=== PATIENT | male | born 1965 | race Caucasian/White ===

== ENCOUNTER → 2016-08-06 | Outpatient (CLI) | payer BC ==
[~2016-08-06] MED LIST: LANS15CA15 PO; RIVA1TAB4 PO; ULT50X PO; XRL15 PO
[2016-08-06 13:44] LABS: ESTIMATED AVERAGE GLUCOSE 128 mg/dl; HA1C FLAG Normal (Normal)
[2016-08-06 13:51] LABS: CHOLESTEROL/HDL RATIO 3.7; PROSTATE SPECIFIC ANTIGEN 3.55 ng/ml (0.000-4.000); THYROID STIMULATING HORMONE 5.96 uIu/ml (0.300-4.500)
--- NOTE | 2016-09-24 13:43 | CODING QUERY MEDICAL NECESSITY ---
CQSUPPORTING DIAGNOSIS NEEDED A supporting diagnosis is required for the test/procedure performed on this patient in order for us to be reimbursed by the patient's insurance. Please provide a supporting diagnosis for the following test/procedure listed below next to the test name along with your signature. *If there is no additional diagnosis for this patient that would support the following test/procedure please document that below next to the test/procedure. Test(s)/Procedure(s) that require a supporting diagnosis: DOS 09/20/16 GLYCATED HEMOGLOBIN TEST PROSTTE SPECIFIC TEST Provider Signature: Date: Thank you Gina Solomon [facility] Information Management Once completed, please kindly fax back to [phone] For questions please call [phone]
== END | disposition home or self-care (01) ==
LOC: C.LAB 12:48
PROVIDERS: ATTEND Internal Medicine Pulmonary Disease
DX: Z00.00 Encounter for general adult medical examination without abnormal findings (principal); D75.1 Secondary polycythemia; I26.99 Other pulmonary embolism without acute cor pulmonale

== ENCOUNTER 2021-03-16 10:11 | Inpatient (IN) ==
[2021-03-16 11:22] LABS: Basophils # (auto) 0.11 K/uL (0-0.2); Basophils % (auto) 0.9 %; Eosinophils # (auto) 0.12 K/uL (0-0.5); Hematocrit (blood only) 36.3 % (42-52); Hemoglobin 12.3 g/dL (14.0-18.0); Howell-Jolly Bodies 1+; Immature Granulocytes # (auto) 0.04 K/uL (0.00-0.02); Immature Granulocytes % (auto) 0.3 %; Lymphocytes # (auto) 2.24 K/uL (1.2-3.4); Lymphocytes % (auto) 18.5 %; Macrocytosis Present; Mean Corpuscular Hemoglobin 36.2 pg (25-34); Mean Corpuscular Hgb Conc 33.9 g/dL (32-36); Mean Corpuscular Volume 106.8 fL (80-100); Mean Platelet Volume 13.6 fL (7.4-10.4); Monocytes # (auto) 1.04 K/uL (0.11-0.59); Monocytes % (auto) 8.6 %; Neutrophils # (auto) 8.57 K/uL (1.4-6.5); Neutrophils % (auto) 70.7 %; Platelet Count 83 K/uL (130-400); Platelet Estimate Decreased (Normal); RDW Coefficient of Variation 13.5 % (11.5-14.5); RDW Standard Deviation 52.7 fL (36.4-46.3); Target Cells 1+; White Blood Count 12.12 K/uL (4.8-10.8)
[2021-03-16 11:25] LABS: Albumin Globulin Ratio 0.5 (0.9-2); Albumin Level 2.2 gm/dl (3.4-5.0); Bilirubin,Total 7.2 mg/dl (0.2-1); Calcium 8.7 mg/dl (8.5-10.1); Creatinine Clr Calc Pharmacy 124.4 ml/min; Est GFR (African American) 124.2 ml/min; Est GFR (Non-African American) 107.1 ml/min; Globulin 4.2 gm/dl (2.5-4.0); Potassium 3.7 mmol/L (3.5-5.1); Total Protein 6.4 gm/dl (6.4-8.2)
[2021-03-16] MEDS ORDERED: SODIUM CHLORIDE 0.9% 1000ML 1,000 ML IV SCH ×2 (11:30→12:30)
--- NOTE | 2021-03-16 11:33 | Emergency Department Note ---
History of Present Illness General Chief complaint: Abdominal Pain Stated complaint: PAIN RT ABD,DIARRHEA,VOMITING Time Seen by Provider: 03/16/21 10:57 History of Present Illness Maximum Pain Intensity: 6 55-year-old male, history of creatinine mass, status post partial pancreatectomy and splenectomy, who presents to the emergency department with complaint of abdominal pain, diarrhea, nausea and vomiting for the past 2 weeks. The patient reports that the pain in the abdomen has become more widespread. He denies any pain radiating into the back. He also denies any urinary symptoms. The patient has not noticed any blood in his vomitus. He had some black stools a few days ago, but it is more brown in color. The patient has had a prior history of colonoscopy by Dr. Cedillo ([facility]), showing several colonic polyps. The patient also takes Prevacid for GERD. The patient has an appointment with Dr. Cedillo on 03/31/2021. The patient has felt chilled, but has not checked his temperature. He rates his overall discomfort a 6 out of 10. Home Medications Medication Instructions Recorded Confirmed Type lansoprazole 30 mg capsule,delayed 30 mg PO QAM 10/28/18 03/16/21 History release (Prevacid) venlafaxine 37.5 mg tablet 37.5 mg PO BID 10/28/18 03/16/21 History cholecalciferol (vitamin D3) 25 25 mcg PO DAILY 03/16/21 03/16/21 History mcg (1,000 unit) tablet (Vitamin D3) folic acid 400 mcg tablet 0.4 mg PO DAILY 03/16/21 03/16/21 History Allergies Allergy/AdvReac Type Severity Reaction Status Date / Time bee venom protein (honey bee) Allergy Severe Hives / Verified 10/28/18 10:30 Anaphylaxis adhesive Allergy Mild Verified 10/28/18 10:30 Past Med/Surg History Medical History GERD (gastroesophageal reflux disease) Pancreatic mass Polycythemia PTSD (post-traumatic stress disorder) Surgical History (Updated 03/16/21 @ 19:40 by Richard Barrera) History of bilateral inguinal herniorrhaphies History of partial pancreatectomy History of splenectomy Family History Mother Dementia Father Diabetes Heart disease Prostate cancer Sister Neurofibromatosis Social History (Updated 03/16/21 @ 19:51 by Sanjeev Corona DO) Smoking Status: Current every day smoker packs per day: 0.5; Years Smoked: 20; Hx Alcohol Use: Yes (4 drinks/day, daily) Hx Substance Use: No marital status: Current Living Situation: Spouse current occupational status: retired Feels Safe at Home: Yes Diet Comment: "not a very healthy diet" Review of Systems 10 system review was performed and was negative except for pertinent positives and negatives as indicated in history of present illness Physical Exam Vital Signs Vital Signs - 24 hr 03/16/21 10:20 03/16/21 11:15 03/16/21 11:22 Temperature 36.4 C L Temperature Source Temporal Artery Scan Pulse Rate 117 H Pulse Rate [Finger] Pulse Rate from SpO2 Sensor Respiratory Rate 16 Blood Pressure 120/63 Blood Pressure [Left Arm] Blood Pressure Mean 82 Blood Pressure Mean [Left Arm] Pulse Oximetry 95 99 97 Oxygen Delivery Method Room Air Room Air Sepsis Recent Fever Within 48 Hours No Sepsis New/Unexplained Change in Mental Status No Sepsis Action Taken by Nursing No Action Required 03/16/21 11:52 03/16/21 12:00 03/16/21 12:30 Temperature Temperature Source Pulse Rate 104 H 99 H 96 H Pulse Rate [Finger] Pulse Rate from SpO2 Sensor Respiratory Rate 16 16 20 Blood Pressure 120/62 128/64 Blood Pressure [Left Arm] Blood Pressure Mean 81 85 Blood Pressure Mean [Left Arm] Pulse Oximetry 99 97 Oxygen Delivery Method Sepsis Recent Fever Within 48 Hours Sepsis New/Unexplained Change in Mental Status Sepsis Action Taken by Nursing 03/16/21 13:00 03/16/21 13:30 03/16/21 14:00 Temperature Temperature Source Pulse Rate 98 H 97 H 95 H Pulse Rate [Finger] Pulse Rate from SpO2 Sensor Respiratory Rate 18 16 20 Blood Pressure 106/75 132/67 123/64 Blood Pressure [Left Arm] Blood Pressure Mean 85 88 83 Blood Pressure Mean [Left Arm] Pulse Oximetry 99 98 97 Oxygen Delivery Method Sepsis Recent Fever Within 48 Hours Sepsis New/Unexplained Change in Mental Status Sepsis Action Taken by Nursing 03/16/21 14:30 03/16/21 15:00 03/16/21 15:30 Temperature Temperature Source Pulse Rate 93 H 93 H 99 H Pulse Rate [Finger] Pulse Rate from SpO2 Sensor 95 H 93 H 100 H Respiratory Rate 21 17 Blood Pressure 122/70 117/62 111/70 Blood Pressure [Left Arm] Blood Pressure Mean 87 80 83 Blood Pressure Mean [Left Arm] Pulse Oximetry 98 97 96 Oxygen Delivery Method Sepsis Recent Fever Within 48 Hours Sepsis New/Unexplained Change in Mental Status Sepsis Action Taken by Nursing 03/16/21 16:00 03/16/21 16:30 03/16/21 17:00 Temperature Temperature Source Pulse Rate 94 H 93 H 90 Pulse Rate [Finger] 90 Pulse Rate from SpO2 Sensor 95 H 93 H 93 H Respiratory Rate 23 21 20 Blood Pressure 125/63 116/62 123/68 Blood Pressure [Left Arm] 125/63 Blood Pressure Mean 83 80 86 Blood Pressure Mean [Left Arm] 83 Pulse Oximetry 95 92 94 Oxygen Delivery Method Room Air Sepsis Recent Fever Within 48 Hours Sepsis New/Unexplained Change in Mental Status Sepsis Action Taken by Nursing CONSTITUTIONAL: Healthy and well nourished. Alert and oriented X 3. GCS 15. Patient appears pale. HEENT: Normocephalic, atraumatic. Pupils equal, round and reactive. No scleral icterus. There is mild conjunctival pallor. NECK: Full active range of motion without discomfort. No JVD or carotid bruits. LYMPHATICS: No cervical chain adenopathy. RESPIRATORY: Clear to auscultation bilaterally with no wheezing, crackles, rhonchi or stridor. CARDIOVASCULAR: Regular rate and rhythm with no murmurs, rubs or gallops. GASTROINTESTINAL: Bowel sounds present in all quadrants. Patient has generalized abdominal tenderness to palpation. Negative McBurney's and Rovsing sign. Negative CVA tenderness. No abdominal rigidity, guarding or rebound. MUSCULOSKELETAL: Full range of motion of all joints without discomfort. INTEGUMENTARY: No rash or other significant dermatologic conditions noted. HEMATOLOGIC: No ecchymosis or petechiae. PSYCHIATRIC: Positive affect. NEUROLOGIC: No focal neurologic deficits noted. Course Course Patient history and physical exam were performed. Nurses notes were reviewed. Vital signs were reviewed, showing a tachycardia of 117 bpm. The patient is otherwise afebrile and normotensive without hypoxia. Given the patient's current course of illness, and prior history of splenectomy, I did recommend a more aggressive work-up. IV access was established, and labs were drawn, including blood cultures x2 and lactate level. The patient was hydrated with 2 L of normal saline. An ECG was performed, showing a sinus tachycardia without any conduction abnormalities or ST elevation/ischemic changes. The patient was placed on lab technician while in the emergency department. A portable chest x-ray was performed and was normal. Review of labs showed a mild leukocytosis with left shift and bandemia with a thrombocytopenia with platelet count of 83,000. Coagulation studies also shows an elevated PT and INR. CMP shows a mild hyponatremia with elevated total bilirubin of 7.2, direct bilirubin 5.3, AST of 183 and alkaline phosphatase of 498. Urinalysis shows 1+ bilirubin and urobilinogen. No hematuria or signs of infection. Lactate level was normal. COVID-19 PCR testing was negative. Given the patient's elevated LFTs, bilirubin and alkaline phosphatase, an ultrasound was ordered and performed, showing a thickened gallbladder wall and gallbladder sludge without obvious pericholecystic fluid or common bile duct dilatation. Further CT with IV contrast of the abdomen and pelvis again demonstrates gallbladder sludge without obvious pericholecystic fluid, however a mild to moderate ascites is also noted. CT does not show evidence for d iverticulitis, appendicitis, bowel obstruction or abdominal free air. The patient was administered Zosyn 4.5 g IV infusion. Findings were discussed with the patient. The patient continued to refuse any analgesics or antiemetics. The case was then discussed with Tae Negron PA-C with Dr. Nair, general surgeon. At this point, they have recommended admission with GI consultation. [facility] who came to the emergency department for further reevaluation and management. Please see their dictation and GI service dictations for further treatment and final disposition. Administered Medications Discontinued Medications Sodium Chloride (Nss 1000ml) 1,000 mls @ 999 mls/hr IV .Q1H1M LUKASZ Stop: 03/16/21 12:23 Last Infusion: 03/16/21 13:31 Dose: 0 mls/hr Documented by: [id number] Admin: 03/16/21 12:29 Dose: 999 mls/hr Documented by: [id number] Sodium Chloride (Nss 1000ml) 1,000 mls @ 999 mls/hr IV .Q1H1M LUKASZ Stop: 03/16/21 13:30 Last Infusion: 03/16/21 13:32 Dose: 0 mls/hr Documented by: [id number] Admin: 03/16/21 12:30 Dose: 999 mls/hr Documented by: [id number] Piperacillin Sod/Tazobactam Sod (Zosyn) 4.5 gm in 120 mls @ 240 mls/hr IV NOW ONE Stop: 03/16/21 16:05 Last Infusion: 03/16/21 16:29 Dose: 0 mls/hr Documented by: [id number] Admin: 03/16/21 15:54 Dose: 240 mls/hr Documented by: [id number] Ioversol (Optiray 320 100ml) 95 ml IV ONCE ONE Stop: 03/16/21 13:41 Last Admin: 03/16/21 13:42 Dose: 95 ml Documented by: [id number] Medical Decision Making Medical Records Attestation: I reviewed the patient's medical records. Home Medications Current Medication List: was personally reviewed by me Laboratory Data Attestation: I reviewed the patient's lab results. Result diagrams: 03/16/21 10:43 03/16/21 10:43 Lab Results 03/16/21 03/16/21 03/16/21 Range/Units 10:43 10:43 10:43 WBC 12.12 H (4.8-10.8) K/uL RBC 3.40 L (4.7-6.1) M/uL Hgb 12.3 L (14.0-18.0) g/dL Hct 36.3 L (42-52) % MCV 106.8 H (80-100) fL MCH 36.2 H (25-34) pg MCHC 33.9 (32-36) g/dL RDW Std Deviation 52.7 H (36.4-46.3) fL RDW Coeff of Ramone 13.5 (11.5-14.5) % Plt Count 83 L (130-400) K/uL MPV 13.6 H (7.4-10.4) fL Immature Gran % (Auto) 0.3 % Neut % (Auto) 70.7 % Lymph % (Auto) 18.5 % Armstrong % (Auto) 8.6 % Eos % (Auto) 1.0 % Baso % (Auto) 0.9 % Neut # (Auto) 8.57 H (1.4-6.5) K/uL Lymph # (Auto) 2.24 (1.2-3.4) K/uL Armstrong # (Auto) 1.04 H (0.11-0.59) K/uL Eos # (Auto) 0.12 (0-0.5) K/uL Baso # (Auto) 0.11 (0-0.2) K/uL Immature Gran # (Auto) 0.04 H (0.00-0.02) K/uL Platelet Estimate Decreased L (Normal) Macrocytosis Present Target Cells 1+ Baker-Lyle Bodies 1+ PT 12.5 H (9.0-12.0) Seconds INR 1.3 H (0.9-1.1) APTT 27.9 (21.0-31.0) Seconds PTT Ratio 1.1 Sodium 135 L (136-145) mmol/L Potassium 3.7 (3.5-5.1) mmol/L Chloride 105 (98-107) mmol/L Carbon Dioxide 31 (21-32) mmol/L Anion Gap -1.0 L (3-11) BUN 4 L (7-18) mg/dl Creatinine 0.71 (0.6-1.4) mg/dl Est Cr Clr Drug Dosing 124.4 ml/min Est GFR ( Amer) 124.2 ml/min Est GFR (Non-Af Amer) 107.1 ml/min BUN/Creatinine Ratio 5.0 L (10-20) Glucose 123 H (70-99) mg/dl Lactate (0.4-2.0) mmol/L Calcium 8.7 (8.5-10.1) mg/dl Magnesium (1.8-2.4) mg/dl Total Bilirubin 7.2 H (0.2-1) mg/dl Direct Bilirubin (0-0.2) mg/dl AST 183 H (15-37) U/L ALT 62 (12-78) U/L Alkaline Phosphatase 498 H (45-117) U/L Total Protein 6.4 (6.4-8.2) gm/dl Albumin 2.2 L (3.4-5.0) gm/dl Globulin 4.2 H (2.5-4.0) gm/dl Albumin/Globulin Ratio 0.5 L (0.9-2) Lipase 175 (73-393) U/L Urine Color Urine Appearance (Clear) Urine pH (4.5-7.5) Ur Specific [place] (1.000-1.030) Urine Protein (Negative) Urine Glucose (UA) (Negative) Urine Ketones (Negative) Urine Blood (Negative) Urine Nitrite (Negative) Urine Bilirubin (Negative) Urine Urobilinogen (Negative) Ur Leukocyte Esterase (Negative) COVID-19 Eval Order SARS-CoV-2 (PCR) (Negative) 03/16/21 03/16/21 03/16/21 Range/Units 10:43 10:43 11:58 WBC (4.8-10.8) K/uL RBC (4.7-6.1) M/uL Hgb (14.0-18.0) g/dL Hct (42-52) % MCV (80-100) fL MCH (25-34) pg MCHC (32-36) g/dL RDW Std Deviation (36.4-46.3) fL RDW Coeff of Ramone (11.5-14.5) % Plt Count (130-400) K/uL MPV (7.4-10.4) fL Immature Gran % (Auto) % Neut % (Auto) % Lymph % (Auto) % Armstrong % (Auto) % Eos % (Auto) % Baso % (Auto) % Neut # (Auto) (1.4-6.5) K/uL Lymph # (Auto) (1.2-3.4) K/uL Armstrong # (Auto) (0.11-0.59) K/uL Eos # (Auto) (0-0.5) K/uL Baso # (Auto) (0-0.2) K/uL Immature Gran # (Auto) (0.00-0.02) K/uL Platelet Estimate (Normal) Macrocytosis Target Cells Baker-Lyle Bodies PT (9.0-12.0) Seconds INR (0.9-1.1) APTT (21.0-31.0) Seconds PTT Ratio Sodium (136-145) mmol/L Potassium (3.5-5.1) mmol/L Chloride (98-107) mmol/L Carbon Dioxide (21-32) mmol/L Anion Gap (3-11) BUN (7-18) mg/dl Creatinine (0.6-1.4) mg/dl Est Cr Clr Drug Dosing ml/min Est GFR ( Amer) ml/min Est GFR (Non-Af Amer) ml/min BUN/Creatinine Ratio (10-20) Glucose (70-99) mg/dl Lactate 1.2 (0.4-2.0) mmol/L Calcium (8.5-10.1) mg/dl Magnesium 1.9 (1.8-2.4) mg/dl Total Bilirubin (0.2-1) mg/dl Direct Bilirubin 5.3 H (0-0.2) mg/dl AST (15-37) U/L ALT (12-78) U/L Alkaline Phosphatase (45-117) U/L Total Protein (6.4-8.2) gm/dl Albumin (3.4-5.0) gm/dl Globulin (2.5-4.0) gm/dl Albumin/Globulin Ratio (0.9-2) Lipase (73-393) U/L Urine Color Urine Appearance (Clear) Urine pH (4.5-7.5) Ur Specific [place] (1.000-1.030) Urine Protein (Negative) Urine Glucose (UA) (Negative) Urine Ketones (Negative) Urine Blood (Negative) Urine Nitrite (Negative) Urine Bilirubin (Negative) Urine Urobilinogen (Negative) Ur Leukocyte Esterase (Negative) COVID-19 Eval Order SARS-CoV-2 (PCR) (Negative) 03/16/21 03/16/21 03/16/21 Range/Units 12:58 12:58 14:15 WBC (4.8-10.8) K/uL RBC (4.7-6.1) M/uL Hgb (14.0-18.0) g/dL Hct (42-52) % MCV (80-100) fL MCH (25-34) pg MCHC (32-36) g/dL RDW Std Deviation (36.4-46.3) fL RDW Coeff of Ramone (11.5-14.5) % Plt Count (130-400) K/uL MPV (7.4-10.4) fL Immature Gran % (Auto) % Neut % (Auto) % Lymph % (Auto) % Armstrong % (Auto) % Eos % (Auto) % Baso % (Auto) % Neut # (Auto) (1.4-6.5) K/uL Lymph # (Auto) (1.2-3.4) K/uL Armstrong # (Auto) (0.11-0.59) K/uL Eos # (Auto) (0-0.5) K/uL Baso # (Auto) (0-0.2) K/uL Immature Gran # (Auto) (0.00-0.02) K/uL Platelet Estimate (Normal) Macrocytosis Target Cells Baker-Lyle Bodies PT (9.0-12.0) Seconds INR (0.9-1.1) APTT (21.0-31.0) Seconds PTT Ratio Sodium (136-145) mmol/L Potassium (3.5-5.1) mmol/L Chloride (98-107) mmol/L Carbon Dioxide (21-32) mmol/L Anion Gap (3-11) BUN (7-18) mg/dl Creatinine (0.6-1.4) mg/dl Est Cr Clr Drug Dosing ml/min Est GFR ( Amer) ml/min Est GFR (Non-Af Amer) ml/min BUN/Creatinine Ratio (10-20) Glucose (70-99) mg/dl Lactate (0.4-2.0) mmol/L Calcium (8.5-10.1) mg/dl Magnesium (1.8-2.4) mg/dl Total Bilirubin (0.2-1) mg/dl Direct Bilirubin (0-0.2) mg/dl AST (15-37) U/L ALT (12-78) U/L Alkaline Phosphatase (45-117) U/L Total Protein (6.4-8.2) gm/dl Albumin (3.4-5.0) gm/dl Globulin (2.5-4.0) gm/dl Albumin/Globulin Ratio (0.9-2) Lipase (73-393) U/L Urine Color Dark Yellow Urine Appearance Clear (Clear) Urine pH 7.5 (4.5-7.5) Ur Specific [place] 1.031 H (1.000-1.030) Urine Protein Negative (Negative) Urine Glucose (UA) Negative (Negative) Urine Ketones Negative (Negative) Urine Blood Negative (Negative) Urine Nitrite Negative (Negative) Urine Bilirubin 1+ H (Negative) Urine Urobilinogen Positive H (Negative) Ur Leukocyte Esterase Negative (Negative) COVID-19 Eval Order Covid19 at [facility] SARS-CoV-2 (PCR) NEGATIVE (Negative) Imaging Data Attestation: I personally reviewed and interpreted this imaging study as follows: My Impression: My interpretation of a portable chest x-ray does not show any consolidations, pneumothorax or cardiac prominence. CT with IV contrast of the abdomen and pelvis shows gallbladder wall thickening and gallbladder sludge without pericholecystic fluid, bowel obstruction, diverticulitis, appendicitis or abdominal free air. Mild to moderate ascites is also noted. Right upper quadrant ultrasound shows a thickened gallbladder wall with gallbladder sludge, and no obvious pericholecystic fluid or common bile duct dilatation. Radiologist reports were also reviewed. Radiologist's Impression: Abdomen Ultrasound 03/16/21 11:50 ABDOMINAL ULTRASOUND, RIGHT UPPER QUADRANT HISTORY: Generalized abdominal pain, elevated bili/LFTs - possible cholecystitis.. COMPARISON: Abdomen and pelvis CT 10/28/2018. Abdominal ultrasound 09/04/2014. FINDINGS: Pancreas: The pancreatic head and tail are obscured by overlying bowel gas. The remaining portions of the pancreas are within normal limits. Liver: Slightly heterogeneous. No hepatic masses identified. Trace perihepatic ascites. Gallbladder: Diffusely thickened gallbladder containing sludge. The gallbladder wall measures between 3 and 4 mm. No pericholecystic fluid. CBD: 4 mm. Right kidney: No hydronephrosis. IMPRESSION: 1. Diffusely thickened gallbladder wall with associated gallbladder sludge. Findings are nonspecific but likely represents the patient's diffuse edematous state. An acute cholecystitis is considered less likely but not entirely excluded. Clinical correlation recommended. 2. Heterogeneous liver. No hepatic masses. 3. Trace perihepatic ascites. 4. Normal caliber common bile duct. ACT 112: Negative or not required by law. Electronically signed by: Cristhian Dubose M.D. 03/16/2021 1:21 PM Chest X-Ray 03/16/21 11:52 XR chest 1V portable HISTORY: 55 years-old Male Abd pain, N/V acute chest and abdominal pain with nausea and vomiting COMPARISON: Chest and rib radiographs 10/29/2020 TECHNIQUE: AP view of the chest FINDINGS: Cardiomediastinal and hilar silhouettes are within normal limits. No pneumothorax, pleural effusion, airspace consolidation or overt pulmonary. No acute fracture. IMPRESSION: No acute process. ACT 112: Negative or not required by law. The above report was generated using voice recognition software. It may contain grammatical, syntax or spelling errors. Electronically signed by: Duane Rahman M.D. 03/16/2021 12:23 PM Abdomen/Pelvis CT 03/16/21 12:34 CT abd pelvis IV con only CLINICAL INDICATION: MN ^CTR RM C6 ^Abd pain, h/o pacreatic mass/splenectomy. TECHNIQUE: Helical axial images of the abdomen and pelvis were obtained and displayed. Automated dose lowering techniques and/or adjustment according to patient size were utilized for this exam. This exam was performed with intravenous contrast. COMPARISON: Comparison is made to CT abdomen and pelvis 10/18/2018 FINDINGS: Lower chest: Bibasilar atelectasis is seen. Liver: Unremarkable. No focal lesions are seen. Gallbladder and biliary tree: The gallbladder wall is mildly thickened to approximately 3 mm, and a small amount of pericholecystic fluid is seen. There is partially visualized hyperdense layering material which may represent gallbladder sludge. No radiodense gallstones are seen. No intra- or extrahepatic biliary ductal dilation. Pancreas: Patient is status post distal pancreatectomy. Spleen: Spleen is diminutive in size. Adrenals: Unremarkable. Kidneys and ureters: Unremarkable. Bladder: Unremarkable. Reproductive organs: Unremarkable. Bowel: Diverticulosis is seen without evidence of diverticulitis. The appendix is gas-filled and nondistended. Lymph nodes Retroperitoneal: Unremarkable. Mesenteric: Unremarkable. Pelvic: Unremarkable. Peritoneum: Small to moderate ascites is seen, new from prior exam. Vessels: Atherosclerotic calcifications are seen. Abdominal wall: Unremarkable. Bones: Degenerative changes in the visualized spine. IMPRESSION: 1. Minimal prominence of the gallbladder wall and pericholecystic edema with layering sludge within the gallbladder. If there is clinical concern for acute cholecystitis, right upper quadrant ultrasound can be performed. 2. Small to moderate ascites. 3. Diverticulosis without evidence of diverticulitis. 4. Additional findings as above. ACT 112: Negative or not required by law. Electronically signed by: William Kapoor M.D. 03/16/2021 2:01 PM ECG Data Attestation: I personally reviewed and interpreted this ECG as follows: Indication: + abdominal pain, + nausea, + vomiting and + weakness Rate (beats per minute): 102 Rhythm: + sinus tachycardia ECG Intervals/blocks: + Normal QRS, + Normal QT and + Normal IN ECG [place]: + Normal ECG ST segments: + Normal ST segments Comparison ECG Date: from (07/18/2015) Change: no significant change Blood Pressure Blood Pressure Findings: Normal blood pressure MDM Narrative Cardiac monitoring: An order was placed for continuous cardiac monitoring. The monitor shows a rate of 102 bpm with a sinus tachycardic rhythm. 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 Patient presents to the emergency department with primary complaint of generalized abdominal pain, worsening in the right upper quadrant. He has also had nausea, vomiting and diarrhea for the past few weeks. Work-up today is suggestive of gallbladder sludge and probable biliary etiology. He has a significantly elevated bilirubin, which could indicate the possibility of an obstructed, bile duct. CT and ultrasound of the abdomen and pelvis did not show any other concerning findings such as pancreatitis, diverticulitis, appendicitis, bowel obstruction or abdominal free air. The patient is afebrile, but does have an elevated white count. Urinalysis is not suggestive of infection. Impression & Plan Sludge in gallbladder, Thrombocytopenia, Diarrhea, Generalized abdominal pain Discharge Plan Visit Data Chief Complaint: Abdominal Pain Stated Complaint: PAIN RT ABD,DIARRHEA,VOMITING ED Provider: Peewee Quijano ED Midlevel Provider: Richard Barrera Discharge Problem: Sludge in gallbladder, Thrombocytopenia, Diarrhea, Generalized abdominal pain Patient Disposition: Admitted As Inpatient Discharge Instructions Interventions: ED Discharge Assessment Last Done: 03/16/21 19:14
[2021-03-16 11:51] LABS: INR 1.3 (0.9-1.1); Partial Thromboplastin Ratio 1.1; Partial Thromboplastin Time 27.9 Seconds (21.0-31.0); Prothrombin Time 12.5 Seconds (9.0-12.0)
--- NOTE | 2021-03-16 12:24 | XRay Report ---
XR chest 1V portable HISTORY: 55 years-old Male Abd pain, N/V acute chest and abdominal pain with nausea and vomiting COMPARISON: Chest and rib radiographs 10/29/2020 TECHNIQUE: AP view of the chest FINDINGS: Cardiomediastinal and hilar silhouettes are within normal limits. No pneumothorax, pleural effusion, airspace consolidation or overt pulmonary. No acute fracture. IMPRESSION: No acute process. ACT 112: Negative or not required by law. The above report was generated using voice recognition software. It may contain grammatical, syntax o r spelling errors. Electronically signed by: Duane Rahman M.D. 03/16/2021 12:23 PM
--- NOTE | 2021-03-16 13:22 | Ultrasound Report ---
ABDOMINAL ULTRASOUND, RIGHT UPPER QUADRANT HISTORY: Generalized abdominal pain, elevated bili/LFTs - possible cholecystitis.. COMPARISON: Abdomen and pelvis CT 10/28/2018. Abdominal ultrasound 09/04/2014. FINDINGS: Pancreas: The pancreatic head and tail are obscured by overlying bowel gas. The remaining portions of the pancreas are within normal limits. Liver: Slightly heterogeneous. No hepatic masses identified. Trace perihepatic ascites. Gallbladder: Diffusely thickened gallbladder containing sludge. The gallbladder wall measures between 3 and 4 mm. No pericholecystic fluid. CBD: 4 mm. Right kidney: No hydronephrosis. IMPRESSION: 1. Diffusely thickened gallbladder wall with associated gallbladder sludge. Findings are nonspecific but likely represents the patient's diffuse edematous state. An acute cholecystitis is considered les s likely but not entirely excluded. Clinical correlation recommended. 2. Heterogeneous liver. No hepatic masses. 3. Trace perihepatic ascites. 4. Normal caliber common bile duct. ACT 112: Negative or not required by law. Electronically signed by: Cristhian Dubose M.D. 03/16/2021 1:21 PM
[2021-03-16] MEDS ORDERED: OPTIRAY 320 100ml IV ONE (13:40)
--- NOTE | 2021-03-16 14:02 | CT Scan Report ---
CT abd pelvis IV con only CLINICAL INDICATION: MN ^CTR RM C6 ^Abd pain, h/o pacreatic mass/splenectomy. TECHNIQUE: Helical axial images of the abdomen and pelvis were obtained and displayed. Automated dose lowering techniques and/or adjustment according to patient size were utilized for this exam. This e xam was performed with intravenous contrast. COMPARISON: Comparison is made to CT abdomen and pelvis 10/18/2018 FINDINGS: Lower chest: Bibasilar atelectasis is seen. Liver: Unremarkable. No focal lesions are seen. Gallbladder and biliary tree: The gallbladder wall is mildly thickened to approximately 3 mm, and a s mall amount of pericholecystic fluid is seen. There is partially visualized hyperdense layering mater ial which may represent gallbladder sludge. No radiodense gallstones are seen. No intra- or extrahepa tic biliary ductal dilation. Pancreas: Patient is status post distal pancreatectomy. Spleen: Spleen is diminutive in size. Adrenals: Unremarkable. Kidneys and ureters: Unremarkable. Bladder: Unremarkable. Reproductive organs: Unremarkable. Bowel: Diverticulosis is seen without evidence of diverticulitis. The appendix is gas-filled and nond istended. Lymph nodes Retroperitoneal: Unremarkable. Mesenteric: Unremarkable. Pelvic: Unremarkable. Peritoneum: Small to moderate ascites is seen, new from prior exam. Vessels: Atherosclerotic calcifications are seen. Abdominal wall: Unremarkable. Bones: Degenerative changes in the visualized spine. IMPRESSION: 1. Minimal prominence of the gallbladder wall and pericholecystic edema with layering sludge within the gallbladder. If there is clinical concern for acute cholecystitis, right upper quadrant ultrasoun d can be performed. 2. Small to moderate ascites. 3. Diverticulosis without evidence of diverticulitis. 4. Additional findings as above. ACT 112: Negative or not required by law. Electronically signed by: William Kapoor M.D. 03/16/2021 2:01 PM
--- NOTE | 2021-03-16 14:36 | Electrocardiogram Report ---
Test Reason : Blood Pressure : / mmHG Vent. Rate : 102 BPM Atrial Rate : 102 BPM P-R Int : 138 ms QRS Dur : 072 ms QT Int : 354 ms P-R-T Axes : 060 024 048 degrees QTc Int : 461 ms Sinus tachycardia Otherwise normal ECG When compared with ECG of 16-SEP-2015 06:35, No significant change was found Confirmed by Ramon Alonso ([id number]) on 03/16/2021 2:36:00 PM Referred By: REFERRED SELF Confirmed By:Elpidio Alonso
[2021-03-16 14:41] LABS: Appearance Urine Clear (Clear); Blood Urine Negative (Negative); Color Urine Dark Yellow; Glucose Urine UA Negative (Negative); Ketones Urine Negative (Negative); Leukocyte Esterase Urine Negative (Negative); Nitrite Urine Negative (Negative); Protein Urine Negative (Negative); Specific Gravity Urine 1.031 (1.000-1.030); Urobilinogen Urine Positive (Negative); pH Urine 7.5 (4.5-7.5)
[2021-03-16 14:51] LABS: Bilirubin Urine 1+ (Negative)
--- NOTE | 2021-03-16 15:05 | Surgery Consultation ---
Date of Consultation March 16, 2021 Assessment & Plan (1) Elevated LFTs: Has sludge and some pericholecystic fluid with WBC 12, however bili is 7 and INR 1.3. Recommend eval by GI for rather significant liver function abnormalities before considering cholecystectomy. Dr. Nair-patient with what appears to be some generalized mid abdominal pain, his abdomen is soft He does have evidence of sludge in his gallbladder with some mild thickening and some ascites His bilirubin is 7, platelet count is 83. He has had a distal pancreatectomy splenectomy in 2004 via a midline incision Plan at some point would be laparoscopic cholecystectomy, it may not be straightforward with his previous abdominal surgery History of Present Illness History of Present Illness 55 y/o male with 2 weeks of increasing abdominal distention, pain, N/V and diarrhea. Has not eaten much in the past few days and has been having increasing difficulty keeping down liquids. Had distal pancreatectomy and splenectomy in 2004 at [facility] [place] for benign mass. Urine has been dark, hasn't noticed any jaundice. Allergies Allergy/AdvReac Type Severity Reaction Status Date / Time bee venom protein (honey bee) Allergy Severe Hives / Verified 10/28/18 10:30 Anaphylaxis adhesive Allergy Mild Verified 10/28/18 10:30 Home Medications Medication Instructions Recorded Confirmed Type lansoprazole 30 mg capsule,delayed 30 mg PO QAM 10/28/18 03/16/21 History release (Prevacid) venlafaxine 37.5 mg tablet 37.5 mg PO BID 10/28/18 03/16/21 History cholecalciferol (vitamin D3) 25 25 mcg PO DAILY 03/16/21 03/16/21 History mcg (1,000 unit) tablet (Vitamin D3) folic acid 400 mcg tablet 0.4 mg PO DAILY 03/16/21 03/16/21 History Patient History Medical History GERD (gastroesophageal reflux disease) Pancreatic mass Polycythemia Surgical History History of bilateral inguinal herniorrhaphies History of splenectomy Family History Other No significant family history Social History Smoking Status: Current every day smoker marital status: Current Living Situation: Spouse current occupational status: retired Feels Safe at Home: Yes Review of Systems Constitutional: + chills and + anorexia; no fever Gastrointestinal: + abdominal pain, + nausea, + vomiting, + diarrhea/loose stools and + problem reported (dark stool); no blood in stools and no melena Physical Exam Constitutional: WD/WN, vitals as above Respiratory: normal respiratory effort, lungs clear to auscultation Cardiovascular: RRR, no murmur, no edema Gastrointestinal (Abdomen): Inspection/Auscultation: + abdomen distended (mild) and + abdominal surgical incision (midline) Percussion/Palpation: + abdomen tender (mild generalized, not localized to RUQ) and abdomen soft; no guarding Results & Data ([facility]) Vital Signs (Past 12 Hours) Vital Signs Temp Pulse Resp BP Pulse Ox 03/16/21 14:00 95 H 20 123/64 97 03/16/21 13:30 97 H 16 132/67 98 03/16/21 13:00 98 H 18 106/75 99 03/16/21 12:30 96 H 20 128/64 97 03/16/21 12:00 99 H 16 120/62 99 03/16/21 11:52 104 H 16 03/16/21 11:22 97 03/16/21 11:15 99 03/16/21 10:20 36.4 C L 117 H 16 120/63 95 PG Care Time/CCT Total # of Minutes Spent Total Time Spent with Patient: Total time spent is greater than 50% in coordination of care (as documented) at patient's floor/unit and/or counseling patient: Coding Level of Care Code 52039 Inpt Consult Level 3 Diagnoses Elevated LFTs R79.89
[2021-03-16] MEDS ORDERED: PIPERACILL/TAZOBAC CONSULT ACTIVE PRN ×2 (15:36→19:34)
[2021-03-16] MEDS ORDERED: PIPERACILLIN/TAZOBACTAM 4.5 GM/120 ML BAG IV ONE (15:36)
--- NOTE | 2021-03-16 18:46 | History & Physical Bridge Note ---
Date of Service March 16, 2021 History & Physical Bridge Note For full attending attestation, see H&P documentation. Pt seen with Dr. Corona and Brenda. Ongoing diffuse abdominal pain which is similar to the last 2 weeks, worse in the b/l LQ right now but previously RUQ focused. Improved nausea. Ongoing diarrh ea with minimal change on pain. Deferring opioid pain medication at this time "i'm not a narcotics rose, but use it if we have to". Reinforces that he drinks a handle (39 shots) in 10 days, has quit for as long as 10 months and has tapered himself over the last 2 weeks with this illness. On examination, S1/S2 nl RRR no MCG. CTAB. Abd nondistended, diffusely TTP even lightly, BS +ve RUQ abdominal pain concerning for cholecystitis - GI and gen surg consult - trend CMP, CBC. f/u BCx. Continue Zosyn. NPO with IVF for now, to advance per GI/surg recommendations. Stool studies and hepatitis testing. Guiac Macrocytic anemia in the setting of etOH use disorder - previously diagnosed with [facility]. Check B12, folate. Supplement. AWSS protocol. Counseled on chronic and acute pathology, encourage cessation throughout admission. GERD - change PPI to IV PTSD - continue venlafaxine at current dose
[2021-03-16] MEDS ORDERED: LORazepam 1 MG/2 ML VIAL IV PRN (19:34)
[2021-03-16] MEDS ORDERED: MULTI-VITAMIN INFUSION 10 ML, THIAMINE HCL 100 MG, FOLIC ACID 1 MG in SODIUM CHLORIDE 0... IV ONE (19:34)
[2021-03-16] MEDS ORDERED: ONDANSETRON INJ 2 MG/ML 2 ML VIAL IV PRN (19:34)
--- NOTE | 2021-03-16 19:42 | History & Physical Report ---
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 (1) Abdominal pain with transaminitis and hyperbilirubinemia -elevated AST, ALP, WBC; normal ALT -RUQ US showed thickened gallbladder wall w/ sludge, suspected cholecystitis -Chest XR normal -Abdominal CT showed small/moderate ascites, pericholecystic edema, diverticulitis -Surgery consulted, NPO in case of surgery, NSS 1000mL @ 125mL/hr -hepatitis panel ordered -stool culture pending -CMP pending (2) Macrocytic anemia -Hbg low, elevated MCV -folate, B12, CBC pending -banana bag given (3) Alcoholism -JESUS protocol (4) Thrombocytopenia -likely due to current illness, cont. to monitor (5) GERD -hold lansoprazole -start IV pantoprazole (6) PTSD -cont. venlafaxine DVT ppx: SCDs, possible cholecystectomy Dispo: med/surg Admission and Anticipated Discharge Date Admission Date: March 16, 2021 History of Present Illness Chief Complaint: Abdominal Pain Primary Care Provider: Masood Colbert Patricio Munoz is a 55 yo male with a PMHx of benign pancreatic mass w/ partial pa ncreatectomy + splenectomy, GERD, colonic polyps + resection, polycythemia (resolved), and PTSD presents with abdominal pain for the past 2 weeks. Diffuse abdominal pain. Constant achy pain that has progressively been getting worse. Associated nausea, vomiting, and rigidity. He also complains of diarrhea ~15x/day. Brown and sometimes black stools. No bright red blood seen in stool or vomit. Symptoms are worse after meals, cannot pinpoint to a certain type of food. Has tried peptol bismol for pain relief which did not help. Unsure whether black stools were after using peptol bismol. Denies other supplement usage. Allergies Allergy/AdvReac Type Severity Reaction Status Date / Time bee venom protein (honey bee) Allergy Severe Hives / Verified 10/28/18 10:30 Anaphylaxis adhesive Allergy Mild Verified 10/28/18 10:30 Home Medications Medication Instructions Recorded Confirmed Type lansoprazole 30 mg capsule,delayed 30 mg PO QAM 10/28/18 03/16/21 History release (Prevacid) venlafaxine 37.5 mg tablet 37.5 mg PO BID 10/28/18 03/16/21 History cholecalciferol (vitamin D3) 25 25 mcg PO DAILY 03/16/21 03/16/21 History mcg (1,000 unit) tablet (Vitamin D3) folic acid 400 mcg tablet 0.4 mg PO DAILY 03/16/21 03/16/21 History Past Med/Surg History Medical History GERD (gastroesophageal reflux disease) Pancreatic mass Polycythemia PTSD (post-traumatic stress disorder) Surgical History (Updated 03/16/21 @ 19:40 by Richard Barrera) History of bilateral inguinal herniorrhaphies History of partial pancreatectomy History of splenectomy Family History Mother Dementia Father Diabetes Heart disease Prostate cancer Sister Neurofibromatosis Social History (Updated 03/16/21 @ 19:51 by Sanjeev Corona DO) Smoking Status: Current every day smoker packs per day: 0.5; Years Smoked: 20; Hx Alcohol Use: Yes (4 drinks/day, daily) Hx Substance Use: No marital status: Current Living Situation: Spouse current occupational status: retired Feels Safe at Home: Yes Diet Comment: "not a very healthy diet" Immunizations: UTD except this season's flu shot Review of Systems Review of Systems: All systems reviewed & are unremarkable except as noted in HPI & below Constitutional: + fatigue; no fever and no chills Eyes: no blind spots and no eye pain Ear, Nose, Mouth, Throat: no ear pain, no tinnitus, no hearing loss and no dizziness Respiratory: no cough, no dyspnea and no hemoptysis Cardiovascular: no chest pain and no palpitations Gastrointestinal: + abdominal pain, + heartburn, + nausea and + vomiting; no blood in stools Musculoskeletal: + back pain (mild, thoracic region bilaterally) Integumentary: no rash Neurologic: no gait abnormality, no unsteadiness and no numbness Psychiatric: no depression and no anxiety Physical Exam Constitutional: WD/WN, vitals as above + acute distress and cooperative Eyes: PERRL and EOM intact bilaterally +scleral icterus ENMT: external ear and nose normal, oropharynx normal Neck: trachea midline, no thyromegaly Respiratory: normal respiratory effort, lungs clear to auscultation Cardiovascular: RRR, no murmur, no edema Gastrointestinal (Abdomen): Inspection/Auscultation: abdomen normal to inspection; abdomen not distended Percussion/Palpation: + abdomen tender and abdomen soft; no guarding and abdomen not rigid negative apple's sign, rebound tenderness in LLQ and RLQ Musculoskeletal: no cyanosis or clubbing, extremities motor strength 5/5 Skin: no rashes, warm and dry Neurologic: patellar DTR's 2+ bilat, sensation intact Psychiatric: A+Ox3, euthymic affect Lymphatic: no cervical or axillary lymphadenopathy Results & Data Results & Data ([facility]) Vital Signs (Past 12 Hours) Vital Signs Temp Pulse Pulse Resp BP BP Pulse Ox 03/16/21 19:14 92 H 16 113/59 L 96 03/16/21 17:30 96 H 16 121/60 96 03/16/21 17:00 90 20 123/68 94 03/16/21 16:30 93 H 90 21 116/62 125/63 92 03/16/21 16:00 94 H 23 125/63 95 03/16/21 15:30 99 H 111/70 96 03/16/21 15:00 93 H 17 117/62 97 03/16/21 14:30 93 H 21 122/70 98 03/16/21 14:00 95 H 20 123/64 97 03/16/21 13:30 97 H 16 132/67 98 03/16/21 13:00 98 H 18 106/75 99 03/16/21 12:30 96 H 20 128/64 97 03/16/21 12:00 99 H 16 120/62 99 03/16/21 11:52 104 H 16 03/16/21 11:22 97 03/16/21 11:15 99 03/16/21 10:20 36.4 C L 117 H 16 120/63 95 Supervising Physician Co-Signing Physician Notes Attending attestation Pt seen and examined in concert with Dr. Corona. In agreement with the documented findings as noted in the resident documentation with any exceptions or additions as noted here. Ongoing diffuse abdominal pain which is similar to the last 2 weeks, worse in the b/l LQ right now but previously RUQ focused. Improved nausea. Ongoing d iarrhea with minimal change on pain. Deferring opioid pain medication at this time "i'm not a narcotics rose, but use it if we have to". Reinforces that he drinks a handle (39 shots) in 10 days, has quit for as long as 10 months and has tapered himself over the last 2 weeks with this illness. On examination, S1/S2 nl RRR no MCG. CTAB. Abd nondistended, diffusely TTP even lightly, BS +ve RUQ abdominal pain concerning for cholecystitis - GI and gen surg consult - trend CMP, CBC. f/u BCx. Continue Zosyn. NPO with IVF for now, to advance per GI/surg recommendations. Stool studies and hepatitis testing. Guiac Macrocytic anemia in the setting of etOH use disorder - previously diagnosed with low folate [facility]. Check B12, folate. Supplement. AWSS protocol. Counseled on chronic and acute pathology, encourage cessation throughout admission. GERD - change PPI to IV PTSD - continue venlafaxine at current dose Else see resident documentation as noted. Resident Activity Tracking Resident Involvement: Resident Care Provided Care Provided: Adult Hospital Medicine
[2021-03-16 20:35] LABS: INR 1.3 (0.9-1.1)
[2021-03-16] MEDS: FOLIC ACID 1 MG in SYRINGE 9.8 ML IV SCH (20:57)
[2021-03-16] MEDS: THIAMINE HCL 100 MG in SYRINGE 9 ML IV SCH (20:57)
[2021-03-16] MEDS: VENLAFAXINE HCL 37.5 MG TAB PO SCH (23:16)
[2021-03-16] MEDS: SODIUM CHLORIDE 0.9% 1000ML 1,000 ML IV SCH (23:17)
[2021-03-16] MEDS: PIPERACILLIN/TAZOBACTAM 3.375 GM in DEXTROSE 5% 100 ML IV SCH (23:36)
[2021-03-17] MEDS: PIPERACILLIN/TAZOBACTAM 3.375 GM in DEXTROSE 5% 100 ML IV SCH ×2 (05:56→13:24)
[2021-03-17] MEDS: SODIUM CHLORIDE 0.9% 1000ML 1,000 ML IV SCH (05:56)
[2021-03-17 06:57] LABS: Hematocrit (blood only) 34.4 % (42-52); Hemoglobin 11.3 g/dL (14.0-18.0); Mean Corpuscular Hemoglobin 35.6 pg (25-34); Mean Corpuscular Hgb Conc 32.8 g/dL (32-36); Mean Corpuscular Volume 108.5 fL (80-100); Mean Platelet Volume 13.7 fL (7.4-10.4); Platelet Count 85 K/uL (130-400); RDW Coefficient of Variation 13.6 % (11.5-14.5); RDW Standard Deviation 53.6 fL (36.4-46.3); Red Blood Count 3.17 M/uL (4.7-6.1); White Blood Count 10.34 K/uL (4.8-10.8)
[2021-03-17 06:59] LABS: Basophils # (auto) 0.06 K/uL (0-0.2); Basophils % (auto) 0.6 %; Eosinophils # (auto) 0.28 K/uL (0-0.5); Eosinophils % (auto) 2.7 %; Giant Platelets 1+; Immature Granulocytes # (auto) 0.04 K/uL (0.00-0.02); Immature Granulocytes % (auto) 0.4 %; Lymphocytes # (auto) 2.38 K/uL (1.2-3.4); Monocytes # (auto) 0.94 K/uL (0.11-0.59); Monocytes % (auto) 9.1 %; Neutrophils # (auto) 6.64 K/uL (1.4-6.5); Neutrophils % (auto) 64.2 %; Pappenheimer Bodies 2+; Platelet Estimate Decreased (Normal); Target Cells 1+
--- NOTE | 2021-03-17 07:11 | Surgery Progress Note ---
Date of Service March 17, 2021 Assessment & Plan (1) Sludge in gallbladder: Plan: Patient appears to be stable Have ordered an MRCP Asked GI to evaluate the patient Plan would be laparoscopic cholecystectomy in the next 24 to 48 hours Depending on progress and findings Admission and Anticipated Discharge Date Admission Date: March 16, 2021 Subjective Patient is awake and alert his vital signs are stable He appears to feel better He is going for an MRI shortly-MRCP Review of Systems Review of Systems: All systems reviewed & are unremarkable except as noted in HPI & below Physical Exam Constitutional: Awake and alert no distress Eyes: Relatively anicteric Respiratory: No respiratory distress Cardiovascular: Regular rhythm Gastrointestinal (Abdomen): Soft Musculoskeletal: Atraumatic Skin: Warm and dry Neurologic: Awake Psychiatric: Alert Results & Data ([facility]) Vital Signs (Past 12 Hours) Vital Signs Temp Pulse Pulse Resp BP BP Pulse Ox 03/17/21 02:46 36.6 C 79 16 117/63 96 03/16/21 22:25 36.7 C 85 16 119/67 97 03/16/21 19:30 36.8 C 79 16 121/68 96 03/16/21 19:14 92 H 16 113/59 L 96 PG Care Time/CCT Total # of Minutes Spent Total Time Spent with Patient: Total time spent is greater than 50% in coordination of care (as documented) at patient's floor/unit and/or counseling patient: Coding Level of Care Code 57781 Inpt Consult Level 3 Diagnoses Sludge in gallbladder K82.8
[2021-03-17 07:26] LABS: Albumin Globulin Ratio 0.5 (0.9-2); Albumin Level 1.7 gm/dl (3.4-5.0); BUN Creatinine Ratio 5.1 (10-20); Bilirubin,Total 7.7 mg/dl (0.2-1); Calcium 8.4 mg/dl (8.5-10.1); Creatinine Clr Calc Pharmacy 144.8 ml/min; Est GFR (African American) 132.1 ml/min; Globulin 3.7 gm/dl (2.5-4.0); Potassium 4.1 mmol/L (3.5-5.1); Total Protein 5.4 gm/dl (6.4-8.2)
[2021-03-17 07:30] LABS: Folate (Folic Acid) > 20.00 ng/ml (>5.38); Vitamin B12 741 pg/ml (193-986)
[2021-03-17] MEDS ORDERED: FLUARIX QUADRIVALENT 0.5 ML SYR IM ONE (08:00)
[2021-03-17] MEDS: FOLIC ACID 1 MG in SYRINGE 9.8 ML IV SCH (09:04)
[2021-03-17] MEDS: THIAMINE HCL 100 MG in SYRINGE 9 ML IV SCH (09:04)
[2021-03-17 09:38] LABS: Hepatitis B Surf Ag Rflx Conf Neg (Neg)
[2021-03-17 09:58] LABS: Hepatitis C IgG 13Yrs+Old_Rflx Neg (Neg)
--- NOTE | 2021-03-17 10:47 | Magnetic Resonance Report ---
MR MRCP HISTORY: 55 years-old Male Elevated bilirubin, liver disease chronic liver disease with elevated allison irubin. Prior distal pancreatectomy and splenectomy. COMPARISON: CT abdomen and pelvis 03/16/2021 and 10/28/2018 TECHNIQUE: MRCP without the use of IV contrast was obtained according to institutional protocol FINDINGS: Small left and trace right pleural effusions with bibasilar atelectasis. Small volume of abdominal pe lvic ascites. Prior resection of the distal pancreas with splenectomy. Splenic tissue is present with in the abdominal left upper quadrant measuring up to 4.9 cm. There is residual pancreas is unremarkab le. No pancreatic ductal dilation or pancreatic divisum identified. Study is motion degraded. The gal lbladder is distended measuring up to approximately 8.5 cm in length and demonstrates layering sludge . Mild gallbladder wall thickening. No intrahepatic or extrahepatic biliary ductal dilation. No bilia ry stricture or filling defects identified to suggest choledocholithiasis. IMPRESSION: 1. Motion degraded exam. 2. Layering gallbladder sludge with gallbladder distention and mild wall thickening redemonstrated. T hese findings should be correlated with the patient's clinical status to exclude acute cholecystitis. 3. No biliary ductal dilation or choledocholithiasis. 4. Fluid overload with small left and trace right pleural effusions with small volume of abdominal pe lvic ascites. 5. Prior distal pancreatectomy with splenectomy. ACT 112: Negative or not required by law. The above report was generated using voice recognition software. It may contain grammatical, syntax o r spelling errors. Electronically signed by: Duane Rahman M.D. 03/17/2021 10:46 AM
[2021-03-17] MEDS: VENLAFAXINE HCL 37.5 MG TAB PO SCH ×2 (11:05→20:09)
--- NOTE | 2021-03-17 11:28 | Hospitalist Progress Note ---
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 (1) Abdominal pain with transaminitis and hyperbilirubinemia -elevated AST, ALP, WBC --> downtrending -RUQ US showed thickened gallbladder wall w/ sludge -Chest XR normal -Abdominal CT showed small/moderate ascites, pericholecystic edema, diverticulitis -Surgery consulted --> wanted to get an MRCP and consider possible cholecystectomy for suspected cholecystics depending on results; also consulted GI --> MRCP showed no biliary duct dilation or choledocholithiasis, GI advised against cholecystectomy saying it would not help patient, rather thinks there is more evidence of cirrhosis with portal hypertension, alcoholic hepatitis, fatty infiltration related to alcohol, and gallbladder wall edema secondary to hypoalbuminemia --> will hold off on cholecystectomy at this time. -Hepatitis panel pending -Stool and blood culture pending -Will order AFP and diagnostic paracentesis. -low discriminant function score, no steroids at this time (2) Macrocytic anemia -Hbg low, elevated MCV -Folate and B12 levels normal -cont. to monitor (3) Alcoholism -JESUS protocol (4) Thrombocytopenia -likely due to current illness, cont. to monitor (5) GERD -hold lansoprazole -cont. IV pantoprazole (6) PTSD -cont. venlafaxine DVT ppx: SCDs Dispo: med/surg Admission and Anticipated Discharge Date Admission Date: March 16, 2021 Supervising Physician Co-Signing Physician Notes Attending attestation Pt seen and examined in concert with Dr. Corona. In agreement with the documented findings as noted in the resident documentation with any exceptions or additions as noted here. Improved diffuse abdominal pain with persistence of appetite, passing flatus and without significant n/v or change in skin. On examination, S1/S2 nl RRR no MCG. CTAB. Abd minimally distended, diffusely TTP, BS +ve RUQ abdominal pain w/ hyperbilirubinemia, transaminitis - GI and surgical consult - per GI, likely more etOH with discriminate score not warranting steroid therapy. Will d/w surgery re: OR recs for AM. Continue hydration, symptomatic support and trend CMP Alcohol use disorder - counseled patient re: impact of this on his overall condition and will revisit more for disease specific in AM. Strongly encourage cessation. Else see resident documentation as noted. Subjective Awake and pleasant. No new acute complaints today. Wants to know when he can eat. Review of Systems Constitutional: + fatigue; no fever and no chills Eyes: no blind spots and no eye pain Ear, Nose, Mouth, Throat: no ear pain, no tinnitus, no hearing loss and no dizziness Respiratory: no cough, no dyspnea and no hemoptysis Cardiovascular: no chest pain and no palpitations Gastrointestinal: + abdominal pain; no heartburn, no nausea, no vomiting and no blood in stools Musculoskeletal: no back pain (mild, thoracic region bilaterally) Integumentary: no rash Neurologic: no gait abnormality, no unsteadiness and no numbness Psychiatric: no depression and no anxiety Physical Exam Constitutional: WD/WN, vitals as above + acute distress and cooperative Eyes: PERRL and EOM intact bilaterally ENMT: external ear and nose normal, oropharynx normal Neck: trachea midline, no thyromegaly Respiratory: normal respiratory effort, lungs clear to auscultation Cardiovascular: RRR, no murmur, no edema Gastrointestinal (Abdomen): Inspection/Auscultation: abdomen normal to inspection and + abdomen distended (mild) Percussion/Palpation: + abdomen tender and abdomen soft; no guarding and abdomen not rigid Musculoskeletal: no cyanosis or clubbing, extremities motor strength 5/5 Skin: no rashes, warm and dry Neurologic: patellar DTR's 2+ bilat, sensation intact Psychiatric: A+Ox3, euthymic affect Lymphatic: no cervical or axillary lymphadenopathy Results & Data Results & Data ([facility]) Vital Signs (Past 12 Hours) Vital Signs Temp Pulse Resp BP Pulse Ox 03/17/21 07:18 36.7 C 86 18 111/62 96 03/17/21 02:46 36.6 C 79 16 117/63 96 Resident Activity Tracking Resident Involvement: Resident Care Provided Care Provided: Adult [facility] Medicine
--- NOTE | 2021-03-17 12:20 | Anesthesiology Consultation ---
Date of Service March 17, 2021 Assessment & Plan (1) Encounter for pre-operative examination: Chart Review Chart Review: Acceptable Risk for Surgery and Patient NOT seen in Pre Admission Testing Covid neg 03/16/21 Consults Requested none History Surgery Operation Date: 03/18/21 10:40 Proposed Procedures p Laparoscopic Cholecystectomy - Brandyn Nair MD, FACS Height/Weight Height: 6 ft 2 in Weight: 73.1 kg Allergies Allergy/AdvReac Type Severity Reaction Status Date / Time bee venom protein (honey bee) Allergy Severe Hives / Verified 10/28/18 10:30 Anaphylaxis adhesive Allergy Mild Verified 10/28/18 10:30 Medications Home Medications Medication Instructions Recorded Confirmed Last Taken lansoprazole 30 mg capsule,delayed 30 mg PO QAM 10/28/18 03/16/21 03/15/21 release (Prevacid) venlafaxine 37.5 mg tablet 37.5 mg PO BID 10/28/18 03/16/21 03/15/21 cholecalciferol (vitamin D3) 25 25 mcg PO DAILY 03/16/21 03/16/21 03/15/21 mcg (1,000 unit) tablet (Vitamin D3) folic acid 400 mcg tablet 0.4 mg PO DAILY 03/16/21 03/16/21 03/16/21 Active Medications Generic Name Dose Route Start Last Admin Trade Name [place]q PRN Reason Stop Dose Admin Piperacillin Sod/Tazobactam 115 mls @ 28.75 mls/hr 03/16/21 22:00 03/17/21 11:06 Sod 3.375 gm/ Dextrose IV 03/26/21 21:59 Infused Q8H LUKASZ Infusion Protocol Thiamine HCl 100 mg/ Syringe 10 mls @ 2 mls/min 03/16/21 19:34 03/17/21 09:04 IV 04/15/21 19:33 2 mls/min QAM LUKASZ Administration Folic Acid 1 mg/ Syringe 10 mls @ 5 mls/min 03/16/21 19:34 03/17/21 09:04 IV 04/15/21 19:33 5 mls/min QAM LUKASZ Administration Venlafaxine HCl 37.5 mg 03/16/21 21:00 03/17/21 11:05 Venlafaxine Hcl 37.5 Mg Tab PO 04/15/21 20:59 37.5 mg BID LUKASZ Administration Past Medical History Medical History (Updated 03/17/21 @ 12:22 by Tej Gomez MD) Alcoholism On JESUS protocol this admission. Banana bag given. Encounter for pre-operative examination GERD (gastroesophageal reflux disease) Macrocytic anemia Pancreatic mass Polycythemia PTSD (post-traumatic stress disorder) 1) Abdominal pain with transaminitis and hyperbilirubinemia -elevated AST, ALP, WBC; normal ALT -RUQ US showed thickened gallbladder wall w/ sludge, suspected cholecystitis Past Family History Family History Mother Dementia Father Diabetes Heart disease Prostate cancer Sister Neurofibromatosis Past Surgical History Surgical History History of bilateral inguinal herniorrhaphies History of partial pancreatectomy History of splenectomy Social History Smoking Status: Current every day smoker tobacco type: cigarettes Smoking cigarettes per day: 1/2 pack a day or less Do You Dip or Chew Tobacco: No Hx Alcohol Use: Yes (4 drinks/day, daily) Alcohol type: hard liquor alcohol intake frequency: 3 or more drinks per day Hx Substance Use: No Physical Exam Vital Signs Last Vital Signs Temp 36.7 C 03/17/21 11:58 Pulse 72 03/17/21 11:58 Resp 16 03/17/21 11:58 BP 115/61 03/17/21 11:58 Pulse Ox 96 03/17/21 11:58 Testing Laboratory Results 03/17/21 05:51 03/17/21 05:51 PT 13.0 Seconds (9.0-12.0) H 03/16/21 19:49 INR 1.3 (0.9-1.1) H 03/16/21 19:49 APTT 27.9 Seconds (21.0-31.0) 03/16/21 10:43 Urine Color Dark Yellow 03/16/21 14:15 Urine Appearance Clear (Clear) 03/16/21 14:15 Urine pH 7.5 (4.5-7.5) 03/16/21 14:15 Ur Specific [place] 1.031 (1.000-1.030) H 03/16/21 14:15 Urine Protein Negative (Negative) 03/16/21 14:15 Urine Glucose (UA) Negative (Negative) 03/16/21 14:15 Urine Ketones Negative (Negative) 03/16/21 14:15 Urine Nitrite Negative (Negative) 03/16/21 14:15 Ur Leukocyte Esterase Negative (Negative) 03/16/21 14:15 03/16/21 11:40 Aerobic Blood Culture - Preliminary Blood No growth in Aerobic bottle after 24 hours. Anaerobic Blood Culture - Preliminary No growth in Anaerobic bottle after 24 hours. Calcium 8.4, Mag 1.9, Total bilirubin 7.7, AST 137, ALT 48, Alkaline phosphatase 409, Total protein 5.4, Albumin 1.7, Electrocardiogram Date: 03/16/21 DICTATED BY: Ramon Alonso MD Test Reason : Blood Pressure : / mmHG Vent. Rate : 102 BPM Atrial Rate : 102 BPM P-R Int : 138 ms QRS Dur : 072 ms QT Int : 354 ms P-R-T Axes : 060 024 048 degrees QTc Int : 461 ms Sinus tachycardia Otherwise normal ECG When compared with ECG of 16-SEP-2015 06:35, No significant change was found Confirmed by Ramon Alonso ([id number]) on 03/16/2021 2:36:00 PM
[2021-03-17] MEDS: PANTOprazole 40 MG in SYRINGE 0 ML IV SCH (13:24)
--- NOTE | 2021-03-17 16:24 | Gastrointestinal Consultation ---
Date of Consultation March 17, 2021 Assessment & Plan (1) Alcohol use disorder: (2) Cirrhosis of liver with ascites: (3) Portal hypertension: (4) Fatty infiltration of liver: (5) Alcoholic hepatitis with ascites: (6) Sludge in gallbladder: (7) Thrombocytopenia: (8) Diarrhea: (9) Generalized abdominal pain: (10) History of splenectomy: (11) History of partial pancreatectomy: (12) History of splenectomy: Impression is that Mr. Caal has chronic alcohol related liver disease wit h physical and diagnostic evidence of cirrhosis with portal hypertension, alcoholic hepatitis, fatty infiltration related to alcohol, macrocytic anemia, coagulopathy, and gallbladder wall edema secondary to hypoalbuminemia. He has new onset of diarrhea of uncertain etiology. This can be evaluated with stool exam for pathogens I do not think he has acute cholecystitis and I do not recommend cholecystectomy at this time. Recommend general support and treament with thiamine, folic acid, multivitamins, and recommend diagnostic paracentesis and check AFP. His discriminant function is just below critical level, and I do not recommend treatment with prednisone at this time. He probably does not need coverage with antibiotics. We will follow and assist in his care as needed History of Present Illness Reason for Consultation: Physical and diagnostic sign of chronic liver disease Attending Physician: Rafy Silver MD History of Present Illness 55 yo man admitted yesterday with several week history of progressive abdominal fullness and distension, generalized cramping abdominal pain, and change in bowel habit with frequent episodes of watery diarrhea. He did not note fever or chills, or localized epigastric or RUQ abdominal pain. On 03/16 he had an episode of nausea and vomiting and sought medical attention. There is past history of a pancreatic tail mass and thrombocytopenia, he was evaluated at around 2014 and was told that his spleen was"eating up" his platelets and that the pancreatic mass could be malignant. He had a resection of the distal pancreas and splenectomy at that time, the mass was benign He has a history of regular alcohol use with several years of daily drinking of 3-5 rum and cokes, and drinking several days per week recently. Allergies Allergy/AdvReac Type Severity Reaction Status Date / Time bee venom protein (honey bee) Allergy Severe Hives / Verified 10/28/18 10:30 Anaphylaxis adhesive Allergy Mild Verified 10/28/18 10:30 Home Medications Medication Instructions Recorded Confirmed Type lansoprazole 30 mg capsule,delayed 30 mg PO QAM 10/28/18 03/16/21 History release (Prevacid) venlafaxine 37.5 mg tablet 37.5 mg PO BID 10/28/18 03/16/21 History cholecalciferol (vitamin D3) 25 25 mcg PO DAILY 03/16/21 03/16/21 History mcg (1,000 unit) tablet (Vitamin D3) folic acid 400 mcg tablet 0.4 mg PO DAILY 03/16/21 03/16/21 History Patient History Medical History (Updated 03/17/21 @ 16:40 by Mark No MD) Alcoholism On JESUS protocol this admission. Banana bag given. Encounter for pre-operative examination GERD (gastroesophageal reflux disease) Macrocytic anemia Pancreatic mass Polycythemia PTSD (post-traumatic stress disorder) Surgical History History of bilateral inguinal herniorrhaphies History of partial pancreatectomy History of splenectomy Family History Mother Dementia Father Diabetes Heart disease Prostate cancer Sister Neurofibromatosis Social History (Updated 03/16/21 @ 19:51 by Sanjeev Corona DO) Smoking Status: Current every day smoker packs per day: 0.5; Years Smoked: 20; Cigarettes Per Day: 1/2 pack a day or less; Second Hand Exposure: No; Do You Dip or Chew Tobacco: No; Tobacco Cessation Education Requested by Patient: No Hx Alcohol Use: Yes (4 drinks/day, daily) Alcohol type: hard liquor Hx Substance Use: No Preferred Language: Serbian Beliefs That Will Affect Care: None marital status: Current Living Situation: Spouse current occupational status: retired Other Information That Helps Us Care for You: No Feels Safe at Home: Yes Safety Concerns: Feels Safe At This Time Diet Comment: "not a very healthy diet" Assistive Devices: None Review of Systems Review of Systems: All systems reviewed & are unremarkable except as noted in HPI & below Physical Exam Respiratory: normal respiratory effort, lungs clear to auscultation Cardiovascular: RRR, no murmur, no edema Gastrointestinal (Abdomen): There is obvious abdominal distension which is firm to palpation with diffuse mild tenderness, no guarding, no rebound, no obvious fluid wave, I do feel as thought there is hepatomegaly Skin: Jaundice Neurologic: Alert, oriented without focal neurologic signs Results & Data ([facility]) Vital Signs (Past 12 Hours) Vital Signs Temp Pulse Resp BP Pulse Ox 03/17/21 15:58 36.6 C 84 24 112/68 97 03/17/21 11:58 36.7 C 72 16 115/61 96 03/17/21 07:18 36.7 C 86 18 111/62 96 Diagnostic Findings Laboratory Results WBC 10.34 K/uL (4.8-10.8) 03/17/21 05:51 RBC 3.17 M/uL (4.7-6.1) L 03/17/21 05:51 Hgb 11.3 g/dL (14.0-18.0) L 03/17/21 05:51 Hct 34.4 % (42-52) L 03/17/21 05:51 MCV 108.5 fL (80-100) H 03/17/21 05:51 MCH 35.6 pg (25-34) H 03/17/21 05:51 MCHC 32.8 g/dL (32-36) 03/17/21 05:51 RDW Std Deviation 53.6 fL (36.4-46.3) H 03/17/21 05:51 RDW Coeff of Ramone 13.6 % (11.5-14.5) 03/17/21 05:51 Plt Count 85 K/uL (130-400) L 03/17/21 05:51 MPV 13.7 fL (7.4-10.4) H 03/17/21 05:51 Immature Gran % (Auto) 0.4 % 03/17/21 05:51 Neut % (Auto) 64.2 % 03/17/21 05:51 Lymph % (Auto) 23.0 % 03/17/21 05:51 [place] % (Auto) 9.1 % 03/17/21 05:51 Eos % (Auto) 2.7 % 03/17/21 05:51 Baso % (Auto) 0.6 % 03/17/21 05:51 Neut # (Auto) 6.64 K/uL (1.4-6.5) H 03/17/21 05:51 Lymph # (Auto) 2.38 K/uL (1.2-3.4) 03/17/21 05:51 [place] # (Auto) 0.94 K/uL (0.11-0.59) H 03/17/21 05:51 Eos # (Auto) 0.28 K/uL (0-0.5) 03/17/21 05:51 Baso # (Auto) 0.06 K/uL (0-0.2) 03/17/21 05:51 Immature Gran # (Auto) 0.04 K/uL (0.00-0.02) H 03/17/21 05:51 Platelet Estimate Decreased (Normal) L 03/17/21 05:51 Giant Platelets 1+ 03/17/21 05:51 Macrocytosis Present 03/16/21 10:43 Pappenheimer Bodies 2+ 03/17/21 05:51 Target Cells 1+ 03/17/21 05:51 [place] Bodies 1+ 03/16/21 10:43 PT 13.0 Seconds (9.0-12.0) H 03/16/21 19:49 INR 1.3 (0.9-1.1) H 03/16/21 19:49 APTT 27.9 Seconds (21.0-31.0) 03/16/21 10:43 PTT Ratio 1.1 03/16/21 10:43 Sodium 139 mmol/L (136-145) 03/17/21 05:51 Potassium 4.1 mmol/L (3.5-5.1) 03/17/21 05:51 Chloride 106 mmol/L (98-107) 03/17/21 05:51 Carbon Dioxide 26 mmol/L (21-32) 03/17/21 05:51 Anion Gap 7.0 (3-11) 03/17/21 05:51 BUN 3 mg/dl (7-18) L 03/17/21 05:51 Creatinine 0.61 mg/dl (0.6-1.4) 03/17/21 05:51 Est Cr Clr Drug Dosing 144.8 ml/min 03/17/21 05:51 Est GFR ( Amer) 132.1 ml/min 03/17/21 05:51 Est GFR (Non-Af Amer) 114.0 ml/min 03/17/21 05:51 BUN/Creatinine Ratio 5.1 (10-20) L 03/17/21 05:51 Glucose 96 mg/dl (70-99) 03/17/21 05:51 Lactate 1.2 mmol/L (0.4-2.0) 03/16/21 11:58 Calcium 8.4 mg/dl (8.5-10.1) L 03/17/21 05:51 Magnesium 1.9 mg/dl (1.8-2.4) 03/16/21 10:43 Total Bilirubin 7.7 mg/dl (0.2-1) H 03/17/21 05:51 Direct Bilirubin 5.3 mg/dl (0-0.2) H 03/16/21 10:43 AST 127 U/L (15-37) H 03/17/21 05:51 ALT 48 U/L (12-78) 03/17/21 05:51 Alkaline Phosphatase 409 U/L (45-117) H 03/17/21 05:51 Total Protein 5.4 gm/dl (6.4-8.2) L 03/17/21 05:51 Albumin 1.7 gm/dl (3.4-5.0) L 03/17/21 05:51 Globulin 3.7 gm/dl (2.5-4.0) 03/17/21 05:51 Albumin/Globulin Ratio 0.5 (0.9-2) L 03/17/21 05:51 Lipase 175 U/L (73-393) 03/16/21 10:43 Vitamin B12 741 pg/ml (193-986) 03/17/21 05:51 Folate > 20.00 ng/ml (>5.38) 03/17/21 05:51 Urine Color Dark Yellow 03/16/21 14:15 Urine Appearance Clear (Clear) 03/16/21 14:15 Urine pH 7.5 (4.5-7.5) 03/16/21 14:15 Ur Specific [place] 1.031 (1.000-1.030) H 03/16/21 14:15 Urine Protein Negative (Negative) 03/16/21 14:15 Urine Glucose (UA) Negative (Negative) 03/16/21 14:15 Urine Ketones Negative (Negative) 03/16/21 14:15 Urine Blood Negative (Negative) 03/16/21 14:15 Urine Nitrite Negative (Negative) 03/16/21 14:15 Urine Bilirubin 1+ (Negative) H 03/16/21 14:15 Urine Urobilinogen Positive (Negative) H 03/16/21 14:15 Ur Leukocyte Esterase Negative (Negative) 03/16/21 14:15 COVID-19 Eval Order Covid19 at [facility] 03/16/21 12:58 SARS-CoV-2 (PCR) NEGATIVE (Negative) 03/16/21 12:58 Hep Bs Antigen Neg (Neg) 03/17/21 05:51 Hepatitis C Antibody Neg (Neg) 03/17/21 05:51 Impressions Abdomen Ultrasound 03/16/21 11:50 ABDOMINAL ULTRASOUND, RIGHT UPPER QUADRANT HISTORY: Generalized abdominal pain, elevated bili/LFTs - possible cholecystitis.. COMPARISON: Abdomen and pelvis CT 10/28/2018. Abdominal ultrasound 09/04/2014. FINDINGS: Pancreas: The pancreatic head and tail are obscured by overlying bowel gas. The remaining portions of the pancreas are within normal limits. Liver: Slightly heterogeneous. No hepatic masses identified. Trace perihepatic ascites. Gallbladder: Diffusely thickened gallbladder containing sludge. The gallbladder wall measures between 3 and 4 mm. No pericholecystic fluid. CBD: 4 mm. Right kidney: No hydronephrosis. IMPRESSION: 1. Diffusely thickened gallbladder wall with associated gallbladder sludge. Findings are nonspecific but likely represents the patient's diffuse edematous state. An acute cholecystitis is considered less likely but not entirely excluded. Clinical correlation recommended. 2. Heterogeneous liver. No hepatic masses. 3. Trace perihepatic ascites. 4. Normal caliber common bile duct. ACT 112: Negative or not required by law. Electronically signed by: Cristhian Dubose M.D. 03/16/2021 1:21 PM Chest X-Ray 03/16/21 11:52 XR chest 1V portable HISTORY: 55 years-old Male Abd pain, N/V acute chest and abdominal pain with nausea and vomiting COMPARISON: Chest and rib radiographs 10/29/2020 TECHNIQUE: AP view of the chest FINDINGS: Cardiomediastinal and hilar silhouettes are within normal limits. No pneumothorax, pleural effusion, airspace consolidation or overt pulmonary. No acute fracture. IMPRESSION: No acute process. ACT 112: Negative or not required by law. The above report was generated using voice recognition software. It may contain grammatical, syntax or spelling errors. Electronically signed by: Duane Rahman M.D. 03/16/2021 12:23 PM Abdomen/Pelvis CT 03/16/21 12:34 CT abd pelvis IV con only CLINICAL INDICATION: MN ^CTR RM C6 ^Abd pain, h/o pacreatic mass/splenectomy. TECHNIQUE: Helical axial images of the abdomen and pelvis were obtained and displayed. Automated dose lowering techniques and/or adjustment according to patient size were utilized for this exam. This exam was performed with intravenous contrast. COMPARISON: Comparison is made to CT abdomen and pelvis 10/18/2018 FINDINGS: Lower chest: Bibasilar atelectasis is seen. Liver: Unremarkable. No focal lesions are seen. Gallbladder and biliary tree: The gallbladder wall is mildly thickened to approximately 3 mm, and a small amount of pericholecystic fluid is seen. There is partially visualized hyperdense layering material which may represent gallbladder sludge. No radiodense gallstones are seen. No intra- or extrahepatic biliary ductal dilation. Pancreas: Patient is status post distal pancreatectomy. Spleen: Spleen is diminutive in size. Adrenals: Unremarkable. Kidneys and ureters: Unremarkable. Bladder: Unremarkable. Reproductive organs: Unremarkable. Bowel: Diverticulosis is seen without evidence of diverticulitis. The appendix is gas-filled and nondistended. Lymph nodes Retroperitoneal: Unremarkable. Mesenteric: Unremarkable. Pelvic: Unremarkable. Peritoneum: Small to moderate ascites is seen, new from prior exam. Vessels: Atherosclerotic calcifications are seen. Abdominal wall: Unremarkable. Bones: Degenerative changes in the visualized spine. IMPRESSION: 1. Minimal prominence of the gallbladder wall and pericholecystic edema with layering sludge within the gallbladder. If there is clinical concern for acute cholecystitis, right upper quadrant ultrasound can be performed. 2. Small to moderate ascites. 3. Diverticulosis without evidence of diverticulitis. 4. Additional findings as above. ACT 112: Negative or not required by law. Electronically signed by: William Kapoor M.D. 03/16/2021 2:01 PM Cholangiopancreatography MRI 03/17/21 06:35 MR MRCP HISTORY: 55 years-old Male Elevated bilirubin, liver disease chronic liver disease with elevated bilirubin. Prior distal pancreatectomy and splenectomy. COMPARISON: CT abdomen and pelvis 03/16/2021 and 10/28/2018 TECHNIQUE: MRCP without the use of IV contrast was obtained according to institutional protocol FINDINGS: Small left and trace right pleural effusions with bibasilar atelectasis. Small volume of abdominal pelvic ascites. Prior resection of the distal pancreas with splenectomy. Splenic tissue is present within the abdominal left upper quadrant measuring up to 4.9 cm. There is residual pancreas is unremarkable. No pancreatic ductal dilation or pancreatic divisum identified. Study is motion degraded. The gallbladder is distended measuring up to approximately 8.5 cm in length and demonstrates layering sludge. Mild gallbladder wall thickening. No intrahepatic or extrahepatic biliary ductal dilation. No biliary stricture or filling defects identified to suggest choledocholithiasis. IMPRESSION: 1. Motion degraded exam. 2. Layering gallbladder sludge with gallbladder distention and mild wall thickening redemonstrated. These findings should be correlated with the patient's clinical status to exclude acute cholecystitis. 3. No biliary ductal dilation or choledocholithiasis. 4. Fluid overload with small left and trace right pleural effusions with small volume of abdominal pelvic ascites. 5. Prior distal pancreatectomy with splenectomy. ACT 112: Negative or not required by law. The above report was generated using voice recognition software. It may contain grammatical, syntax or spelling errors. Electronically signed by: Duane Rahman M.D. 03/17/2021 10:46 AM (1) Diarrhea Diarrhea type: unspecified type Qualified Code(s): R19.7 - Diarrhea, unspecified
[2021-03-18 06:32] LABS: Hepatitis A Antibody IgM NON-REACTIVE (NON-REACTIVE); Hepatitis B Core Antibody IgM NON-REACTIVE (NON-REACTIVE)
--- NOTE | 2021-03-18 06:45 | Surgery Progress Note ---
Date of Service March 18, 2021 Assessment & Plan (1) Cirrhosis of liver with ascites: Plan: Surgery was canceled-patient has extreme risk for abdominal surgical intervention Secondary to findings of cirrhosis, thrombocytopenia, hypoalbuminemia, ascites, abnormal liver function studies GI evaluation noted If patient did develop severe acute cholecystitis, may consider cholecystostomy tube but this would likely require Tertiary care center Continue to follow for now Admission and Anticipated Discharge Date Admission Date: March 16, 2021 Subjective Please see assessment and plan Results & Data ([facility]) Vital Signs (Past 12 Hours) Vital Signs Temp Pulse Resp BP Pulse Ox 03/17/21 23:27 36.7 C 84 16 111/67 95 PG Care Time/CCT Total # of Minutes Spent Total Time Spent with Patient: Total time spent is greater than 50% in coordination of care (as documented) at patient's floor/unit and/or counseling patient: Coding Level of Care Code None Diagnoses Cirrhosis of liver with ascites K74.60; R18.8
[2021-03-18 06:59] LABS: Hematocrit (blood only) 34.4 % (42-52); Hemoglobin 11.6 g/dL (14.0-18.0); Mean Corpuscular Hemoglobin 36.3 pg (25-34); Mean Corpuscular Hgb Conc 33.7 g/dL (32-36); Mean Corpuscular Volume 107.5 fL (80-100); Mean Platelet Volume 13.4 fL (7.4-10.4); Platelet Count 86 K/uL (130-400); RDW Coefficient of Variation 13.4 % (11.5-14.5); RDW Standard Deviation 53.1 fL (36.4-46.3)
[2021-03-18 07:01] LABS: Basophils # (auto) 0.04 K/uL (0-0.2); Basophils % (auto) 0.4 %; Eosinophils # (auto) 0.29 K/uL (0-0.5); Eosinophils % (auto) 2.7 %; Giant Platelets 2+; Howell-Jolly Bodies 1+; Immature Granulocytes # (auto) 0.02 K/uL (0.00-0.02); Immature Granulocytes % (auto) 0.2 %; Lymphocytes # (auto) 1.72 K/uL (1.2-3.4); Lymphocytes % (auto) 16.1 %; Monocytes # (auto) 1.21 K/uL (0.11-0.59); Monocytes % (auto) 11.3 %; Neutrophils # (auto) 7.42 K/uL (1.4-6.5); Neutrophils % (auto) 69.3 %; Pappenheimer Bodies 2+; Platelet Estimate Decreased (Normal); Polychromasia 1+; Target Cells 1+
[2021-03-18 07:05] LABS: Albumin Level 1.8 gm/dl (3.4-5.0); BUN Creatinine Ratio 7.9 (10-20); Calcium 8.6 mg/dl (8.5-10.1); Creatinine Clr Calc Pharmacy 117.8 ml/min; Est GFR (African American) 121.4 ml/min; Est GFR (Non-African American) 104.7 ml/min; Potassium 3.9 mmol/L (3.5-5.1)
[2021-03-18 07:20] LABS: Albumin Globulin Ratio 0.5 (0.9-2); Bilirubin,Total 4.7 mg/dl (0.2-1); Globulin 3.8 gm/dl (2.5-4.0); Total Protein 5.6 gm/dl (6.4-8.2)
[2021-03-18] MEDS: VENLAFAXINE HCL 37.5 MG TAB PO SCH ×2 (08:50→20:18)
--- NOTE | 2021-03-18 09:37 | Ultrasound Report ---
ULTRASOUND GUIDED DIAGNOSTIC PARACENTESIS CLINICAL HISTORY: diagnostic paracentesis, cirrhosis COMPARISON STUDY: CT of the abdomen and pelvis March 16, 2021. MRCP March 17, 2021. PROCEDURE: The risks, benefits, and alternatives to the procedure were discussed with the patient inc luding the risk of bleeding, infection and injury to adjacent structures. The patient agreed to the procedure and informed written consent was obtained. Following real-time ultrasound localization, the skin of the right lower quadrant was prepped and draped. A small amount of ascites was noted. Follow ing local anesthesia with Xylocaine, the sheath paracentesis needle was inserted and 45 cc straw-colo red fluid was removed by vacuum suction. The patient tolerated the procedure well and no immediate complications were evident. IMPRESSION: Ultrasound-guided diagnostic paracentesis with removal of 45 cc of ascites which was sen t to the laboratory for analysis as ordered. ACT 112: Negative or not required by law. Electronically signed by: Lalo Muro M.D. 03/18/2021 9:36 AM
--- NOTE | 2021-03-18 09:39 | Gastroenterology Progress Note ---
Date of Service March 18, 2021 Assessment & Plan (1) Cirrhosis of liver with ascites: Plan: The patient is a pleasant 55-year-old male who presents with chronic alcohol related liver disease cirrhosis with portal hypertension, alcoholic hepatitis, fatty infiltration related to alcohol, macrocytic anemia, coagulopathy, and gallbladder wall edema secondary to hypoalbuminemia. Overall he is doing well this morning. Diagnostic paracentesis has been completed with fluid analysis pending. Recommend continuing supportive care. General surgery has been consulted, appreciate input - no cholecystectomy at this time. Please refer to supervising physician addendum for further recommendations. Admission and Anticipated Discharge Date Admission Date: March 16, 2021 Supervising Physician Co-Signing Physician Notes Record reviewed, the patient was interviewed and examined, case and plan of care discussed with Lorenza Hernandez CRNA. I discussed my impressions and recommendations with the patient this afternoon He continues to have mild tenderness to palpation in the RUQ and right mid abdomen, I do not feel the liver edge in these areas, the abdomen is soft without guarding or rebound tenderness. He is afebrile without nausea, vomiting. I have emphasized with Mr. Caal that the foundation of treatment of his chronic liver disease is total abstinence from alcohol, and observation over the next 4- 6 months for improvement in complications of cirrhosis with portal hypertension. As noted by Dr. Nair, if cholecystitis is a problem, it could be managed with cholecystostomy. I recommended a very low sodium diet for control of ascites, and if this is not effective and fluid continues to accumulate, we can add d iuretics as needed. The diet should emphasize fresh vegetables and fruit and lean protein, avoidance of highly processed foods, avoidance of salt, sugar, fatty and processed meats. If he does not improve over time with alcohol abstinence, liver transplant could be considered. We will follow his progress as an outpatient, first follow up appointment is March 31. Subjective Patient awake alert and oriented this morning. Reports lower abdominal pain is improving. Continues to experience right upper quadrant and some left lower quadrant discomfort. Rates pain at a 1 out of 10 when just sitting. If area is palpated pain will increase to a 7 or 8 out of 10. Denies any nausea or vomiting. Last bowel movement was yesterday and was diarrhea. Denies any melena or hematochezia. Denies fever or chills. He did feel little cold last night he is n.p.o. this morning due to plan for diagnostic paracentesis. He is a current smoker. He smokes approximately 1/2 pack of cigarettes on some days of the week. Consumes 3-4 rum and Cokes nightly. Denies any use of recreational drugs including marijuana. He is retired from the [employer]. 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 He is currently [place] [employer] He is with a 9-year-old son. Review of Systems Review of Systems: All systems reviewed & are unremarkable except as noted in Subjective Physical Exam Respiratory: normal respiratory effort, lungs clear to auscultation Cardiovascular: RRR, no murmur, no edema Gastrointestinal (Abdomen): There is obvious abdominal distension which is firm to palpation with diffuse mild tenderness, no guarding, no rebound, no obvious fluid wave, difficult to palpate but probable hepatomegaly Skin: Jaundice Neurologic: Alert, oriented without focal neurologic signs Results & Data ([facility]) Vital Signs (Past 12 Hours) Vital Signs Temp Pulse Resp BP Pulse Ox 03/18/21 07:23 36.7 C 73 16 109/58 L 96 03/17/21 23:27 36.7 C 84 16 111/67 95 Laboratory Results Laboratory Results - last 24 hr 03/17/21 03/17/21 03/17/21 05:51 05:51 Unknown WBC RBC Hgb Hct MCV MCH MCHC RDW Std Deviation RDW Coeff of Ramone Plt Count MPV Immature Gran % (Auto) Neut % (Auto) Lymph % (Auto) [place] % (Auto) Eos % (Auto) Baso % (Auto) Neut # (Auto) Lymph # (Auto) [place] # (Auto) Eos # (Auto) Baso # (Auto) Immature Gran # (Auto) Platelet Estimate Giant Platelets Polychromasia Pappenheimer Bodies Target Cells Baker-Goehner Bodies Sodium Potassium Chloride Carbon Dioxide Anion Gap BUN Creatinine Est Cr Clr Drug Dosing Est GFR ( Amer) Est GFR (Non-Af Amer) BUN/Creatinine Ratio Glucose Calcium Total Bilirubin AST ALT Alkaline Phosphatase Total Protein Albumin Globulin Albumin/Globulin Ratio Tumor Marker AFP Fluid Neutrophils % Fluid Lymphocytes % Fluid Eosinophils % Fluid Meso/Macro/Parmer % Fluid Comment Peritoneal Color Peritoneal Appearance Peritoneal WBC Peritoneal RBC Peritoneal Tot Protein Peritoneal Albumin Peritoneal LDH Peritoneal Glucose Peritoneal Amylase Peritoneal Lipase Peritoneal Triglycerid Stool Occult Bld Scrn Negative Hepatitis A IgM Ab NON-REACTIVE Hep Bs Antigen Neg Hep B Core IgM Ab NON-REACTIVE Hepatitis C Antibody Neg 03/18/21 03/18/21 03/18/21 05:52 05:52 05:52 WBC 10.70 RBC 3.20 L Hgb 11.6 L Hct 34.4 L MCV 107.5 H MCH 36.3 H MCHC 33.7 RDW Std Deviation 53.1 H RDW Coeff of Ramone 13.4 Plt Count 86 L MPV 13.4 H Immature Gran % (Auto) 0.2 Neut % (Auto) 69.3 Lymph % (Auto) 16.1 [place] % (Auto) 11.3 Eos % (Auto) 2.7 Baso % (Auto) 0.4 Neut # (Auto) 7.42 H Lymph # (Auto) 1.72 [place] # (Auto) 1.21 H Eos # (Auto) 0.29 Baso # (Auto) 0.04 Immature Gran # (Auto) 0.02 Platelet Estimate Decreased L Giant Platelets 2+ Polychromasia 1+ Pappenheimer Bodies 2+ Target Cells 1+ Baker-Goehner Bodies 1+ Sodium 138 Potassium 3.9 Chloride 105 Carbon Dioxide 29 Anion Gap 4.0 BUN 6 L Creatinine 0.75 Est Cr Clr Drug Dosing 117.8 Est GFR ( Amer) 121.4 Est GFR (Non-Af Amer) 104.7 BUN/Creatinine Ratio 7.9 L Glucose 125 H Calcium 8.6 Total Bilirubin 4.7 H AST 115 H ALT 49 Alkaline Phosphatase 402 H Total Protein 5.6 L Albumin 1.8 L Globulin 3.8 Albumin/Globulin Ratio 0.5 L Tumor Marker AFP Pending Fluid Neutrophils % Fluid Lymphocytes % Fluid Eosinophils % Fluid Meso/Macro/Parmer % Fluid Comment Peritoneal Color Peritoneal Appearance Peritoneal WBC Peritoneal RBC Peritoneal Tot Protein Peritoneal Albumin Peritoneal LDH Peritoneal Glucose Peritoneal Amylase Peritoneal Lipase Peritoneal Triglycerid Stool Occult Bld Scrn Hepatitis A IgM Ab Hep Bs Antigen Hep B Core IgM Ab Hepatitis C Antibody 03/18/21 03/18/21 Unknown Unknown WBC RBC Hgb Hct MCV MCH MCHC RDW Std Deviation RDW Coeff of Ramone Plt Count MPV Immature Gran % (Auto) Neut % (Auto) Lymph % (Auto) [place] % (Auto) Eos % (Auto) Baso % (Auto) Neut # (Auto) Lymph # (Auto) [place] # (Auto) Eos # (Auto) Baso # (Auto) Immature Gran # (Auto) Platelet Estimate Giant Platelets Polychromasia Pappenheimer Bodies Target Cells Baker-Goehner Bodies Sodium Potassium Chloride Carbon Dioxide Anion Gap BUN Creatinine Est Cr Clr Drug Dosing Est GFR ( Amer) Est GFR (Non-Af Amer) BUN/Creatinine Ratio Glucose Calcium Total Bilirubin AST ALT Alkaline Phosphatase Total Protein Albumin Globulin Albumin/Globulin Ratio Tumor Marker AFP Fluid Neutrophils % Pending Fluid Lymphocytes % Pending Fluid Eosinophils % Pending Fluid Meso/Macro/Parmer % Pending Fluid Comment Peritoneal Color Pending Peritoneal Appearance Pending Peritoneal WBC Pending Peritoneal RBC Pending Peritoneal Tot Protein Pending Peritoneal Albumin Pending Peritoneal LDH Pending Peritoneal Glucose Pending Peritoneal Amylase Pending Peritoneal Lipase Pending Peritoneal Triglycerid Pending Stool Occult Bld Scrn Hepatitis A IgM Ab Hep Bs Antigen Hep B Core IgM Ab Hepatitis C Antibody Diagnostic Findings 03/18/2021 ULTRASOUND GUIDED DIAGNOSTIC PARACENTESIS IMPRESSION: Ultrasound-guided diagnostic paracentesis with removal of 45 cc of ascites which was sent to the laboratory for analysis as ordered.
[2021-03-18] MEDS: THIAMINE HCL 100 MG in SYRINGE 9 ML IV SCH (09:49)
[2021-03-18] MEDS: FOLIC ACID 1 MG in SYRINGE 9.8 ML IV SCH (09:49)
[2021-03-18 10:09] LABS: Albumin Peritoneal Fluid < 0.6 g/dl; Amylase Peritoneal Fluid 11 U/L; Glucose Peritoneal Fluid 120 mg/dl
[2021-03-18 10:20] LABS: LDH Peritoneal Fluid 73 U/L; Lipase Peritoneal Fluid 104 U/L; Total Protein Peritoneal Fluid 0.8 g/dl; Triglyceride Peritoneal Fluid 20 mg/dl
[2021-03-18 10:45] LABS: Appearance Peritoneal Fluid CLEAR; Basophils, Fluid 0 %; Color Peritoneal Fluid YELLOW; Eosinophils, Fluid 0 %; Lymphocytes, Fluid 8 %; Mono,Macrophage,Mesothelial 65 %; Neutrophils, Fluid 27 %; RBC Peritoneal Fluid (A) < 3000 /uL; WBC Peritoneal Fluid (A) 266 /ul (0-300)
[2021-03-18] MEDS: PANTOprazole 40 MG in SYRINGE 0 ML IV SCH (11:21)
[2021-03-18 16:32] LABS: INR 1.3 (0.9-1.1)
--- NOTE | 2021-03-18 17:58 | Hospitalist Progress Note ---
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 (1) Abdominal pain with transaminitis and hyperbilirubinemia -elevated AST, ALP, WBC --> continue to downtrend; bili down from 7s --> 4s -RUQ US showed thickened gallbladder wall w/ sludge -Chest XR normal -Abdominal CT showed small/moderate ascites, pericholecystic edema, diverticulitis -Surgery consulted --> wanted to get an MRCP and consider possible cholecystectomy for suspected cholecystics depending on results; also consulted GI --> MRCP showed no biliary duct dilation or choledocholithiasis, GI advised against cholecystectomy saying it would not help patient, rather thinks there is more evidence of cirrhosis with portal hypertension, alcoholic hepatitis, fatty infiltration related to alcohol, and gallbladder wall edema secondary to hypoalbuminemia --> will hold off on cholecystectomy at this time. -Hepatitis panel negative -Stool and blood culture pending -Tumor marker AFP pending -diagnostic paracentesis completed today, thus far unremarkable, analysis pending. (2) Macrocytic anemia -Hbg low, elevated MCV -Folate and B12 levels normal -cont. to monitor (3) Alcoholism -JESUS protocol -Educated him on stopping consumption of alcohol to prevent further liver damage (4) Thrombocytopenia -likely due to current illness, cont. to monitor (5) GERD -hold lansoprazole -cont. IV pantoprazole (6) PTSD -cont. venlafaxine DVT ppx: SCDs Dispo: med/surg Admission and Anticipated Discharge Date Admission Date: March 16, 2021 Supervising Physician Co-Signing Physician Notes Attending attestation Pt seen and examined in concert with Dr. Corona. In agreement with the documented findings as noted in the resident documentation with any exceptions or additions as noted here. Continued improvement of abdominal pain, now essentially resolved. No change in skin. Bowel movements at baseline. On examination, S1/S2 nl RRR no MCG. CTAB. Abd minimally distended, diffusely TTP, BS +ve Alcoholic hepatitis w/ hyperbilirubinemia, transaminitis - GI and surgical consult - discriminate score not warranting steroid therapy. Continue hydration, symptomatic support and trend CMP Alcohol use disorder - patient reiterates will continue abstinence. Strongly encourage cessation. Else see resident documentation as noted. Subjective No acute complaints overnight. He has been eating without complaints. Paracentesis went well, felt some relief with fluid removal. Review of Systems Constitutional: no fever, no chills and no fatigue Eyes: no blind spots and no eye pain Ear, Nose, Mouth, Throat: no ear pain, no tinnitus, no hearing loss and no dizziness Respiratory: no cough, no dyspnea and no hemoptysis Cardiovascular: no chest pain and no palpitations Gastrointestinal: + abdominal pain; no heartburn, no nausea, no vomiting and no blood in stools Musculoskeletal: no back pain (mild, thoracic region bilaterally) Integumentary: no rash Neurologic: no gait abnormality, no unsteadiness and no numbness Psychiatric: no depression and no anxiety Physical Exam Constitutional: WD/WN, vitals as above + acute distress and cooperative Eyes: PERRL and EOM intact bilaterally ENMT: external ear and nose normal, oropharynx normal Neck: trachea midline, no thyromegaly Respiratory: normal respiratory effort, lungs clear to auscultation Cardiovascular: RRR, no murmur, no edema Gastrointestinal (Abdomen): Inspection/Auscultation: abdomen normal to i nspection and + abdomen distended (mild) Percussion/Palpation: + abdomen tender and abdomen soft; no guarding and abdomen not rigid Musculoskeletal: no cyanosis or clubbing, extremities motor strength 5/5 Skin: no rashes, warm and dry Neurologic: patellar DTR's 2+ bilat, sensation intact Psychiatric: A+Ox3, euthymic affect Lymphatic: no cervical or axillary lymphadenopathy Results & Data Results & Data ([facility]) Vital Signs (Past 12 Hours) Vital Signs Temp Pulse Resp BP Pulse Ox 03/18/21 14:47 36.7 C 87 16 111/64 97 03/18/21 10:54 36.6 C 82 16 114/64 96 03/18/21 09:56 36.7 C 76 16 116/65 99 03/18/21 07:23 36.7 C 73 16 109/58 L 96 Resident Activity Tracking Resident Involvement: Resident Care Provided Care Provided: Adult [facility]
[2021-03-19 06:20] LABS: INR 1.3 (0.9-1.1); Prothrombin Time 12.5 Seconds (9.0-12.0)
[2021-03-19 06:39] LABS: Hematocrit (blood only) 33.1 % (42-52); Hemoglobin 11.4 g/dL (14.0-18.0); Mean Corpuscular Hemoglobin 36.4 pg (25-34); Mean Corpuscular Hgb Conc 34.4 g/dL (32-36); Mean Corpuscular Volume 105.8 fL (80-100); Platelet Count 87 K/uL (130-400); RDW Coefficient of Variation 13.5 % (11.5-14.5); RDW Standard Deviation 51.9 fL (36.4-46.3); Red Blood Count 3.13 M/uL (4.7-6.1); White Blood Count 10.15 K/uL (4.8-10.8)
[2021-03-19 06:41] LABS: Basophils # (auto) 0.05 K/uL (0-0.2); Basophils % (auto) 0.5 %; Eosinophils # (auto) 0.34 K/uL (0-0.5); Eosinophils % (auto) 3.3 %; Giant Platelets 1+; Howell-Jolly Bodies 1+; Immature Granulocytes # (auto) 0.05 K/uL (0.00-0.02); Immature Granulocytes % (auto) 0.5 %; Lymphocytes # (auto) 2.36 K/uL (1.2-3.4); Lymphocytes % (auto) 23.3 %; Monocytes # (auto) 0.99 K/uL (0.11-0.59); Monocytes % (auto) 9.8 %; Neutrophils # (auto) 6.36 K/uL (1.4-6.5); Neutrophils % (auto) 62.6 %; Pappenheimer Bodies 1+; Platelet Estimate Decreased (Normal); Target Cells 1+
[2021-03-19 06:42] LABS: Albumin Level 1.7 gm/dl (3.4-5.0); Calcium 8.6 mg/dl (8.5-10.1); Creatinine Clr Calc Pharmacy 166.7 ml/min; Est GFR (Non-African American) 120.8 ml/min; Potassium 3.7 mmol/L (3.5-5.1)
[2021-03-19 06:46] LABS: Albumin Globulin Ratio 0.5 (0.9-2); Bilirubin,Total 3.6 mg/dl (0.2-1); Globulin 3.7 gm/dl (2.5-4.0); Total Protein 5.4 gm/dl (6.4-8.2)
[2021-03-19] MEDS: VENLAFAXINE HCL 37.5 MG TAB PO SCH (07:51)
[2021-03-19] MEDS: FOLIC ACID 1 MG in SYRINGE 9.8 ML IV SCH (07:52)
[2021-03-19] MEDS: THIAMINE HCL 100 MG in SYRINGE 9 ML IV SCH (07:52)
--- NOTE | 2021-03-19 08:53 | Gastroenterology Progress Note ---
Date of Service March 19, 2021 Assessment & Plan (1) Alcoholic hepatitis with ascites: Plan: The patient is a pleasant 55-year-old male who presents with chronic alcohol related liver disease cirrhosis with portal hypertension, alcoholic hepatitis, fatty infiltration related to alcohol, macrocytic anemia, coagulopathy, and gallbladder wall edema secondary to hypoalbuminemia. Overall he is doing well this morning. Recommend continuing supportive care. Emphasized that the patient needs total abstinence from alcohol. Low-sodium diet for control of ascites. He has follow-up scheduled in the office post discharge. General surgery has been consulted, appreciate input - no cholecystectomy at this time. Please refer to supervising physician addendum for further recommendations. Admission and Anticipated Discharge Date Admission Date: March 16, 2021 Supervising Physician Co-Signing Physician Notes Pt was DCed prior to me rounding today. Subjective The patient is awake alert and oriented this morning. He is sitting upright in bed. He states he feels pretty good. No abdominal pain at rest. Abdominal pain right upper quadrant is a 1 out of 10 when palpating. Denies nausea or vomiting. Denies any fever or chills. He did have a bowel movement yesterday. Denies melena or hematochezia. He is passing flatus. Review of Systems Review of Systems: All systems reviewed & are unremarkable except as noted in Subjective Physical Exam Gastrointestinal (Abdomen): Inspection/Auscultation: abdomen normal to inspection and normal bowel sounds; abdomen not distended Percussion/Palpation: + abdomen tender (Right upper quadrant) and abdomen soft; no guarding and abdomen not rigid Results & Data ([facility]) Vital Signs (Past 12 Hours) Vital Signs Temp Pulse Pulse Resp BP Pulse Ox 03/19/21 07:46 36.6 C 76 16 107/64 96 03/18/21 22:33 36.7 C 87 16 118/66 95 Laboratory Results Laboratory Results - last 24 hr 03/18/21 03/18/21 03/18/21 15:48 Unknown Unknown WBC RBC Hgb Hct MCV MCH MCHC RDW Std Deviation RDW Coeff of Ramone Plt Count MPV Immature Gran % (Auto) Neut % (Auto) Lymph % (Auto) [place] % (Auto) Eos % (Auto) Baso % (Auto) Neut # (Auto) Lymph # (Auto) [place] # (Auto) Eos # (Auto) Baso # (Auto) Immature Gran # (Auto) Platelet Estimate Giant Platelets Pappenheimer Bodies Target Cells Baker-[place] Bodies PT 13.0 H INR 1.3 H Sodium Potassium Chloride Carbon Dioxide Anion Gap BUN Creatinine Est Cr Clr Drug Dosing Est GFR ( Amer) Est GFR (Non-Af Amer) BUN/Creatinine Ratio Glucose Calcium Total Bilirubin AST ALT Alkaline Phosphatase Total Protein Albumin Globulin Albumin/Globulin Ratio Fluid Neutrophils % 27 Fluid Lymphocytes % 8 Fluid Eosinophils % 0 Fluid Basophils % 0 Fluid Meso/Macro/[place] % 65 Fluid Slide Review Fluid Comment Peritoneal Color YELLOW Peritoneal Appearance CLEAR Peritoneal WBC 266 Peritoneal RBC < 3000 Peritoneal Tot Protein 0.8 Peritoneal Albumin < 0.6 Peritoneal LDH 73 Peritoneal Glucose 120 Peritoneal Amylase 11 Peritoneal Lipase 104 Peritoneal Triglycerid 20 03/19/21 03/19/21 03/19/21 05:47 05:47 05:47 WBC 10.15 RBC 3.13 L Hgb 11.4 L Hct 33.1 L MCV 105.8 H MCH 36.4 H MCHC 34.4 RDW Std Deviation 51.9 H RDW Coeff of Ramone 13.5 Plt Count 87 L MPV 14.0 H Immature Gran % (Auto) 0.5 Neut % (Auto) 62.6 Lymph % (Auto) 23.3 [place] % (Auto) 9.8 Eos % (Auto) 3.3 Baso % (Auto) 0.5 Neut # (Auto) 6.36 Lymph # (Auto) 2.36 [place] # (Auto) 0.99 H Eos # (Auto) 0.34 Baso # (Auto) 0.05 Immature Gran # (Auto) 0.05 H Platelet Estimate Decreased L Giant Platelets 1+ Pappenheimer Bodies 1+ Target Cells 1+ Baker-[place] Bodies 1+ PT 12.5 H INR 1.3 H Sodium 139 Potassium 3.7 Chloride 106 Carbon Dioxide 30 Anion Gap 3.0 BUN 6 L Creatinine 0.53 L Est Cr Clr Drug Dosing 166.7 Est GFR ( Amer) 140.0 Est GFR (Non-Af Amer) 120.8 BUN/Creatinine Ratio 12.0 Glucose 102 H Calcium 8.6 Total Bilirubin 3.6 H AST 102 H ALT 43 Alkaline Phosphatase 368 H Total Protein 5.4 L Albumin 1.7 L Globulin 3.7 Albumin/Globulin Ratio 0.5 L Fluid Neutrophils % Fluid Lymphocytes % Fluid Eosinophils % Fluid Basophils % Fluid Meso/Macro/[place] % Fluid Slide Review Fluid Comment Peritoneal Color Peritoneal Appearance Peritoneal WBC Peritoneal RBC Peritoneal Tot Protein Peritoneal Albumin Peritoneal LDH Peritoneal Glucose Peritoneal Amylase Peritoneal Lipase Peritoneal Triglycerid Diagnostic Findings 03/18/2021: Diagnostic ultrasound was performed for paracentesis with history of cirrhosis with removal of 45 cc of ascites sent to the lab for analysis. Cultures, and cytology are negative at the present time.
[2021-03-19] MEDS: PANTOprazole 40 MG in SYRINGE 0 ML IV SCH (12:46)
--- NOTE | 2021-03-19 15:10 | Discharge Summary ---
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 Diffuse abdominal pain. Constant achy pain that has progressively been getting worse. Associated nausea, vomiting, and rigidity. He also complains of diarrhea ~15x/day. Brown and sometimes black stools. No bright red blood seen in stool or vomit. Symptoms are worse after meals, cannot pinpoint to a certain type of food. Has tried peptol bismol for pain relief which did not help. Unsure whether black stools were after using peptol bismol. Denies other supplement usage. Admission Exam Per Admitting Provider Constitutional: WD/WN, vitals as above + acute distress and cooperative Eyes: PERRL and EOM intact bilaterally +scleral icterus ENMT: external ear and nose normal, oropharynx normal Neck: trachea midline, no thyromegaly Respiratory: normal respiratory effort, lungs clear to auscultation Cardiovascular: RRR, no murmur, no edema Gastrointestinal (Abdomen): Inspection/Auscultation: abdomen normal to inspection; abdomen not distended Percussion/Palpation: + abdomen tender and abdomen soft; no guarding and abdomen not rigid negative apple's sign, rebound tenderness in LLQ and RLQ Musculoskeletal: no cyanosis or clubbing, extremities motor strength 5/5 Skin: no rashes, warm and dry Neurologic: patellar DTR's 2+ bilat, sensation intact Psychiatric: A+Ox3, euthymic affect Lymphatic: no cervical or axillary lymphadenopathy Principal Diagnosis 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 Discharge Exam Constitutional WD/WN, vitals as above + acute distress and cooperative Eyes PERRL and EOM intact bilaterally ENMT external ear and nose normal, oropharynx normal Neck trachea midline, no thyromegaly Respiratory normal respiratory effort, lungs clear to auscultation Cardiovascular RRR, no murmur, no edema Gastrointestinal (Abdomen) Inspection/Auscultation: abdomen normal to inspection and + abdomen distended (mild) Percussion/Palpation: + abdomen tender (very mild) and abdomen soft; no guarding and abdomen not rigid Musculoskeletal no cyanosis or clubbing, extremities motor strength 5/5 Skin no rashes, warm and dry Neurologic patellar DTR's 2+ bilat, sensation intact Psychiatric A+Ox3, euthymic affect Lymphatic no cervical or axillary lymphadenopathy Discharge Data Allergies Allergy/AdvReac Type Severity Reaction Status Date / Time bee venom protein (honey bee) Allergy Severe Hives / Verified 10/28/18 10:30 Anaphylaxis adhesive Allergy Mild Verified 10/28/18 10:30 Consultations 03/16/21 15:36 ED Decision to Admit Stat 03/17/21 06:21 Consult Gastroenterology Routine 03/17/21 12:17 Consult Gastroenterology Routine 03/17/21 16:44 Consult Radiology Routine Procedures Performed Operation Date: 03/18/21 10:40 <No data on this case meets the specified criteria> Ordered Studies 03/16/21 11:50 US abdomen limited Stat 03/16/21 12:34 CT abd pelvis IV con only Stat 03/17/21 06:35 MR MRCP Urgent 03/18/21 09:00 US paracentesis abd w/image Routine Hospital Course (1) Generalized abdominal pain: (2) Macrocytic anemia: (3) Alcoholism: (4) Thrombocytopenia: (5) GERD (gastroesophageal reflux disease): (6) PTSD (post-traumatic stress disorder): Alexander is a 55 yo male with a PMHx of 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 (1) Abdominal pain with transaminitis and hyperbilirubinemia -elevated AST, ALP, WBC --> continue to downtrend; bili down from 7s --> 4s -->3s -RUQ US showed thickened gallbladder wall w/ sludge -Chest XR normal -Abdominal CT showed small/moderate ascites, pericholecystic edema, diverticulitis -Surgery consulted --> wanted to get an MRCP and consider possible cholecystectomy for suspected cholecystics depending on results; also consulted GI --> MRCP showed no biliary duct dilation or choledocholithiasis, GI advised against cholecystectomy saying it would not help patient, rather thinks there is more evidence of cirrhosis with portal hypertension, alcoholic hepatitis, fatty infiltration related to alcohol, and gallbladder wall edema secondary to hypoalbuminemia --> will hold off on cholecystectomy at this time. -Hepatitis panel negative -Stool and blood culture negative -Tumor marker AFP pending -diagnostic paracentesis completed, unremarkable, fluid culture pending. -Patient is clinically stable and has been improving since his admission. Going forward, he needs to stop drinking alcohol and make lifestyle changes to prevent further liver damage. Will contact patient if any pertinent findings with AFP or peritoneal fluid cultures. (2) Macrocytic anemia -Hbg low but stable, elevated MCV -stool guaiac negative -Folate and B12 levels normal -cont. to monitor, cont folic acid supplementation (3) Alcoholism -JESUS protocol -Educated him on stopping consumption of alcohol to prevent further liver damage (4) Thrombocytopenia -asplenic -likely due to current illness, cont. to monitor (5) GERD -cont. prevacid PO (6) PTSD -cont. venlafaxine Total Time Total Time Spent Total Time Spent (In Minutes): 40 Discharge Plan Discharge Items Patient Disposition: Home - Self-Care Reason For Visit: RUQ PAIN Discharge Diagnosis: Alcohol related liver disease Activity: Per Instructions section Non-emergency contact: Primary Care Provider Call non-emergency contact if: you have any medication questions, your symptoms worsen and you have a fever Follow-up/Referrals: Masood Curry [Primary Care Provider] - (Patient did not wish to wait for an appt to be made.) Diet: Low Fat Addtl Attending Provider Instructions: You were admitted to the hospital with abdominal pain, nausea, vomiting, and diarrhea. Elevated liver enzymes along with imaging prompted more tests and consults. GI advised cholecystectomy was not the best option at this time. Rather, this seems more of an alcohol related liver failure cirrhosis with portal hypertension. Going forward, you need to cut out alcohol from your life to avoid further liver damage. Hopefully, with better lifestyle habits combat some of the damage done to your liver and avoid future hospitalizations. Please follow up closely with your primary care provider as they can guide you further for success. Pending Studies at Discharge: Yes (Tumor Marker AFP, peritoneal fluid culture) Stand-Alone Forms: [employer], Work/School Release, Smoking Cessation Medications and DC Order Prescriptions: Continued venlafaxine 37.5 mg tablet 37.5 mg PO BID RF: 0 lansoprazole [Prevacid] 30 mg capsule,delayed release(DR/EC) 30 mg PO QAM RF: 0 folic acid 400 mcg Tablet 0.4 mg PO DAILY RF: 0 cholecalciferol (vitamin D3) [Vitamin D3] 25 mcg (1,000 unit) Tablet 25 mcg PO DAILY RF: 0 Discharge Orders: Discharge Order (Routine); Ordered 03/19/21 Ordered By: Sanjeev Corona Admission Data Admit Date/Time: 03/16/21 17:15 Attending Provider: Rafy Silver Admit Provider: Sanjeev Corona Primary Care Provider: Masood Curry Other Providers: Rafy Silver ; Meri Madera ; Marly Jauregui ; Sydney Wong ; Lynnette Guillen ; Brian Church ; Britney Barboza ; Surya Sky ; Garrett Puente ; Arabella Carlos ; Melody Sanchez ; Sahara Green ; Yamel Slater ; Shayne Schreiber ; Mark No ; Chyna Prince ; Swapna Calvo ; Lalo Muro ; Duane Rahman ; Cristhian Dubose ; Lawson Bustamante ; Danish Guerra ; Alex Albrecht ; Jim Eugene ; Rob Maldonado ; Tamara Hernandez V. ; William Kapoor. Other Interventions: Discharge Summary Assessment (RN) Last Done: 03/19/21 14:53 Supervising Physician Co-Signing Physician Notes Attending attestation Pt seen and examined in concert with Dr. Corona. In agreement with the documented findings as noted in the resident documentation with any exceptions or additions as noted here. Resolved abdominal pain with good bowel movements. On examination, S1/S2 nl RRR no MCG. CTAB. Abd minimally distended, diffusely TTP, BS +ve Chronic alcohol related liver disease cirrhosis with portal HTN with acute alcoholic hepatitis - GI and surgical consult - discriminate score not warranting steroid therapy while admitted. Continue hydration, symptomatic support and trend CMP. Macrocytic anemia - stable at time of discharge @ 11.4 hgb Alcohol use disorder - patient reiterates will continue abstinence. Strongly encourage cessation. Else see resident documentation as noted. Total attending time spent on this case on the day of discharge: 40 minutes. Resident Activity Tracking Resident Involvement: Resident Care Provided Care Provided: Adult Hospital Medicine
== END 2021-03-19 15:43 | disposition home or self-care (01) | DRG 433 ==
LOC: ED 10:11 → 3E 17:15

== ENCOUNTER 2022-11-10 15:20 | Inpatient (IN) ==
--- NOTE | 2022-11-10 15:32 | ED Triage Note ---
Date of Service November 10, 2022 History of Present Illness This patient was briefly evaluated while in triage. An abbreviated physical exam was performed. This patient is a 57-year-old Male who presents to the ED for evaluation Hx ongoing ETOH abuse, alcoholic cirrhosis, recent diagnosis of suspected colon cancer, hx of splenectomy, C/o abdominal pain, n/v no diarrhea, facial swelling/pain. Started this morning. Leg swelling, possible fevers No treatment for suspected cancer yet-colonoscopy pending Physical Exam GENERAL: ill appearing FACE: mild erythema and swelling of the lips/cheeks, no rashes THROAT: airway patent CARDIOVASCULAR: RRR RESPIRATORY: CTA ABDOMEN: BS x 4. Diffuse TTP Initial orders for labs and / or imaging were placed and patient was placed in the waiting area until a bed is available. Please see further documentation for the full ED course.
[2022-11-10 16:12] LABS: Basophils # (auto) 0.15 K/uL (0-0.2); Eosinophils # (auto) 0.08 K/uL (0-0.50); Eosinophils % (auto) 0.5 %; Hematocrit (blood only) 33.1 % (42.0-52.0); Hemoglobin 12.3 g/dl (14.0-18.0); Immature Granulocytes # (auto) 0.07 K/uL (0.01-0.20); Immature Granulocytes % (auto) 0.4 %; Lymphocytes # (auto) 1.93 K/uL (1.2-3.4); Lymphocytes % (auto) 12.3 %; Mean Corpuscular Hemoglobin 35.3 pg (25.0-34.0); Mean Corpuscular Hgb Conc 37.2 g/dL (32.0-36.0); Mean Corpuscular Volume 95.1 fL (80.0-100.0); Mean Platelet Volume 12.9 fL (9.4-12.4); Monocytes # (auto) 1.25 K/uL (0.11-0.59); Monocytes % (auto) 7.9 %; Neutrophils # (auto) 12.25 K/uL (1.40-6.50); Neutrophils % (auto) 77.9 %; Platelet Count 76 K/uL (130-400); RDW Coefficient of Variation 15.6 % (11.5-14.5); Red Blood Count 3.48 M/uL (4.70-6.10); White Blood Count 15.73 K/ul (4.8-10.8)
[2022-11-10 16:27] LABS: INR 1.7 (0.9-1.1); Partial Thromboplastin Ratio 1.2; Partial Thromboplastin Time 33.2 Seconds (21.0-31.0); Prothrombin Time 17.7 Seconds (9.0-12.0)
[2022-11-10 16:37] LABS: Alanine Aminotransferase 25 U/L (7-52); Albumin Level 2.3 gm/dl (3.4-5.0); Alkaline Phosphatase 262 U/L (34-104); Anion Gap 5 (3-11); Aspartate Aminotransferase 80 U/L (13-39); BUN Creatinine Ratio 5.1 (10-20); Bilirubin,Total 6.8 mg/dl (0.2-1.0); Blood Urea Nitrogen 4 mg/dl (6-23); Calcium 8.4 mg/dl (8.6-10.3); Carbon Dioxide 28 mmol/L (21-32); Chloride 98 mmol/L (98-107); Creatinine Clr Calc Pharmacy 113.5 ml/min; Est GFR (African American) 117.8 ml/min; Est GFR (Non-African American) 101.6 ml/min; Glucose 141 mg/dl (70-99(Fasting)); Magnesium 1.5 mg/dl (1.7-2.4); Potassium 3.8 mmol/L (3.5-5.1); Sodium 131 mmol/L (136-145); Total Protein 7.5 gm/dl (6.0-8.3)
[2022-11-10 17:05] LABS: Lipase 29 U/L (11-82)
--- NOTE | 2022-11-10 17:24 | Emergency Department Note ---
History of Present Illness General Chief complaint: Dehydration Stated complaint: SINUS INFECTION, DEHYDRATED, NO APPETITE, HIGH FEV Time Seen by Provider: 11/10/22 16:53 History of Present Illness Provider complaint: Facial pain fever Onset (ago): day(s) 1 Location: face Maximum Pain Intensity: 8 57-year-old male presents emergency department with facial pain and fever. Patient reports his symptoms began 1 day ago. He reports a Tmax of 104. 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 The patient reports that he has a history of colon cancer and follows up with LUMA Hernandez. Patient does report he actively drinks alcohol but has not had a drink since yesterday when his symptoms began. Home Medications Medication Instructions Recorded Confirmed Type lansoprazole 30 mg capsule,delayed 30 mg PO QAM 10/28/18 11/10/22 History release (Prevacid) venlafaxine 37.5 mg tablet 37.5 mg PO BID 10/28/18 11/10/22 History folic acid 400 mcg tablet 0.4 mg PO QAM 03/16/21 11/10/22 History propranolol 20 mg tablet 20 mg PO QAM 03/23/22 11/10/22 History cholecalciferol (vitamin D3) 50 50 mcg PO DAILY 11/10/22 11/10/22 History mcg (2,000 unit) capsule (Vitamin D3) cyanocobalamin (vitamin B-12) 2,000 mcg PO DAILY 11/10/22 11/10/22 History 2,000 mcg tablet,extended release (Vitamin B-12 ER) Allergies Allergy/AdvReac Type Severity Reaction Status Date / Time bee venom protein (honey bee) Allergy Severe Hives / Verified 11/10/22 17:56 Anaphylaxis adhesive Allergy Mild Rash-PAPER Verified 11/10/22 17:56 TAPE OK Past Med/Surg History Medical History Alcoholic cirrhosis Alcoholism Per nursing assessment - patient denies current alcohol use but alcohol level was 264.8 on 07/29/21 when patient was in ER for ankle fracture Borderline high cholesterol Cirrhosis of liver Degenerative disc disease Esophageal varices Grade I per 04/22/21 EGD Fatty infiltration of liver GERD (gastroesophageal reflux disease) Hypotension per pt Pancreatic mass benign--pt states 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 PTSD (post-traumatic stress disorder) Pulmonary embolism Approx 2 yrs ago > [facility] > thinner now MN'ed -NO ISSUES SINCE > unknown etiology Sludge in gallbladder Surgical History History of adenoidectomy History of bilateral inguinal herniorrhaphies History of colonoscopy History of esophagogastroduodenoscopy (EGD) recent 04/22/21 @ [facility]--Grade 1 varices found History of open reduction and internal fixation (ORIF) procedure RIGHT ANKLE 07/2021 History of open reduction and internal fixation (ORIF) procedure Right Fifth Metatarsal Open Reduction Internal Fixation, Bone Marrow Aspirate Concentrate Injection into Fracture Site(Right) - Shahzad Blount MD 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 History of surgery on wrist bilat cysts removed History of tonsillectomy History of tooth extraction Family History Mother Dementia Father Prostate cancer Diabetes Heart disease Sister Neurofibromatosis Other No family history of adverse response to anesthesia Social History Smoking Status: Current every day smoker Tobacco Type: Cigarettes packs per day: 0.5; Cigarettes Per Day: 6 cigs per day; Second Hand Exposure: No; Do You Dip or Chew Tobacco: No; Hx Alcohol Use: No Hx Substance Use: No Preferred Language: Italian Communication Ability: Effective Green Hide Inspector Required: No Beliefs That Will Affect Care: None marital status: Current Living Situation: Spouse and Family current occupational status: retired Feels Safe at Home: Yes Diet: regular Diet Comment: "not a very healthy diet" Assistive Devices: Glasses Physical Exam Vital Signs Vital Signs - 24 hr 11/10/22 15:28 11/10/22 17:29 11/10/22 17:30 Temperature 37.2 C Temperature Source Temporal Artery Scan Pulse Rate 95 H Pulse Rate [Apical] 85 Pulse Rhythm [Apical] Regular Respiratory Rate 22 16 Respiratory Depth Normal Blood Pressure 126/74 Blood Pressure [Left Arm] 125/59 L Blood Pressure Mean 91 Blood Pressure Mean [Left Arm] 81 Pulse Oximetry 94 94 94 Oxygen Delivery Method Room Air Room Air Room Air Sepsis Recent Fever Within 48 Hours No Sepsis New/Unexplained Change in Mental Status N/A Sepsis Action Taken by Nursing No Action Required 11/10/22 17:01 11/10/22 19:15 Temperature Temperature Source Pulse Rate 83 88 Pulse Rate [Apical] Pulse Rhythm [Apical] Respiratory Rate 24 Respiratory Depth Blood Pressure 116/66 Blood Pressure [Left Arm] Blood Pressure Mean 82 Blood Pressure Mean [Left Arm] Pulse Oximetry 94 Oxygen Delivery Method Sepsis Recent Fever Within 48 Hours Sepsis New/Unexplained Change in Mental Status Sepsis Action Taken by Nursing Physical Exam GENERAL: He is oriented to person, place, and time. He appears well-developed and well-nourished. He does not appear distressed. HENT: Exam performed. - Head: Normocephalic and atraumatic. - Right Ear: External ear normal. No mastoid erythema - Left Ear: External ear normal. No mastoid erythema - Mouth/Throat: The oropharynx is clear and moist. No trismus in the jaw. No dental abscesses or uvula swelling. No oropharyngeal exudate or tonsillar abscesses. EYES: Conjunctivae and EOM are normal. Pupils are equal, round, and reactive to light. Right eye exhibits no discharge. Left eye exhibits no discharge. No scleral icterus. NECK: Normal range of motion. Neck supple. No JVD present. No spinous process tenderness present. No carotid bruit present. No rigidity. No tracheal deviation and normal range of motion present. No Brudzinski's sign and no Kernig's sign noted. CV: Normal rate, regular rhythm, normal heart sounds and intact distal pulses. There is no peripheral edema. Palpable radial pulses bue. PULM/CHEST: Effort normal and breath sounds normal. No respiratory distress. No stridor. He has no wheezes. He has no rales. - Chest Wall: He exhibits no tenderness. ABD: The abdomen is soft. Bowel sounds are normal. He has no distension. No mass is present. There is no tenderness. There is no rebound, no guarding, no Lund's sign and no tenderness at McBurney's point. Rovsig negative. No fluid wave. MUSC/SKEL: Normal range of motion. There is no peripheral edema, tenderness or deformity. LYMPH: No cervical adenopathy. NEURO: He is alert and oriented to person, place, and time. He has normal strength. No cranial nerve deficit or sensory deficit. Coordination and gait normal. GCS eye subscore is 4. GCS verbal subscore is 5. GCS motor subscore is 6. Cerebellar tests wnl. SKIN: Skin is warm and dry. He is not diaphoretic. PSYCH: He has a normal mood and affect. Behavior is normal. Judgment and thought content normal. Course Course 1652: The patient was evaluated in room C7. A complete history and physical exam was performed Cardiac monitoring: An order was placed for continuous cardiac monitoring. The monitor shows a rate of 90 with sinus rhythm interpreted by me 1915: Vital signs stable. Labs show leukocytosis of 15.7. Hemoglobin 12.3. INR 1.7. Patient is not on Coumadin. Initial lactic acid was two-point 3 repeat lactic acid 2.6. Magnesium 1.5. Patient be treated with 30 cc/kg normal saline bolus as well as Rocephin given his asplenia. Bedside ultrasound was performed which shows very scant amount of ascites no drainable fluid collection. AST 80 total bilirubin 6.8 alkaline phosphatase 262. Pro-Storm negative. Chest x-ray conducted which does show a left sided infiltrate. Patient given dose of azithromycin also. CT of the head within normal limits. CT of the facial bones shows sinusitis. CT of the abdomen pelvis shows patchy linear densities in the left lower lobe. Cirrhotic liver with small to moderate amount of ascites which is unchanged. 4 mm nonobstructing left ureter stone. Discussed case with Dr. Soto who will admit the patient. Administered Medications Discontinued Medications Ampicillin Sodium/Sulbactam Sodium 3,000 mg/ Sodium Chloride 108 mls @ 200 mls/hr IV NOW STA; Protocol Stop: 11/10/22 19:34 Last Infusion: 11/10/22 21:19 Dose: 0 mls/hr Documented By: Admin: 11/10/22 20:09 Dose: 200 mls/hr Documented By: SIMONA Sodium Chloride (Nss 1000ml) 2,000 mls @ 999 mls/hr IV .Q2H1M ONE Stop: 11/10/22 21:03 Last Admin: 11/10/22 20:36 Dose: Not Given Documented By: SIMONA Ceftriaxone Sodium 1,000 mg/ (Dextrose) 50 mls @ 100 mls/hr IV NOW STA Stop: 11/10/22 19:32 Last Admin: 11/10/22 20:35 Dose: Not Given Documented By: SIMONA Magnesium Sulfate/Dextrose (Magnesium Sulfate / D5w) 1 gm in 100 mls @ 100 mls/hr IV NOW STA Stop: 11/10/22 20:02 Last Infusion: 11/10/22 21:21 Dose: 0 mls/hr Documented By: Admin: 11/10/22 19:20 Dose: 100 mls/hr Documented By: JANE Azithromycin 500 mg/ Dextrose 255 mls @ 127.5 mls/hr IV NOW STA Stop: 11/10/22 21:12 Last Admin: 11/10/22 20:37 Dose: 127.5 mls/hr Documented By: SIMONA Sodium Chloride (Nss 1000ml) 1,000 mls @ 999 mls/hr IV .Q1H1M ONE Stop: 11/10/22 20:03 Last Infusion: 11/10/22 21:22 Dose: 0 mls/hr Documented By: Admin: 11/10/22 20:10 Dose: 999 mls/hr Documented By: SIMONA Ioversol (Optiray 320 100ml) 89 ml IV ONCE ONE Stop: 11/10/22 17:51 Last Admin: 11/10/22 17:51 Dose: 89 ml Documented By: MIKAYLA Medical Decision Making Laboratory Data Attestation: I reviewed the patient's lab results. 11/10/22 15:53 11/10/22 15:53 Lab Results 11/10/22 11/10/22 11/10/22 Range/Units 15:53 15:53 15:53 WBC 15.73 H (4.8-10.8) K/ul RBC 3.48 L (4.70-6.10) M/uL Hgb 12.3 L (14.0-18.0) g/dl Hct 33.1 L (42.0-52.0) % MCV 95.1 (80.0-100.0) fL MCH 35.3 H (25.0-34.0) pg MCHC 37.2 H (32.0-36.0) g/dL RDW Std Deviation 54.0 H (36.4-46.3) fL RDW Coeff of Ramone 15.6 H (11.5-14.5) % Plt Count 76 L (130-400) K/uL MPV 12.9 H (9.4-12.4) fL Immature Gran % (Auto) 0.4 % Neut % (Auto) 77.9 % Lymph % (Auto) 12.3 % [place] % (Auto) 7.9 % Eos % (Auto) 0.5 % Baso % (Auto) 1.0 % Neut # (Auto) 12.25 H (1.40-6.50) K/uL Lymph # (Auto) 1.93 (1.2-3.4) K/uL [place] # (Auto) 1.25 H (0.11-0.59) K/uL Eos # (Auto) 0.08 (0-0.50) K/uL Baso # (Auto) 0.15 (0-0.2) K/uL Immature Gran # (Auto) 0.07 (0.01-0.20) K/uL PT (9.0-12.0) Seconds INR (0.9-1.1) APTT (21.0-31.0) Seconds PTT Ratio Sodium 131 L (136-145) mmol/L Potassium 3.8 (3.5-5.1) mmol/L Chloride 98 (98-107) mmol/L Carbon Dioxide 28 (21-32) mmol/L Anion Gap 5 (3-11) BUN 4 L (6-23) mg/dl Creatinine 0.78 (0.6-1.4) mg/dl Est Cr Clr Drug Dosing 113.5 ml/min Est GFR ( Amer) 117.8 ml/min Est GFR (Non-Af Amer) 101.6 ml/min BUN/Creatinine Ratio 5.1 L (10-20) Glucose 141 H (70-99(Fasting)) mg/dl Lactate 2.3 H* (0.4-2.0) mmol/L Calcium 8.4 L (8.6-10.3) mg/dl Magnesium 1.5 L (1.7-2.4) mg/dl Total Bilirubin 6.8 H (0.2-1.0) mg/dl Direct Bilirubin TNP AST 80 H (13-39) U/L ALT 25 (7-52) U/L Alkaline Phosphatase 262 H (34-104) U/L Ammonia (18-72) umol/L C-Reactive Protein (0-0.5) mg/dl Total Protein 7.5 (6.0-8.3) gm/dl Albumin 2.3 L (3.4-5.0) gm/dl Lipase 29 (11-82) U/L Procalcitonin (0-0.5) ng/ml Ethyl Alcohol mg/dL (<10.0) mg/dl SARS-CoV-2 (PCR) (Negative) Influenza Type A (PCR) (Neg) Influenza Type B (PCR) (Neg) RSV (RT-PCR) (Neg) 11/10/22 11/10/22 11/10/22 Range/Units 15:53 15:53 15:53 WBC (4.8-10.8) K/ul RBC (4.70-6.10) M/uL Hgb (14.0-18.0) g/dl Hct (42.0-52.0) % MCV (80.0-100.0) fL MCH (25.0-34.0) pg MCHC (32.0-36.0) g/dL RDW Std Deviation (36.4-46.3) fL RDW Coeff of Ramone (11.5-14.5) % Plt Count (130-400) K/uL MPV (9.4-12.4) fL Immature Gran % (Auto) % Neut % (Auto) % Lymph % (Auto) % [place] % (Auto) % Eos % (Auto) % Baso % (Auto) % Neut # (Auto) (1.40-6.50) K/uL Lymph # (Auto) (1.2-3.4) K/uL [place] # (Auto) (0.11-0.59) K/uL Eos # (Auto) (0-0.50) K/uL Baso # (Auto) (0-0.2) K/uL Immature Gran # (Auto) (0.01-0.20) K/uL PT 17.7 H (9.0-12.0) Seconds INR 1.7 H (0.9-1.1) APTT 33.2 H (21.0-31.0) Seconds PTT Ratio 1.2 Sodium (136-145) mmol/L Potassium (3.5-5.1) mmol/L Chloride (98-107) mmol/L Carbon Dioxide (21-32) mmol/L Anion Gap (3-11) BUN (6-23) mg/dl Creatinine (0.6-1.4) mg/dl Est Cr Clr Drug Dosing ml/min Est GFR ( Amer) ml/min Est GFR (Non-Af Amer) ml/min BUN/Creatinine Ratio (10-20) Glucose (70-99(Fasting)) mg/dl Lactate (0.4-2.0) mmol/L Calcium (8.6-10.3) mg/dl Magnesium (1.7-2.4) mg/dl Total Bilirubin (0.2-1.0) mg/dl Direct Bilirubin AST (13-39) U/L ALT (7-52) U/L Alkaline Phosphatase (34-104) U/L Ammonia 45.0 (18-72) umol/L C-Reactive Protein (0-0.5) mg/dl Total Protein (6.0-8.3) gm/dl Albumin (3.4-5.0) gm/dl Lipase (11-82) U/L Procalcitonin 0.05 (0-0.5) ng/ml Ethyl Alcohol mg/dL (<10.0) mg/dl SARS-CoV-2 (PCR) (Negative) Influenza Type A (PCR) (Neg) Influenza Type B (PCR) (Neg) RSV (RT-PCR) (Neg) 11/10/22 11/10/22 11/10/22 Range/Units 18:55 18:55 18:56 WBC (4.8-10.8) K/ul RBC (4.70-6.10) M/uL Hgb (14.0-18.0) g/dl Hct (42.0-52.0) % MCV (80.0-100.0) fL MCH (25.0-34.0) pg MCHC (32.0-36.0) g/dL RDW Std Deviation (36.4-46.3) fL RDW Coeff of Ramone (11.5-14.5) % Plt Count (130-400) K/uL MPV (9.4-12.4) fL Immature Gran % (Auto) % Neut % (Auto) % Lymph % (Auto) % [place] % (Auto) % Eos % (Auto) % Baso % (Auto) % Neut # (Auto) (1.40-6.50) K/uL Lymph # (Auto) (1.2-3.4) K/uL [place] # (Auto) (0.11-0.59) K/uL Eos # (Auto) (0-0.50) K/uL Baso # (Auto) (0-0.2) K/uL Immature Gran # (Auto) (0.01-0.20) K/uL PT (9.0-12.0) Seconds INR (0.9-1.1) APTT (21.0-31.0) Seconds PTT Ratio Sodium (136-145) mmol/L Potassium (3.5-5.1) mmol/L Chloride (98-107) mmol/L Carbon Dioxide (21-32) mmol/L Anion Gap (3-11) BUN (6-23) mg/dl Creatinine (0.6-1.4) mg/dl Est Cr Clr Drug Dosing ml/min Est GFR ( Amer) ml/min Est GFR (Non-Af Amer) ml/min BUN/Creatinine Ratio (10-20) Glucose (70-99(Fasting)) mg/dl Lactate 2.6 H* (0.4-2.0) mmol/L Calcium (8.6-10.3) mg/dl Magnesium (1.7-2.4) mg/dl Total Bilirubin (0.2-1.0) mg/dl Direct Bilirubin AST (13-39) U/L ALT (7-52) U/L Alkaline Phosphatase (34-104) U/L Ammonia (18-72) umol/L C-Reactive Protein 1.94 H (0-0.5) mg/dl Total Protein (6.0-8.3) gm/dl Albumin (3.4-5.0) gm/dl Lipase (11-82) U/L Procalcitonin (0-0.5) ng/ml Ethyl Alcohol mg/dL < 10.0 (<10.0) mg/dl SARS-CoV-2 (PCR) (Negative) Influenza Type A (PCR) (Neg) Influenza Type B (PCR) (Neg) RSV (RT-PCR) (Neg) 11/10/22 Range/Units Unknown WBC (4.8-10.8) K/ul RBC (4.70-6.10) M/uL Hgb (14.0-18.0) g/dl Hct (42.0-52.0) % MCV (80.0-100.0) fL MCH (25.0-34.0) pg MCHC (32.0-36.0) g/dL RDW Std Deviation (36.4-46.3) fL RDW Coeff of Ramone (11.5-14.5) % Plt Count (130-400) K/uL MPV (9.4-12.4) fL Immature Gran % (Auto) % Neut % (Auto) % Lymph % (Auto) % [place] % (Auto) % Eos % (Auto) % Baso % (Auto) % Neut # (Auto) (1.40-6.50) K/uL Lymph # (Auto) (1.2-3.4) K/uL [place] # (Auto) (0.11-0.59) K/uL Eos # (Auto) (0-0.50) K/uL Baso # (Auto) (0-0.2) K/uL Immature Gran # (Auto) (0.01-0.20) K/uL PT (9.0-12.0) Seconds INR (0.9-1.1) APTT (21.0-31.0) Seconds PTT Ratio Sodium (136-145) mmol/L Potassium (3.5-5.1) mmol/L Chloride (98-107) mmol/L Carbon Dioxide (21-32) mmol/L Anion Gap (3-11) BUN (6-23) mg/dl Creatinine (0.6-1.4) mg/dl Est Cr Clr Drug Dosing ml/min Est GFR ( Amer) ml/min Est GFR (Non-Af Amer) ml/min BUN/Creatinine Ratio (10-20) Glucose (70-99(Fasting)) mg/dl Lactate (0.4-2.0) mmol/L Calcium (8.6-10.3) mg/dl Magnesium (1.7-2.4) mg/dl Total Bilirubin (0.2-1.0) mg/dl Direct Bilirubin AST (13-39) U/L ALT (7-52) U/L Alkaline Phosphatase (34-104) U/L Ammonia (18-72) umol/L C-Reactive Protein (0-0.5) mg/dl Total Protein (6.0-8.3) gm/dl Albumin (3.4-5.0) gm/dl Lipase (11-82) U/L Procalcitonin (0-0.5) ng/ml Ethyl Alcohol mg/dL (<10.0) mg/dl SARS-CoV-2 (PCR) NEGATIVE (Negative) Influenza Type A (PCR) Negative (Neg) Influenza Type B (PCR) Negative (Neg) RSV (RT-PCR) Negative (Neg) Imaging Data Attestation: I personally reviewed and interpreted this imaging study as follows: My Impression: Chest x-ray: Left lower lobe infiltrate. Radiologist's Impression: Abdomen/Pelvis CT 11/10/22 17:[address] WITH IV CONTRAST CT DOSE: HISTORY: Generalized abdominal pain. Fever. TECHNIQUE: Multiaxial CT images of the abdomen and pelvis were performed following the use of intravenous contrast. A dose lowering technique was utilized adhering to the principles of ALARA. COMPARISON STUDY: Abdomen and pelvis CT 10/06/2022. FINDINGS: Patchy and linear bibasilar densities are noted. These are nonspecific but favor atelectasis. A left lower lobe densities could also represent a pneumonia. There are trace bilateral pleural effusions. No pneumoperitoneum. No pneumatosis. There are old, healed right posterior rib fractures. Mild body wall edema. Heterogeneous enhancement of the cirrhotic liver. No hepatic masses identified. The main portal vein is patent. The gallbladder, adrenal glands, and right kidney are unremarkable. There is a 4 mm nonobstructing stone within the proximal left ureter on image 185. No significant left-sided hydronephrosis. No additional renal calculi identified. Prior distal pancreatectomy and spl enectomy. A few splenic nodules within the left upper quadrant consistent with splenosis. A small to moderate amount of ascites is again noted. Mild bladder wall thickening, unchanged. This is likely due to chronic obstruction from the mildly enlarged prostate gland. No retroperitoneal lymphadenopathy. Mild calcified plaque within the normal caliber abdominal aorta. Colonic diverticulosis. No evidence for acute diverticulitis. No dilated loops of bowel to suggest an obstruction. The appendix is completely filled with gas. Therefore, no evidence for an acute appendicitis. Mild thickening within the proximal colon remains unchanged and favors a portal colopathy. Questionable sigmoid colon thickening is likely due to underdistention and muscular hypertrophy from the diverticulosis. Thickening of the stomach is also likely due to underdistention. IMPRESSION: 1. Patchy and linear bibasilar densities most pronounced within the left lower l obe. This favors atelectasis. A left lower lobe pneumonia could also have a similar appearance. 2. Trace bilateral pleural effusions. 3. Cirrhotic liver with a small to moderate amount of ascites, unchanged. 4. There is a 4 mm nonobstructing stone within the proximal left ureter. No left-sided hydronephrosis. 5. Thickening of the proximal colon favors a portal colopathy. This is similar to the prior study. 6. Gastric wall thickening is likely due to underdistention. 7. Colonic diverticulosis. No evidence for acute diverticulitis. 8. Additional findings as described above. ACT 112: Negative or not required by law. Electronically signed by: Cristhian Dubose M.D. 11/10/2022 6:[address] 11/10/22 17:[address] DOSE: 2158.89 mGy.cm HISTORY: Headache. Facial pain. TECHNIQUE: Multiaxial CT images of the maxillofacial region were performed and reformatted in the coronal plane without the use of contrast. A dose lowering technique was utilized adhering to the principles of ALARA. COMPARISON: None. FINDINGS: The visualized cervical spine, skull base, pterygoid plates, nasal bones, lamina papyracea, orbital floors, mandible, and zygomatic arches are intact. No fractures. The orbits are unremarkable. Partial opacification of the anterior ethmoid air cells and frontoethmoidal recesses. Mild mucosal thickening seen throughout the remaining paranasal sinuses. No fluid levels identified. The vascular cells are clear. The pterygopalatine fossa are maintained. IMPRESSION: No fractures within the maxillofacial region. Sinus disease as described above. ACT 112: Negative or not required by law. Electronically signed by: Cristhian Dubose M.D. 11/10/2022 6:[address] 11/10/22 17:[address] DOSE: HISTORY: Headache. Facial pain. TECHNIQUE: Multiaxial CT images of the head were performed without the use of intravenous contrast. Automated exposure control was utilized for this study. A dose lowering technique was utilized adhering to the principles of ALARA. Comparison: Head CT 06/13/2009. Findings: Partial opacification of the anterior ethmoid air cells. The mastoid air cells are clear. 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 The calvarium and skull base are intact. The ventricles and sulci are within normal limits. There is no mass, hematoma, midline shift, or acute infarct. Impression: No acute intracranial abnormality. Sinus disease as described above. ACT 112: Negative or not required by law. Electronically signed by: Cristhian Dubose M.D. 11/10/2022 6:04 PM ECG Data Attestation: I personally reviewed and interpreted this ECG as follows: Rate (beats per minute): 89 Rhythm: + normal sinus ECG Intervals/blocks: + Normal QRS, + Normal OR and + Normal QT-c ECG ST segments: + Normal ST segments [facility] Narrative 1653: The patient was evaluated in room C7. A complete history and physical exam was performed Cardiac monitoring: An order was placed for continuous cardiac monitoring. The monitor shows a rate of 90 with sinus rhythm interpreted by oh 1915: Vital signs stable. Labs show leukocytosis of 15.7. Hemoglobin 12.3. INR 1.7. Patient is not on Coumadin. Initial lactic acid was two-point 3 repeat lactic acid 2.6. Magnesium 1.5. Patient be treated with 30 cc/kg normal saline bolus as well as Rocephin given his asplenia. Bedside ultrasound was performed which shows very scant amount of ascites no drainable fluid colle ction. AST 80 total bilirubin 6.8 alkaline phosphatase 262. Pro-Storm negative. Chest x-ray conducted which does show a left sided infiltrate. Patient given dose of azithromycin also. CT of the head within normal limits. CT of the facial bones shows sinusitis. CT of the abdomen pelvis shows patchy linear densities in the left lower lobe. Cirrhotic liver with small to moderate amount of ascites which is unchanged. 4 mm nonobstructing left ureter stone. Discussed case with Dr. Soto who will admit the patient. Impression & Plan Pneumonia, Hypomagnesemia, Sinusitis Discharge Plan Visit Data Chief Complaint: Dehydration Stated Complaint: SINUS INFECTION, DEHYDRATED, NO APPETITE, HIGH FEV ED Provider: Lex,Mario Discharge Problem: Pneumonia, Hypomagnesemia, Sinusitis Patient Disposition: Admitted As Inpatient Prescriptions Prescriptions: No Action venlafaxine 37.5 mg tablet 37.5 mg PO BID lansoprazole [Prevacid] 30 mg capsule,delayed release(DR/EC) 30 mg PO QAM folic acid 400 mcg Tablet 0.4 mg PO QAM propranolol 20 mg Tablet 20 mg PO QAM cyanocobalamin (vitamin B-12) [Vitamin B-12] 2,000 mcg Tablet Extended Release 2,000 mcg PO DAILY cholecalciferol (vitamin D3) [Vitamin D3] 50 mcg (2,000 unit) Capsule 50 mcg PO DAILY
[2022-11-10] MEDS ORDERED: OPTIRAY 320 100ml IV ONE (17:50)
--- NOTE | 2022-11-10 18:05 | CT Scan Report ---
HEAD CT NONCONTRAST CT DOSE: HISTORY: Headache. Facial pain. TECHNIQUE: Multiaxial CT images of the head were performed without the use of intravenous contrast. A utomated exposure control was utilized for this study. A dose lowering technique was utilized adheri ng to the principles of ALARA. Comparison: Head CT 06/13/2009. Findings: Partial opacification of the anterior ethmoid air cells. The mastoid air cells are clear. T here is an old lacunar infarct within the right cerebellar hemisphere. The calvarium and skull base a re intact. The ventricles and sulci are within normal limits. There is no mass, hematoma, midline cooper ft, or acute infarct. Impression: No acute intracranial abnormality. Sinus disease as described above. ACT 112: Negative or not required by law. Electronically signed by: Cristhian Dubose M.D. 11/10/2022 6:04 PM
--- NOTE | 2022-11-10 18:09 | CT Scan Report ---
MAXILLOFACIAL CT CT DOSE: 2158.89 mGy.cm HISTORY: Headache. Facial pain. TECHNIQUE: Multiaxial CT images of the maxillofacial region were performed and reformatted in the cor onal plane without the use of contrast. A dose lowering technique was utilized adhering to the princ iplhermelinda of ANJEL. COMPARISON: None. FINDINGS: The visualized cervical spine, skull base, pterygoid plates, nasal bones, lamina papyracea, orbital floors, mandible, and zygomatic arches are intact. No fractures. The orbits are unremarkable . Partial opacification of the anterior ethmoid air cells and frontoethmoidal recesses. Mild mucosal thickening seen throughout the remaining paranasal sinuses. No fluid levels identified. The vascular cells are clear. The pterygopalatine fossa are maintained. IMPRESSION: No fractures within the maxillofacial region. Sinus disease as described above. ACT 112: Negative or not required by law. Electronically signed by: Cristhian Dubose M.D. 11/10/2022 6:07 PM
--- NOTE | 2022-11-10 18:53 | CT Scan Report ---
ABDOMEN AND PELVIS CT WITH IV CONTRAST CT DOSE: HISTORY: Generalized abdominal pain. Fever. TECHNIQUE: Multiaxial CT images of the abdomen and pelvis were performed following the use of intrave nous contrast. A dose lowering technique was utilized adhering to the principles of ALARA. COMPARISON STUDY: Abdomen and pelvis CT 10/06/2022. FINDINGS: Patchy and linear bibasilar densities are noted. These are nonspecific but favor atelectasi s. A left lower lobe densities could also represent a pneumonia. There are trace bilateral pleural ef fusions. No pneumoperitoneum. No pneumatosis. There are old, healed right posterior rib fractures. Mi ld body wall edema. Heterogeneous enhancement of the cirrhotic liver. No hepatic masses identified. T he main portal vein is patent. The gallbladder, adrenal glands, and right kidney are unremarkable. Th ere is a 4 mm nonobstructing stone within the proximal left ureter on image 185. No significant left- sided hydronephrosis. No additional renal calculi identified. Prior distal pancreatectomy and splenec zenaida. A few splenic nodules within the left upper quadrant consistent with splenosis. A small to mode rate amount of ascites is again noted. Mild bladder wall thickening, unchanged. This is likely due to chronic obstruction from the mildly enlarged prostate gland. No retroperitoneal lymphadenopathy. Mil d calcified plaque within the normal caliber abdominal aorta. Colonic diverticulosis. No evidence for acute diverticulitis. No dilated loops of bowel to suggest an obstruction. The appendix is completel y filled with gas. Therefore, no evidence for an acute appendicitis. Mild thickening within the proxi mal colon remains unchanged and favors a portal colopathy. Questionable sigmoid colon thickening is l ikely due to underdistention and muscular hypertrophy from the diverticulosis. Thickening of the stom ach is also likely due to underdistention. IMPRESSION: 1. Patchy and linear bibasilar densities most pronounced within the left lower lobe. This favors atel ectasis. A left lower lobe pneumonia could also have a similar appearance. 2. Trace bilateral pleural effusions. 3. Cirrhotic liver with a small to moderate amount of ascites, unchanged. 4. There is a 4 mm nonobstructing stone within the proximal left ureter. No left-sided hydronephrosis . 5. Thickening of the proximal colon favors a portal colopathy. This is similar to the prior study. 6. Gastric wall thickening is likely due to underdistention. 7. Colonic diverticulosis. No evidence for acute diverticulitis. 8. Additional findings as described above. ACT 112: Negative or not required by law. Electronically signed by: Cristhian Dubose M.D. 11/10/2022 6:52 PM
[2022-11-10] MEDS ORDERED: AMPICILLIN/SULBACTAM SOD 3,000 MG in 0.9 % SODIUM CHLORIDE 100 ML IV STA (19:02)
[2022-11-10] MEDS ORDERED: MAGNESIUM SULFATE / D5W 1 GM/100 ML BAG IV STA (19:03)
[2022-11-10] MEDS ORDERED: SODIUM CHLORIDE 0.9% 1000ML 500 ML IV ONE (19:03)
[2022-11-10] MEDS ORDERED: cefTRIAXone SODIUM 1,000 MG in DEXTROSE 5% AD-VAN 50 ML IV STA (19:03)
[2022-11-10 19:13] LABS: Influenza A virus by PCR Negative (Neg); Influenza B virus by PCR Negative (Neg); RSV by PCR Negative (Neg); SARS CoV2 RNA(COVID-19) Ceph NEGATIVE (Negative)
[2022-11-10] MEDS ORDERED: AZITHROMYCIN 500 MG in DEXTROSE 5% 250 ML IV STA (19:13)
[2022-11-10] MEDS: SODIUM CHLORIDE 0.9% 1000ML 2,000 ML IV ONE ×2 (19:16→20:36)
--- NOTE | 2022-11-10 19:17 | History & Physical Report ---
Date of Service November 10, 2022 Assessment & Plan (1) Acute bacterial sinusitis: Plan: -Admit to med/tele -Currently stable -Patient found to have sinusitis on CT of the head and face today -Symptoms have been progressing since last week -Will start him on Unasyn with his ENT infection and asplenic status -Blood cultures obtained in the ED -He appears dehydrated, will give 1L NSS bolus , followed by 1L LR bolus, then will continue with maintenance LR overnight -Questionable left lower lobe infiltrate on CT of the abd/pelvis, CXR and procal in process, will give a dose of azithromycin tonight to cover atypicals with his asplenic status, if CXR and procal are negative can DC and continue with unasyn monotherapy >Incentive spirometry -BL SCD's for DVT PPX for now -AM CBC, CMP, Mag, PT/INR (2) Cirrhosis of liver with ascites: Plan: -Patient appears to have decompensated cirrhosis with possible acute alcoholic hepatitis as well -Ammonia WNL, he is alet and oriented -Does not appear to be significantly 3rd spacing at this time, likely due to dehydration -No currently on spironolactone, lasix, rifaxamin, or lactulose -Will consult [facility] to follow while admitted (3) Lactate blood increase: Plan: -2.3 on arrival --> 2.6 on 2 hour repeat -Likely a combination of acute infection, dehydration, and poor clearance due to cirrhosis -Continue IV fluids and will continue to monitor q2h until his lactate is WNL (4) Alcoholic hepatitis with ascites: Plan: -Gibran's Discriminant Function Score of 32 today = poor prognosis -Will hold glucocorticoids at this time with his acute bacterial infection and immunocompromised state (5) Alcohol abuse: Plan: -Still drinking daily, last drink was last night -No signs of withdrawal yet -Will start him on AWSS at risk protocol for now as he wishes to quit -Will give 500 mg IV thiamine now, then continue with 300 mg IV daily for another 1-2 days, can eventually transition to PO -Continue home B12 and folic acid (6) Hypomagnesemia: Plan: -Noted to be 1.5 today -Likely due to alcohol abuse and poor oral intake -Given 1gm IV mag sulfate in the ED -Monitor am mag and replete as needed (7) Thrombocytopenia: Plan: -Noted to be 76 today, no signs of acute bleeding or bruising -Continue to monitor daily (8) Hyponatremia: Plan: -Noted to be 131 today, asymptomatic -Likely multifactorial including cirrhosis and poor oral intake -Will give IV fluids as described above, monitor am sodium level (9) GERD (gastroesophageal reflux disease): Plan: -Will have him on IV Protonix daily during admission (10) PTSD (post-traumatic stress disorder): Plan: -Continue Venlafaxine Plan The patient was discussed with Dr. 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 ED on 11/10/22 with a chief complaint of facial swelling with yellow mucus production. In the ED the patient's vitals stable. Labs were significant for a leukocytosis of 15 with left shift of 12, platelets of 76 (down from 92 as of 10/11), INR of 1.7, sodium of 131, lactate of 2.6, mag of 1.5, total bili of 6.8 (up from 5.3 as of 10/11), AST of 80 (up from 42 as of 10/11), alk phos of 262 (up from 254), CRP of 1.94, alcohol level < 10, and covid 19/Influenza/RSV negative. CT of the head was read as negative for acute findings. CT of the face shows acute sinusitis. CT of the abd/pelvis w/IV con was read as "1. Patchy and linear bibasilar densities most pronounced within the left lower lobe. This favors atelectasis. A left lower lobe pneumonia could also have a similar appearance. 2. Trace bilateral pleural effusions. 3. Cirrhotic liver with a small to moderate amount of ascites, unchanged. 4. There is a 4 mm nonobstructing stone within the proximal left ureter. No left-sided hydronephrosis. 5. Thickening of the proximal colon favors a portal colopathy. This is similar to the prior study . 6. Gastric wall thickening is likely due to underdistention. 7. Colonic diverticulosis. No evidence for acute diverticulitis.". Prior to admission the patient was given 1mg IV mag sulfate, 500 mL NSS, and ordered a dose of Ceftriaxone and azithromycin. At the time of the exam the patient was lying in bed in no acute distress with is sitting bedside, history was obtained from both. He states that he started to develop sinus congestion and pressure approximately a week ago. This has progressed to the point of significant facial swelling, pain, and yellow mucus drainage. He states that he was having fevers as high as 104 at home over the past 48 hours. He had multiple episodes on non-blood emesis, he denies hematemesis as well. He denies chocking/aspirating on any vomit. Has has had poor oral intake since the development of cirrhosis per his . He denies recent chest pain, SOB, cough, abd pain, dysuria, hematuria, melena, and recent trauma. He feels as though he has increased swelling in his LE's but not his abdomen. He follows with Dr. Mcgarry of [facility] GI[facility]Hepatology. He is still drinking daily, rum is his drink of choice. He states that he will go through a fifth in a week but his states it is more like every 2 days. When asked, he states that he wants to stop drinking due to all his health problems and due to the toll it's putting on his and son. He denies a previous hx of serious alcohol withdrawal, his last drink was last night. He had a colonoscopy on August 11 and had a poly removed. He and his report that there is concern it is precancerous, he is scheduled to have another procedure and possible surgery at [facility] in November. Please refer to Dr. Soto's attestation for any changes to the treatment plan Allergies Allergy/AdvReac Type Severity Reaction Status Date / Time bee venom protein (honey bee) Allergy Severe Hives / Verified 11/10/22 17:56 Anaphylaxis adhesive Allergy Mild Rash-PAPER Verified 11/10/22 17:56 TAPE OK Home Medications Medication Instructions Recorded Confirmed Type lansoprazole 30 mg capsule,delayed 30 mg PO QAM 10/28/18 11/10/22 History release (Prevacid) venlafaxine 37.5 mg tablet 37.5 mg PO BID 10/28/18 11/10/22 History folic acid 400 mcg tablet 0.4 mg PO QAM 03/16/21 11/10/22 History propranolol 20 mg tablet 20 mg PO QAM 03/23/22 11/10/22 History cholecalciferol (vitamin D3) 50 50 mcg PO DAILY 11/10/22 11/10/22 History mcg (2,000 unit) capsule (Vitamin D3) cyanocobalamin (vitamin B-12) 2,000 mcg PO DAILY 11/10/22 11/10/22 History 2,000 mcg tablet,extended release (Vitamin B-12 ER) Past Med/Surg History Medical History Alcoholic cirrhosis Alcoholism Per nursing assessment - patient denies current alcohol use but alcohol level was 264.8 on 07/29/21 when patient was in ER for ankle fracture Borderline high cholesterol Cirrhosis of liver Degenerative disc disease Esophageal varices Grade I per 04/22/21 EGD Fatty infiltration of liver GERD (gastroesophageal reflux disease) Hypotension per pt Pancreatic mass benign--pt states 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 PTSD (post-traumatic stress disorder) Pulmonary embolism Approx 2 yrs ago > [facility] > thinner now UT'ed -NO ISSUES SINCE > unknown etiology Sludge in gallbladder Surgical History History of adenoidectomy History of bilateral inguinal herniorrhaphies History of colonoscopy History of esophagogastroduodenoscopy (EGD) recent 04/22/[address] [facility]--Grade 1 varices found History of open reduction and internal fixation (ORIF) procedure RIGHT ANKLE 07/2021 History of open reduction and internal fixation (ORIF) procedure Right Fifth Metatarsal Open Reduction Internal Fixation, Bone Marrow Aspirate Concentrate Injection into Fracture Site(Right) - Shahzad Blount MD 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 History of surgery on wrist bilat cysts removed History of tonsillectomy History of tooth extraction Family History Mother Dementia Father Prostate cancer Diabetes Heart disease Sister Neurofibromatosis Other No family history of adverse response to anesthesia Social History Smoking Status: Current every day smoker Tobacco Type: Cigarettes packs per day: 0.5; Cigarettes Per Day: 6 cigs per day; Second Hand Exposure: No; Do You Dip or Chew Tobacco: No; Hx Alcohol Use: Yes Alcohol type: hard liquor Hx Substance Use: No Preferred Language: Belizean Communication Ability: Effective Radiology Rn Required: No Beliefs That Will Affect Care: None marital status: Current Living Situation: Family Current Living Situation Comment: home w family current occupational status: retired Other Information That Helps Us Care for You: No Feels Safe at Home: Yes Safety Concerns: Feels Safe At This Time Diet: regular Diet Comment: "not a very healthy diet" Assistive Devices: Glasses Physical Exam Physical Exam: Physical Exam: General: In no acute distress, older than stated age, malnourished, chronically ill-appearing HEENT: Normocephalic, atraumatic, tender to palpation of the frontal and maxillary sinuses, positive scleral icterus, pupils around round, symmetrical, and reactive to light, dry mucus membranes, trachea midline, no thyromegaly Chest/Pulm: No respiratory distress, symmetrical chest expansion, clear breath sounds throughout Cardiac: RRR, no murmurs noted Abdomen: Negative for significant ascites and negative for bruising, normoactive bowel sounds, soft, non-tender to palpation throughout Musculoskeletal: Symmetrical and without signs of acute trauma, upper and lower extremities with full ROM, no atrophy, spasticity, or flaccidity Extremities: Radial, dorsalis pedis, and posterior tibial pulses are intact and symmetrical, +1 edema noted in the BL LE's Skin: jaundiced skin noted throughout Neuro: Alert and oriented to person, place, month, year, and president, no focal defects, CN II-XII tested and intact, no tremors noted Psych: No acute distress, calm and cooperative during the exam Results & Data Results & Data Vital Signs (Past 12 Hours) Vital Signs Temp Pulse Pulse Resp BP BP Pulse Ox 11/10/22 17:01 83 11/10/22 17:30 94 11/10/22 17:29 85 16 125/59 L 94 11/10/22 15:28 37.2 C 95 H 22 126/74 94 O2 Del Method 11/10/22 17:01 11/10/22 17:30 Room Air 11/10/22 17:29 Room Air 11/10/22 15:28 Room Air Laboratory Results Abnormal lab results 11/10/22 11/10/22 11/10/22 Range/Units 15:53 15:53 15:53 WBC 15.73 H (4.8-10.8) K/ul RBC 3.48 L (4.70-6.10) M/uL Hgb 12.3 L (14.0-18.0) g/dl Hct 33.1 L (42.0-52.0) % MCH 35.3 H (25.0-34.0) pg MCHC 37.2 H (32.0-36.0) g/dL RDW Std Deviation 54.0 H (36.4-46.3) fL RDW Coeff of Ramone 15.6 H (11.5-14.5) % Plt Count 76 L (130-400) K/uL MPV 12.9 H (9.4-12.4) fL Neut # (Auto) 12.25 H (1.40-6.50) K/uL Crowley # (Auto) 1.25 H (0.11-0.59) K/uL PT (9.0-12.0) Seconds INR (0.9-1.1) APTT (21.0-31.0) Seconds Sodium 131 L (136-145) mmol/L BUN 4 L (6-23) mg/dl BUN/Creatinine Ratio 5.1 L (10-20) Glucose 141 H (70-99(Fasting)) mg/dl Lactate 2.3 H* (0.4-2.0) mmol/L Calcium 8.4 L (8.6-10.3) mg/dl Magnesium 1.5 L (1.7-2.4) mg/dl Total Bilirubin 6.8 H (0.2-1.0) mg/dl AST 80 H (13-39) U/L Alkaline Phosphatase 262 H (34-104) U/L C-Reactive Protein (0-0.5) mg/dl Albumin 2.3 L (3.4-5.0) gm/dl 11/10/22 11/10/22 11/10/22 Range/Units 15:53 18:55 18:56 WBC (4.8-10.8) K/ul RBC (4.70-6.10) M/uL Hgb (14.0-18.0) g/dl Hct (42.0-52.0) % MCH (25.0-34.0) pg MCHC (32.0-36.0) g/dL RDW Std Deviation (36.4-46.3) fL RDW Coeff of Ramone (11.5-14.5) % Plt Count (130-400) K/uL MPV (9.4-12.4) fL Neut # (Auto) (1.40-6.50) K/uL Crowley # (Auto) (0.11-0.59) K/uL PT 17.7 H (9.0-12.0) Seconds INR 1.7 H (0.9-1.1) APTT 33.2 H (21.0-31.0) Seconds Sodium (136-145) mmol/L BUN (6-23) mg/dl BUN/Creatinine Ratio (10-20) Glucose (70-99(Fasting)) mg/dl Lactate 2.6 H* (0.4-2.0) mmol/L Calcium (8.6-10.3) mg/dl Magnesium (1.7-2.4) mg/dl Total Bilirubin (0.2-1.0) mg/dl AST (13-39) U/L Alkaline Phosphatase (34-104) U/L C-Reactive Protein 1.94 H (0-0.5) mg/dl Albumin (3.4-5.0) gm/dl Diagnostic Findings Abdomen/Pelvis CT 11/10/22 17:[address] WITH IV CONTRAST CT DOSE: HISTORY: Generalized abdominal pain. Fever. TECHNIQUE: Multiaxial CT images of the abdomen and pelvis were performed following the use of intravenous contrast. A dose lowering technique was utilized adhering to the principles of ALARA. COMPARISON STUDY: Abdomen and pelvis CT 10/06/2022. FINDINGS: Patchy and linear bibasilar densities are noted. These are nonspecific but favor atelectasis. A left lower lobe densities could also represent a pneumonia. There are trace bilateral pleural effusions. No pneumoperitoneum. No pneumatosis. There are old, healed right posterior rib fractures. Mild body wall edema. Heterogeneous enhancement of the cirrhotic liver. No hepatic masses identified. The main portal vein is patent. The gallbladder, adrenal glands, and right kidney are unremarkable. There is a 4 mm nonobstructing stone within the proximal left ureter on image 185. No significant left-sided hydronephrosis. No additional renal calculi identified. Prior distal pancreatectomy and splenectomy. A few splenic nodules within the left upper quadrant consistent with splenosis. A small to moderate amount of ascites is again noted. Mild bladder wall thickening, unchanged. This is likely due to chronic obstruction from the mildly enlarged prostate gland. No retroperitoneal lymphadenopathy. Mild calcified plaque within the normal caliber abdominal aorta. Colonic diverticulosis. No evidence for acute diverticulitis. No dilated loops of bowel to suggest an obstruction. The appendix is completely filled with gas. Therefore, no evidence for an acute appendicitis. Mild thickening within the proximal colon remains unchanged and favors a portal colopathy. Questionable sigmoid colon thickening is likely due to underdistention and muscular hypertrophy from the diverticulosis. Thickening of the stomach is also likely due to underdistention. IMPRESSION: 1. Patchy and linear bibasilar densities most pronounced within the left lower lobe. This favors atelectasis. A left lower lobe pneumonia could also have a similar appearance. 2. Trace bilateral pleural effusions. 3. Cirrhotic liver with a small to moderate amount of ascites, unchanged. 4. There is a 4 mm nonobstructing stone within the proximal left ureter. No left-sided hydronephrosis. 5. Thickening of the proximal colon favors a portal colopathy. This is similar to the prior study. 6. Gastric wall thickening is likely due to underdistention. 7. Colonic diverticulosis. No evidence for acute diverticulitis. 8. Additional findings as described above. ACT 112: Negative or not required by law. Electronically signed by: Cristhian Dubose M.D. 11/10/2022 6:[address] 11/10/22 17:[address] DOSE: 2158.89 mGy.cm HISTORY: Headache. Facial pain. TECHNIQUE: Multiaxial CT images of the maxillofacial region were performed and reformatted in the coronal plane without the use of contrast. A dose lowering technique was utilized adhering to the principles of ALARA. COMPARISON: None. FINDINGS: The visualized cervical spine, skull base, pterygoid plates, nasal bones, lamina papyracea, orbital floors, mandible, and zygomatic arches are intact. No fractures. The orbits are unremarkable. Partial opacification of the anterior ethmoid air cells and frontoethmoidal recesses. Mild mucosal thickening seen throughout the remaining paranasal sinuses. No fluid levels identified. The vascular cells are clear. The pterygopalatine fossa are maintained. IMPRESSION: No fractures within the maxillofacial region. Sinus disease as described above. ACT 112: Negative or not required by law. Electronically signed by: Cristhian Dubose M.D. 11/10/2022 6:[address] 11/10/22 17:[address] DOSE: HISTORY: Headache. Facial pain. TECHNIQUE: Multiaxial CT images of the head were performed without the use of intravenous contrast. Automated exposure control was utilized for this study. A dose lowering technique was utilized adhering to the principles of ALARA. Comparison: Head CT 06/13/2009. Findings: Partial opacification of the anterior ethmoid air cells. The mastoid air cells are clear. 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 The calvarium and skull base are intact. The ventricles and sulci are within normal limits. There is no mass, hematoma, midline shift, or acute infarct. Impression: No acute intracranial abnormality. Sinus disease as described above. ACT 112: Negative or not required by law. Electronically signed by: Cristhian Dubose M.D. 11/10/2022 6:04 PM ECG Additional Comments: Normal sinus rhythm Normal ECG When compared with ECG of 16-MAR-2021 11:30, No significant change was found Code Status & VTE Plan Code Status FUll code VTE Prophylaxis Plan VTE Prophylaxis will be ordered: Yes Supervising Physician Co-Signing Physician Notes I personally saw and examined the patient. I verified all garcia points and agree with David Canchola PA-C with the following exceptions and/or additions: 57 year old male with liver cirrhosis, splenectomy and fever with sinus pain. LE edema worse than usual. Continues to drink alcohol despite alcohol liver cirrhosis O/E Jaundiced appearing, malnourished, Dry mucus membranes, pain over b/l frontal and maxillary sinuses, HS RRR, no murmurs, Chest CTAB, Abdo distended but soft, non tender, LE edema pitting at ankles 1+ b/l equal A/P Acute bacterial sinusitis - high risk due to splenectomy, Unasyn, follow up blood cultures Pneumonia - high risk due to splenectomy, Unasyn + azithromycin, MRSA nasal swab to assess need for coverage Elevated lactate - Likely to get worse on LR but not reflective of acidosis or tissue perfusion (rather reduced liver function), will switch fluids to Normosol Alcoholic hepatitis - consult gastroenterology, monitor billirubin, Plts and INR, no steroids recommended due to questionable efficacy anyway and current infection Alcohol use disorder - no current signs/symptoms of withdrawal, At risk AWSS and lorazepam ordered, continue to monitor PG Care Time/CCT Total # of Minutes Spent Total Time Spent with Patient: Total time spent is greater than 50% in coordination of care (as documented) at patient's floor/unit and/or counseling patient: Coding [place] [address] INT INP/OBS CARE 3/75MIN Patient Type Established Medical Decision Making High Complexity Diagnoses Acute bacterial sinusitis J01.90; B96.89 Cirrhosis of liver with ascites K74.60; R18.8 Lactate blood increase R79.89 Alcoholic hepatitis with ascites K70.11 Alcohol abuse F10.10 Hypomagnesemia E83.42 Thrombocytopenia D69.6 Hyponatremia E87.1 GERD (gastroesophageal reflux disease) K21.9 PTSD (post-traumatic stress disorder) F43.10
[2022-11-10] MEDS ORDERED: SODIUM CHLORIDE 0.9% 1000ML 1,000 ML IV ONE (19:46)
[2022-11-10] MEDS ORDERED: LORazepam 2 MG/1 ML VIAL IV PRN (19:50)
[2022-11-10] MEDS ORDERED: LACTATED RINGER'S 1,000 ML IV ONE (19:57)
[2022-11-10] MEDS ORDERED: THIAMINE HCL 500 MG in SODIUM CHLORIDE 0.9% 50 ML IV STA (20:05)
[2022-11-10] MEDS ORDERED: ONDANSETRON INJ 2 MG/ML 2 ML VIAL IV STA (21:27)
[2022-11-10] MEDS ORDERED: LACTATED RINGER'S 1,000 ML IV SCH (22:42)
[2022-11-11] MEDS: VENLAFAXINE HCL 37.5 MG TAB PO SCH ×3 (00:39→21:09)
[2022-11-11] MEDS: PLASMA-LYTE A 1,000 ML IV SCH ×3 (01:53→21:19)
[2022-11-11] MEDS: AMPICILLIN/SULBACTAM SOD 3,000 MG in 0.9 % SODIUM CHLORIDE 100 ML IV SCH ×4 (01:54→21:13)
--- NOTE | 2022-11-11 07:20 | XRay Report ---
SINGLE VIEW CHEST CLINICAL HISTORY: Pneumonia. FINDINGS: An AP, portable, upright chest radiograph is compared to study dated 07/29/2021 and correlat ed with chest CT dated 10/06/2022. The examination is degraded by portable technique and apical lordot ic positioning. The cardiomediastinal silhouette is unremarkable. Chronic interstitial thickening is similar to previous. Left basilar opacity likely represents scarring/atelectasis. No airspace consoli dation or large pleural effusion is identified. No pneumothorax is seen. The bony thorax is grossly i ntact. IMPRESSION: Left basilar opacities likely represent scarring/atelectasis. Correlate clinically for ev idence of a superimposed pneumonitis. ACT 112: Negative or not required by law. Electronically signed by: Lawson Bustamante M.D. 11/11/2022 7:19 AM
[2022-11-11 07:46] LABS: INR 1.9 (0.9-1.1); Prothrombin Time 19.6 Seconds (9.0-12.0)
[2022-11-11 07:49] LABS: Albumin Globulin Ratio 0.5 (0.9-2); Albumin Level 1.8 gm/dl (3.4-5.0); BUN Creatinine Ratio 6.5 (10-20); Bilirubin,Total 5.9 mg/dl (0.2-1.0); Calcium 7.8 mg/dl (8.6-10.3); Creatinine Clr Calc Pharmacy 146.4 ml/min; Est GFR (African American) 129.4 ml/min; Est GFR (Non-African American) 111.7 ml/min; Globulin 3.9 gm/dl (2.5-4.0); Magnesium 1.8 mg/dl (1.7-2.4); Potassium 3.8 mmol/L (3.5-5.1); Total Protein 5.7 gm/dl (6.0-8.3)
[2022-11-11 08:15] LABS: Basophils % (auto) 0.6 %; Eosinophils # (auto) 0.23 K/uL (0-0.50); Eosinophils % (auto) 1.3 %; Hematocrit (blood only) 28.1 % (42.0-52.0); Hemoglobin 10.4 g/dl (14.0-18.0); Immature Granulocytes # (auto) 0.13 K/uL (0.01-0.20); Immature Granulocytes % (auto) 0.7 %; Lymphocytes # (auto) 2.27 K/uL (1.2-3.4); Lymphocytes % (auto) 12.9 %; Mean Corpuscular Hemoglobin 36.1 pg (25.0-34.0); Mean Corpuscular Volume 97.6 fL (80.0-100.0); Mean Platelet Volume 12.2 fL (9.4-12.4); Monocytes # (auto) 1.83 K/uL (0.11-0.59); Monocytes % (auto) 10.4 %; Neutrophils # (auto) 13.01 K/uL (1.40-6.50); Neutrophils % (auto) 74.1 %; Platelet Count 60 K/uL (130-400); RDW Coefficient of Variation 16.2 % (11.5-14.5); RDW Standard Deviation 57.5 fL (36.4-46.3); Red Blood Count 2.88 M/uL (4.70-6.10); White Blood Count 17.57 K/ul (4.8-10.8)
--- NOTE | 2022-11-11 08:41 | Gastrointestinal Consultation ---
Supervising physician's statement I have discussed the case with Lorenza Hernandez NP, reviewed his records and have seen the patient. Refer to her records for full details. 57 year old man who has alcoholic liver disease and was admitted with severe sinus infection "and pneumonia". He admits to drinking again over the past month or so. "realizes he needs to quit" He does have evidence of alcoholic hepatitis with an elevated discrimant function. Use of steroids in alcoholic hepatitis has been controversial the entire length of my career (37 years) and has never truly been shown to be of definite benefit. In the case of someone who is continuing drinking I think it villalba not to start them. Will follow. Watch for signs of withdrawal. I have spent 25 minutes on the patient including discussion with Lorenza Hernandez, review of records, seeing patient and entering note into EMR Date of Consultation November 11, 2022 Assessment & Plan (1) Alcohol use disorder: Alcoholic cirrhosis: Patient is well-known to me from the outpatient clinic. Admits to increased alcohol intake over the last month or more. On admission, elevation in LFTs include total bilirubin 6.8, AST 80, alk phos 262. This morning total bilirubin 5.9, AST 49, alk phos 202. CT abdomen and pelvis demonstrated a small to moderate abdominal ascites. Obtain right upper quadrant ultrasound to rule out stones or sludge. Patient had some duplex of the portal and hepatic veins most recently 09/02/2022 as an outpatient with no thrombus identified in the hepatic, portal veins, IVC, splenic vein. Anemia: History of anemia. Referred to hematology last office visit. History of splenectomy and partial pancreatectomy. Hemoglobin 12.3, hematocrit 33.1 on admission. With fluids this morning 10.4, 28.1. Continue to monitor. Alcohol abuse: History of alcohol abuse. Unfortunately has began drinking alcohol again over the last month or more. Maddrey's discriminant function score this morning 40.9 indicating poor prognosis. Steroids deferred by medicine on admission. Case reviewed with Dr. Ty. Please refer to supervising physician addendum for further recommendations. I have spent 45 minutes of discrete time performing the activities of this visit which include but are not limited to review of the medical record, obtaining a history, physical exam, and entering information in the electronic record. 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 He was subsequently admitted with acute sinusitis, probable pneumonia, elevated liver function testing. The GI service was consulted due to his known history of alcoholic cirrhosis. The patient is well-known to me from the outpatient clinic. When last evaluated 08/2022 in the clinic, he denied any alcohol intake. He does admit to daily alcohol use over the last month. He reports that he has been drinking at least 1 large glass of rum and coke daily. Alcohol intake includes 1/5 of rum in 2 to 5 days. He reports fever at home of 100 to 104 F. Denies unintentional weight loss but reports very poor appetite. Denies dysphagia. Denies heartburn or indigestion. He is on no anticoagulation including aspirin. Denies routine use of NSAIDs. Denies abdominal pain but does note tightness and distention. Bowel movement loose 3 times daily typically after eating. Denies melena, hematochezia, hematemesis. Allergies Allergy/AdvReac Type Severity Reaction Status Date / Time bee venom protein (honey bee) Allergy Severe Hives / Verified 11/10/22 17:56 Anaphylaxis adhesive Allergy Mild Rash-PAPER Verified 11/10/22 17:56 TAPE OK Home Medications Medication Instructions Recorded Confirmed Type lansoprazole 30 mg capsule,delayed 30 mg PO QAM 10/28/18 11/10/22 History release (Prevacid) venlafaxine 37.5 mg tablet 37.5 mg PO BID 10/28/18 11/10/22 History folic acid 400 mcg tablet 0.4 mg PO QAM 03/16/21 11/10/22 History propranolol 20 mg tablet 20 mg PO QAM 03/23/22 11/10/22 History cholecalciferol (vitamin D3) 50 50 mcg PO DAILY 11/10/22 11/10/22 History mcg (2,000 unit) capsule (Vitamin D3) cyanocobalamin (vitamin B-12) 2,000 mcg PO DAILY 11/10/22 11/10/22 History 2,000 mcg tablet,extended release (Vitamin B-12 ER) Patient History Medical History Alcoholic cirrhosis Alcoholism Per nursing assessment - patient denies current alcohol use but alcohol level was 264.8 on 07/29/21 when patient was in ER for ankle fracture Borderline high cholesterol Cirrhosis of liver Degenerative disc disease Esophageal varices Grade I per 04/22/21 EGD Fatty infiltration of liver GERD (gastroesophageal reflux disease) Hypotension per pt Pancreatic mass benign--pt states 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 PTSD (post-traumatic stress disorder) Pulmonary embolism Approx 2 yrs ago > [facility] > thinner now VA'ed -NO ISSUES SINCE > unknown etiology Sludge in gallbladder Surgical History History of adenoidectomy History of bilateral inguinal herniorrhaphies History of colonoscopy History of esophagogastroduodenoscopy (EGD) recent 04/22/21 @ [facility]--Grade 1 varices found History of open reduction and internal fixation (ORIF) procedure RIGHT ANKLE 07/2021 History of open reduction and internal fixation (ORIF) procedure Right Fifth Metatarsal Open Reduction Internal Fixation, Bone Marrow Aspirate Concentrate Injection into Fracture Site(Right) - Shahzad Blount MD 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 History of surgery on wrist bilat cysts removed History of tonsillectomy History of tooth extraction Family History Mother Dementia Father Prostate cancer Diabetes Heart disease Sister Neurofibromatosis Other No family history of adverse response to anesthesia Social History Smoking Status: Current every day smoker Tobacco Type: Cigarettes packs per day: 0.5; Cigarettes Per Day: 6 cigs per day; Second Hand Exposure: No; Do You Dip or Chew Tobacco: No; Hx Alcohol Use: Yes Alcohol type: hard liquor Hx Substance Use: No Preferred Language: Dominican Communication Ability: Effective 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 Beliefs That Will Affect Care: None marital status: Current Living Situation: Family Current Living Situation Comment: home w family current occupational status: retired Other Information That Helps Us Care for You: No Feels Safe at Home: Yes Safety Concerns: Feels Safe At This Time Diet: regular Diet Comment: "not a very healthy diet" Assistive Devices: Glasses Review of Systems Review of Systems: All systems reviewed & are unremarkable except as noted in Subjective Physical Exam ENMT: facial swelling Respiratory: normal respiratory effort; no respiratory distress and no labored breathing Gastrointestinal (Abdomen): Inspection/Auscultation: abdomen normal to inspection, + abdomen distended and normal bowel sounds Percussion/Palpation: abdomen soft and + dullness to percussion; abdomen nontender, no guarding and abdomen not rigid Results & Data Vital Signs (Past 12 Hours) Vital Signs Temp Pulse Pulse Pulse Resp BP BP 11/11/22 08:10 36.8 C 87 18 11/11/22 05:21 16 11/11/22 03:58 16 11/11/22 03:09 37.0 C 88 18 11/10/22 23:56 86 11/10/22 23:11 37.5 C 94 H 16 107/62 11/10/22 21:45 14 96/67 L 11/10/22 21:29 16 99/66 L BP Pulse Ox O2 Del Method O2 Flow Rate 11/11/22 08:10 103/63 92 Room Air 11/11/22 05:21 95 Nasal Cannula 2 11/11/22 03:58 98/69 L 93 Nasal Cannula 2 11/11/22 03:09 89/53 L 90 Room Air 11/10/22 23:56 11/10/22 23:11 94 Room Air 11/10/22 21:45 92 11/10/22 21:29 94 Laboratory Results Laboratory Results - last 24 hr 11/10/22 11/10/22 11/10/22 15:53 15:53 15:53 WBC 15.73 H RBC 3.48 L Hgb 12.3 L Hct 33.1 L MCV 95.1 MCH 35.3 H MCHC 37.2 H RDW Std Deviation 54.0 H RDW Coeff of Ramone 15.6 H Plt Count 76 L MPV 12.9 H Immature Gran % (Auto) 0.4 Neut % (Auto) 77.9 Lymph % (Auto) 12.3 [place] % (Auto) 7.9 Eos % (Auto) 0.5 Baso % (Auto) 1.0 Neut # (Auto) 12.25 H Lymph # (Auto) 1.93 [place] # (Auto) 1.25 H Eos # (Auto) 0.08 Baso # (Auto) 0.15 Immature Gran # (Auto) 0.07 PT INR APTT PTT Ratio Sodium 131 L Potassium 3.8 Chloride 98 Carbon Dioxide 28 Anion Gap 5 BUN 4 L Creatinine 0.78 Est Cr Clr Drug Dosing 113.5 Est GFR ( Amer) 117.8 Est GFR (Non-Af Amer) 101.6 BUN/Creatinine Ratio 5.1 L Glucose 141 H Lactate 2.3 H* Calcium 8.4 L Magnesium 1.5 L Total Bilirubin 6.8 H Direct Bilirubin TNP AST 80 H ALT 25 Alkaline Phosphatase 262 H Ammonia C-Reactive Protein Total Protein 7.5 Albumin 2.3 L Globulin Albumin/Globulin Ratio Lipase 29 Procalcitonin Nasal Screen MRSA (PCR) Ethyl Alcohol mg/dL SARS-CoV-2 (PCR) Influenza Type A (PCR) Influenza Type B (PCR) RSV (RT-PCR) 11/10/22 11/10/22 11/10/22 15:53 15:53 15:53 WBC RBC Hgb Hct MCV MCH MCHC RDW Std Deviation RDW Coeff of Ramone Plt Count MPV Immature Gran % (Auto) Neut % (Auto) Lymph % (Auto) [place] % (Auto) Eos % (Auto) Baso % (Auto) Neut # (Auto) Lymph # (Auto) [place] # (Auto) Eos # (Auto) Baso # (Auto) Immature Gran # (Auto) PT 17.7 H INR 1.7 H APTT 33.2 H PTT Ratio 1.2 Sodium Potassium Chloride Carbon Dioxide Anion Gap BUN Creatinine Est Cr Clr Drug Dosing Est GFR ( Amer) Est GFR (Non-Af Amer) BUN/Creatinine Ratio Glucose Lactate Calcium Magnesium Total Bilirubin Direct Bilirubin AST ALT Alkaline Phosphatase Ammonia 45.0 C-Reactive Protein Total Protein Albumin Globulin Albumin/Globulin Ratio Lipase Procalcitonin 0.05 Nasal Screen MRSA (PCR) Ethyl Alcohol mg/dL SARS-CoV-2 (PCR) Influenza Type A (PCR) Influenza Type B (PCR) RSV (RT-PCR) 11/10/22 11/10/22 11/10/22 18:55 18:55 18:56 WBC RBC Hgb Hct MCV MCH MCHC RDW Std Deviation RDW Coeff of Ramone Plt Count MPV Immature Gran % (Auto) Neut % (Auto) Lymph % (Auto) [place] % (Auto) Eos % (Auto) Baso % (Auto) Neut # (Auto) Lymph # (Auto) [place] # (Auto) Eos # (Auto) Baso # (Auto) Immature Gran # (Auto) PT INR APTT PTT Ratio Sodium Potassium Chloride Carbon Dioxide Anion Gap BUN Creatinine Est Cr Clr Drug Dosing Est GFR ( Amer) Est GFR (Non-Af Amer) BUN/Creatinine Ratio Glucose Lactate 2.6 H* Calcium Magnesium Total Bilirubin Direct Bilirubin AST ALT Alkaline Phosphatase Ammonia C-Reactive Protein 1.94 H Total Protein Albumin Globulin Albumin/Globulin Ratio Lipase Procalcitonin Nasal Screen MRSA (PCR) Ethyl Alcohol mg/dL < 10.0 SARS-CoV-2 (PCR) Influenza Type A (PCR) Influenza Type B (PCR) RSV (RT-PCR) 11/10/22 11/10/22 11/10/22 20:40 23:16 Unknown WBC RBC Hgb Hct MCV MCH MCHC RDW Std Deviation RDW Coeff of Ramone Plt Count MPV Immature Gran % (Auto) Neut % (Auto) Lymph % (Auto) [place] % (Auto) Eos % (Auto) Baso % (Auto) Neut # (Auto) Lymph # (Auto) [place] # (Auto) Eos # (Auto) Baso # (Auto) Immature Gran # (Auto) PT INR APTT PTT Ratio Sodium Potassium Chloride Carbon Dioxide Anion Gap BUN Creatinine Est Cr Clr Drug Dosing Est GFR ( Amer) Est GFR (Non-Af Amer) BUN/Creatinine Ratio Glucose Lactate 2.9 H* Calcium Magnesium Total Bilirubin Direct Bilirubin AST ALT Alkaline Phosphatase Ammonia C-Reactive Protein Total Protein Albumin Globulin Albumin/Globulin Ratio Lipase Procalcitonin Nasal Screen MRSA (PCR) Negative Ethyl Alcohol mg/dL SARS-CoV-2 (PCR) NEGATIVE Influenza Type A (PCR) Negative Influenza Type B (PCR) Negative RSV (RT-PCR) Negative 11/11/22 11/11/22 11/11/22 01:25 06:46 06:46 WBC 17.57 H RBC 2.88 L Hgb 10.4 L Hct 28.1 L MCV 97.6 MCH 36.1 H MCHC 37.0 H RDW Std Deviation 57.5 H RDW Coeff of Ramone 16.2 H Plt Count 60 L MPV 12.2 Immature Gran % (Auto) 0.7 Neut % (Auto) 74.1 Lymph % (Auto) 12.9 [place] % (Auto) 10.4 Eos % (Auto) 1.3 Baso % (Auto) 0.6 Neut # (Auto) 13.01 H Lymph # (Auto) 2.27 [place] # (Auto) 1.83 H Eos # (Auto) 0.23 Baso # (Auto) 0.10 Immature Gran # (Auto) 0.13 PT 19.6 H INR 1.9 H APTT PTT Ratio Sodium Potassium Chloride Carbon Dioxide Anion Gap BUN Creatinine Est Cr Clr Drug Dosing Est GFR ( Amer) Est GFR (Non-Af Amer) BUN/Creatinine Ratio Glucose Lactate 2.4 H* Calcium Magnesium Total Bilirubin Direct Bilirubin AST ALT Alkaline Phosphatase Ammonia C-Reactive Protein Total Protein Albumin Globulin Albumin/Globulin Ratio Lipase Procalcitonin Nasal Screen MRSA (PCR) Ethyl Alcohol mg/dL SARS-CoV-2 (PCR) Influenza Type A (PCR) Influenza Type B (PCR) RSV (RT-PCR) 11/11/22 06:46 WBC RBC Hgb Hct MCV MCH MCHC RDW Std Deviation RDW Coeff of Ramone Plt Count MPV Immature Gran % (Auto) Neut % (Auto) Lymph % (Auto) [place] % (Auto) Eos % (Auto) Baso % (Auto) Neut # (Auto) Lymph # (Auto) [place] # (Auto) Eos # (Auto) Baso # (Auto) Immature Gran # (Auto) PT INR APTT PTT Ratio Sodium 136 Potassium 3.8 Chloride 102 Carbon Dioxide 31 Anion Gap 3 BUN 4 L Creatinine 0.62 Est Cr Clr Drug Dosing 146.4 Est GFR ( Amer) 129.4 Est GFR (Non-Af Amer) 111.7 BUN/Creatinine Ratio 6.5 L Glucose 123 H Lactate Calcium 7.8 L Magnesium 1.8 Total Bilirubin 5.9 H Direct Bilirubin AST 49 H ALT 18 Alkaline Phosphatase 202 H Ammonia C-Reactive Protein Total Protein 5.7 L D Albumin 1.8 L Globulin 3.9 Albumin/Globulin Ratio 0.5 L Lipase Procalcitonin Nasal Screen MRSA (PCR) Ethyl Alcohol mg/dL SARS-CoV-2 (PCR) Influenza Type A (PCR) Influenza Type B (PCR) RSV (RT-PCR) Diagnostic Findings Abdomen/Pelvis CT 11/10/22 17:[address] WITH IV CONTRAST CT DOSE: HISTORY: Generalized abdominal pain. Fever. TECHNIQUE: Multiaxial CT images of the abdomen and pelvis were performed following the use of intravenous contrast. A dose lowering technique was utilized adhering to the principles of ALARA. COMPARISON STUDY: Abdomen and pelvis CT 10/06/2022. FINDINGS: Patchy and linear bibasilar densities are noted. These are nonspecific but favor atelectasis. A left lower lobe densities could also represent a pneumonia. There are trace bilateral pleural effusions. No pneumoperitoneum. No pneumatosis. There are old, healed right posterior rib fractures. Mild body wall edema. Heterogeneous enhancement of the cirrhotic liver. No hepatic masses identified. The main portal vein is patent. The gallbladder, adrenal glands, and right kidney are unremarkable. There is a 4 mm nonobstructing stone within the proximal left ureter on image 185. No significant left-sided hydronephrosis. No additional renal calculi identified. Prior distal pancreatectomy and splenectomy. A few splenic nodules within the left upper quadrant consistent with splenosis. A small to moderate amount of ascites is again noted. Mild bladder wall thickening, unchanged. This is likely due to chronic obstruction from the mildly enlarged prostate gland. No retroperitoneal lymphadenopathy. Mild calcified plaque within the normal caliber abdominal aorta. Colonic diverticulosis. No evidence for acute diverticulitis. No dilated loops of bowel to suggest an obstruction. The appendix is completely filled with gas. Therefore, no evidence for an acute appendicitis. Mild thickening within the proximal colon remains unchanged and favors a portal colopathy. Questionable sigmoid colon thickening is likely due to underdistention and muscular hypertrophy from the diverticulosis. Thickening of the stomach is also likely due to underdistention. IMPRESSION: 1. Patchy and linear bibasilar densities most pronounced within the left lower lobe. This favors atelectasis. A left lower lobe pneumonia could also have a similar appearance. 2. Trace bilateral pleural effusions. 3. Cirrhotic liver with a small to moderate amount of ascites, unchanged. 4. There is a 4 mm nonobstructing stone within the proximal left ureter. No left-sided hydronephrosis. 5. Thickening of the proximal colon favors a portal colopathy. This is similar to the prior study. 6. Gastric wall thickening is likely due to underdistention. 7. Colonic diverticulosis. No evidence for acute diverticulitis. 8. Additional findings as described above. ACT 112: Negative or not required by law. Electronically signed by: Cristhian Dubose M.D. 11/10/2022 6:[address] 11/10/22 17:[address] DOSE: 2158.89 mGy.cm HISTORY: Headache. Facial pain. TECHNIQUE: Multiaxial CT images of the maxillofacial region were performed and reformatted in the coronal plane without the use of contrast. A dose lowering technique was utilized adhering to the principles of ALARA. COMPARISON: None. FINDINGS: The visualized cervical spine, skull base, pterygoid plates, nasal bones, lamina papyracea, orbital floors, mandible, and zygomatic arches are intact. No fractures. The orbits are unremarkable. Partial opacification of the anterior ethmoid air cells and frontoethmoidal recesses. Mild mucosal thickening seen throughout the remaining paranasal sinuses. No fluid levels identified. The vascular cells are clear. The pterygopalatine fossa are maintained. IMPRESSION: No fractures within the maxillofacial region. Sinus disease as described above. ACT 112: Negative or not required by law. Electronically signed by: Cristhian Dubose M.D. 11/10/2022 6:[address] 11/10/22 17:[address] DOSE: HISTORY: Headache. Facial pain. TECHNIQUE: Multiaxial CT images of the head were performed without the use of intravenous contrast. Automated exposure control was utilized for this study. A dose lowering technique was utilized adhering to the principles of ALARA. Comparison: Head CT 06/13/2009. Findings: Partial opacification of the anterior ethmoid air cells. The mastoid air cells are clear. 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 The calvarium and skull base are intact. The ventricles and sulci are within normal limits. There is no mass, hematoma, midline shift, or acute infarct. Impression: No acute intracranial abnormality. Sinus disease as described above. ACT 112: Negative or not required by law. Electronically signed by: Cristhian Dubose M.D. 11/10/2022 6:04 PM Chest X-Ray 11/10/22 18:58 SINGLE VIEW CHEST CLINICAL HISTORY: Pneumonia. FINDINGS: An AP, portable, upright chest radiograph is compared to study dated 07/29/2021 and correlated with chest CT dated 10/06/2022. The examination is degraded by portable technique and apical lordotic positioning. The cardiomediastinal silhouette is unremarkable. Chronic interstitial thickening is similar to previous. Left basilar opacity likely represents scarring/atelectasis. No airspace consolidation or large pleural effusion is identified. No pneumothorax is seen. The bony thorax is grossly intact. IMPRESSION: Left basilar opacities likely represent scarring/atelectasis. Correlate clinically for evidence of a superimposed pneumonitis. ACT 112: Negative or not required by law. Electronically signed by: Lawson Bustamante M.D. 11/11/2022 7:19 AM
--- NOTE | 2022-11-11 08:50 | Electrocardiogram Report ---
Test Reason : Blood Pressure : / mmHG Vent. Rate : 089 BPM Atrial Rate : 089 BPM P-R Int : 140 ms QRS Dur : 074 ms QT Int : 386 ms P-R-T Axes : 044 012 027 degrees QTc Int : 469 ms Normal sinus rhythm Normal ECG When compared with ECG of 16-MAR-2021 11:30, No significant change was found Confirmed by Ramsey Miguel ([id number]) on 11/11/2022 8:49:58 AM Referred By: REFERRED SELF Confirmed By:Ramsey Miguel
--- NOTE | 2022-11-11 08:54 | Hospitalist Progress Note ---
Date of Service November 11, 2022 Assessment & Plan (1) Acute bacterial sinusitis: Plan: sinusitis on CT of the head and face, Unasyn with his ENT infection and asplenic status -Blood cultures pending -Questionable left lower lobe infiltrate on CT of the abd/pelvis, cxr suggests scarring and atelectasis -BL SCD's for DVT PPX for now -AM CBC, CMP, Mag, PT/INR (2) Cirrhosis of liver with ascites: Plan: -Patient appears to have decompensated cirrhosis with possible acute alcoholic hepatitis -Maddrey's Discriminant Function Score of 32 on admission, risen to 40.9 Starting equivalent of prednisolone with methylprednisolone at 32 mg a day for alcoholic hepatitis, will follow Alissa score -Ammonia WNL, he is alet and oriented -Does not appear to be significantly 3rd spacing at this time, likely due to dehydration -No currently on spironolactone, lasix, rifaxamin, or lactulose thrombocytopenia from alcohol use (3) Lactate blood increase: Plan: -2.3 on arrival --> 2.6 on 2 hour repeat -Likely a combination of acute infection, dehydration, and poor clearance due to cirrhosis -Continue IV fluids and will continue to monitor q2h until his lactate is WNL (4) Alcohol abuse: Plan: -Still drinking daily, last drink was last night -Will start him on AWSS at risk protocol for now as he wishes to quit -Will give 500 mg IV thiamine now, then continue with 300 mg IV daily for another 1-2 days, can eventually transition to PO -Continue home B12 and folic acid Hypomagnesemia replete hyponatremia from alcohol abuse (5) GERD (gastroesophageal reflux disease): Plan: -Will have him on IV Protonix daily during admission (6) PTSD (post-traumatic stress disorder): Plan: -Continue Venlafaxine Admission and Anticipated Discharge Date Admission Date: November 10, 2022 Subjective Patient is exhibiting signs of withdrawal sinus pressure is improving no significant abdominal discomfort Physical Exam Physical Exam: It is of dark pigmentation appearing to have chronic disease he has no asterixis or spider angiomas Card exam is regular lungs are clear Abdomen is with slight abdominal distention and perhaps ascites cannot appreciate organomegaly Neurologically as mentioned no tremulousness or asterixis present Results & Data Results & Data Vital Signs (Past 12 Hours) Vital Signs Temp Pulse Pulse Pulse Resp BP BP 11/11/22 08:10 98.2 F 87 18 11/11/22 05:21 16 11/11/22 03:58 16 11/11/22 03:09 98.6 F 88 18 11/10/22 23:56 86 11/10/22 23:11 99.5 F 94 H 16 107/62 11/10/22 21:45 14 96/67 L 11/10/22 21:29 16 99/66 L BP Pulse Ox O2 Del Method O2 Flow Rate 11/11/22 08:10 103/63 92 Room Air 11/11/22 05:21 95 Nasal Cannula 2 11/11/22 03:58 98/69 L 93 Nasal Cannula 2 11/11/22 03:09 89/53 L 90 Room Air 11/10/22 23:56 11/10/22 23:11 94 Room Air 11/10/22 21:45 92 11/10/22 21:29 94 Laboratory Results Reviewed CBC chemistry coagulation studies calculated Gibran's discriminant function PG Care Time/CCT Total # of Minutes Spent Total Time Spent with Patient: Total time spent is greater than 50% in coordination of care (as documented) at patient's floor/unit and/or counseling patient: Coding Level of Care Code 50256 SUB INP/OBS CARE 3/50MIN Diagnoses Acute bacterial sinusitis J01.90; B96.89 Cirrhosis of liver with ascites K74.60; R18.8 Lactate blood increase R79.89 Alcohol abuse F10.10 GERD (gastroesophageal reflux disease) K21.9 PTSD (post-traumatic stress disorder) F43.10
[2022-11-11] MEDS ORDERED: PANTOprazole 40 MG TAB PO SCH (09:00)
[2022-11-11] MEDS: CYANOCOBALAMIN (B-12) 500 MCG TABLET PO SCH (09:30)
[2022-11-11] MEDS: PROPRANOLOL HCL 20 MG TAB PO SCH (09:31)
[2022-11-11] MEDS: FOLIC ACID 400 MCG TAB PO SCH (09:31)
[2022-11-11] MEDS: methylPREDNISolone 32 MG in SYRINGE 0 ML IV SCH (10:30)
[2022-11-11] MEDS: ONDANSETRON INJ 2 MG/ML 2 ML VIAL IV PRN (10:52)
[2022-11-11] MEDS ORDERED: PANTOprazole 40 MG in SYRINGE 0 ML IV SCH (11:00)
[2022-11-11] MEDS: THIAMINE HCL 300 MG in SODIUM CHLORIDE 0.9% 50 ML IV SCH (11:53)
--- NOTE | 2022-11-11 15:12 | Ultrasound Report ---
ULTRASOUND RIGHT UPPER QUADRANT ABDOMEN CLINICAL HISTORY: Elevated hepatic transaminases. COMPARISON STUDY: Abdominal CT dated 11/10/2022. TECHNIQUE: Real-time, grayscale, and color flow sonography of the right upper quadrant of the abdomen was performed. Images are reviewed in the transverse and longitudinal planes. FINDINGS: Liver: The liver is top normal in size and cirrhotic in morphology. There is nodularity of the hepati c surface contour. Attenuation is heterogeneously increased indicating steatosis. There is no intrahe patic biliary ductal dilatation. The main portal vein is patent. Gallbladder: There is nonspecific gallbladder wall thickening, which measures up to 3 mm. No shadowin g gallstones are identified. A sonographic Lund's sign is reportedly absent. The common bile duct m easures up to 0.6 cm in diameter. Pancreas: Visualized portions of the pancreatic head are normal in appearance. The majority of the pa ncreas was not visualized due to overlying bowel gas. Right kidney: Survey images of the right kidney demonstrate normal size and echotexture. There is no hydronephrosis. Ascites: There is a small volume of upper abdominal ascites. IMPRESSION: 1. The liver is cirrhotic in morphology with evidence of steatosis. 2. Upper abdominal ascites. 3. There is nonspecific gallbladder wall thickening, likely related to cirrhosis and ascites. No shad owing gallstones are seen. ACT 112: Negative or not required by law. Electronically signed by: Lawson Bustamante M.D. 11/11/2022 3:11 PM
[2022-11-11 18:30] LABS: Appearance Urine Clear (Clear); Bacteria Urine Automated Negative (Negative); Blood Urine Negative (Negative); Color Urine Dark Yellow; Epithelial Cell Urine Auto 0-5 /lpf (0-5); Glucose Urine UA Negative (Negative); Ketones Urine Trace (Negative); Leukocyte Esterase Urine Trace (Negative); Nitrite Urine Positive (Negative); Protein Urine Trace (Negative); RBC Urine Automated 0-4 /hpf (0-4); Specific Gravity Urine 1.043 (1.000-1.030); Urobilinogen Urine Positive (Negative)
[2022-11-11 18:34] LABS: Bilirubin Urine 2+ (Negative)
[2022-11-11 19:19] LABS: A calco-baum cmplx NotReported Not Detected (NotDetected); Bact fragilis Not Reported Not Detected (NotDetected); C auris Not Reported Not Detected (NotDetected); Calbicans Not Reported Not Detected (NotDetected); Candida glabrata Not Reported Not Detected (NotDetected); Candida krusei Not Reported Not Detected (NotDetected); Cneoformans/gatti Not Reported Not Detected (NotDetected); Cparapsilosis Not Reported Not Detected (NotDetected); Ctropicalis Not Reported Not Detected (NotDetected); E cloacae compx Not Reported Not Detected (NotDetected); Efaecalis Not Reported Not Detected (NotDetected); Efaecium Not Reported Not Detected (NotDetected); Enterobacterales Not Reported Not Detected (NotDetected); Escherichia coli Not Reported Not Detected (NotDetected); H influenzae Not Reported Not Detected (NotDetected); K aerogenes Not Reported Not Detected (NotDetected); Koxytoca Not Reported Not Detected (NotDetected); Kpneumoniae grp Not Reported Not Detected (NotDetected); Lmonocyt Not Reported Not Detected (NotDetected); N meningitidis Not Reported Not Detected (NotDetected); P aeruginosa Not Reported Not Detected (NotDetected); Proteus spp Not Reported Not Detected (NotDetected); Salmonella spp Not Reported Not Detected (NotDetected); Smarcescens Not Reported Not Detected (NotDetected); Staph lugdunensis Not Reported Not Detected (NotDetected); Staph spp. Not Reported Not Detected (NotDetected); Staphaureus Not Reported Not Detected (NotDetected); Staphepi Not Reported Not Detected (NotDetected); Stenmaltophilia Not Reported Not Detected (NotDetected); Strep agal(GrpB) Not Reported Not Detected (NotDetected); Strep pneum Not Reported Not Detected (NotDetected); Strep pyog (GrpA) Not Reported Not Detected (NotDetected); Strep spp Not Reported Not Detected (NotDetected)
[2022-11-11] MEDS: PANTOprazole 40 MG in SYRINGE 0 ML IV SCH (21:09)
[2022-11-12] MEDS: AMPICILLIN/SULBACTAM SOD 3,000 MG in 0.9 % SODIUM CHLORIDE 100 ML IV SCH ×4 (01:53→20:07)
[2022-11-12] MEDS: CYANOCOBALAMIN (B-12) 500 MCG TABLET PO SCH (07:59)
[2022-11-12] MEDS: FOLIC ACID 400 MCG TAB PO SCH (07:59)
[2022-11-12] MEDS: methylPREDNISolone 32 MG in SYRINGE 0 ML IV SCH (07:59)
[2022-11-12] MEDS: PROPRANOLOL HCL 20 MG TAB PO SCH (08:00)
[2022-11-12] MEDS: PANTOprazole 40 MG in SYRINGE 0 ML IV SCH ×2 (08:00→20:08)
[2022-11-12] MEDS: VENLAFAXINE HCL 37.5 MG TAB PO SCH ×2 (08:01→20:08)
[2022-11-12 08:11] LABS: Albumin Globulin Ratio 0.4 (0.9-2); Albumin Level 1.7 gm/dl (3.4-5.0); BUN Creatinine Ratio 12.5 (10-20); Calcium 8.1 mg/dl (8.6-10.3); Creatinine Clr Calc Pharmacy 191.6 ml/min; Est GFR (African American) 143.8 ml/min; Est GFR (Non-African American) 124.1 ml/min; Globulin 4.3 gm/dl (2.5-4.0); Potassium 3.6 mmol/L (3.5-5.1)
[2022-11-12 08:13] LABS: Hematocrit (blood only) 29.8 % (42.0-52.0); Mean Corpuscular Hemoglobin 35.7 pg (25.0-34.0); Mean Corpuscular Hgb Conc 36.9 g/dL (32.0-36.0); Mean Corpuscular Volume 96.8 fL (80.0-100.0); Mean Platelet Volume 13.3 fL (9.4-12.4); Platelet Count 69 K/uL (130-400); RDW Coefficient of Variation 16.2 % (11.5-14.5); RDW Standard Deviation 56.6 fL (36.4-46.3); Red Blood Count 3.08 M/uL (4.70-6.10); White Blood Count 20.42 K/ul (4.8-10.8)
[2022-11-12 08:30] LABS: INR 1.9 (0.9-1.1); Prothrombin Time 20.3 Seconds (9.0-12.0)
[2022-11-12 08:40] LABS: Basophils # (auto) 0.04 K/uL (0-0.2); Basophils % (auto) 0.2 %; Eosinophils # (auto) 0.01 K/uL (0-0.50); Immature Granulocytes # (auto) 0.17 K/uL (0.01-0.20); Immature Granulocytes % (auto) 0.8 %; Lymphocytes # (auto) 1.89 K/uL (1.2-3.4); Lymphocytes % (auto) 9.3 %; Monocytes # (auto) 1.44 K/uL (0.11-0.59); Monocytes % (auto) 7.1 %; Neutrophils # (auto) 16.87 K/uL (1.40-6.50); Neutrophils % (auto) 82.6 %
[2022-11-12] MEDS: PLASMA-LYTE A 1,000 ML IV SCH (08:46)
--- NOTE | 2022-11-12 09:16 | Gastroenterology Progress Note ---
Supervising physicians note Case discussed with Lorenza Hernandez COMMUNITY DEVELOPMENT AIDE and reviewed records and met with patient. See note from Lorenza Hernandez for full details. He is feeling well today. Had a little anxiety/withdrawal last night managed with ativan. Eating a sandwich now. He tells me he is having a paracentesis later to hopefully help with breathing. Discussed importance of alcohol cessation with him again. He understands. Not much else to add Kayla Ty Jr, MD, [facility] [place] Date of Service November 12, 2022 Assessment & Plan (1) Alcohol use disorder: Plan: Alcoholic cirrhosis: Admits to increased alcohol intake over the last month or more. Total bilirubin 4.0, AST 40, alk phos 189. Right upper quadrant ultrasound demonstrated cirrhosis, steatosis of the liver, upper abdominal ascites, no gallstones and nonspecific gallbladder wall thickening. Grade 1 esophageal varices: Discussed changing medication to nadolol in place of propranolol. Will address as outpatient. Anemia: History of anemia. Referred to hematology last office visit. History o f splenectomy and partial pancreatectomy. Hemoglobin 11.0, hematocrit 29.8. Alcohol abuse: History of alcohol abuse. Unfortunately has began drinking alcohol again over the last month or more. Methylprednisone initiated by medicine. Case reviewed with Dr. Ty. Please refer to supervising physician addendum for further recommendations. I have spent 25 minutes of discrete time performing the activities of this visit which include but are not limited to review of the medical record, obtaining a history, physical exam, and entering information in the electronic record. (2) Cirrhosis of liver with ascites: Admission and Anticipated Discharge Date Admission Date: November 10, 2022 Subjective Patient awake alert and oriented this morning. He notes that he did have difficulty sleeping last night related to alcohol withdrawal. He was provided with Ativan which she reports was helpful and is asking for Ativan prescription for discharged home. Denies abdominal pain this morning. Denies nausea or vomiting. He has not had bowel movement yet today. He did have some right upper quadrant abdominal pain after eating that lasted approximately 45 minutes last night but he has not had this pain this morning. Review of Systems Review of Systems: All systems reviewed & are unremarkable except as noted in Subjective Physical Exam Gastrointestinal (Abdomen): normal bowel sounds, soft, nontender, no hepatosplenomegaly Percussion/Palpation: + ascites Results & Data Vital Signs (Past 12 Hours) Vital Signs Temp Pulse Pulse Resp BP BP Pulse Ox 11/12/22 08:08 36.5 C 76 16 102/63 92 11/12/22 07:50 83 11/12/22 04:15 36.8 C 89 20 99/58 L 95 11/12/22 00:25 86 11/11/22 23:47 36.6 C 88 20 110/60 93 11/11/22 23:17 O2 Del Method O2 Flow Rate 11/12/22 08:08 Nasal Cannula 2 11/12/22 07:50 11/12/22 04:15 Nasal Cannula 2 11/12/22 00:25 11/11/22 23:47 Nasal Cannula 2 11/11/22 23:17 Nasal Cannula 2 Laboratory Results Laboratory Results - last 24 hr 11/10/22 11/11/22 11/12/22 15:53 18:06 07:26 WBC 20.42 H RBC 3.08 L Hgb 11.0 L Hct 29.8 L MCV 96.8 MCH 35.7 H MCHC 36.9 H RDW Std Deviation 56.6 H RDW Coeff of Ramone 16.2 H Plt Count 69 L MPV 13.3 H Immature Gran % (Auto) 0.8 Neut % (Auto) 82.6 Lymph % (Auto) 9.3 [place] % (Auto) 7.1 Eos % (Auto) 0.0 Baso % (Auto) 0.2 Neut # (Auto) 16.87 H Lymph # (Auto) 1.89 [place] # (Auto) 1.44 H Eos # (Auto) 0.01 Baso # (Auto) 0.04 Immature Gran # (Auto) 0.17 PT INR Sodium Potassium Chloride Carbon Dioxide Anion Gap BUN Creatinine Est Cr Clr Drug Dosing Est GFR ( Amer) Est GFR (Non-Af Amer) BUN/Creatinine Ratio Glucose Calcium Magnesium Total Bilirubin AST ALT Alkaline Phosphatase Total Protein Albumin Globulin Albumin/Globulin Ratio Urine Color Dark Yellow Urine Appearance Clear Urine pH 6.0 Ur Specific [place] 1.043 H Urine Protein Trace H Urine Glucose (UA) Negative Urine Ketones Trace H Urine Blood Negative Urine Nitrite Positive A Urine Bilirubin 2+ H Urine Urobilinogen Positive H Ur Leukocyte Esterase Trace H Urine WBC (Auto) 1-5 Urine RBC (Auto) 0-4 U Hyaline Cast (Auto) 1-5 U Epithel Cells (Auto) 0-5 Urine Bacteria (Auto) Negative Urine Crystals Not Reportable Bld Cult ID Panel PCR PCR Panel Negative 11/12/22 11/12/22 07:26 07:26 WBC RBC Hgb Hct MCV MCH MCHC RDW Std Deviation RDW Coeff of Ramone Plt Count MPV Immature Gran % (Auto) Neut % (Auto) Lymph % (Auto) [place] % (Auto) Eos % (Auto) Baso % (Auto) Neut # (Auto) Lymph # (Auto) [place] # (Auto) Eos # (Auto) Baso # (Auto) Immature Gran # (Auto) PT 20.3 H INR 1.9 H Sodium 136 Potassium 3.6 Chloride 104 Carbon Dioxide 30 Anion Gap 2 L BUN 6 Creatinine 0.48 L Est Cr Clr Drug Dosing 191.6 Est GFR ( Amer) 143.8 Est GFR (Non-Af Amer) 124.1 BUN/Creatinine Ratio 12.5 Glucose 172 H Calcium 8.1 L Magnesium 2.0 Total Bilirubin 4.0 H AST 40 H ALT 17 Alkaline Phosphatase 189 H Total Protein 6.0 Albumin 1.7 L Globulin 4.3 H Albumin/Globulin Ratio 0.4 L Urine Color Urine Appearance Urine pH Ur Specific [place] Urine Protein Urine Glucose (UA) Urine Ketones Urine Blood Urine Nitrite Urine Bilirubin Urine Urobilinogen Ur Leukocyte Esterase Urine WBC (Auto) Urine RBC (Auto) U Hyaline Cast (Auto) U Epithel Cells (Auto) Urine Bacteria (Auto) Urine Crystals Bld Cult ID Panel PCR Diagnostic Findings Abdomen Ultrasound 11/11/22 08:45 ULTRASOUND RIGHT UPPER QUADRANT ABDOMEN CLINICAL HISTORY: Elevated hepatic transaminases. COMPARISON STUDY: Abdominal CT dated 11/10/2022. TECHNIQUE: Real-time, grayscale, and color flow sonography of the right upper quadrant of the abdomen was performed. Images are reviewed in the transverse and longitudinal planes. FINDINGS: Liver: The liver is top normal in size and cirrhotic in morphology. There is nodularity of the hepatic surface contour. Attenuation is heterogeneously increased indicating steatosis. There is no intrahepatic biliary ductal dilatation. The main portal vein is patent. Gallbladder: There is nonspecific gallbladder wall thickening, which measures up to 3 mm. No shadowing gallstones are identified. A sonographic Lund's sign is reportedly absent. The common bile duct measures up to 0.6 cm in diameter. Pancreas: Visualized portions of the pancreatic head are normal in appearance. The majority of the pancreas was not visualized due to overlying bowel gas. Right kidney: Survey images of the right kidney demonstrate normal size and echotexture. There is no hydronephrosis. Ascites: There is a small volume of upper abdominal ascites. IMPRESSION: 1. The liver is cirrhotic in morphology with evidence of steatosis. 2. Upper abdominal ascites. 3. There is nonspecific gallbladder wall thickening, likely related to cirrhosis and ascites. No shadowing gallstones are seen. ACT 112: Negative or not required by law. Electronically signed by: Lawson Bustamante M.D. 11/11/2022 3:11 PM
[2022-11-12] MEDS ORDERED: PHYTONADIONE 2.5 MG in DEXTROSE 5% 50 ML IV ONE (10:00)
[2022-11-12] MEDS: THIAMINE HCL 300 MG in SODIUM CHLORIDE 0.9% 50 ML IV SCH (10:45)
--- NOTE | 2022-11-12 17:41 | Hospitalist Progress Note ---
Date of Service November 12, 2022 Assessment & Plan (1) Acute bacterial sinusitis: Plan: sinusitis on CT of the head and face, Unasyn with his ENT infection and asplenic status -Blood cultures pending -Questionable left lower lobe infiltrate on CT of the abd/pelvis, cxr suggests scarring and atelectasis -BL SCD's for DVT PPX for now (2) Cirrhosis of liver with ascites: Plan: -Patient appears to have decompensated cirrhosis with possible acute alcoholic hepatitis -Maddrey's Discriminant Function Score of 32 on admission, risen to 40.9 Starting equivalent of prednisolone with methylprednisolone at 32 mg a day for alcoholic hepatitis, will follow Alissa score at day 7 -Ammonia WNL, he is alert and oriented -Does not appear to be significantly 3rd spacing at this time, likely due to dehydration with exception of his ascites -No currently on spironolactone, lasix, rifaxamin, or lactulose thrombocytopenia from alcohol use patient 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 (3) Lactate blood increase: Plan: -2.3 on arrival --> 2.6 on 2 hour repeat -Likely a combination of acute infection, dehydration, and poor clearance due to cirrhosis -Continue IV fluids and will continue to monitor q2h until his lactate is WNL (4) Alcohol abuse: Plan: -Prior to admission still drinking daily, last drink was night prior to admission -Continues on AWSS at risk protocol for now as he wishes to quit -Given 500 mg IV thiamine now, then continue with 300 mg IV daily for another 1- 2 days, can eventually transition to PO -Continue home B12 and folic acid Hypomagnesemia replete hyponatremia from alcohol abuse (5) GERD (gastroesophageal reflux disease): Plan: -Will have him on IV Protonix daily during admission (6) PTSD (post-traumatic stress disorder): Plan: -Continue Venlafaxine Admission and Anticipated Discharge Date Admission Date: November 10, 2022 Subjective Patient feels his facial discomfort is improved. He did have some tremulousness last night which was treated with IV Ativan Some of his liver function test parameters have improved after instituting steroids for alcoholic hepatitis Patient was given vitamin K today for an INR of 1.9 Physical Exam Physical Exam: He is awake and alert he is not exhibiting any signs of withdrawal at this time Does have a jaundice or icteric appearance His abdomen is protuberant distended dullness without tenderness but with fluid wave organomegaly cannot be appreciated due to distention Results & Data Results & Data Vital Signs (Past 12 Hours) Vital Signs Temp Pulse Pulse Resp BP Pulse Ox O2 Del Method 11/12/22 15:28 80 11/12/22 15:07 97.9 F 79 16 110/68 90 Room Air 11/12/22 11:44 97.9 F 80 16 102/64 90 Nasal Cannula 11/12/22 08:00 Nasal Cannula 11/12/22 08:08 97.7 F 76 16 102/63 92 Nasal Cannula 11/12/22 07:50 83 O2 Flow Rate 11/12/22 15:28 11/12/22 15:07 11/12/22 11:44 2 11/12/22 08:00 2 11/12/22 08:08 2 11/12/22 07:50 Laboratory Results Reviewed CBC reviewed chemistry reviewed liver test reviewed coagulation studies Personally discussed case with interventional radiology will schedule for paracentesis on Tuesday if still his ascites are still significant PG Care Time/CCT Total # of Minutes Spent Total Time Spent with Patient: Total time spent is greater than 50% in coordination of care (as documented) at patient's floor/unit and/or counseling patient: Coding Level of Care Code 90572 SUB INP/OBS CARE 3/50MIN Diagnoses Acute bacterial sinusitis J01.90; B96.89 Cirrhosis of liver with ascites K74.60; R18.8 Lactate blood increase R79.89 Alcohol abuse F10.10 GERD (gastroesophageal reflux disease) K21.9 PTSD (post-traumatic stress disorder) F43.10
[2022-11-12] MEDS ORDERED: Ativan PO Alcohol Withdrawal--Active Protocol PO PRN (21:03)
[2022-11-12] MEDS ORDERED: LORazepam 1 MG TAB PO PRN ×3 (21:03)
[2022-11-12] MEDS ORDERED: LORazepam 2 MG/1 ML VIAL IV PRN ×3 (21:07)
[2022-11-12] MEDS ORDERED: Ativan IV Alcohol Withdrawal--Active Protocol IV PRN (21:07)
[2022-11-13] MEDS: AMPICILLIN/SULBACTAM SOD 3,000 MG in 0.9 % SODIUM CHLORIDE 100 ML IV SCH ×4 (03:23→21:32)
[2022-11-13 08:34] LABS: Hematocrit (blood only) 28.4 % (42.0-52.0); Hemoglobin 10.5 g/dl (14.0-18.0); Mean Corpuscular Hemoglobin 36.2 pg (25.0-34.0); Mean Corpuscular Volume 97.9 fL (80.0-100.0); Mean Platelet Volume 13.2 fL (9.4-12.4); Nucleated RBC # (auto) 0.03 K/uL (0-0.12); Nucleated RBC % (auto) 0.1 %; Platelet Count 75 K/uL (130-400); RDW Coefficient of Variation 16.3 % (11.5-14.5); RDW Standard Deviation 57.5 fL (36.4-46.3); White Blood Count 20.91 K/ul (4.8-10.8)
[2022-11-13 08:38] LABS: INR 1.7 (0.9-1.1); Prothrombin Time 17.8 Seconds (9.0-12.0)
[2022-11-13 08:39] LABS: Albumin Globulin Ratio 0.4 (0.9-2); Albumin Level 1.7 gm/dl (3.4-5.0); BUN Creatinine Ratio 12.7 (10-20); Bilirubin,Total 2.9 mg/dl (0.2-1.0); Calcium 8.3 mg/dl (8.6-10.3); Creatinine Clr Calc Pharmacy 166.2 ml/min; Est GFR (Non-African American) 117.3 ml/min; Globulin 4.1 gm/dl (2.5-4.0); Magnesium 1.9 mg/dl (1.7-2.4); Potassium 3.4 mmol/L (3.5-5.1); Total Protein 5.8 gm/dl (6.0-8.3)
[2022-11-13 08:59] LABS: Anisocytosis Present; Basophilic Stippling 1+; Basophils # (auto) 0.03 K/uL (0-0.2); Basophils % (auto) 0.1 %; Echinocytes 1+; Immature Granulocytes # (auto) 0.26 K/uL (0.01-0.20); Immature Granulocytes % (auto) 1.2 %; Lymphocytes # (auto) 2.27 K/uL (1.2-3.4); Lymphocytes % (auto) 10.9 %; Macrocytosis Present; Monocytes # (auto) 1.61 K/uL (0.11-0.59); Monocytes % (auto) 7.7 %; Neutrophils # (auto) 16.74 K/uL (1.40-6.50); Neutrophils % (auto) 80.1 %; Pappenheimer Bodies 1+; Polychromasia 1+; Target Cells 2+
--- NOTE | 2022-11-13 09:36 | Hospitalist Progress Note ---
Date of Service November 13, 2022 Assessment & Plan (1) Pneumonia: Plan: Patient was history of ethanol abuse Question aspiration Continue with antibiotics with Unasyn for acute bacterial sinusitis which will also cover pneumonitis Due to patient's smoking history, will also start Anoro Ellipta Ellipta (LABA/LAMA) Continue methylprednisolone 4 cirrhosis of the liver with ascites Encourage incentive spirometry. This was given to the patient at bedside and he was instructed on proper use (2) Acute bacterial sinusitis: Plan: Continue with Unasyn Patient now afebrile but continues with leukocytosis Consider NeilMed sinus rinse on discharge (3) Polycythemia: Plan: Patient follows with an outpatient glove stitcher Lab values seem to be improving (4) Elevated LFTs: Plan: Secondary to ethanol abuse and alcoholic cirrhosis Gastroenterology is following. Appreciate their input (5) Thrombocytopenia: Plan: No active bleeding Platelet count currently 75,000 Continue with systemic steroids Continue outpatient management with hematology (6) Cirrhosis of liver with ascites: Plan: Gastroenterology is following Anticipate paracentesis on Tuesday Follow serial labs (7) PTSD (post-traumatic stress disorder): Plan: Continue with propanolol and venlafaxine (8) GERD (gastroesophageal reflux disease): Plan: Continue pantoprazole 40 mg IV twice daily Admission and Anticipated Discharge Date Admission Date: November 10, 2022 Subjective Attending: Dr. Escobar This is a 57-year-old male who was admitted on 11/10/2022 for acute bacterial sinusitis. There is also questionable left lower lobe infiltrate on CT of the abdomen pelvis. In addition, patient had elevated lactic acid at 2.6. Patient is currently day 3 of Unasyn. Patient has a history of alcohol abuse with associated cirrhosis. ABA on admission was less than 10 mg/Dilip. Patient has chronically elevated INR. Hemoglobin is currently stable. Due to long history of alcoholic cirrhosis, GI was consulted and the patient was seen this admission. Patient is currently on methylprednisolone per recommendation of GI. Patient also continues on pantoprazole IV daily. Patient with SOB. Some cough but minimal sputum production which is clear. No hemoptysis. Patient does have ascites. CXR today with some pulmonary congestion and very small b/l pleural effusions as well as some pulmonary edema. Diuresis per gastroenterology. Planned paracentesis on Tuesday. Denies fever, chills, sweats, rigors. Daily smoker. Denies PFTs in the past. Emphysema on imaging. Suspect COPD. Review of Systems Review of Systems: A total of 10 systems was reviewed and is negative other than as listed in the HPI Physical Exam Physical Exam: GENERAL : No acute distress EYES: No icterus, gaze conjugate NOSE: No evidence of epistaxis MOUTH: No lesions or candidiasis NECK: Supple LUNGS: Diminished sounds on examination. Some scattered wheezes. HEART: Regular, rate controlled ABDOMEN: Soft, NT, ND, BS Present EXTREMITIES: No LE edema, pedal pulses intact NEURO: A&OX3 Results & Data Results & Data Vital Signs (Past 12 Hours) Vital Signs Temp Pulse Pulse Resp BP BP Pulse Ox 11/13/22 07:58 36.5 C 72 20 103/62 90 11/13/22 03:54 36.7 C 73 16 113/64 90 11/12/22 22:03 82 11/12/22 23:42 36.6 C 82 18 94/49 L 91 O2 Del Method O2 Flow Rate 11/13/22 07:58 Nasal Cannula 6 11/13/22 03:54 Nasal Cannula 3 11/12/22 22:03 11/12/22 23:42 Nasal Cannula 2 Critical Care Results & Data Vital Signs (Past 12 Hours) Vital Signs Temp Pulse Pulse Resp BP BP Pulse Ox 11/13/22 07:58 36.5 C 72 20 103/62 90 11/13/22 03:54 36.7 C 73 16 113/64 90 11/12/22 22:03 82 11/12/22 23:42 36.6 C 82 18 94/49 L 91 O2 Del Method O2 Flow Rate 11/13/22 07:58 Nasal Cannula 6 11/13/22 03:54 Nasal Cannula 3 11/12/22 22:03 11/12/22 23:42 Nasal Cannula 2 Lab & Micro Results (Past 24 Hours) RBC 2.90 M/uL (4.70-6.10) L 11/13/22 WBC 20.91 K/ul (4.8-10.8) H 11/13/22 Hgb 10.5 g/dl (14.0-18.0) L 11/13/22 Hct 28.4 % (42.0-52.0) L 11/13/22 MCV 97.9 fL (80.0-100.0) 11/13/22 MCH 36.2 pg (25.0-34.0) H 11/13/22 MCHC 37.0 g/dL (32.0-36.0) H 11/13/22 RDW Standard Deviation 57.5 fL (36.4-46.3) H 11/13/22 RDW Coefficient of Variation 16.3 % (11.5-14.5) H 11/13/22 Plt Count 75 K/uL (130-400) L 11/13/22 MPV 13.2 fL (9.4-12.4) H 11/13/22 Nucleated Red Blood Cells % (auto) 0.1 % 11/13 Nucleated RBC Absolute Count (auto) 0.03 K/uL (0-0.12) 09/02 Neutrophils (%) (Auto) 80.1 % 11/13/22 Lymphocytes (%) (Auto) 10.9 % 11/13/22 Monocytes # (Auto) 1.61 K/uL (0.11-0.59) H 11/13/22 Eosinophils # (Auto) 0.00 K/uL (0-0.50) 11/13/22 Immature Granulocyte % (Auto) 1.2 % 11/13/22 Neutrophils # (Auto) 16.74 K/uL (1.40-6.50) H 11/13/22 Lymphocytes # (Auto) 2.27 K/uL (1.2-3.4) 11/13/22 Monocytes # (Auto) 1.61 K/uL (0.11-0.59) H 11/13/22 Eosinophils # (Auto) 0.00 K/uL (0-0.50) 11/13/22 Basophils # (Auto) 0.03 K/uL (0-0.2) 11/13/22 Immature Granulocyte # (Auto) 0.26 K/uL (0.01-0.20) H 11/13 Polychromasia 1+ 11/13/22 Basophilic Stippling 1+ 11/13/22 Echinocytes 1+ 11/13/22 Anisocytosis Present 11/13/22 Macrocytosis Present 11/13/22 Pappenheimer Bodies 1+ 11/13/22 Target Cells 2+ 11/13/22 Na 137 mmol/L (136-145) 11/13/22 K 3.4 mmol/L (3.5-5.1) L 11/13/22 Cl 105 mmol/L (98-107) 11/13/22 CO2 32 mmol/L (21-32) 11/13/22 Anion Gap 0 (3-11) L 11/13/22 BUN 7 mg/dl (6-23) 11/13/22 Creatinine 0.55 mg/dl (0.6-1.4) L 11/13/22 Estimated GFR ( Amer) 136.0 ml/min 11/13/22 Estimated GFR (Non-Af Amer) 117.3 ml/min 11/13/22 BUN/Creatinine Ratio 12.7 (10-20) 11/13/22 Glu 162 mg/dl (70-99(Fasting)) H 11/13/22 Ca 8.3 mg/dl (8.6-10.3) L 11/13/22 Total Bilirubin 2.9 mg/dl (0.2-1.0) H 11/13/22 AST 38 U/L (13-39) 11/13/22 ALT 18 U/L (7-52) 11/13/22 Alkaline Phosphatase 182 U/L (34-104) H 11/13/22 TP 5.8 gm/dl (6.0-8.3) L 11/13/22 Albumin 1.7 gm/dl (3.4-5.0) L 11/13/22 Globulin 4.1 gm/dl (2.5-4.0) H 11/13/22 Albumin/Globulin Ratio 0.4 (0.9-2) L 11/13/22 Mg 1.9 mg/dl (1.7-2.4) 11/13/22 07:37 Calcium Level 8.3 mg/dl (8.6-10.3) L 11/13/22 07:37 Prothromb Time International Ratio 1.7 (0.9-1.1) H 11/13/22 07 :37 Microbiology 11/10/22 18:55 Aerobic Blood Culture - Preliminary Blood No growth in Aerobic bottle after 48 hours. Anaerobic Blood Culture - Preliminary No growth in Anaerobic bottle after 48 hours. 11/10/22 15:53 Aerobic Blood Culture - Preliminary Blood No growth in Aerobic bottle after 48 hours. Anaerobic Blood Culture - Preliminary Gram negative bacilli I & O Totals 24 Hours 11/12/22 11/13/22 11/14/22 06:59 06:59 06:59 Intake Total 2868.334 / 2868.334 2673.583 / 2673.583 Output Total 500 / 500 Balance 2368.334 / 2368.334 2673.583 / 2673.583 Cumulative 11/10/22 15:20 thru 11/13/22 06:22 Intake Total 9667.917 Output Total 500 Balance 9167.917 RT Ventilator Mngmt (Last Documented) Ventilator Ordered Settings Respiratory Rate 20 11/13/22 07:58 Ventilator - PT Measurements Respiratory Rate 20 PG Care Time/CCT Total # of Minutes Spent Total Time Spent with Patient: Total time spent is greater than 50% in coordination of care (as documented) at patient's floor/unit and/or counseling patient: Coding Level of Care Code 46407 SUB INP/OBS CARE 2/35MIN Diagnoses Pneumonia J18.9 Laterality: left Lung location: unspecified part of lung Pneumonia type: due to unspecified organism Acute bacterial sinusitis J01.90; B96.89 Polycythemia D75.1 Elevated LFTs R79.89 Thrombocytopenia D69.6 Cirrhosis of liver with ascites K74.60; R18.8 PTSD (post-traumatic stress disorder) F43.10 GERD (gastroesophageal reflux disease) K21.9 Time Spent (min) 20 Comment 20 minutes spent [id number] with patient (1) Pneumonia Laterality: left Lung location: unspecified part of lung Pneumonia type: due to unspecified organism Qualified Code(s): J18.9 - Pneumonia, unspecified organism
--- NOTE | 2022-11-13 09:51 | Gastroenterology Progress Note ---
Date of Service November 13, 2022 Assessment & Plan (1) Alcoholic hepatitis with ascites: Plan: Overall he seems better. I will check an ammonia with his feeling about his speech being weaker and slower. He tells me paracentesis planned for tuesday to help with breathing. Admission and Anticipated Discharge Date Admission Date: November 10, 2022 Subjective Says he feels better except for his breathing. He also feels his "speech isn't what it used to be". Tolerating diet. No vomiting, no diarrhea, no bleeding. He doesn't think he is showing any signs of withdrawal. Physical Exam Physical Exam: Looks weak but better. Results & Data Vital Signs (Past 12 Hours) Vital Signs Temp Pulse Pulse Resp BP BP Pulse Ox 11/13/22 07:58 36.5 C 72 20 103/62 90 11/13/22 03:54 36.7 C 73 16 113/64 90 11/12/22 22:03 82 11/12/22 23:42 36.6 C 82 18 94/49 L 91 O2 Del Method O2 Flow Rate 11/13/22 07:58 Nasal Cannula 6 11/13/22 03:54 Nasal Cannula 3 11/12/22 22:03 11/12/22 23:42 Nasal Cannula 2 Laboratory Results 11/13/22 11/13/22 11/13/22 Range/Units 07:37 07:37 07:37 WBC 20.91 H (4.8-10.8) K/ul RBC 2.90 L (4.70-6.10) M/uL Hgb 10.5 L (14.0-18.0) g/dl Hct 28.4 L (42.0-52.0) % MCV 97.9 (80.0-100.0) fL MCH 36.2 H (25.0-34.0) pg MCHC 37.0 H (32.0-36.0) g/dL RDW Std Deviation 57.5 H (36.4-46.3) fL RDW Coeff of Ramone 16.3 H (11.5-14.5) % Plt Count 75 L (130-400) K/uL MPV 13.2 H (9.4-12.4) fL Immature Gran % (Auto) 1.2 % Neut % (Auto) 80.1 % Lymph % (Auto) 10.9 % [place] % (Auto) 7.7 % Eos % (Auto) 0.0 % Baso % (Auto) 0.1 % Neut # (Auto) 16.74 H (1.40-6.50) K/uL Lymph # (Auto) 2.27 (1.2-3.4) K/uL [place] # (Auto) 1.61 H (0.11-0.59) K/uL Eos # (Auto) 0.00 (0-0.50) K/uL Baso # (Auto) 0.03 (0-0.2) K/uL Immature Gran # (Auto) 0.26 H (0.01-0.20) K/uL Absolute Nucleated RBC 0.03 (0-0.12) K/uL Nucleated RBC % (auto) 0.1 % Polychromasia 1+ Basophilic Stippling 1+ Anisocytosis Present Macrocytosis Present Pappenheimer Bodies 1+ Target Cells 2+ Echinocytes 1+ PT 17.8 H (9.0-12.0) Seconds INR 1.7 H (0.9-1.1) Sodium 137 (136-145) mmol/L Potassium 3.4 L (3.5-5.1) mmol/L Chloride 105 (98-107) mmol/L Carbon Dioxide 32 (21-32) mmol/L Anion Gap 0 L (3-11) BUN 7 (6-23) mg/dl Creatinine 0.55 L (0.6-1.4) mg/dl Est Cr Clr Drug Dosing 166.2 ml/min Est GFR ( Amer) 136.0 ml/min Est GFR (Non-Af Amer) 117.3 ml/min BUN/Creatinine Ratio 12.7 (10-20) Glucose 162 H (70-99(Fasting)) mg/dl Calcium 8.3 L (8.6-10.3) mg/dl Magnesium 1.9 (1.7-2.4) mg/dl Total Bilirubin 2.9 H (0.2-1.0) mg/dl AST 38 (13-39) U/L ALT 18 (7-52) U/L Alkaline Phosphatase 182 H (34-104) U/L Total Protein 5.8 L (6.0-8.3) gm/dl Albumin 1.7 L (3.4-5.0) gm/dl Globulin 4.1 H (2.5-4.0) gm/dl Albumin/Globulin Ratio 0.4 L (0.9-2)
[2022-11-13] MEDS: CYANOCOBALAMIN (B-12) 500 MCG TABLET PO SCH (10:04)
[2022-11-13] MEDS: PANTOprazole 40 MG in SYRINGE 0 ML IV SCH ×2 (10:05→21:36)
[2022-11-13] MEDS: methylPREDNISolone 32 MG in SYRINGE 0 ML IV SCH (10:05)
[2022-11-13] MEDS: PROPRANOLOL HCL 20 MG TAB PO SCH (10:05)
[2022-11-13] MEDS: FOLIC ACID 400 MCG TAB PO SCH (10:05)
[2022-11-13] MEDS: VENLAFAXINE HCL 37.5 MG TAB PO SCH ×2 (10:06→21:36)
[2022-11-13] MEDS: THIAMINE HCL 300 MG in SODIUM CHLORIDE 0.9% 50 ML IV SCH (11:19)
--- NOTE | 2022-11-13 13:52 | XRay Report ---
XR chest 1V portable HISTORY: 57 years-old Male Increased hypoxia. ? Pneumonitis acute shortness of breath COMPARISON: 11/10/2022 TECHNIQUE: AP view of the chest FINDINGS: Cardiac silhouette is enlarged. Small pleural effusions with mild bibasilar opacities. Pulmonary vasc ular congestion with interstitial coarsening. Emphysema. Degenerative changes of the shoulders and sp ine. IMPRESSION: 1. Cardiomegaly with pulmonary vascular congestion. 2. Small pleural effusions with mild bibasilar opacities which may represent atelectasis versus pneum onitis. 3. Emphysema. ACT 112: Negative or not required by law. The above report was generated using voice recognition software. It may contain grammatical, syntax o r spelling errors. Electronically signed by: Duane Rahman M.D. 11/13/2022 1:50 PM
[2022-11-13] MEDS: ALBUT/IPRATROP 3MG/0.5MG NEB 3 ML VIAL NEB PRN (15:44)
--- NOTE | 2022-11-13 15:45 | Hospitalist Progress Note ---
Date of Service November 13, 2022 Assessment & Plan Admission and Anticipated Discharge Date Admission Date: November 10, 2022 Subjective Attending: Dr. Escobar Results & Data Results & Data Vital Signs (Past 12 Hours) Vital Signs Temp Pulse Pulse Resp BP Pulse Ox O2 Del Method 11/13/22 15:18 36.6 C 81 18 103/66 92 Nasal Cannula 11/13/22 11:44 36.5 C 81 18 104/53 L 91 Nasal Cannula 11/13/22 08:00 70 11/13/22 07:58 36.5 C 72 20 103/62 90 Nasal Cannula 11/13/22 03:54 36.7 C 73 16 113/64 90 Nasal Cannula O2 Flow Rate 11/13/22 15:18 6 11/13/22 11:44 6 11/13/22 08:00 11/13/22 07:58 6 11/13/22 03:54 3 PG Care Time/CCT Total # of Minutes Spent Total Time Spent with Patient: Total time spent is greater than 50% in coordination of care (as documented) at patient's floor/unit and/or counseling patient: Coding Diagnoses
[2022-11-13] MEDS: UMECLIDINIUM/VILANTEROL 62.5/25MCG 7 PUFFS/INHALER INH SCH (17:41)
[2022-11-13] MEDS ORDERED: FUROSEMIDE INJ 20 MG/2 ML VIAL IV ONE (20:15)
[2022-11-13] MEDS ORDERED: POTASSIUM CHLORIDE CRTAB 20 MEQ TABCR PO STA (20:16)
--- NOTE | 2022-11-13 20:22 | Communication Note ---
Date of Service: November 13, 2022 Nursing message me at approximately 8:10 PM in regards to patient's respiratory status. Over today, patient has had an increase in his supplemental oxygen g oing from 2 L nasal cannula up to 6 L nasal cannula. Nursing had noted that the patient had a chest x-ray that had shown pulmonary edema and cardiomegaly. It was noted in day team provider's note to proceed with diuresis, however, no orders for diuretics were placed. Vitals: BP: 105/60 Pulse: 80 Resp: 18 Temp 36.6 O2 saturation: 90% on 6 L nasal cannula Physical exam Cardiovascular: Regular rate and rhythm. No murmurs rubs or gallops. Hepatojugular reflux noted. Pulmonary: Crackles noted at the bases bilaterally Plan: Will give patient 20 mg of IV Lasix and reported to nursing to record accurate I's and O's. Patient's potassium this morning was 3.4 with no potassium supplementation given, so we will also give 40 mg p.o. potassium chloride. Creatinine at 0.55. We will continue to monitor O2 saturation and in the morning. Recheck labs in am.
[2022-11-13] MEDS: ONDANSETRON INJ 2 MG/ML 2 ML VIAL IV PRN (23:34)
[2022-11-14] MEDS: AMPICILLIN/SULBACTAM SOD 3,000 MG in 0.9 % SODIUM CHLORIDE 100 ML IV SCH ×4 (02:30→21:57)
[2022-11-14] MEDS: ALBUT/IPRATROP 3MG/0.5MG NEB 3 ML VIAL NEB PRN (07:29)
[2022-11-14 07:55] LABS: Estimated Average Glucose 128 mg/dl; Hemoglobin A1C 6.1 % (4.5-5.6)
[2022-11-14] MEDS: PANTOprazole 40 MG in SYRINGE 0 ML IV SCH ×2 (08:42→21:56)
[2022-11-14] MEDS: methylPREDNISolone 32 MG in SYRINGE 0 ML IV SCH (08:42)
[2022-11-14] MEDS: FOLIC ACID 400 MCG TAB PO SCH (08:49)
[2022-11-14] MEDS: CYANOCOBALAMIN (B-12) 500 MCG TABLET PO SCH (08:49)
[2022-11-14] MEDS: UMECLIDINIUM/VILANTEROL 62.5/25MCG 7 PUFFS/INHALER INH SCH (08:50)
[2022-11-14] MEDS: PROPRANOLOL HCL 20 MG TAB PO SCH (08:50)
[2022-11-14] MEDS: VENLAFAXINE HCL 37.5 MG TAB PO SCH ×2 (08:51→21:56)
[2022-11-14] MEDS: THIAMINE HCL 300 MG in SODIUM CHLORIDE 0.9% 50 ML IV SCH (09:45)
[2022-11-14] MEDS ORDERED: FUROSEMIDE 40 MG/4 ML VIAL IV STA (11:00)
--- NOTE | 2022-11-14 11:32 | XRay Report ---
XR chest 1V portable HISTORY: 57 years-old Male hypoxia worse hypoxia with acute shortness of breath COMPARISON: 11/13/2022 TECHNIQUE: AP view of the chest FINDINGS: Cardiac silhouette is enlarged. Pulmonary vascular congestion with interstitial coarsening and progre ssive consolidative densities, most pronounced within the left greater than right lung bases and left midlung. Layering pleural effusions. Bones appear grossly intact. Emphysema. IMPRESSION: 1. Cardiomegaly with progressive pulmonary edema. 2. Layering pleural effusions with worsening left greater than right bibasilar and left mid lung cons olidation. Findings may represent atelectasis versus superimposed pneumonia. 3. Emphysema. ACT 112: Negative or not required by law. The above report was generated using voice recognition software. It may contain grammatical, syntax o r spelling errors. Electronically signed by: Duane Rahman M.D. 11/14/2022 11:31 AM
--- NOTE | 2022-11-14 11:36 | Critical Care Consultation ---
Date of Consultation November 14, 2022 Assessment & Plan (1) Acute respiratory failure with hypoxia: (2) Sinusitis: (3) History of splenectomy: (4) Elevated LFTs: (5) Thrombocytopenia: (6) Portal hypertension: (7) Ascites: (8) Pleural effusion: Plan Reason Critically Ill: 57-year-old male presented to the hospital with shortness of breath and sinusitis. Also alcoholic hepatitis and ascites. On the floor patient was found to be hypoxic. Transferred to the ICU for further care. Neuro - [facility] ICU: Negative --History of heavy alcohol use Monitor for signs of withdrawal Ativan as needed as per CIWA protocol --Anxiety/depression On venlafaxine Cardiac - --Blood pressure on the lower side Continue monitor Respiratory - Chest x-ray 11/14/2022 personally reviewed: Poor inspiratory effort, bilateral costophrenic and cardiophrenic angles are blunted, probably inflated on the left side, increased cardiac silhouette -- Acute hypoxic respiratory failure I do think volume overload is playing a major role given he is +9 L since coming to the hospital COVID-19 PCR, influenza A/B, RSV all negative Nasal MRSA negative Procalcitonin 0.05 GI - --Bilirubinemia with transaminitis Trending down Continue to monitor -- History of portal hypertension with grade 1 esophageal varices -- Coagulopathy Likely from alcohol Continue to monitor, will give vitamin K -- 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 RENAL/LYTES - Monitor BUNs/creatinine Avoid nephrotoxic medication - Continue with Potter ENDO - ICU hypoglycemia protocol HEME - --Anemia with thrombocytopenia Also seems to be from chronic alcohol use Continue to monitor ID - -- CT abdomen pelvis at the time of presentation showed dependent atelectasis bilateral lower lobes Procalcitonin negative the time of presentation Chest x-ray does show worsening which could be fluid overload, low probability of pneumonia We will continue with antibiotics for the time being --Prophylaxis VTE: IPC GI: Pantoprazole Lines: Peripheral Diet: Cardiac Plan: In/out: +9.2 L since coming to the hospital Patient got Lasix at 11:10 AM today. We will keep a close eye on the output. We will give another 40 later in the evening Hold propanolol Follow-up lactate, 2D echo as well as BMP from today We will do paracentesis today Probability of SBP is there given the ascites Blood pressure is on the softer side. Might need to hold propranolol for diuresis If the patient blood pressure goes down then we will start him on Levophed and continue with diuresis Case was discussed with primary team I have personally spent 68 minutes of critical care time in the direct management of this patient. This is a life/limb threatening event. This includes time spent evaluating patient, direct bedside care, chart review, placing orders, interpretation of diagnostic studies, discussion with consultants, patient, and family members, as well as other required patient management activities. This time is exclusive of all separately billable procedures, and teaching time and separate from and in addition to any other critical care service time. History of Present Illness Attending Physician: Jonh Fenton MD History of Present Illness 57-year-old male admitted to the hospital for acute sinusitis Past medical history: Alcoholic liver cirrhosis, hypertension, thrombocytopenia, grade 1 esophageal varices, s/p colectomy 2004, GERD, PTSD ICU were consulted for hypoxic respiratory failure At the time of examination patient systolic blood pressure was in the 113, he was saturating 88-89% on even 11 L nasal cannula. He was not in any respiratory distress. But he did complain of worsening shortness of breath going on since last couple of days. Coughing up clear phlegm. Denies any chest pain No abdominal pain Has been afebrile. No dysuria, no diarrhea No headache, no dizziness No blurry vision Denies any visual, tactile or auditory hallucination Social history: Heavy drinker, last drink was 7 days ago. Approximately 20 -pack-year smoking history Allergies Allergy/AdvReac Type Severity Reaction Status Date / Time bee venom protein (honey bee) Allergy Severe Hives / Verified 11/10/22 17:56 Anaphylaxis adhesive Allergy Mild Rash-PAPER Verified 11/10/22 17:56 TAPE OK Home Medications Medication Instructions Recorded Confirmed Type lansoprazole 30 mg capsule,delayed 30 mg PO QAM 10/28/18 11/10/22 History release (Prevacid) venlafaxine 37.5 mg tablet 37.5 mg PO BID 10/28/18 11/10/22 History folic acid 400 mcg tablet 0.4 mg PO QAM 03/16/21 11/10/22 History propranolol 20 mg tablet 20 mg PO QAM 03/23/22 11/10/22 History cholecalciferol (vitamin D3) 50 50 mcg PO DAILY 11/10/22 11/10/22 History mcg (2,000 unit) capsule (Vitamin D3) cyanocobalamin (vitamin B-12) 2,000 mcg PO DAILY 11/10/22 11/10/22 History 2,000 mcg tablet,extended release (Vitamin B-12 ER) Patient History Medical History Alcoholic cirrhosis Alcoholism Per nursing assessment - patient denies current alcohol use but alcohol level was 264.8 on 07/29/21 when patient was in ER for ankle fracture Borderline high cholesterol Cirrhosis of liver Degenerative disc disease Esophageal varices Grade I per 04/22/21 EGD Fatty infiltration of liver GERD (gastroesophageal reflux disease) Hypotension per pt Pancreatic mass benign--pt states 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 PTSD (post-traumatic stress disorder) Pulmonary embolism Approx 2 yrs ago > [facility] unknown etiology Sludge in gallbladder Surgical History History of adenoidectomy History of bilateral inguinal herniorrhaphies History of colonoscopy History of esophagogastroduodenoscopy (EGD) recent 04/22/21 @ [facility]--Grade 1 varices found History of open reduction and internal fixation (ORIF) procedure RIGHT ANKLE 07/2021 History of open reduction and internal fixation (ORIF) procedure Right Fifth Metatarsal Open Reduction Internal Fixation, Bone Marrow Aspirate Concentrate Injection into Fracture Site(Right) - Shahzad Blount MD 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 History of surgery on wrist bilat cysts removed History of tonsillectomy History of tooth extraction Family History Mother Dementia Father Prostate cancer Diabetes Heart disease Sister Neurofibromatosis Other No family history of adverse response to anesthesia Social History Smoking Status: Current every day smoker Tobacco Type: Cigarettes packs per day: 0.5; Cigarettes Per Day: 6 cigs per day; Second Hand Exposure: No; Do You Dip or Chew Tobacco: No; Hx Alcohol Use: Yes Alcohol type: hard liquor Hx Substance Use: No Preferred Language: Israeli Communication Ability: Effective Desktop Support Specialist Required: No Beliefs That Will Affect Care: None marital status: Current Living Situation: Family Current Living Situation Comment: home w family current occupational status: retired Other Information That Helps Us Care for You: No Feels Safe at Home: Yes Safety Concerns: Feels Safe At This Time Diet: regular Diet Comment: "not a very healthy diet" Assistive Devices: None Review of Systems Review of Systems: All systems reviewed & are unremarkable except as noted in HPI & below Physical Exam Physical Exam: Constitutional: No acute distress HEENT: EOMI, PERRLA, scleral icterus Respiratory system: Decreased air entry bilaterally, no wheeze, rhonchi, positive crackles bilaterally CVS: S1-S2 positive, no murmurs or gallops Abdomen: Soft, nontender, positive bowel sounds x4, distended, positive hepatomegaly, no rebound Extremities: +2 pulses bilaterally radialis/ dorsalis pedis, no cyanosis, +1 monica ma bilateral lower extremity Neuro: Awake alert oriented x3 Psych: Normal mood and affect G/U: Positive Potter Skin: no rashes, warm and dry Lymphatic: no cervical or axillary lymphadenopathy Results & Data Results & Data Vital Signs (Past 12 Hours) Vital Signs Temp Pulse Pulse Resp BP Pulse Ox O2 Del Method 11/14/22 08:13 36.6 C 61 18 103/56 L 89 L Nasal Cannula 11/14/22 06:00 61 11/14/22 07:29 58 L 16 90 Nasal Cannula 11/14/22 03:52 36.6 C 71 17 106/61 89 L Nasal Cannula O2 Flow Rate 11/14/22 08:13 6 11/14/22 06:00 11/14/22 07:29 6 11/14/22 03:52 6 Laboratory Results 11/13/22 07:37 11/13/22 07:37 Coding Level of Care Code 06248 CRITICAL CARE 1ST 30-74M Diagnoses Acute respiratory failure with hypoxia J96.01 Sinusitis J32.0 Chronicity: unspecified Sinusitis location: maxillary History of splenectomy Z90.81 Elevated LFTs R79.89 Thrombocytopenia D69.6 Portal hypertension K76.6 Ascites R18.8 Pleural effusion J90 Time Spent (min) 68 (2) Sinusitis Chronicity: unspecified Sinusitis location: maxillary Qualified Code(s): J32.0 - Chronic maxillary sinusitis
--- NOTE | 2022-11-14 13:54 | Procedure Note ---
Procedure Note Date of Service November 14, 2022 Note Bedside Ultrasound: Lung: Right:-Small right-sided pleural effusion with dependent atelectasis Left:-Moderate left-sided pleural effusion with dependent atelectasis Heart: Fair EF, no pericardial effusion, RVOT normal in size Abdomen: Large abdominal ascites Please note the above document was generated using voice recognition software. It may contain grammatical, syntax or spelling errors.Any formal questions or concerns about the content, text or information contained within the body of this dictation should be directly addressed to the provider for clarification. Coding CPT Codes Pulmonary/Thoracic - Pulmonary and Thoracic: 75063 US, Chest, real time with imaging documentation ([id number]) [facility] [place] [facility] [place] Codes (Charges) Pulmonary/Thoracic Procedure 1: Pulmonary and Thoracic: 82644 US, Chest, real time with imaging documentation
--- NOTE | 2022-11-14 14:00 | Procedure Note ---
Procedure Note Date of Service November 14, 2022 Note Procedure: Diagnostic therapeutic ultrasound-guided catheter paracentesis Sales Review Clerk: Dr. Selwyn Greenfield Indication: Shortness of breath with large ascites Consent: Signed by patient and verified with timeout prior to procedure Anesthesia: 1% lidocaine without epinephrine local. Procedure: Consent was verified and timeout performed. Appropriate imaging studies were reviewed prior to the procedure. Patient was placed in a supine position and limited abdominal ultrasound was performed. See separate imaging. Appropriate site for paracentesis was selected. The skin was prepped and draped in normal sterile fashion. Lidocaine was used for local analgesia. Fluid was aspirated via the finder needle. A small skin cindy was made with the scalpel and the catheter over the needle apparatus was advanced via Z technique. Using the syringe one-way valve system, a total of 3000 mL's of serous fluid was removed. The catheter was removed and observed to be intact. A sterile dressing was applied. Fluid was sent for labs, culture and cytology. The patient tolerated the procedure without obvious complication Blood loss: Less than 1 cc Coding CPT Codes Tubes, Drains, and Vasc Access - Tubes, Drains, and Vasc Access: [id number] Ultrasound Guidance For Vascular ([id number]) Abdomen - Abdominal: 42107 Abdominal Paracentesis (diagnostic or therapeutic); W/O imaging ([id number]) [facility] [place] Procedure Codes (Charges) Abdomen Abdominal: 24198 Abdominal Paracentesis (diagnostic or therapeutic); W/O imaging Tubes, Drains, and Vasc Access Procedure 1: Tubes, Drains, and Vasc Access: [id number] Ultrasound Guidance For Vascular
--- NOTE | 2022-11-14 15:22 | Hospitalist Progress Note ---
Date of Service November 14, 2022 Assessment & Plan (1) Acute respiratory failure with hypoxia: Plan: Patient appears to be volume overloaded. Chest x-ray shows bilateral pleural effusions Bilateral leg swelling Hypoxic respiratory failure is most likely related to volume overload Ordered Lasix Consulted critical care Patient was transferred to the ICU I was later informed that the patient was going to have a paracentesis done and then would be started on BiPAP. (2) Pneumonia: Plan: Patient was history of ethanol abuse Question aspiration Continue with antibiotics with Unasyn for acute bacterial sinusitis which will also cover pneumonitis Due to patient's smoking history, will also start Anoro Ellipta Ellipta (LABA/LAMA) Continue methylprednisolone 4 cirrhosis of the liver with ascites Encourage incentive spirometry. 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 Appreciate their input Now on steroids for alcoholic hepatitis (6) Thrombocytopenia: Plan: No active bleeding Platelet count 75,000 on 11/13 Labs pending from today Continue outpatient management with hematology (7) Cirrhosis of liver with ascites: Plan: Fluid overloaded Will be diuresed aggressively May need to be on pressors to maintain blood pressure while being diuresed Paracentesis to be done today by critical care Has alcoholic hepatitis with elevated discriminant function. Is on steroids per GI recommendations Gastroenterology is following Follow serial labs Monitor for alcohol withdrawal Ativan per CIWA protocol (8) PTSD (post-traumatic stress disorder): Plan: Continue with propanolol and venlafaxine (9) GERD (gastroesophageal reflux disease): Plan: Continue pantoprazole 40 mg IV twice daily Admission and Anticipated Discharge Date Admission Date: November 10, 2022 Subjective I was notified by the nurse earlier this morning that the patient was hypoxic. Went immediately at the bedside to evaluate the patient. He did not report feeling short of breath. But he was saturating barely 90% on 11 L of oxygen. 40 mg of IV Lasix was ordered immediately. Chest x-ray was ordered stat. Critical care was consulted. Review of Systems Review of Systems: All systems reviewed & are unremarkable except as noted in Subjective Physical Exam Physical Exam: General: Awake, conversant. He appears to be slightly confused. Heart: S1, S2/regular rate and rhythm, no murmur rubs or gallops Lungs: Bibasilar crackles with diminished breath sounds at the bases. Normal effort Abdomen: Abdomen appears distended with hepatomegaly. Extremities: No clubbing/cyanosis. 1+ bilateral edema Behavior: Appropriate, cooperative Results & Data Results & Data Vital Signs (Past 12 Hours) Vital Signs Temp Pulse Pulse Resp BP BP Pulse Ox 11/14/22 13:18 108/55 L 11/14/22 13:18 72 16 95 11/14/22 13:15 66 16 94 11/14/22 13:15 119/55 L 11/14/22 13:13 106/54 L 11/14/22 13:13 63 20 95 11/14/22 13:05 108/48 L 11/14/22 13:05 69 20 92 11/14/22 13:02 112/56 L 11/14/22 13:02 65 20 94 11/14/22 13:00 68 22 91 11/14/22 13:00 115/58 L 11/14/22 12:57 68 19 96 11/14/22 12:57 113/57 L 11/14/22 12:55 117/62 11/14/22 12:55 70 22 95 11/14/22 12:53 114/53 L 11/14/22 12:53 67 20 97 11/14/22 12:51 72 23 93 11/14/22 12:47 116/63 11/14/22 12:47 67 20 95 11/14/22 12:45 122/62 11/14/22 12:45 70 21 94 11/14/22 12:42 72 25 H 94 11/14/22 12:42 115/66 11/14/22 12:40 119/61 11/14/22 12:40 71 18 95 11/14/22 12:39 113/61 11/14/22 12:39 69 21 93 11/14/22 12:35 70 19 95 11/14/22 12:35 119/62 11/14/22 12:30 116/70 11/14/22 12:30 69 14 93 11/14/22 12:11 122/66 11/14/22 12:02 71 12 11/14/22 12:00 72 11 L 11/14/22 13:52 11/14/22 13:49 72 11/14/22 09:00 11/14/22 11:47 36.7 C 70 18 91/56 L 91 11/14/22 08:13 36.6 C 61 18 103/56 L 89 L 11/14/22 06:00 61 11/14/22 07:29 58 L 16 90 11/14/22 03:52 36.6 C 71 17 106/61 89 L O2 Del Method O2 Flow Rate 11/14/22 13:18 11/14/22 13:18 High Flow Nasal Cannula 4 11/14/22 13:15 11/14/22 13:15 11/14/22 13:13 11/14/22 13:13 11/14/22 13:05 11/14/22 13:05 11/14/22 13:02 11/14/22 13:02 11/14/22 13:00 11/14/22 13:00 11/14/22 12:57 11/14/22 12:57 11/14/22 12:55 11/14/22 12:55 11/14/22 12:53 11/14/22 12:53 11/14/22 12:51 11/14/22 12:47 11/14/22 12:47 11/14/22 12:45 11/14/22 12:45 11/14/22 12:42 11/14/22 12:42 11/14/22 12:40 11/14/22 12:40 11/14/22 12:39 11/14/22 12:39 11/14/22 12:35 11/14/22 12:35 11/14/22 12:30 11/14/22 12:30 11/14/22 12:11 11/14/22 12:02 11/14/22 12:00 11/14/22 13:52 High Flow Nasal Cannula 4 11/14/22 13:49 11/14/22 09:00 High Flow Nasal Cannula 7 11/14/22 11:47 High Flow Nasal Cannula 11 11/14/22 08:13 Nasal Cannula 6 11/14/22 06:00 11/14/22 07:29 Nasal Cannula 6 11/14/22 03:52 Nasal Cannula 6 Laboratory Results Abnormal lab results 11/14/22 11/14/22 11/14/22 Range/Units 06:12 11:50 11:57 Hemoglobin A1c 6.1 H (4.5-5.6) % Lactate 2.2 H* (0.4-2.0) mmol/L B-Natriuretic Peptide 150 H (0-100) pg/ml Diagnostic Findings Chest X-Ray 11/14/22 11:15 XR chest 1V portable HISTORY: 57 years-old Male hypoxia worse hypoxia with acute shortness of breath COMPARISON: 11/13/2022 TECHNIQUE: AP view of the chest FINDINGS: Cardiac silhouette is enlarged. Pulmonary vascular congestion with interstitial coarsening and progressive consolidative densities, most pronounced within the left greater than right lung bases and left midlung. Layering pleural effusions. Bones appear grossly intact. Emphysema. IMPRESSION: 1. Cardiomegaly with progressive pulmonary edema. 2. Layering pleural effusions with worsening left greater than right bibasilar and left mid lung consolidation. Findings may represent atelectasis versus superimposed pneumonia. 3. Emphysema. ACT 112: Negative or not required by law. The above report was generated using voice recognition software. It may contain grammatical, syntax or spelling errors. Electronically signed by: Duane Rahman M.D. 11/14/2022 11:31 AM PG Care Time/CCT Total # of Minutes Spent Total Time Spent with Patient: Total time spent is greater than 50% in coordination of care (as documented) at patient's floor/unit and/or counseling patient: Coding Level of Care Code 13437 SUB INP/OBS CARE 3/50MIN Diagnoses Acute respiratory failure with hypoxia J96.01 Pneumonia J18.9 Laterality: left Lung location: unspecified part of lung Pneumonia type: due to unspecified organism Acute bacterial sinusitis J01.90; B96.89 Polycythemia D75.1 Elevated LFTs R79.89 Thrombocytopenia D69.6 Cirrhosis of liver with ascites K74.60; R18.8 PTSD (post-traumatic stress disorder) F43.10 GERD (gastroesophageal reflux disease) K21.9 (2) Pneumonia Laterality: left Lung location: unspecified part of lung Pneumonia type: due to unspecified organism Qualified Code(s): J18.9 - Pneumonia, unspecified organism
[2022-11-14 15:57] LABS: Albumin Globulin Ratio 0.4 (0.9-2); Albumin Level 1.9 gm/dl (3.4-5.0); BUN Creatinine Ratio 11.1 (10-20); Bilirubin,Total 2.7 mg/dl (0.2-1.0); Calcium 7.9 mg/dl (8.6-10.3); Est GFR (African American) 121.7 ml/min; Globulin 4.6 gm/dl (2.5-4.0); Magnesium 1.7 mg/dl (1.7-2.4); Phosphorus 2.9 mg/dl (2.5-4.9); Potassium 3.9 mmol/L (3.5-5.1); Total Protein 6.5 gm/dl (6.0-8.3)
[2022-11-14 16:01] LABS: Albumin Peritoneal Fluid < 1.5 gm/dl
[2022-11-14 16:07] LABS: Total Protein Peritoneal Fluid < 3.0 gm/dl
[2022-11-14 16:16] LABS: Basophils # (auto) 0.03 K/uL (0-0.2); Basophils % (auto) 0.2 %; Hematocrit (blood only) 31.7 % (42.0-52.0); Hemoglobin 11.5 g/dl (14.0-18.0); Immature Granulocytes # (auto) 0.16 K/uL (0.01-0.20); Immature Granulocytes % (auto) 1.2 %; Lymphocytes % (auto) 7.4 %; Mean Corpuscular Hemoglobin 36.1 pg (25.0-34.0); Mean Corpuscular Hgb Conc 36.3 g/dL (32.0-36.0); Mean Corpuscular Volume 99.4 fL (80.0-100.0); Mean Platelet Volume 12.7 fL (9.4-12.4); Monocytes # (auto) 0.85 K/uL (0.11-0.59); Monocytes % (auto) 6.3 %; Neutrophils % (auto) 84.9 %; Nucleated RBC # (auto) 0.02 K/uL (0-0.12); Nucleated RBC % (auto) 0.1 %; Platelet Count 71 K/uL (130-400); RDW Coefficient of Variation 16.7 % (11.5-14.5); RDW Standard Deviation 58.8 fL (36.4-46.3); Red Blood Count 3.19 M/uL (4.70-6.10); White Blood Count 13.54 K/ul (4.8-10.8)
[2022-11-14] MEDS ORDERED: PHARMACY GLYCEMIC MGMT CONSULT PRN (16:21)
[2022-11-14] MEDS ORDERED: LANTUS PER UNIT CHARGE SC ONE (16:30)
[2022-11-14] MEDS ORDERED: INSULIN ASPART PER UNIT CHARGE SC SCH (16:30)
[2022-11-14 16:44] LABS: Appearance Peritoneal Fluid Slightly Hazy; Color Peritoneal Fluid Straw; Lymphocytes, Fluid 14 %; Mono,Macrophage,Mesothelial 32 %; Neutrophils, Fluid 54 %; RBC Peritoneal Fluid Auto < 2000 /uL; WBC Peritoneal Fluid Auto 238 /ul (0-300)
[2022-11-14] MEDS: INSULIN ASPART PER UNIT CHARGE SC SCH ×3 (17:17→23:58)
[2022-11-14] MEDS: ICU ELECTROLYTE REPLACEMENT PROTOCOL SCH (17:18)
[2022-11-14] MEDS ORDERED: POTASSIUM CHLORIDE 20 MEQ/15 ML UDC PO STA (17:26)
[2022-11-14] MEDS: MAGNESIUM SULFATE / D5W 1 GM/100 ML BAG IV SCH ×2 (17:37→19:28)
[2022-11-14] MEDS ORDERED: FUROSEMIDE INJ 20 MG/2 ML VIAL IV ONE (18:52)
[2022-11-14] MEDS ORDERED: INSULIN ASPART PER UNIT CHARGE SC ONE (19:15)
[2022-11-15] MEDS: AMPICILLIN/SULBACTAM SOD 3,000 MG in 0.9 % SODIUM CHLORIDE 100 ML IV SCH ×4 (04:25→23:34)
[2022-11-15] MEDS: INSULIN ASPART PER UNIT CHARGE SC SCH ×5 (04:29→20:49)
[2022-11-15 05:54] LABS: BUN Creatinine Ratio 12.3 (10-20); Calcium 8.1 mg/dl (8.6-10.3); Creatinine Clr Calc Pharmacy 145.1 ml/min; Est GFR (African American) 126.9 ml/min; Est GFR (Non-African American) 109.5 ml/min; Phosphorus 2.8 mg/dl (2.5-4.9); Potassium 3.8 mmol/L (3.5-5.1)
[2022-11-15 05:55] LABS: Basophils # (auto) 0.05 K/uL (0-0.2); Basophils % (auto) 0.3 %; Eosinophils # (auto) 0.03 K/uL (0-0.50); Eosinophils % (auto) 0.2 %; Hemoglobin 11.2 g/dl (14.0-18.0); Immature Granulocytes % (auto) 1.1 %; Lymphocytes # (auto) 2.92 K/uL (1.2-3.4); Lymphocytes % (auto) 16.4 %; Mean Corpuscular Hemoglobin 35.6 pg (25.0-34.0); Mean Corpuscular Hgb Conc 37.3 g/dL (32.0-36.0); Mean Corpuscular Volume 95.2 fL (80.0-100.0); Monocytes # (auto) 2.06 K/uL (0.11-0.59); Monocytes % (auto) 11.6 %; Neutrophils # (auto) 12.51 K/uL (1.40-6.50); Neutrophils % (auto) 70.4 %; Nucleated RBC # (auto) 0.02 K/uL (0-0.12); Nucleated RBC % (auto) 0.1 %; Platelet Count 78 K/uL (130-400); RDW Coefficient of Variation 16.4 % (11.5-14.5); Red Blood Count 3.15 M/uL (4.70-6.10); White Blood Count 17.77 K/ul (4.8-10.8)
[2022-11-15] MEDS: ICU ELECTROLYTE REPLACEMENT PROTOCOL SCH ×2 (06:11→16:58)
[2022-11-15] MEDS: POTASSIUM CHLORIDE CRTAB 20 MEQ TABCR PO SCH ×2 (06:38→10:32)
[2022-11-15] MEDS: MAGNESIUM OXIDE 400 MG TAB PO SCH ×2 (06:38→10:33)
[2022-11-15] MEDS: UMECLIDINIUM/VILANTEROL 62.5/25MCG 7 PUFFS/INHALER INH SCH (08:06)
[2022-11-15] MEDS: VENLAFAXINE HCL 37.5 MG TAB PO SCH ×2 (08:06→20:48)
[2022-11-15] MEDS: PANTOprazole 40 MG in SYRINGE 0 ML IV SCH ×2 (08:06→20:48)
[2022-11-15] MEDS: methylPREDNISolone 32 MG in SYRINGE 0 ML IV SCH (08:06)
[2022-11-15] MEDS: CYANOCOBALAMIN (B-12) 500 MCG TABLET PO SCH (08:06)
[2022-11-15] MEDS: FOLIC ACID 400 MCG TAB PO SCH (08:06)
[2022-11-15] MEDS: THIAMINE HCL 300 MG in SODIUM CHLORIDE 0.9% 50 ML IV SCH (08:06)
--- NOTE | 2022-11-15 09:05 | Critical Care Progress Note ---
Date of Service November 15, 2022 Assessment & Plan (1) Acute respiratory failure with hypoxia: (2) Sinusitis: (3) History of splenectomy: (4) Elevated LFTs: (5) Thrombocytopenia: (6) Portal hypertension: (7) Ascites: (8) Pleural effusion: Plan Reason Critically Ill: 57-year-old male with a history of alcoholism who presents with acute alcoholic hepatitis and profound ascites resulting in respiratory failure with hypoxia. NEURO - * CAM ICU: NEGATIVE * Alcoholism: * 10 days since las drink. * Continued to encourage cessation. CARDIAC/VASCULAR - * Borderline hypotension: * Has seemed to stabilize throughout the night. * Has not required pressors. * Monitor on telemetry. RESPIRATORY - * Hypoxic respiratory failure: * Secondary to pleural effusion from volume overload and ascitic fluid. * Symptoms have improved status post diuresis and large-volume paracentesis. * Titrate down oxygen as tolerated. GI/NUTRITION - * Alcoholic hepatitis: * Continue management per GI recommendations. * Paracentesis culture still pending. RENAL/LYTES - * No electrolyte derangements - * Strict I&Os. ENDO - * No h/o DMI or Thyroid Dz * BSGs per unit protocol. ISS --> gtt per unit policy. HEME - * Thrombocytopenia: * Secondary to alcoholism. * Continues to remain stable. ID - * Sinusitis: * Currently on Unasyn. * Plan LINES/IV ACCESS - * PIVs x2 DVT PROPHYLAXIS - * Hold on chemoprophylaxis in the setting of thrombocytopenia. * SCDs I have personally spent 35 minutes of critical care time in the direct management of this patient. This is a life/limb threatening event. This includes time spent evaluating patient, direct bedside care, chart review, placing orders, interpretation of diagnostic studies, discussion with consultants, patient, and family members, as well as other required patient management activities. This time is exclusive of all separately billable procedures, and teaching time and separate from and in addition to any other critical care service time. Thank you for allowing us to participate in the care of this patient. Please refer to my attending physician's documentation for any further recommendations. Patient stable for discharge from the ICU at this time. Admission and Anticipated Discharge Date Admission Date: November 10, 2022 Subjective Patient was seen and evaluated bedside this morning. He reports that his breat licha is much better at this time. He offers no complaints of abdominal pain at this point. Patient reports feeling better today. Review of Systems Review of Systems: A complete 10 point review of systems was reviewed with the patient with pertinent positives and negatives as per history of present illness. All else were negative. Physical Exam Physical Exam: VITAL SIGNS - Vital signs and nursing notes were reviewed. GENERAL - 57-year-old male appearing his stated age who is in no acute distress. Communicates well with provider and answers questions appropriately. MOUTH/OROPHARYNX - Without perioral cyanosis. NECK - Neck with FROM. LUNGS - Chest wall symmetric without accessory muscle use, intercostals retractions, or central cyanosis. Normal vesicular breath sounds CTA B/L. No wheezes, rales, or rhonchi appreciated. CARDIAC - RRR with S1/S2. No murmur, rubs, or gallops appreciated. ABDOMEN - Abdominal contour obese without pulsations or visible masses. BS normoactive all four quadrants. No tenderness, palpable masses, hepatosplenomegaly, or ascites noted. EXTREMITIES - No clubbing or peripheral cyanosis. No pretibial edema present. +3/5 radial and dorsalis pedis pulses palpated throughout. PSYCH - A&Ox3 and cooperates fully with examiner. Pt is very pleasant and interacts well with examiner. Results & Data Results & Data Vital Signs (Past 12 Hours) Vital Signs Pulse Resp BP Pulse Ox 11/15/22 05:40 65 15 93 11/15/22 05:30 67 21 89 L 11/15/22 05:20 70 15 86 L 11/15/22 05:10 67 16 90 11/15/22 05:00 71 16 91 11/15/22 05:00 116/53 L 11/15/22 04:50 70 15 90 11/15/22 04:40 71 18 91 11/15/22 04:30 65 19 92 11/15/22 04:20 68 21 95 11/15/22 04:10 69 23 95 11/15/22 04:00 69 20 97 11/15/22 04:00 104/51 L 11/15/22 03:50 71 20 94 11/15/22 03:40 70 23 95 11/15/22 03:30 70 17 93 11/15/22 03:20 81 16 92 11/15/22 03:10 71 15 93 11/15/22 03:00 71 16 92 11/15/22 03:00 103/52 L 11/15/22 02:50 74 17 93 11/15/22 02:40 74 17 94 11/15/22 02:30 76 15 93 11/15/22 02:20 73 16 93 11/15/22 02:10 78 13 94 11/15/22 00:16 77 11/15/22 02:00 75 21 93 11/15/22 01:45 74 17 93 11/15/22 01:30 76 16 92 11/15/22 01:15 80 25 H 92 11/15/22 01:00 77 16 93 11/15/22 00:45 79 16 94 11/15/22 00:30 76 17 94 11/15/22 00:15 83 18 91 11/15/22 00:00 75 16 92 11/15/22 00:00 113/50 L 11/14/22 23:45 76 17 94 11/14/22 23:30 81 16 94 11/14/22 23:15 81 18 94 11/14/22 23:00 80 21 94 11/14/22 23:00 100/48 L 11/14/22 22:45 82 20 94 11/14/22 22:30 79 18 94 11/14/22 22:15 75 18 95 11/14/22 22:00 73 15 98 11/14/22 22:00 111/58 L 11/14/22 21:45 73 18 95 11/14/22 21:30 80 16 93 11/14/22 21:15 78 17 93 Coding Level of Care Code 78184 CRITICAL CARE 1ST 30-74M Diagnoses Acute respiratory failure with hypoxia J96.01 Sinusitis J32.0 Chronicity: unspecified Sinusitis location: maxillary History of splenectomy Z90.81 Elevated LFTs R79.89 Thrombocytopenia D69.6 Portal hypertension K76.6 Ascites R18.8 Pleural effusion J90 (2) Sinusitis Chronicity: unspecified Sinusitis location: maxillary Qualified Code(s): J32.0 - Chronic maxillary sinusitis
--- NOTE | 2022-11-15 09:17 | Gastroenterology Progress Note ---
Supervising physicians note Discussed case with Lorenza Hernandez NP and reviewed her notes as well as records. He is doing better after paracentesis. Will continue to follow but not much to add from our standpoint Kayla Ty Jr[place] [facility] [place] of Service November 15, 2022 Assessment & Plan (1) Alcoholic hepatitis with ascites: Plan: Alcoholic hepatitis with ascites: Patient reports doing better this morning. Diuretics and paracentesis have markedly improved acute decompensation. Continue current treatment plan and supportive care measures. GI will continue to follow. Case reviewed with Dr. Ty. Please refer to supervising physician addendum for further recommendations. I have spent 20 minutes of discrete time performing the activities of this visit which include but are not limited to review of the medical record, obtaining a history, physical exam, and entering information in the electronic record. Admission and Anticipated Discharge Date Admission Date: November 10, 2022 Subjective Patient sleeping but wakes easily with verbal stimuli. He reports that he is tolerating regular diet. No nausea, vomiting, abdominal pain. Edema in his lower extremities and abdomen has improved. Status post paracentesis in ICU 11/14/2022 with 3 L removed. Review of Systems Review of Systems: All systems reviewed & are unremarkable except as noted in Subjective Physical Exam Cardiovascular: Extremities: no edema Gastrointestinal (Abdomen): Inspection/Auscultation: abdomen normal to inspection and normal bowel sounds; abdomen not distended Percussion/Palpation: abdomen soft and + dullness to percussion; abdomen nontender, no guarding and abdomen not rigid Results & Data Vital Signs (Past 12 Hours) Vital Signs Pulse Resp BP Pulse Ox 11/15/22 05:40 65 15 93 11/15/22 05:30 67 21 89 L 11/15/22 05:20 70 15 86 L 11/15/22 05:10 67 16 90 11/15/22 05:00 71 16 91 11/15/22 05:00 116/53 L 11/15/22 04:50 70 15 90 11/15/22 04:40 71 18 91 11/15/22 04:30 65 19 92 11/15/22 04:20 68 21 95 11/15/22 04:10 69 23 95 11/15/22 04:00 69 20 97 11/15/22 04:00 104/51 L 11/15/22 03:50 71 20 94 11/15/22 03:40 70 23 95 11/15/22 03:30 70 17 93 11/15/22 03:20 81 16 92 11/15/22 03:10 71 15 93 11/15/22 03:00 71 16 92 11/15/22 03:00 103/52 L 11/15/22 02:50 74 17 93 11/15/22 02:40 74 17 94 11/15/22 02:30 76 15 93 11/15/22 02:20 73 16 93 11/15/22 02:10 78 13 94 11/15/22 00:16 77 11/15/22 02:00 75 21 93 11/15/22 01:45 74 17 93 11/15/22 01:30 76 16 92 11/15/22 01:15 80 25 H 92 11/15/22 01:00 77 16 93 11/15/22 00:45 79 16 94 11/15/22 00:30 76 17 94 11/15/22 00:15 83 18 91 11/15/22 00:00 75 16 92 11/15/22 00:00 113/50 L 11/14/22 23:45 76 17 94 11/14/22 23:30 81 16 94 11/14/22 23:15 81 18 94 11/14/22 23:00 80 21 94 11/14/22 23:00 100/48 L 11/14/22 22:45 82 20 94 11/14/22 22:30 79 18 94 11/14/22 22:15 75 18 95 11/14/22 22:00 73 15 98 11/14/22 22:00 111/58 L 11/14/22 21:45 73 18 95 11/14/22 21:30 80 16 93 11/14/22 21:15 78 17 93 Laboratory Results Laboratory Results - last 24 hr 11/14/22 11/14/22 11/14/22 11:50 11:57 13:00 WBC RBC Hgb Hct MCV MCH MCHC RDW Std Deviation RDW Coeff of Ramone Plt Count MPV Immature Gran % (Auto) Neut % (Auto) Lymph % (Auto) Mills % (Auto) Eos % (Auto) Baso % (Auto) Neut # (Auto) Lymph # (Auto) Mills # (Auto) Eos # (Auto) Baso # (Auto) Immature Gran # (Auto) Absolute Nucleated RBC Nucleated RBC % (auto) Sodium Potassium Chloride Carbon Dioxide Anion Gap BUN Creatinine Est Cr Clr Drug Dosing Est GFR ( Amer) Est GFR (Non-Af Amer) BUN/Creatinine Ratio Glucose POC Glucose Lactate 2.2 H* Calcium Phosphorus Magnesium Total Bilirubin AST ALT Alkaline Phosphatase B-Natriuretic Peptide 150 H Total Protein Albumin Globulin Albumin/Globulin Ratio Fluid Neutrophils % 54 Fluid Lymphocytes % 14 Fluid Meso/Macro/Mills % 32 Fluid Comment Peritoneal Color Straw Peritoneal Appearance Slightly Hazy Peritoneal WBC (Auto) 238 Peritoneal RBC (Auto) < 2000 Peritoneal Tot Protein Peritoneal Albumin 11/14/22 11/14/22 11/14/22 13:00 13:54 15:12 WBC 13.54 H RBC 3.19 L Hgb 11.5 L Hct 31.7 L MCV 99.4 MCH 36.1 H MCHC 36.3 H RDW Std Deviation 58.8 H RDW Coeff of Ramone 16.7 H Plt Count 71 L MPV 12.7 H Immature Gran % (Auto) 1.2 Neut % (Auto) 84.9 Lymph % (Auto) 7.4 Mills % (Auto) 6.3 Eos % (Auto) 0.0 Baso % (Auto) 0.2 Neut # (Auto) 11.50 H Lymph # (Auto) 1.00 L Mills # (Auto) 0.85 H Eos # (Auto) 0.00 Baso # (Auto) 0.03 Immature Gran # (Auto) 0.16 Absolute Nucleated RBC 0.02 Nucleated RBC % (auto) 0.1 Sodium Potassium Chloride Carbon Dioxide Anion Gap BUN Creatinine Est Cr Clr Drug Dosing Est GFR ( Amer) Est GFR (Non-Af Amer) BUN/Creatinine Ratio Glucose POC Glucose Lactate 1.8 Calcium Phosphorus Magnesium Total Bilirubin AST ALT Alkaline Phosphatase B-Natriuretic Peptide Total Protein Albumin Globulin Albumin/Globulin Ratio Fluid Neutrophils % Fluid Lymphocytes % Fluid Meso/Macro/Mills % Fluid Comment Peritoneal Color Peritoneal Appearance Peritoneal WBC (Auto) Peritoneal RBC (Auto) Peritoneal Tot Protein < 3.0 Peritoneal Albumin < 1.5 11/14/22 11/14/22 11/14/22 15:12 16:01 19:17 WBC RBC Hgb Hct MCV MCH MCHC RDW Std Deviation RDW Coeff of Ramone Plt Count MPV Immature Gran % (Auto) Neut % (Auto) Lymph % (Auto) Mills % (Auto) Eos % (Auto) Baso % (Auto) Neut # (Auto) Lymph # (Auto) Mills # (Auto) Eos # (Auto) Baso # (Auto) Immature Gran # (Auto) Absolute Nucleated RBC Nucleated RBC % (auto) Sodium 133 L Potassium 3.9 Chloride 97 L Carbon Dioxide 33 H Anion Gap 3 BUN 8 Creatinine 0.72 Est Cr Clr Drug Dosing 131.0 Est GFR ( Amer) 121.7 Est GFR (Non-Af Amer) 105.0 BUN/Creatinine Ratio 11.1 Glucose 382 H* POC Glucose 387 H* 317 H* Lactate Calcium 7.9 L Phosphorus 2.9 Magnesium 1.7 Total Bilirubin 2.7 H AST 49 H ALT 27 Alkaline Phosphatase 207 H B-Natriuretic Peptide Total Protein 6.5 Albumin 1.9 L Globulin 4.6 H Albumin/Globulin Ratio 0.4 L Fluid Neutrophils % Fluid Lymphocytes % Fluid Meso/Macro/Mills % Fluid Comment Peritoneal Color Peritoneal Appearance Peritoneal WBC (Auto) Peritoneal RBC (Auto) Peritoneal Tot Protein Peritoneal Albumin 11/14/22 11/14/22 11/15/22 21:46 23:53 04:23 WBC RBC Hgb Hct MCV MCH MCHC RDW Std Deviation RDW Coeff of Ramone Plt Count MPV Immature Gran % (Auto) Neut % (Auto) Lymph % (Auto) Mills % (Auto) Eos % (Auto) Baso % (Auto) Neut # (Auto) Lymph # (Auto) Mills # (Auto) Eos # (Auto) Baso # (Auto) Immature Gran # (Auto) Absolute Nucleated RBC Nucleated RBC % (auto) Sodium Potassium Chloride Carbon Dioxide Anion Gap BUN Creatinine Est Cr Clr Drug Dosing Est GFR ( Amer) Est GFR (Non-Af Amer) BUN/Creatinine Ratio Glucose POC Glucose 266 H 239 H 154 H Lactate Calcium Phosphorus Magnesium Total Bilirubin AST ALT Alkaline Phosphatase B-Natriuretic Peptide Total Protein Albumin Globulin Albumin/Globulin Ratio Fluid Neutrophils % Fluid Lymphocytes % Fluid Meso/Macro/Mills % Fluid Comment Peritoneal Color Peritoneal Appearance Peritoneal WBC (Auto) Peritoneal RBC (Auto) Peritoneal Tot Protein Peritoneal Albumin 11/15/22 11/15/22 11/15/22 05:04 05:04 07:24 WBC 17.77 H RBC 3.15 L Hgb 11.2 L Hct 30.0 L MCV 95.2 MCH 35.6 H MCHC 37.3 H RDW Std Deviation 55.0 H RDW Coeff of Ramone 16.4 H Plt Count 78 L MPV 13.0 H Immature Gran % (Auto) 1.1 Neut % (Auto) 70.4 Lymph % (Auto) 16.4 Mills % (Auto) 11.6 Eos % (Auto) 0.2 Baso % (Auto) 0.3 Neut # (Auto) 12.51 H Lymph # (Auto) 2.92 Mills # (Auto) 2.06 H Eos # (Auto) 0.03 Baso # (Auto) 0.05 Immature Gran # (Auto) 0.20 Absolute Nucleated RBC 0.02 Nucleated RBC % (auto) 0.1 Sodium 136 Potassium 3.8 Chloride 100 Carbon Dioxide 37 H Anion Gap -1 L BUN 8 Creatinine 0.65 Est Cr Clr Drug Dosing 145.1 Est GFR ( Amer) 126.9 Est GFR (Non-Af Amer) 109.5 BUN/Creatinine Ratio 12.3 Glucose 148 H POC Glucose 125 H Lactate Calcium 8.1 L Phosphorus 2.8 Magnesium 2.0 Total Bilirubin AST ALT Alkaline Phosphatase B-Natriuretic Peptide Total Protein Albumin Globulin Albumin/Globulin Ratio Fluid Neutrophils % Fluid Lymphocytes % Fluid Meso/Macro/Mills % Fluid Comment Peritoneal Color Peritoneal Appearance Peritoneal WBC (Auto) Peritoneal RBC (Auto) Peritoneal Tot Protein Peritoneal Albumin Diagnostic Findings Chest X-Ray 11/14/22 11:15 XR chest 1V portable HISTORY: 57 years-old Male hypoxia worse hypoxia with acute shortness of breath COMPARISON: 11/13/2022 TECHNIQUE: AP view of the chest FINDINGS: Cardiac silhouette is enlarged. Pulmonary vascular congestion with interstitial coarsening and progressive consolidative densities, most pronounced within the left greater than right lung bases and left midlung. Layering pleural effusions. Bones appear grossly intact. Emphysema. IMPRESSION: 1. Cardiomegaly with progressive pulmonary edema. 2. Layering pleural effusions with worsening left greater than right bibasilar and left mid lung consolidation. Findings may represent atelectasis versus superimposed pneumonia. 3. Emphysema. ACT 112: Negative or not required by law. The above report was generated using voice recognition software. It may contain grammatical, syntax or spelling errors. Electronically signed by: Duane Rahman M.D. 11/14/2022 11:31 AM
--- NOTE | 2022-11-15 10:46 | XCELERA ---
[id number] [id number]
--- NOTE | 2022-11-15 11:14 | Pharmacy Report ---
Pharmacy Glycemic Short Note 2 - Date of Service November 15, 2022 - Glycemic Short BSG Results (Last 24 hours): 11/14/22 11/14/22 11/14/22 15:12 16:01 19:17 Glucose 382 H* POC Glucose 387 H* 317 H* 11/14/22 11/14/22 11/15/22 21:46 23:53 04:23 Glucose POC Glucose 266 H 239 H 154 H 11/15/22 11/15/22 05:04 07:24 Glucose 148 H POC Glucose 125 H OUTPATIENT ANTIDIABETIC REGIMEN: * n/a HbA1C: 6.1% ASSESSMENT: * Patient is a 57 year old male admitted with shortness of breath and sinusitis. History of alcoholic hepatitis and ascites. Initiated on steroids. Pharmacy consulted to assist with glycemic management. * Solu Medrol 32mg IV daily started on 11/11. BSGs trending upward- into high 300s yesterday evening. * Tolerating diet, receiving IV Unasyn. * Initiated on SQ insulin last evening. Received 15 units of Lantus X 1 and 32 units of bolus insulin throughout the alejandro. BSG this AM within goal range, 125mg/dL. * Continue Novolog severe stress scale ACHS for steroid induced hyperglycemia- tightened today. Lantus scaled dose this evening. PLAN FOR INPATIENT GLYCEMIC CONTROL: * Hold outpatient oral diabetes medications * Basal insulin * Lantus per scale this evening depending on BSG * Bolus insulin * NovoLog per scale ACHS or Q6hrs while NPO * Goal Range: Low 110 mg/dL - High 140 mg/dL * Correction Factor: 15 mg/dL/unit * Nutritional / Prandial insulin per carb ratio of 1 unit per 6 grams CHO consumed
--- NOTE | 2022-11-15 13:09 | Hospitalist Progress Note ---
Date of Service November 15, 2022 Assessment & Plan (1) Acute respiratory failure with hypoxia: Plan: Much improved today in response to diuretics and paracentesis We will diurese further Started the patient on p.o. Aldactone and PO Lasix Continue to titrate O2 down Echo was unremarkable. No depressed EF. No wall motion abnormalities (2) Pneumonia: Plan: Patient was history of ethanol abuse Question aspiration Continue with antibiotics with Unasyn for acute bacterial sinusitis which will also cover pneumonitis Due to patient's smoking history, will also start Anoro Ellipta Ellipta (LABA/LAMA) Continue methylprednisolone 4 cirrhosis of the liver with ascites Encourage incentive spirometry. This was given to the patient at bedside and he was instructed on proper use (3) Acute bacterial sinusitis: Plan: Continue with Unasyn Patient now afebrile but continues with leukocytosis Consider NeilMed sinus rinse on discharge Steroid-induced versus stress-induced leukocytosis (4) Polycythemia: Plan: Patient follows with an outpatient fleet dispatch manager Lab values seem to be improving (5) Elevated LFTs: Plan: Secondary to ethanol abuse and alcoholic cirrhosis Gastroenterology is following. Appreciate their input Now on steroids for alcoholic hepatitis (6) Thrombocytopenia: Plan: No active bleeding Platelet count 75,000 on 11/13 Labs pending from today Continue outpatient management with hematology (7) Cirrhosis of liver with ascites: Plan: Fluid overloaded, was diuresed aggressively yesterday We will need some further diuresis and thus was started on p.o. Lasix and Aldactone today Paracentesis done by critical care Has alcoholic hepatitis with elevated discriminant function. Is on steroids per GI recommendations Gastroenterology is following Follow serial labs Monitor for alcohol withdrawal Ativan per CIWA protocol (8) PTSD (post-traumatic stress disorder): Plan: Continue with propanolol and venlafaxine (9) GERD (gastroesophageal reflux disease): Plan: Continue pantoprazole 40 mg IV twice daily Plan Transfer out of the ICU Admission and Anticipated Discharge Date Admission Date: November 10, 2022 Subjective Yesterday patient needed transfer to the ICU because of acute hypoxic respiratory failure secondary to pulmonary edema and fluid overload. He was diuresed aggressively and had paracentesis done. The patient is feeling much better today. Breathing better. Using less oxygen Review of Systems Review of Systems: All systems reviewed & are unremarkable except as noted in Subjective Physical Exam Physical Exam: General: Awake, conversant. Not confused today Heart: S1, S2/regular rate and rhythm, no murmur rubs or gallops Lungs:diminished breath sounds at the bases. Not much crackles heard at the bases today. Normal effort Abdomen: Abdomen appears distended with hepatomegaly. Extremities: No clubbing/cyanosis. No edema Behavior: Appropriate, cooperative Results & Data Results & Data Vital Signs (Past 12 Hours) Vital Signs Pulse Resp BP Pulse Ox O2 Del Method O2 Flow Rate 11/15/22 11:38 65 11/15/22 09:38 High Flow Nasal Cannula 4 11/15/22 08:00 65 11/15/22 05:40 65 15 93 11/15/22 05:30 67 21 89 L 11/15/22 05:20 70 15 86 L 11/15/22 05:10 67 16 90 11/15/22 05:00 71 16 91 11/15/22 05:00 116/53 L 11/15/22 04:50 70 15 90 11/15/22 04:40 71 18 91 11/15/22 04:30 65 19 92 11/15/22 04:20 68 21 95 11/15/22 04:10 69 23 95 11/15/22 04:00 69 20 97 11/15/22 04:00 104/51 L 11/15/22 03:50 71 20 94 11/15/22 03:40 70 23 95 11/15/22 03:30 70 17 93 11/15/22 03:20 81 16 92 11/15/22 03:10 71 15 93 11/15/22 03:00 71 16 92 11/15/22 03:00 103/52 L 11/15/22 02:50 74 17 93 11/15/22 02:40 74 17 94 11/15/22 02:30 76 15 93 11/15/22 02:20 73 16 93 11/15/22 02:10 78 13 94 11/15/22 02:00 75 21 93 11/15/22 01:45 74 17 93 11/15/22 01:30 76 16 92 11/15/22 01:15 80 25 H 92 11/15/22 01:00 77 16 93 Laboratory Results Abnormal lab results 11/14/22 11/14/22 11/14/22 Range/Units 15:12 15:12 16:01 WBC 13.54 H (4.8-10.8) K/ul RBC 3.19 L (4.70-6.10) M/uL Hgb 11.5 L (14.0-18.0) g/dl Hct 31.7 L (42.0-52.0) % MCH 36.1 H (25.0-34.0) pg MCHC 36.3 H (32.0-36.0) g/dL RDW Std Deviation 58.8 H (36.4-46.3) fL RDW Coeff of Ramone 16.7 H (11.5-14.5) % Plt Count 71 L (130-400) K/uL MPV 12.7 H (9.4-12.4) fL Neut # (Auto) 11.50 H (1.40-6.50) K/uL Lymph # (Auto) 1.00 L (1.2-3.4) K/uL [place] # (Auto) 0.85 H (0.11-0.59) K/uL Sodium 133 L (136-145) mmol/L Chloride 97 L (98-107) mmol/L Carbon Dioxide 33 H (21-32) mmol/L Anion Gap (3-11) Glucose 382 H* (70-99(Fasting)) mg/dl POC Glucose 387 H* (70-99) mg/dl Calcium 7.9 L (8.6-10.3) mg/dl Total Bilirubin 2.7 H (0.2-1.0) mg/dl AST 49 H (13-39) U/L Alkaline Phosphatase 207 H (34-104) U/L Albumin 1.9 L (3.4-5.0) gm/dl Globulin 4.6 H (2.5-4.0) gm/dl Albumin/Globulin Ratio 0.4 L (0.9-2) 11/14/22 11/14/22 11/14/22 Range/Units 19:17 21:46 23:53 WBC (4.8-10.8) K/ul RBC (4.70-6.10) M/uL Hgb (14.0-18.0) g/dl Hct (42.0-52.0) % MCH (25.0-34.0) pg MCHC (32.0-36.0) g/dL RDW Std Deviation (36.4-46.3) fL RDW Coeff of Ramone (11.5-14.5) % Plt Count (130-400) K/uL MPV (9.4-12.4) fL Neut # (Auto) (1.40-6.50) K/uL Lymph # (Auto) (1.2-3.4) K/uL [place] # (Auto) (0.11-0.59) K/uL Sodium (136-145) mmol/L Chloride (98-107) mmol/L Carbon Dioxide (21-32) mmol/L Anion Gap (3-11) Glucose (70-99(Fasting)) mg/dl POC Glucose 317 H* 266 H 239 H (70-99) mg/dl Calcium (8.6-10.3) mg/dl Total Bilirubin (0.2-1.0) mg/dl AST (13-39) U/L Alkaline Phosphatase (34-104) U/L Albumin (3.4-5.0) gm/dl Globulin (2.5-4.0) gm/dl Albumin/Globulin Ratio (0.9-2) 11/15/22 11/15/22 11/15/22 Range/Units 04:23 05:04 05:04 WBC 17.77 H (4.8-10.8) K/ul RBC 3.15 L (4.70-6.10) M/uL Hgb 11.2 L (14.0-18.0) g/dl Hct 30.0 L (42.0-52.0) % MCH 35.6 H (25.0-34.0) pg MCHC 37.3 H (32.0-36.0) g/dL RDW Std Deviation 55.0 H (36.4-46.3) fL RDW Coeff of Ramone 16.4 H (11.5-14.5) % Plt Count 78 L (130-400) K/uL MPV 13.0 H (9.4-12.4) fL Neut # (Auto) 12.51 H (1.40-6.50) K/uL Lymph # (Auto) (1.2-3.4) K/uL [place] # (Auto) 2.06 H (0.11-0.59) K/uL Sodium (136-145) mmol/L Chloride (98-107) mmol/L Carbon Dioxide 37 H (21-32) mmol/L Anion Gap -1 L (3-11) Glucose 148 H (70-99(Fasting)) mg/dl POC Glucose 154 H (70-99) mg/dl Calcium 8.1 L (8.6-10.3) mg/dl Total Bilirubin (0.2-1.0) mg/dl AST (13-39) U/L Alkaline Phosphatase (34-104) U/L Albumin (3.4-5.0) gm/dl Globulin (2.5-4.0) gm/dl Albumin/Globulin Ratio (0.9-2) 11/15/22 11/15/22 Range/Units 07:24 11:29 WBC (4.8-10.8) K/ul RBC (4.70-6.10) M/uL Hgb (14.0-18.0) g/dl Hct (42.0-52.0) % MCH (25.0-34.0) pg MCHC (32.0-36.0) g/dL RDW Std Deviation (36.4-46.3) fL RDW Coeff of Ramone (11.5-14.5) % Plt Count (130-400) K/uL MPV (9.4-12.4) fL Neut # (Auto) (1.40-6.50) K/uL Lymph # (Auto) (1.2-3.4) K/uL [place] # (Auto) (0.11-0.59) K/uL Sodium (136-145) mmol/L Chloride (98-107) mmol/L Carbon Dioxide (21-32) mmol/L Anion Gap (3-11) Glucose (70-99(Fasting)) mg/dl POC Glucose 125 H 236 H (70-99) mg/dl Calcium (8.6-10.3) mg/dl Total Bilirubin (0.2-1.0) mg/dl AST (13-39) U/L Alkaline Phosphatase (34-104) U/L Albumin (3.4-5.0) gm/dl Globulin (2.5-4.0) gm/dl Albumin/Globulin Ratio (0.9-2) PG Care Time/CCT Total # of Minutes Spent Total Time Spent with Patient: Total time spent is greater than 50% in coordination of care (as documented) at patient's floor/unit and/or counseling patient: Coding Level of Care Code 76088 SUB INP/OBS CARE 2/35MIN Diagnoses Acute respiratory failure with hypoxia J96.01 Pneumonia J18.9 Laterality: left Lung location: unspecified part of lung Pneumonia type: due to unspecified organism Acute bacterial sinusitis J01.90; B96.89 Polycythemia D75.1 Elevated LFTs R79.89 Thrombocytopenia D69.6 Cirrhosis of liver with ascites K74.60; R18.8 PTSD (post-traumatic stress disorder) F43.10 GERD (gastroesophageal reflux disease) K21.9 (2) Pneumonia Laterality: left Lung location: unspecified part of lung Pneumonia type: due to unspecified organism Qualified Code(s): J18.9 - Pneumonia, unspecified organism
[2022-11-15] MEDS: SPIRONOLACTONE 12.5 MG TAB PO SCH (13:55)
[2022-11-15] MEDS: FUROSEMIDE 40 MG TAB PO SCH (13:55)
[2022-11-15] MEDS ORDERED: LANTUS PER UNIT CHARGE SC SCH ×2 (16:00)
[2022-11-15] MEDS ORDERED: LORazepam 2 MG/1 ML VIAL IV ONE (23:15)
[2022-11-16] MEDS: INSULIN ASPART PER UNIT CHARGE SC SCH ×6 (00:13→20:34)
[2022-11-16] MEDS: AMPICILLIN/SULBACTAM SOD 3,000 MG in 0.9 % SODIUM CHLORIDE 100 ML IV SCH ×4 (04:07→21:54)
[2022-11-16 07:12] LABS: BUN Creatinine Ratio 15.3 (10-20); Calcium 8.3 mg/dl (8.6-10.3); Est GFR (African American) 121.7 ml/min; Phosphorus 3.6 mg/dl (2.5-4.9); Potassium 4.6 mmol/L (3.5-5.1)
[2022-11-16] MEDS: ICU ELECTROLYTE REPLACEMENT PROTOCOL SCH (07:46)
[2022-11-16 08:08] LABS: Basophils # (auto) 0.04 K/uL (0-0.2); Basophils % (auto) 0.2 %; Eosinophils # (auto) 0.09 K/uL (0-0.50); Eosinophils % (auto) 0.5 %; Hematocrit (blood only) 30.5 % (42.0-52.0); Hemoglobin 11.5 g/dl (14.0-18.0); Immature Granulocytes # (auto) 0.35 K/uL (0.01-0.20); Immature Granulocytes % (auto) 1.9 %; Lymphocytes # (auto) 2.96 K/uL (1.2-3.4); Lymphocytes % (auto) 15.9 %; Mean Corpuscular Hemoglobin 36.2 pg (25.0-34.0); Mean Corpuscular Hgb Conc 37.7 g/dL (32.0-36.0); Mean Corpuscular Volume 95.9 fL (80.0-100.0); Mean Platelet Volume 12.9 fL (9.4-12.4); Monocytes # (auto) 2.03 K/uL (0.11-0.59); Monocytes % (auto) 10.9 %; Neutrophils # (auto) 13.11 K/uL (1.40-6.50); Neutrophils % (auto) 70.6 %; Nucleated RBC # (auto) 0.03 K/uL (0-0.12); Nucleated RBC % (auto) 0.2 %; Pappenheimer Bodies 1+; Platelet Count 74 K/uL (130-400); RDW Coefficient of Variation 17.6 % (11.5-14.5); RDW Standard Deviation 58.1 fL (36.4-46.3); Red Blood Count 3.18 M/uL (4.70-6.10); Target Cells 1+; Toxic Vacuolation 1+; White Blood Count 18.58 K/ul (4.8-10.8)
--- NOTE | 2022-11-16 08:42 | Gastroenterology Progress Note ---
Supervising physician's note Case and plan of care discussed with Lorenza Hernandez NP. Chart reviewed and patient interviewed and examined. Feels much better. Breathing better. Fluid being removed with diuresis and paracentesis. Feels "almost back to normal Abd-soft, nontender No further recs at this time. Breathing may suffer if ascites builds up so periodic paracentesis may be appropriate. Would put on 30 mg of prednisone when switched to oral and taper over the next month or so. Patient needs to make concerted effort to not drink Date of Service November 16, 2022 Assessment & Plan (1) Alcoholic hepatitis with ascites: Plan: Alcoholic hepatitis with ascites: Patient reports feeling well this morning. Diuretics and paracentesis have markedly improved acute decompensation. Continue current treatment plan and supportive care measures. Status post paracentesis 11/14/2022 with 3 L removed. Continue to monitor abdominal distention. GI will continue to follow. Case reviewed with Dr. Ty. Please refer to supervising physician addendum for further recommendations. I have spent 20 minutes of discrete time performing the activities of this visit which include but are not limited to review of the medical record, obtaining a history, physical exam, and entering information in the electronic record. Admission and Anticipated Discharge Date Admission Date: November 10, 2022 Subjective The patient is sleeping this morning but wakes easily with verbal stimuli. He states he is feeling good overall. Denies any abdominal pain, nausea, vomiting. Tolerating diabetic diet well. Had 3 bowel movements last night. States that he does feel gassy this morning. Notes some abdominal bloating/distention. Denies swelling to bilateral lower extremities. Review of Systems Review of Systems: All systems reviewed & are unremarkable except as noted in Subjective Physical Exam Gastrointestinal (Abdomen): Inspection/Auscultation: abdomen normal to inspection, + abdomen distended and normal bowel sounds Percussion/Palpation: abdomen soft, + ascites and + tympanic to percussion; abdomen nontender, no guarding and abdomen not rigid Results & Data Vital Signs (Past 12 Hours) Vital Signs Temp Pulse Pulse Resp BP Pulse Ox O2 Del Method 11/16/22 03:58 36.5 C 66 18 106/58 L 95 Nasal Cannula 11/16/22 00:00 82 11/15/22 23:40 36.6 C 81 18 102/60 94 Nasal Cannula Laboratory Results Laboratory Results - last 24 hr 11/15/22 11/15/22 11/15/22 11:29 16:30 16:31 WBC RBC Hgb Hct MCV MCH MCHC RDW Std Deviation RDW Coeff of Ramone Plt Count MPV Immature Gran % (Auto) Neut % (Auto) Lymph % (Auto) [place] % (Auto) Eos % (Auto) Baso % (Auto) Neut # (Auto) Lymph # (Auto) [place] # (Auto) Eos # (Auto) Baso # (Auto) Immature Gran # (Auto) Absolute Nucleated RBC Nucleated RBC % (auto) Toxic Vacuolation Pappenheimer Bodies Target Cells Sodium Potassium Chloride Carbon Dioxide Anion Gap BUN Creatinine Est Cr Clr Drug Dosing Est GFR ( Amer) Est GFR (Non-Af Amer) BUN/Creatinine Ratio Glucose POC Glucose 236 H 305 H* 301 H* Calcium Phosphorus Magnesium 11/15/22 11/16/22 11/16/22 19:59 00:05 03:57 WBC RBC Hgb Hct MCV MCH MCHC RDW Std Deviation RDW Coeff of Ramone Plt Count MPV Immature Gran % (Auto) Neut % (Auto) Lymph % (Auto) [place] % (Auto) Eos % (Auto) Baso % (Auto) Neut # (Auto) Lymph # (Auto) [place] # (Auto) Eos # (Auto) Baso # (Auto) Immature Gran # (Auto) Absolute Nucleated RBC Nucleated RBC % (auto) Toxic Vacuolation Pappenheimer Bodies Target Cells Sodium Potassium Chloride Carbon Dioxide Anion Gap BUN Creatinine Est Cr Clr Drug Dosing Est GFR ( Amer) Est GFR (Non-Af Amer) BUN/Creatinine Ratio Glucose POC Glucose 270 H 169 H 139 H Calcium Phosphorus Magnesium 11/16/22 11/16/22 11/16/22 06:31 06:31 07:29 WBC 18.58 H RBC 3.18 L Hgb 11.5 L Hct 30.5 L MCV 95.9 MCH 36.2 H MCHC 37.7 H RDW Std Deviation 58.1 H RDW Coeff of Ramone 17.6 H Plt Count 74 L MPV 12.9 H Immature Gran % (Auto) 1.9 Neut % (Auto) 70.6 Lymph % (Auto) 15.9 [place] % (Auto) 10.9 Eos % (Auto) 0.5 Baso % (Auto) 0.2 Neut # (Auto) 13.11 H Lymph # (Auto) 2.96 [place] # (Auto) 2.03 H Eos # (Auto) 0.09 Baso # (Auto) 0.04 Immature Gran # (Auto) 0.35 H Absolute Nucleated RBC 0.03 Nucleated RBC % (auto) 0.2 Toxic Vacuolation 1+ Pappenheimer Bodies 1+ Target Cells 1+ Sodium 136 Potassium 4.6 D Chloride 101 Carbon Dioxide 35 H Anion Gap 0 L BUN 11 Creatinine 0.72 Est Cr Clr Drug Dosing 131.0 Est GFR ( Amer) 121.7 Est GFR (Non-Af Amer) 105.0 BUN/Creatinine Ratio 15.3 Glucose 141 H POC Glucose 138 H Calcium 8.3 L Phosphorus 3.6 Magnesium 2.0
[2022-11-16] MEDS: FUROSEMIDE 40 MG TAB PO SCH (09:32)
[2022-11-16] MEDS: VENLAFAXINE HCL 37.5 MG TAB PO SCH ×2 (09:32→20:30)
[2022-11-16] MEDS: FOLIC ACID 400 MCG TAB PO SCH (09:32)
[2022-11-16] MEDS: SPIRONOLACTONE 12.5 MG TAB PO SCH (09:33)
[2022-11-16] MEDS: CYANOCOBALAMIN (B-12) 500 MCG TABLET PO SCH (09:33)
[2022-11-16] MEDS: methylPREDNISolone 32 MG in SYRINGE 0 ML IV SCH (09:34)
[2022-11-16] MEDS: UMECLIDINIUM/VILANTEROL 62.5/25MCG 7 PUFFS/INHALER INH SCH (09:35)
[2022-11-16] MEDS: PANTOprazole 40 MG in SYRINGE 0 ML IV SCH ×2 (09:35→20:30)
[2022-11-16] MEDS: THIAMINE HCL 300 MG in SODIUM CHLORIDE 0.9% 50 ML IV SCH (09:42)
[2022-11-16] MEDS ORDERED: LANTUS PER UNIT CHARGE SC SCH ×2 (12:30→16:00)
[2022-11-16] MEDS ORDERED: FUROSEMIDE 40 MG TAB PO ONE (14:08)
[2022-11-16] MEDS ORDERED: SPIRONOLACTONE 25 MG TAB PO STA (14:09)
--- NOTE | 2022-11-16 14:19 | Hospitalist Progress Note ---
Date of Service November 16, 2022 Assessment & Plan (1) Acute respiratory failure with hypoxia: Plan: Secondary to acute pulmonary edema Much improved in response to diuretics and paracentesis on 11/14 Started the patient on p.o. Aldactone 12.5 and PO Lasix 40 mg on 11/15 Today on 11/16, his abdomen appears to be more distended Will increase the Aldactone to 50 mg starting tomorrow We will give the patient a dose of 25 mg of Aldactone now and 40 mg of Lasix now p.o. Continue to titrate O2 down Echo was unremarkable. No depressed EF. No wall motion abnormalities (2) Pneumonia: Plan: Patient was history of ethanol abuse Question aspiration Continue with antibiotics with Unasyn for acute bacterial sinusitis which will also cover pneumonitis Due to patient's smoking history, will also start Anoro Ellipta Ellipta (LABA/LAMA) Encourage incentive spirometry. This was given to the patient at bedside and he was instructed on proper use (3) Acute bacterial sinusitis: Plan: Continue with Unasyn Patient now afebrile but continues with leukocytosis Consider NeilMed sinus rinse on discharge Steroid-induced versus stress-induced leukocytosis (4) Polycythemia: Plan: Patient follows with an outpatient robotics mechanic Lab values seem to be improving (5) Elevated LFTs: Plan: Secondary to ethanol abuse, alcoholic cirrhosis and alcoholic hepatitis Elevated discriminant factor. Patient was started on IV Solu-Medrol Gastroenterology is following. Discontinue IV Solu-Medrol and start p.o. prednisone 30 mg daily Plan is to continue steroids for total of 28 days (6) Thrombocytopenia: Plan: No active bleeding Platelet count in the 70s range Most likely related to cirrhosis Continue outpatient management with hematology (7) Cirrhosis of liver with ascites: Plan: Fluid overloaded, was diuresed aggressively 11/14 We will need some further diuresis and thus was started on p.o. Lasix and Aldactone 11/15 Increased the dose of p.o. Lasix and Aldactone today as abdomen is getting more distended. Paracentesis done by critical care 11/14 Has alcoholic hepatitis with elevated discriminant function. Is on steroids per GI recommendations Gastroenterology is following. Recommended switching to prednisone p.o. 30 mg daily. Ultimately will need steroids for 28 days Follow serial labs Monitor for alcohol withdrawal Ativan per CIWA protocol (8) PTSD (post-traumatic stress disorder): Plan: Continue with propanolol and venlafaxine (9) GERD (gastroesophageal reflux disease): Plan: Continue pantoprazole 40 mg IV twice daily Plan Transfer out of the ICU Admission and Anticipated Discharge Date Admission Date: November 10, 2022 Subjective Patient denies any chest pain or shortness of breath. Says that his belly is starting to get distended again. Review of Systems Review of Systems: All systems reviewed & are unremarkable except as noted in Subjective Physical Exam Physical Exam: General: Awake, conversant. Not confused today Heart: S1, S2/regular rate and rhythm, no murmur rubs or gallops Lungs:diminished breath sounds at the bases. Not much crackles heard at the bases today. Normal effort Abdomen: Abdomen appears distended more distended today than yesterday. With hepatomegaly. Extremities: No clubbing/cyanosis. No edema Behavior: Appropriate, cooperative Results & Data Results & Data Vital Signs (Past 12 Hours) Vital Signs Temp Pulse Resp BP Pulse Ox O2 Del Method 11/16/22 08:05 36.8 C 84 18 156/72 H 98 Room Air 11/16/22 12:55 36.7 C 77 18 146/73 H Room Air 11/16/22 03:58 36.5 C 66 18 106/58 L 95 Nasal Cannula Laboratory Results Abnormal lab results 11/15/22 11/15/22 11/15/22 Range/Units 16:30 16:31 19:59 WBC (4.8-10.8) K/ul RBC (4.70-6.10) M/uL Hgb (14.0-18.0) g/dl Hct (42.0-52.0) % MCH (25.0-34.0) pg MCHC (32.0-36.0) g/dL RDW Std Deviation (36.4-46.3) fL RDW Coeff of Ramone (11.5-14.5) % Plt Count (130-400) K/uL MPV (9.4-12.4) fL Neut # (Auto) (1.40-6.50) K/uL [place] # (Auto) (0.11-0.59) K/uL Immature Gran # (Auto) (0.01-0.20) K/uL Carbon Dioxide (21-32) mmol/L Anion Gap (3-11) Glucose (70-99(Fasting)) mg/dl POC Glucose 305 H* 301 H* 270 H (70-99) mg/dl Calcium (8.6-10.3) mg/dl 11/16/22 11/16/22 11/16/22 Range/Units 00:05 03:57 06:31 WBC (4.8-10.8) K/ul RBC (4.70-6.10) M/uL Hgb (14.0-18.0) g/dl Hct (42.0-52.0) % MCH (25.0-34.0) pg MCHC (32.0-36.0) g/dL RDW Std Deviation (36.4-46.3) fL RDW Coeff of Ramone (11.5-14.5) % Plt Count (130-400) K/uL MPV (9.4-12.4) fL Neut # (Auto) (1.40-6.50) K/uL [place] # (Auto) (0.11-0.59) K/uL Immature Gran # (Auto) (0.01-0.20) K/uL Carbon Dioxide 35 H (21-32) mmol/L Anion Gap 0 L (3-11) Glucose 141 H (70-99(Fasting)) mg/dl POC Glucose 169 H 139 H (70-99) mg/dl Calcium 8.3 L (8.6-10.3) mg/dl 11/16/22 11/16/22 11/16/22 Range/Units 06:31 07:29 11:20 WBC 18.58 H (4.8-10.8) K/ul RBC 3.18 L (4.70-6.10) M/uL Hgb 11.5 L (14.0-18.0) g/dl Hct 30.5 L (42.0-52.0) % MCH 36.2 H (25.0-34.0) pg MCHC 37.7 H (32.0-36.0) g/dL RDW Std Deviation 58.1 H (36.4-46.3) fL RDW Coeff of Ramone 17.6 H (11.5-14.5) % Plt Count 74 L (130-400) K/uL MPV 12.9 H (9.4-12.4) fL Neut # (Auto) 13.11 H (1.40-6.50) K/uL [place] # (Auto) 2.03 H (0.11-0.59) K/uL Immature Gran # (Auto) 0.35 H (0.01-0.20) K/uL Carbon Dioxide (21-32) mmol/L Anion Gap (3-11) Glucose (70-99(Fasting)) mg/dl POC Glucose 138 H 207 H (70-99) mg/dl Calcium (8.6-10.3) mg/dl PG Care Time/CCT Total # of Minutes Spent Total Time Spent with Patient: Total time spent is greater than 50% in coordination of care (as documented) at patient's floor/unit and/or counseling patient: Coding Level of Care Code 93948 SUB INP/OBS CARE 2/35MIN Diagnoses Acute respiratory failure with hypoxia J96.01 Pneumonia J18.9 Laterality: left Lung location: unspecified part of lung Pneumonia type: due to unspecified organism Acute bacterial sinusitis J01.90; B96.89 Polycythemia D75.1 Elevated LFTs R79.89 Thrombocytopenia D69.6 Cirrhosis of liver with ascites K74.60; R18.8 PTSD (post-traumatic stress disorder) F43.10 GERD (gastroesophageal reflux disease) K21.9 (2) Pneumonia Laterality: left Lung location: unspecified part of lung Pneumonia type: due to unspecified organism Qualified Code(s): J18.9 - Pneumonia, unspecified organism
[2022-11-16] MEDS ORDERED: diphenhydrAMINE Capsule 25 MG CAP PO ONE (21:37)
[2022-11-17] MEDS: AMPICILLIN/SULBACTAM SOD 3,000 MG in 0.9 % SODIUM CHLORIDE 100 ML IV SCH ×4 (04:17→21:05)
[2022-11-17 06:58] LABS: Basophils # (auto) 0.03 K/uL (0-0.2); Basophils % (auto) 0.2 %; Eosinophils # (auto) 0.12 K/uL (0-0.50); Eosinophils % (auto) 0.8 %; Hematocrit (blood only) 30.4 % (42.0-52.0); Hemoglobin 11.1 g/dl (14.0-18.0); Immature Granulocytes # (auto) 0.18 K/uL (0.01-0.20); Immature Granulocytes % (auto) 1.2 %; Lymphocytes # (auto) 2.49 K/uL (1.2-3.4); Lymphocytes % (auto) 16.6 %; Mean Corpuscular Hemoglobin 35.7 pg (25.0-34.0); Mean Corpuscular Hgb Conc 36.5 g/dL (32.0-36.0); Mean Corpuscular Volume 97.7 fL (80.0-100.0); Mean Platelet Volume 12.8 fL (9.4-12.4); Monocytes # (auto) 2.05 K/uL (0.11-0.59); Monocytes % (auto) 13.6 %; Neutrophils # (auto) 10.17 K/uL (1.40-6.50); Neutrophils % (auto) 67.6 %; Nucleated RBC # (auto) 0.02 K/uL (0-0.12); Nucleated RBC % (auto) 0.1 %; Platelet Count 71 K/uL (130-400); RDW Coefficient of Variation 17.4 % (11.5-14.5); RDW Standard Deviation 58.4 fL (36.4-46.3); Red Blood Count 3.11 M/uL (4.70-6.10); White Blood Count 15.04 K/ul (4.8-10.8)
[2022-11-17 07:15] LABS: BUN Creatinine Ratio 19.5 (10-20); Calcium 8.1 mg/dl (8.6-10.3); Creatinine Clr Calc Pharmacy 122.5 ml/min; Est GFR (African American) 118.4 ml/min; Est GFR (Non-African American) 102.2 ml/min; Magnesium 1.9 mg/dl (1.7-2.4); Phosphorus 3.7 mg/dl (2.5-4.9); Potassium 4.2 mmol/L (3.5-5.1)
[2022-11-17] MEDS: CYANOCOBALAMIN (B-12) 500 MCG TABLET PO SCH (08:36)
[2022-11-17] MEDS: FOLIC ACID 400 MCG TAB PO SCH (08:37)
[2022-11-17] MEDS: FUROSEMIDE 40 MG TAB PO SCH (08:37)
[2022-11-17] MEDS: predniSONE 10 MG TABLET PO SCH (08:38)
[2022-11-17] MEDS: THIAMINE HCL 300 MG in SODIUM CHLORIDE 0.9% 50 ML IV SCH (08:38)
[2022-11-17] MEDS: PANTOprazole 40 MG in SYRINGE 0 ML IV SCH ×2 (08:38→21:02)
[2022-11-17] MEDS: VENLAFAXINE HCL 37.5 MG TAB PO SCH ×2 (08:39→21:02)
[2022-11-17] MEDS: UMECLIDINIUM/VILANTEROL 62.5/25MCG 7 PUFFS/INHALER INH SCH (08:39)
[2022-11-17] MEDS: INSULIN ASPART PER UNIT CHARGE SC SCH ×4 (08:55→21:02)
[2022-11-17] MEDS ORDERED: INSULIN HUMAN NPH SC SCH (09:00)
--- NOTE | 2022-11-17 09:46 | Hospitalist Progress Note ---
Date of Service November 17, 2022 Assessment & Plan (1) Acute respiratory failure with hypoxia: Plan: Secondary to acute pulmonary edema Continue to titrate O2 down Echo was unremarkable. No depressed EF. No wall motion abnormalities Much improved in response to diuretics and paracentesis on 11/14 Started the patient on p.o. Aldactone and PO Lasix 40 mg on 11/15, increase Aldactone to 50mg daily starting tomorrow Today on 11/16, his abdomen appears to be more distended, will have patient evaluated for paracentesis tomorrow, NPO at midnight (2) Pneumonia: Plan: Patient with history of alcohol use disorder, possible aspiration pneumonia, continue Unasyn Due to patient's smoking history, will continue Anoro Ellipta (LABA/LAMA) Continue incentive spirometry (3) Acute bacterial sinusitis: Plan: Continue with Unasyn, symptoms improving Patient now afebrile and with improving leukocytosis (4) Polycythemia: Plan: Patient follows with an outpatient cylinder checker (5) Elevated LFTs: Plan: Secondary to ethanol abuse, alcoholic cirrhosis and alcoholic hepatitis Elevated discriminant factor. Patient was started on IV Solu-Medrol, transitioned to PO prednisone (slow taper x1 month on discharge) Gastroenterology follow up on discharge (6) Thrombocytopenia: Plan: No active bleeding Platelet count in the 70s range, stable Suspected related to cirrhosis Continue outpatient management with Hematology, no active bleeding (7) Cirrhosis of liver with ascites: Plan: Fluid overloaded, continue diuresis as above Paracentesis done by critical care 11/14, anticipate need again, potentially tomorrow Has alcoholic hepatitis with elevated discriminant function, continue steroids Monitor for alcohol withdrawal with Ativan per CIWA protocol (8) PTSD (post-traumatic stress disorder): Plan: Continue with propanolol and venlafaxine Have added trazodone for poor sleep (patient uses alcohol especially at night to sleep) (9) GERD (gastroesophageal reflux disease): Plan: Continue pantoprazole 40 mg IV twice daily Admission and Anticipated Discharge Date Admission Date: November 10, 2022 Subjective No acute events overnight. Patient endorses some difficulty with deep breaths today as well as some increased abdominal distention. Denies chest pain, facial pain, reports facial swelling is improved. Review of Systems Review of Systems: All systems reviewed & are unremarkable except as noted in Subjective Physical Exam Constitutional: WD/WN, vitals as above Respiratory: normal respiratory effort, lungs clear to auscultation (some bibasilar crackles) Cardiovascular: RRR, no murmur, no edema Gastrointestinal (Abdomen): normal bowel sounds, abdomen distended and tympanitic, no abd pain to palpation Skin: no rashes, warm and dry (jaundiced and icteric) Psychiatric: A+Ox3, euthymic affect Results & Data Results & Data Vital Signs (Past 12 Hours) Vital Signs Temp Pulse Pulse Resp BP Pulse Ox O2 Del Method 11/17/22 07:30 36.9 C 86 118/73 11/17/22 07:18 79 11/17/22 03:34 36.6 C 80 18 101/59 L 93 Nasal Cannula 11/17/22 00:00 86 11/16/22 22:48 36.6 C 78 18 112/62 93 Nasal Cannula PG Care Time/CCT Total # of Minutes Spent Total Time Spent with Patient: Total time spent is greater than 50% in coordination of care (as documented) at patient's floor/unit and/or counseling patient: Coding Level of Care Code 66958 SUB INP/OBS CARE 3/50MIN Diagnoses Acute respiratory failure with hypoxia J96.01 Pneumonia J18.9 Laterality: left Lung location: unspecified part of lung Pneumonia type: due to unspecified organism Acute bacterial sinusitis J01.90; B96.89 Polycythemia D75.1 Elevated LFTs R79.89 Thrombocytopenia D69.6 Cirrhosis of liver with ascites K74.60; R18.8 PTSD (post-traumatic stress disorder) F43.10 GERD (gastroesophageal reflux disease) K21.9 (2) Pneumonia Laterality: left Lung location: unspecified part of lung Pneumonia type: due to unspecified organism Qualified Code(s): J18.9 - Pneumonia, unspecified organism
--- NOTE | 2022-11-17 11:54 | Pharmacy Report ---
Pharmacy Glycemic Short Note 2 - Date of Service November 17, 2022 - Glycemic Short BSG Results (Last 24 hours): 11/16/22 11/16/22 11/17/22 16:32 20:00 06:12 Glucose 131 H POC Glucose 231 H 217 H 11/17/22 11/17/22 07:36 11:32 Glucose POC Glucose 136 H 131 H OUTPATIENT ANTIDIABETIC REGIMEN: * n/a HbA1C: 6.1% ASSESSMENT: 11/17/22 * Patient's BSGs yesterday were [phone] mg/dL. Patient received 43 units of insulin (15 units of basal and 38 units of bolus). * Fasting today is 136 mg/dL. Patient changed from Solu-Medrol 32 mg to prednisone 30 mg daily. * Since patient is a pre-diabetic at home and patient changed to prednisone, will change basal insulin from Lantus to NPH 0.3 units/kg. * Continue Novolog. BACKGROUND * Patient is a 57 year old male admitted with shortness of breath and sinusitis. History of alcoholic hepatitis and ascites. Initiated on steroids. Pharmacy consulted to assist with glycemic management. * Solu Medrol 32mg IV daily started on 11/11. BSGs trending upward- into high 300s yesterday evening. * Tolerating diet, receiving IV Unasyn. * Initiated on SQ insulin last evening. Received 15 units of Lantus X 1 and 32 units of bolus insulin throughout the alejandro. BSG this AM within goal range, 125mg/dL. * Continue Novolog severe stress scale ACHS for steroid induced hyperglycemia- tightened today. Lantus scaled dose this evening. PLAN FOR INPATIENT GLYCEMIC CONTROL: * Hold outpatient oral diabetes medications * Basal insulin * NPH 25 units SQ daily with PO prednisone * Bolus insulin * NovoLog per scale ACHS or Q6hrs while NPO * Goal Range: Low 110 mg/dL - High 140 mg/dL * Correction Factor: 15 mg/dL/unit * Nutritional / Prandial insulin per carb ratio of 1 unit per 5 grams CHO consumed
[2022-11-17] MEDS ORDERED: SPIRONOLACTONE 25 MG TAB PO ONE (19:08)
[2022-11-17] MEDS ORDERED: traZODone HCL 50 MG TAB PO PRN (19:13)
[2022-11-17] MEDS: traZODone HCL 50 MG TAB PO SCH (21:01)
[2022-11-18] MEDS: AMPICILLIN/SULBACTAM SOD 3,000 MG in 0.9 % SODIUM CHLORIDE 100 ML IV SCH ×3 (04:56→17:04)
[2022-11-18 06:26] LABS: Hematocrit (blood only) 26.7 % (42.0-52.0); Hemoglobin 9.8 g/dl (14.0-18.0); Mean Corpuscular Hemoglobin 35.5 pg (25.0-34.0); Mean Corpuscular Hgb Conc 36.7 g/dL (32.0-36.0); Mean Corpuscular Volume 96.7 fL (80.0-100.0); Mean Platelet Volume 12.8 fL (9.4-12.4); Platelet Count 67 K/uL (130-400); RDW Coefficient of Variation 17.6 % (11.5-14.5); RDW Standard Deviation 60.2 fL (36.4-46.3); Red Blood Count 2.76 M/uL (4.70-6.10); White Blood Count 12.35 K/ul (4.8-10.8)
[2022-11-18 07:27] LABS: Calcium 7.9 mg/dl (8.6-10.3); Magnesium 1.9 mg/dl (1.7-2.4); Potassium 3.8 mmol/L (3.5-5.1)
[2022-11-18 07:32] LABS: BUN Creatinine Ratio 22.2 (10-20); Est GFR (African American) 121.7 ml/min; Phosphorus 3.9 mg/dl (2.5-4.9)
[2022-11-18] MEDS: INSULIN ASPART PER UNIT CHARGE SC SCH ×5 (07:50→20:35)
[2022-11-18] MEDS: INSULIN HUMAN NPH SC SCH (07:51)
--- NOTE | 2022-11-18 08:27 | Hospitalist Progress Note ---
Date of Service November 18, 2022 Assessment & Plan (1) Acute respiratory failure with hypoxia: Plan: Secondary to acute pulmonary edema, improving Continue to titrate O2 down as able, currently on room air Echo was unremarkable. No depressed EF. No wall motion abnormalities Much improved in response to diuretics and paracentesis on 11/14 and 11/18 (3L and 1.5L removed, respectively) Started the patient on p.o. Aldactone and PO Lasix 40 mg on 11/15, continue on discharge (2) Pneumonia: Plan: Patient with history of alcohol use disorder, possible aspiration pneumonia, continue Unasyn (will complete 20 days for sinusitis) Due to patient's smoking history, will continue Anoro Ellipta (LABA/LAMA) Continue incentive spirometry (3) Acute bacterial sinusitis: Plan: Continue with Unasyn, symptoms improving, last day 11/21 Patient now afebrile and with improving leukocytosis (4) Polycythemia: Plan: Patient follows with an outpatient lead instructor/flight attendant (5) Elevated LFTs: Plan: Secondary to ethanol abuse, alcoholic cirrhosis and alcoholic hepatitis Elevated discriminant factor. Patient was started on IV Solu-Medrol, transitioned to PO prednisone (slow taper x1 month on discharge) Gastroenterology close follow up on discharge, ultimately may need serial paracentesis (6) Thrombocytopenia: Plan: No active bleeding Platelet count in the 70s range, stable Suspected related to cirrhosis Continue outpatient management with Hematology, no active bleeding (7) Cirrhosis of liver with ascites: Plan: Fluid overloaded, continue diuresis as above Much improved in response to diuretics and paracentesis on 11/14 and 11/18 (3L and 1.5L removed, respectively) Has alcoholic hepatitis with elevated discriminant function, continue steroids Monitor for alcohol withdrawal with Ativan per [facility] protocol, doing well at this time, intends to stay alcohol free on discharge Case discussed with Radiology provider Jim Garcia (8) PTSD (post-traumatic stress disorder): Plan: Continue with propranolol and venlafaxine Have added trazodone for poor sleep (patient uses alcohol especially at night to sleep), worked well last night, continue on discharge (9) GERD (gastroesophageal reflux disease): Plan: Continue pantoprazole 40 mg PO twice daily Admission and Anticipated Discharge Date Admission Date: November 10, 2022 Subjective Patient without any acute events overnight. Did sleep well overnight. Reports that his breathing is improved today after paracentesis, also saturating to 92% on room air, does dip to 89% with talking today with rapid recovery. Review of Systems Review of Systems: All systems reviewed & are unremarkable except as noted in Subjective Physical Exam Constitutional: WD/WN, vitals as above Respiratory: normal respiratory effort, lungs clear to auscultation Cardiovascular: RRR, no murmur, no edema Gastrointestinal (Abdomen): normal bowel sounds, abdomen less distended, not tympanitic, no abd pain to palpation Skin: no rashes, warm and dry (jaundiced and icteric) Psychiatric: A+Ox3, euthymic affect Results & Data Results & Data Vital Signs (Past 12 Hours) Vital Signs Temp Pulse Pulse Resp BP Pulse Ox O2 Del Method 11/18/22 07:06 36.7 C 80 19 101/52 L 93 Nasal Cannula 11/18/22 03:00 36.6 C 97 H 16 98/53 L 90 Nasal Cannula 11/17/22 21:05 95 H 11/17/22 23:00 36.6 C 98 H 18 107/60 94 Nasal Cannula 11/17/22 21:40 Nasal Cannula O2 Flow Rate 11/18/22 07:06 2 11/18/22 03:00 2 11/17/22 21:05 11/17/22 23:00 2 11/17/22 21:40 2 PG Care Time/CCT Total # of Minutes Spent Total Time Spent with Patient: Total time spent is greater than 50% in coordination of care (as documented) at patient's floor/unit and/or counseling patient: Coding Level of Care Code 17427 SUB INP/OBS CARE 3/50MIN Diagnoses Acute respiratory failure with hypoxia J96.01 Pneumonia J18.9 Laterality: left Lung location: unspecified part of lung Pneumonia type: due to unspecified organism Acute bacterial sinusitis J01.90; B96.89 Polycythemia D75.1 Elevated LFTs R79.89 Thrombocytopenia D69.6 Cirrhosis of liver with ascites K74.60; R18.8 PTSD (post-traumatic stress disorder) F43.10 GERD (gastroesophageal reflux disease) K21.9 (2) Pneumonia Laterality: left Lung location: unspecified part of lung Pneumonia type: due to unspecified organism Qualified Code(s): J18.9 - Pneumonia, unspecified organism
[2022-11-18] MEDS: PANTOprazole 40 MG in SYRINGE 0 ML IV SCH (09:39)
[2022-11-18] MEDS: FUROSEMIDE 40 MG TAB PO SCH (09:39)
[2022-11-18] MEDS: FOLIC ACID 400 MCG TAB PO SCH (09:39)
[2022-11-18] MEDS: CYANOCOBALAMIN (B-12) 500 MCG TABLET PO SCH (09:39)
[2022-11-18] MEDS: predniSONE 10 MG TABLET PO SCH (09:40)
[2022-11-18] MEDS: SPIRONOLACTONE 25 MG TAB PO SCH (09:41)
[2022-11-18] MEDS: VENLAFAXINE HCL 37.5 MG TAB PO SCH ×2 (09:42→20:40)
[2022-11-18] MEDS: UMECLIDINIUM/VILANTEROL 62.5/25MCG 7 PUFFS/INHALER INH SCH (09:42)
[2022-11-18] MEDS: THIAMINE HCL 300 MG in SODIUM CHLORIDE 0.9% 50 ML IV SCH (09:42)
[2022-11-18] MEDS ORDERED: INSULIN HUMAN NPH SC ONE (10:00)
--- NOTE | 2022-11-18 14:48 | Ultrasound Report ---
Ultrasound-guided paracentesis INDICATION: Ascites; shortness of breath PROCEDURE: Procedure and risks were explained. Informed consent was obtained. A final timeout was com pleted. The right lower quadrant was prepped and draped in sterile fashion. 1% buffered lidocaine was utilized for skin anesthesia. Utilizing ultrasound guidance, a 5 Cymraes safety centesis catheter was advanced into the right lower quadrant pocket of ascites. Ultrasound image was obtained. 1.5 L of yellow ascites fluid was removed and discarded. The catheter was removed and Band-Aid applied. The patient tolerated the procedure wel l. Vital signs will be monitored postprocedure. IMPRESSION: Ultrasound-guided paracentesis as above. Performed, dictated, and signed by Jim Garcia PA-C; to be co-signed by Dr. Duane Rahman. Electronically signed by: Duane Rahman M.D. 11/18/2022 2:55 PM
[2022-11-18] MEDS: AMOXICILLIN/CLAVULANATE 875 MG TAB PO SCH (20:40)
[2022-11-18] MEDS: PANTOprazole 40 MG TAB PO SCH (20:41)
[2022-11-18] MEDS: traZODone HCL 50 MG TAB PO SCH (20:47)
[2022-11-19 08:03] LABS: Albumin Globulin Ratio 0.5 (0.9-2); Albumin Level 1.8 gm/dl (3.4-5.0); BUN Creatinine Ratio 20.8 (10-20); Bilirubin,Total 2.6 mg/dl (0.2-1.0); Calcium 8.2 mg/dl (8.6-10.3); Creatinine Clr Calc Pharmacy 121.5 ml/min; Est GFR (African American) 121.7 ml/min; Globulin 3.6 gm/dl (2.5-4.0); Magnesium 1.9 mg/dl (1.7-2.4); Phosphorus 3.8 mg/dl (2.5-4.9); Potassium 3.9 mmol/L (3.5-5.1); Total Protein 5.4 gm/dl (6.0-8.3)
[2022-11-19] MEDS: FUROSEMIDE 40 MG TAB PO SCH (08:27)
[2022-11-19] MEDS: AMOXICILLIN/CLAVULANATE 875 MG TAB PO SCH (08:28)
[2022-11-19] MEDS: VENLAFAXINE HCL 37.5 MG TAB PO SCH (08:28)
[2022-11-19] MEDS: PANTOprazole 40 MG TAB PO SCH (08:28)
[2022-11-19] MEDS: CYANOCOBALAMIN (B-12) 500 MCG TABLET PO SCH (08:29)
[2022-11-19] MEDS: predniSONE 10 MG TABLET PO SCH (08:29)
[2022-11-19] MEDS: SPIRONOLACTONE 25 MG TAB PO SCH (08:29)
[2022-11-19] MEDS: FOLIC ACID 400 MCG TAB PO SCH (08:29)
[2022-11-19] MEDS: UMECLIDINIUM/VILANTEROL 62.5/25MCG 7 PUFFS/INHALER INH SCH (08:30)
[2022-11-19] MEDS: INSULIN HUMAN NPH SC SCH (08:34)
[2022-11-19] MEDS: INSULIN ASPART PER UNIT CHARGE SC SCH ×2 (08:35→11:57)
[2022-11-19] MEDS ORDERED: THIAMINE HCL 100 MG TAB PO SCH (09:00)
--- NOTE | 2022-11-19 12:37 | Pharmacy Report ---
Pharmacy Glycemic Short Note 2 - Date of Service November 19, 2022 - Glycemic Short BSG Results (Last 24 hours): 11/18/22 11/18/22 11/19/22 16:12 20:28 06:52 Glucose 93 POC Glucose 164 H 145 H 11/19/22 11/19/22 07:11 11:18 Glucose POC Glucose 97 169 H OUTPATIENT ANTIDIABETIC REGIMEN: * n/a HbA1C: 6.1% ASSESSMENT: 11/19/22 * Patient's BSGs yesterday were [phone] mg/dL. Patient received 60 units of insulin (30 units of basal and 30 units of bolus). * Fasting today is 97 mg/dL which is lower than previous. NPH was given later yesterday due to paracentesis. * Continue current regimen. 11/17/22 * Patient's BSGs yesterday were [phone] mg/dL. Patient received 43 units of insulin (15 units of basal and 38 units of bolus). * Fasting today is 136 mg/dL. Patient changed from Solu-Medrol 32 mg to prednisone 30 mg daily. * Since patient is a pre-diabetic at home and patient changed to prednisone, will change basal insulin from Lantus to NPH 0.3 units/kg. * Continue Novolog. BACKGROUND * Patient is a 57 year old male admitted with shortness of breath and sinusitis. History of alcoholic hepatitis and ascites. Initiated on steroids. Pharmacy consulted to assist with glycemic management. * Solu Medrol 32mg IV daily started on 11/11. BSGs trending upward- into high 300s yesterday evening. * Tolerating diet, receiving IV Unasyn. * Initiated on SQ insulin last evening. Received 15 units of Lantus X 1 and 32 units of bolus insulin throughout the alejandro. BSG this AM within goal range, 125mg/dL. * Continue Novolog severe stress scale ACHS for steroid induced hyperglycemia- tightened today. Lantus scaled dose this evening. PLAN FOR INPATIENT GLYCEMIC CONTROL: * Hold outpatient oral diabetes medications * Basal insulin * NPH 30 units SQ daily with PO prednisone * Bolus insulin * NovoLog per scale ACHS or Q6hrs while NPO * Goal Range: Low 110 mg/dL - High 140 mg/dL * Correction Factor: 15 mg/dL/unit * Nutritional / Prandial insulin per carb ratio of 1 unit per 5 grams CHO consumed
--- NOTE | 2022-11-19 14:59 | Discharge Summary ---
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 In the ED the patient's vitals stable. Labs were significant for a leukocytosis of 15 with left shift of 12, platelets of 76 (down from 92 as of 10/11), INR of 1.7, sodium of 131, lactate of 2.6, mag of 1.5, total bili of 6.8 (up from 5.3 as of 10/11), AST of 80 (up from 42 as of 10/11), alk phos of 262 (up from 254), CRP of 1.94, alcohol level < 10, and covid 19/Influenza/RSV negative. CT of the head was read as negative for acute findings. CT of the face shows acute sinusitis. CT of the abd/pelvis w/IV con was read as "1. Patchy and linear bibasilar densities most pronounced within the left lower lobe. This favors atelectasis. A left lower lobe pneumonia could also have a similar appearance. 2. Trace bilateral pleural effusions. 3. Cirrhotic liver with a small to moderate amount of ascites, unchanged. 4. There is a 4 mm nonobstructing stone within the proximal left ureter. No left-sided hydronephrosis. 5. Thickening of the proximal colon favors a portal colopathy. This is similar to the prior study. 6. Gastric wall thickening is likely due to underdistention. 7. Colonic diverticulosis. No evidence for acute diverticulitis.". Prior to admission the patient was given 1mg IV mag sulfate, 500 mL NSS, and ordered a dose of Ceftriaxone and azithromycin. At the time of the exam the patient was lying in bed in no acute distress with is sitting bedside, history was obtained from both. He states that he started to develop sinus congestion and pressure approximately a week ago. This has progressed to the point of significant facial swelling, pain, and yellow mucus drainage. He states that he was having fevers as high as 104 at home over the past 48 hours. He had multiple episodes on non-blood emesis, he denies hematemesis as well. He denies chocking/aspirating on any vomit. Has has had poor oral intake since the development of cirrhosis per his . He denies recent chest pain, SOB, cough, abd pain, dysuria, hematuria, melena, and recent trauma. He feels as though he has increased swelling in his LE's but not his abdomen. He follows with Dr. Mcgarry of [facility]. He is still drinking daily, rum is his drink of choice. He states that he will go through a fifth in a week but his states it is more like every 2 days. When asked, he states that he wants to stop drinking due to all his health problems and due to the toll it's putting on his and son. He denies a previous hx of serious alcohol withdrawal, his last drink was last night. He had a colonoscopy on August 11 and had a poly removed. He and his report that there is concern it is p recancerous, he is scheduled to have another procedure and possible surgery at [facility] in November. Please refer to Dr. Soto's attestation for any changes to the treatment plan Admission Exam Per Admitting Provider General: In no acute distress, older than stated age, malnourished, chronically ill-appearing HEENT: Normocephalic, atraumatic, tender to palpation of the frontal and maxillary sinuses, positive scleral icterus, pupils around round, symmetrical, and reactive to light, dry mucus membranes, trachea midline, no thyromegaly Chest/Pulm: No respiratory distress, symmetrical chest expansion, clear breath sounds throughout Cardiac: RRR, no murmurs noted Abdomen: Negative for significant ascites and negative for bruising, normoactive bowel sounds, soft, non-tender to palpation throughout Musculoskeletal: Symmetrical and without signs of acute trauma, upper and lower extremities with full ROM, no atrophy, spasticity, or flaccidity Extremities: Radial, dorsalis pedis, and posterior tibial pulses are intact and symmetrical, +1 edema noted in the BL LE's Skin: jaundiced skin noted throughout Neuro: Alert and oriented to person, place, month, year, and president, no focal defects, CN II-XII tested and intact, no tremors noted Psych: No acute distress, calm and cooperative during the exam Principal Dx & Hospital Course #1 = Principal Diagnosis (1) Acute respiratory failure with hypoxia: Secondary to acute pulmonary edema, resolved on discharge Echo was unremarkable. No depressed EF. No wall motion abnormalities Much improved in response to diuretics and paracentesis on 11/14 and 11/18 (3L and 1.5L removed, respectively) Started the patient on p.o. 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 Patient was started on IV Solu-Medrol, transitioned to PO prednisone (slow taper x1 month on discharge) Gastroenterology close follow up on discharge (closest available appointment was 11/29), ultimately may need serial paracentesis, advised patient to reach out to GI if he has fluid buildup in the abdomen (6) Thrombocytopenia: No active bleeding Platelet count in the 70s range, stable Suspected related to cirrhosis Continue outpatient management with Hematology, no active bleeding (7) Cirrhosis of liver with ascites: Fluid overloaded earlier this admission, resolved, continue diuresis as above Much improved in response to diuretics and paracentesis on 11/14 and 11/18 (3L and 1.5L removed, respectively) Has alcoholic hepatitis with elevated discriminant function, continue steroids Monitor for alcohol withdrawal with Ativan per [facility] protocol, doing well at this time, intends to stay alcohol free on discharge, outpatient resources provided (8) PTSD (post-traumatic stress disorder): Continue with propranolol and venlafaxine Have added trazodone for poor sleep (patient uses alcohol especially at night to sleep), worked well the last few nights, continued on discharge (9) GERD (gastroesophageal reflux disease): Continue pantoprazole 40 mg PO twice daily Discharge Exam Constitutional WD/WN, vitals as above Respiratory normal respiratory effort, lungs clear to auscultation Gastrointestinal (Abdomen) normal bowel sounds, soft, nontender, no hepatosplenomegaly Psychiatric A+Ox3, euthymic affect Updated Medication List Medication Instructions Recorded Confirmed Type venlafaxine 37.5 mg tablet 37.5 mg PO BID 10/28/18 11/10/22 History folic acid 400 mcg tablet 0.4 mg PO QAM 03/16/21 11/10/22 History propranolol 20 mg tablet 20 mg PO QAM 03/23/22 11/10/22 History cholecalciferol (vitamin D3) 50 50 mcg PO DAILY 11/10/22 11/10/22 History mcg (2,000 unit) capsule (Vitamin D3) cyanocobalamin (vitamin B-12) 2,000 mcg PO DAILY 11/10/22 11/10/22 History 2,000 mcg tablet,extended release (Vitamin B-12 ER) amoxicillin 875 mg-potassium 1 tab PO BID 3 days #6 tabs 11/19/22 Rx clavulanate 125 mg tablet furosemide 40 mg tablet 40 mg PO QAM 30 days #30 tabs 11/19/22 Rx pantoprazole 40 mg tablet,delayed 40 mg PO BID 30 days #60 tabs 11/19/22 Rx release prednisone 10 mg tablet See Taper PO DAILY #51 tabs 11/19/22 Rx spironolactone 25 mg tablet 50 mg PO QAM 30 days #60 tabs 11/19/22 Rx thiamine HCl (vitamin B1) 100 mg 100 mg PO DAILY 30 days #30 tabs 11/19/22 Rx tablet trazodone 50 mg tablet 50 mg PO HS 30 days #30 tabs 11/19/22 Rx umeclidinium 62.5 mcg-vilanterol 1 ea inhalation DAILY #60 ea 11/19/22 Rx 25 mcg/actuation powdr for inhalation (Anoro Ellipta) Hospital Stay Data Consultations 11/10/22 19:04 ED Decision to Admit Stat 11/10/22 19:52 Consult Gastroenterology Routine 11/14/22 11:27 Consult Mixing And Dispensing Supervisor Routine Diagnostic Imagining Performed 11/10/22 17:10 CT abd pelvis IV con only Stat CT facial bones wo con Stat CT head/brain wo con Stat 11/11/22 08:45 US abdomen limited Routine 11/14/22 12:27 US point of care ultrasound Urgent 11/18/22 14:25 IR paracentesis abd w/img US Routine Pending Results Patient Have Any Pending Studies at Discharge: No Discharge Instructions Given to Patient (Per Discharging Provider) You were admitted to the hospital for evaluation and management of difficulty breathing and facial swelling. You were found to have a sinusitis as well as a community-acquired pneumonia. You were also managed for alcohol withdrawal. You you had a total of 2 paracenteses while you are admitted to the hospital, this is the procedure to take the fluid out of your abdomen. This fluid collects due to cirrhosis, and is an indication that your liver is extremely sick and that becoming alcohol free is medically extremely important for your life. You will have a very close follow-up with your family doctor and the GI doctor in order to determine how often you will need to have paracentesis for comfort. We believe that your abdominal pain is due to inflammation of the liver, both due to the cirrhosis and the hepatitis from alcohol. The symptoms will improve with time and with paracentesis. Your poor appetite is also suspected to be due to drinking a lot of liquids, namely alcohol. Your appetite was much better in the hospital, and should continue to be well at home without alcohol use. We strongly recommend alcohol rehabilitation, counseling, VA support, and AA meetings if desired in order to help you in your path to stay alcohol free. You were provided resources by the case management department. You can also talk with your primary care provider, and your VA in order to get connected with resources for PTSD, and former professionals. For the fluid in your belly, you will go home on medications called Lasix and spironolactone. These are both once daily. For your smoking history, you were sent on an inhaler called Anoro. If this is not covered by your insurance, do not worry about picking it up and talk with your family doctor about other options. To finish out treatment for your pneumonia and sinus infection, Augmentin was sent to your pharmacy. This is a twice a day pill with next pill this evening. Please take this with food and water. For stomach acid, you were given a medication called pantoprazole. This helps with gastritis and upper abdominal pains. This medication is twice daily. For the alcoholic hepatitis, you will continue to be on prednisone for the next month, please see the taper that was sent to your pharmacy below. You were also sent on a vitamin called thiamine, this is for malnutrition. You should also start taking a daily multivitamin. Lastly, a medication called trazodone was sent for you to take at nighttime for sleeping. This medication can be increased in dose if necessary. This was sent to the pharmacy, and you can talk about increasing dose if necessary with your primary care doctor. If you have any medical questions or concerns, please call the gastroenterology office and/or your family doctor. You have a follow-up appointment with gastroenterology on 11/29, but if you have concerns before that please call their office at the number above. If you have urgent medical concerns or concerns with your safety, please seek urgent evaluation at the hospital. Total Time Total Time Spent Total Time Spent (In Minutes): 45 minutes Coding Level of Care Code 91637 INP/OBS DISCH >30 MIN Diagnoses Acute respiratory failure with hypoxia J96.01 Pneumonia J18.9 Laterality: left Lung location: unspecified part of lung Pneumonia type: due to unspecified organism Acute bacterial sinusitis J01.90; B96.89 Polycythemia D75.1 Elevated LFTs R79.89 Thrombocytopenia D69.6 Cirrhosis of liver with ascites K74.60; R18.8 PTSD (post-traumatic stress disorder) F43.10 GERD (gastroesophageal reflux disease) K21.9
== END 2022-11-19 14:52 | disposition home or self-care (01) | DRG 193 ==
LOC: ED 15:20 → EDINP 19:49 → SUATTDRO 19:49 → 2W 22:01 → 1E 11-14 11:55 → 2S 11-15 19:04

== ENCOUNTER 2022-12-21 12:02 | Inpatient (IN) ==
[2022-12-21] MEDS ORDERED: SODIUM CHLORIDE 0.9% 1000ML 1,000 ML IV ONE ×2 (12:35→13:32)
[2022-12-21 13:02] LABS: Basophils # (auto) 0.11 K/uL (0-0.2); Basophils % (auto) 1.5 %; Eosinophils # (auto) 0.22 K/uL (0-0.50); Hematocrit (blood only) 38.8 % (42.0-52.0); Hemoglobin 13.3 g/dl (14.0-18.0); Immature Granulocytes # (auto) 0.03 K/uL (0.01-0.20); Immature Granulocytes % (auto) 0.4 %; Lymphocytes # (auto) 1.96 K/uL (1.2-3.4); Lymphocytes % (auto) 27.1 %; Mean Corpuscular Hemoglobin 34.5 pg (25.0-34.0); Mean Corpuscular Hgb Conc 34.3 g/dL (32.0-36.0); Mean Corpuscular Volume 100.5 fL (80.0-100.0); Monocytes # (auto) 0.91 K/uL (0.11-0.59); Monocytes % (auto) 12.6 %; Neutrophils # (auto) 3.99 K/uL (1.40-6.50); Neutrophils % (auto) 55.4 %; Platelet Count 74 K/uL (130-400); RDW Coefficient of Variation 14.6 % (11.5-14.5); RDW Standard Deviation 53.4 fL (36.4-46.3); Red Blood Count 3.86 M/uL (4.70-6.10); White Blood Count 7.22 K/ul (4.8-10.8)
[2022-12-21 13:12] LABS: Albumin Globulin Ratio 0.7 (0.9-2); Albumin Level 2.9 gm/dl (3.4-5.0); BUN Creatinine Ratio 7.9 (10-20); Bilirubin Direct 0.7 mg/dl (0-0.2); Calcium 9.1 mg/dl (8.6-10.3); Creatinine Clr Calc Pharmacy 107.3 ml/min; Est GFR (Non-African American) 102.7 ml/min; Globulin 4.2 gm/dl (2.5-4.0); Phosphorus 3.1 mg/dl (2.5-4.9); Potassium 4.2 mmol/L (3.5-5.1); Total Protein 7.1 gm/dl (6.0-8.3)
[2022-12-21 13:26] LABS: INR 1.1 (0.9-1.1); Prothrombin Time 11.5 Seconds (9.0-12.0)
--- NOTE | 2022-12-21 13:35 | Emergency Department Note ---
Impression & Plan Hyperglycemia due to type 2 diabetes mellitus, Thrombocytopenia, Dehydration, Cirrhosis of liver ED Provider Note NAME: ANNA BERNARD II AGE: 57 SEX: M ARRIVES VIA: Walk-In INFORMANT: Patient ED PROVIDER(S): Sebas Whiteside MD CHIEF COMPLAINT: Hyperglycemia, referred. PLAN: Disposition: Admit MEDICAL DECISION MAKING: The patient is a pleasant 57-year-old gentleman with a past medical history of alcohol abuse, alcohol cirrhosis, portal hypertension, esophageal varices, thrombocytopenia, history of benign pancreatic mass with history of partial pancreatectomy and splenectomy in 2004, GERD who presents to the emergency department referred from his PCP office for evaluation of persistent hyperglycemia after being seen emergency department on 12/15 where he was treated with insulin and started on Lantus. He reports that despite this he has continued to have high blood sugars in the 400s and followed up with his doctor today and was frees emergency department. He denies any fevers, chills, cough or congestion. He reports residual wheeze from a prior pneumonia. He denies any nausea, vomiting or diarrhea. He reports he has stopped drinking alcohol completely since October. He reports he felt symptoms of withdrawal initially but this has resolved. He is attempting to maintain a low carbohydrate diet. On arrival the patient is no acute distress, afebrile stable vital signs. He appears clinically dry. His abdomen is benign. EKG without overt acute ischemia. Chest x-ray with likely atelectasis and otherwise no acute cardiopulmonary process. WBC within normal limits. H/H similar to prior. Platelets 74 K, similar to prior. INR is normal. Chemistry without metabolic acidosis. Sodium 127 however corrects to 140 in the setting of a glucose of 648. Serum osmolality is 307, consistent with patient's clinically dry appearance. Electrolytes otherwise unremarkable. Total bilirubin 2.0 with direct biliruben 0.7, improved from prior in setting of known cirrhosis. Lipase not elevated. Patient initially treated with IV fluid hydration to then reassess BSG for insulin administration. Upon evaluation following IV hydration BSG had improved to 300. Given patient's previous visit where he did correct rapidly there is caution for possible labile BSG/brittle diabetes and so remaining hyperglycemia treated with 5 units of NovoLog with plan for recheck. Patient agrees with plan for admission for further management of his uncontrolled diabetes. Case was discussed with Dr. Cabezas, [facility] hospitalist, who will evaluate the patient for admission. Triage Nursing notes reviewed and agree them. Prior/outside medical records reviewed Vital Signs: reviewed Differential diagnosis: Infection, dehydration, metabolic abnormality, hypo/hyperglycemia, electrolyte d isturbance, anemia, hypoxia, cardiac sources, intracerebral event, toxicologic, neurologic, as well as other pathologies. ER treatment provided: See below. Diagnostics interpreted by me: ECG: Normal sinus rhythm, 73 bpm, no ectopy, nonspecific ST and T wave abnormality, no overt ST elevation or depression, QTc 420 QRS 84. Cardiac Monitoring: An order for continuous cardiac monitoring was placed and demonstrated normal sinus rhythm, 73 bpm, no ectopy. Laboratory studies: See below Imaging studies: See below Consultation(s): Case was discussed with Dr. Cabezas, [facility] hospitalist, who will evaluate the patient for admission. HPI: The patient is a pleasant 57-year-old gentleman with a past medical history of alcohol abuse, alcohol cirrhosis, portal hypertension, esophageal varices, thrombocytopenia, history of benign pancreatic mass with history of partial pancreatectomy and splint and ectomy in 2004, GERD who presents emerged department referred from his PCP office for evaluation of persistent hyperglycemia after being seen emergency department on 12/15 where he was treated with insulin and started on Lantus. He reports that despite this he has continued to have high blood sugars in the 400s and followed up with his doctor today and was frees emergency department. He denies any fevers, chills, cough or congestion. He reports residual wheeze from a prior pneumonia. He denies any nausea, vomiting or diarrhea. He reports he has stopped drinking alcohol completely since October. He reports he felt symptoms of withdrawal initially but this has resolved. He is attempting to maintain a low carbohydrate diet. ROS: See above HPI for pertinent positives & negatives. A total of 10 systems reviewed and were otherwise negative. VITALS:See Below PHYSICAL EXAMINATION: GENERAL: Awake, alert, well-appearing, in no distress HENT: Normocephalic, atraumatic. Oropharynx with dry mucous membranes and othe rwise unremarkable. EYES: Normal conjunctiva. Sclera non-icteric. NECK: Supple. No nuchal rigidity. FROM. No JVD. RESPIRATORY: Clear to auscultation. CARDIAC: Regular rate, normal rhythm. Extremities warm and well perfused. Pulses equal. ABDOMEN: Soft, non-distended. No tenderness to palpation. No rebound or guarding. No masses. RECTAL: Deferred. MUSCULOSKELETAL: Chest examination reveals no tenderness. The back is symmetrical on inspection without obvious abnormality. There is no CVA tenderness to palpation. No joint edema. LOWER EXTREMITIES: Calves are equal size bilaterally and non-tender. No edema. No discoloration. NEURO: Normal sensorium. No sensory or motor deficits noted. SKIN: No rash or jaundice noted. Sebas Whiteside MD Past Med/Surg History Medical History Alcoholic cirrhosis Alcoholism Per nursing assessment - patient denies current alcohol use but alcohol level was 264.8 on 07/29/21 when patient was in ER for ankle fracture Ascites Borderline high cholesterol Cirrhosis of liver Degenerative disc disease Esophageal varices Grade I per 04/22/21 EGD Fatty infiltration of liver GERD (gastroesophageal reflux disease) Hypotension per pt Pancreatic mass benign--pt states 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 Pleural effusion PTSD (post-traumatic stress disorder) Pulmonary embolism Approx 2 yrs ago > [facility] > thinner now AZ'ed -NO ISSUES SINCE > unknown etiology Sludge in gallbladder Surgical History History of adenoidectomy History of bilateral inguinal herniorrhaphies History of colonoscopy History of esophagogastroduodenoscopy (EGD) recent 04/22/21 @ [facility]--Grade 1 varices found History of open reduction and internal fixation (ORIF) procedure RIGHT ANKLE 07/2021 History of open reduction and internal fixation (ORIF) procedure Right Fifth Metatarsal Open Reduction Internal Fixation, Bone Marrow Aspirate Concentrate Injection into Fracture Site(Right) - Shahzad Blount MD 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 History of surgery on wrist bilat cysts removed History of tonsillectomy History of tooth extraction Family History Mother Dementia Father Prostate cancer Diabetes Heart disease Sister Neurofibromatosis Other No family history of adverse response to anesthesia Social History Smoking Status: Current some day smoker Tobacco Type: Cigarettes packs per day: 0.5; Cigarettes Per Day: 6 cigs per day; Second Hand Exposure: No; Do You Dip or Chew Tobacco: No; Hx Alcohol Use: Yes Alcohol type: hard liquor Hx Substance Use: No Preferred Language: Tristanian Communication Ability: Effective Director Child Required: No Beliefs That Will Affect Care: None marital status: Current Living Situation: Family Current Living Situation Comment: home w family current occupational status: retired Feels Safe at Home: Yes Diet: regular Diet Comment: "not a very healthy diet" Assistive Devices: None Allergies Allergies Allergy/AdvReac Type Severity Reaction Status Date / Time bee venom protein (honey bee) Allergy Severe Hives / Verified 12/15/22 18:44 Anaphylaxis adhesive Allergy Mild Rash-PAPER Verified 12/15/22 18:44 TAPE OK Home Meds Home Medications Medication Instructions Recorded Confirmed venlafaxine 37.5 mg tablet 37.5 mg PO BID 10/28/18 12/21/22 folic acid 400 mcg tablet 0.4 mg PO QAM 03/16/21 12/21/22 propranolol 20 mg tablet 20 mg PO BID 03/23/22 12/21/22 cholecalciferol (vitamin D3) 50 50 mcg PO DAILY 11/10/22 12/21/22 mcg (2,000 unit) capsule (Vitamin D3) cyanocobalamin (vitamin B-12) 2,000 mcg PO DAILY 11/10/22 12/21/22 2,000 mcg tablet,extended release (Vitamin B-12 ER) furosemide 40 mg tablet 40 mg PO DAILY 12/21/22 12/21/22 pantoprazole 40 mg tablet,delayed 40 mg PO DAILY 12/21/22 12/21/22 release spironolactone 25 mg tablet 25 mg PO DAILY 12/21/22 12/21/22 thiamine HCl (vitamin B1) 100 mg 100 mg PO DAILY 12/21/22 12/21/22 tablet trazodone 50 mg tablet 50 mg PO DAILY 12/21/22 12/21/22 Previous Rx's Medication Instructions Recorded umeclidinium 62.5 mcg-vilanterol 1 ea inhalation DAILY #60 ea 11/19/22 25 mcg/actuation powdr for inhalation (Anoro Ellipta) insulin glargine 100 unit/mL 5 unit (0.05 mL) subcut DAILY #10 12/15/22 subcutaneous solution (Lantus mL U-100 Insulin) Results & Data (ED) Vital Signs Vital Signs - 24 hr 12/21/22 12:03 12/21/22 12:21 12/21/22 12:34 Temperature 36.4 C L Temperature Source Temporal Artery Scan Pulse Rate 85 74 Pulse Rate from SpO2 Sensor Respiratory Rate 18 Respiratory Effort / Characteristics Non-Labored Respiratory Depth Normal Blood Pressure 127/73 Blood Pressure Mean 91 Blood Pressure Position Sitting Pulse Oximetry 99 98 Oxygen Delivery Method Room Air Room Air Sepsis Recent Fever Within 48 Hours No Sepsis New/Unexplained Change in Mental Status No Sepsis Action Taken by Nursing No Action Required 12/21/22 17:08 12/21/22 12:19 12/21/22 12:20 Temperature Temperature Source Pulse Rate 70 79 Pulse Rate from SpO2 Sensor 79 Respiratory Rate 13 Respiratory Effort / Characteristics Respiratory Depth Blood Pressure 130/71 Blood Pressure Mean 88 Blood Pressure Position Pulse Oximetry 98 Oxygen Delivery Method Sepsis Recent Fever Within 48 Hours Sepsis New/Unexplained Change in Mental Status Sepsis Action Taken by Nursing 12/21/22 12:30 12/21/22 12:30 12/21/22 13:00 Temperature Temperature Source Pulse Rate 75 Pulse Rate from SpO2 Sensor 75 Respiratory Rate 21 Respiratory Effort / Characteristics Respiratory Depth Blood Pressure 128/66 128/67 Blood Pressure Mean 85 79 Blood Pressure Position Pulse Oximetry 97 Oxygen Delivery Method Sepsis Recent Fever Within 48 Hours Sepsis New/Unexplained Change in Mental Status Sepsis Action Taken by Nursing 12/21/22 13:00 12/21/22 13:30 12/21/22 13:30 Temperature Temperature Source Pulse Rate 72 77 Pulse Rate from SpO2 Sensor 72 76 Respiratory Rate 21 19 Respiratory Effort / Characteristics Respiratory Depth Blood Pressure 120/60 Blood Pressure Mean 75 Blood Pressure Position Pulse Oximetry 98 97 Oxygen Delivery Method Sepsis Recent Fever Within 48 Hours Sepsis New/Unexplained Change in Mental Status Sepsis Action Taken by Nursing 12/21/22 14:00 12/21/22 14:00 12/21/22 14:32 Temperature Temperature Source Pulse Rate 74 66 Pulse Rate from SpO2 Sensor 75 Respiratory Rate 16 Respiratory Effort / Characteristics Respiratory Depth Blood Pressure 127/67 Blood Pressure Mean 79 Blood Pressure Position Pulse Oximetry 97 Oxygen Delivery Method Sepsis Recent Fever Within 48 Hours Sepsis New/Unexplained Change in Mental Status Sepsis Action Taken by Nursing 12/21/22 15:00 12/21/22 15:00 12/21/22 15:30 Temperature Temperature Source Pulse Rate 75 Pulse Rate from SpO2 Sensor 75 Respiratory Rate 21 Respiratory Effort / Characteristics Respiratory Depth Blood Pressure 119/67 132/63 Blood Pressure Mean 83 93 Blood Pressure Position Pulse Oximetry 98 Oxygen Delivery Method Sepsis Recent Fever Within 48 Hours Sepsis New/Unexplained Change in Mental Status Sepsis Action Taken by Nursing 12/21/22 15:30 12/21/22 16:00 12/21/22 16:30 Temperature Temperature Source Pulse Rate 73 71 74 Pulse Rate from SpO2 Sensor 72 71 74 Respiratory Rate 19 18 25 H Respiratory Effort / Characteristics Respiratory Depth Blood Pressure Blood Pressure Mean Blood Pressure Position Pulse Oximetry 98 97 97 Oxygen Delivery Method Sepsis Recent Fever Within 48 Hours Sepsis New/Unexplained Change in Mental Status Sepsis Action Taken by Nursing 12/21/22 17:00 12/21/22 17:30 Temperature Temperature Source Pulse Rate 73 75 Pulse Rate from SpO2 Sensor 73 76 Respiratory Rate 18 23 Respiratory Effort / Characteristics Respiratory Depth Blood Pressure Blood Pressure Mean Blood Pressure Position Pulse Oximetry 97 97 Oxygen Delivery Method Room Air Sepsis Recent Fever Within 48 Hours Sepsis New/Unexplained Change in Mental Status Sepsis Action Taken by Nursing Laboratory Data Attestation: I reviewed the patient's lab results. 12/21/22 12:16 12/21/22 12:16 Lab Results 12/21/22 12/21/22 12/21/22 Range/Units 12:06 12:16 12:16 WBC (4.8-10.8) K/ul RBC (4.70-6.10) M/uL Hgb (14.0-18.0) g/dl Hct (42.0-52.0) % MCV (80.0-100.0) fL MCH (25.0-34.0) pg MCHC (32.0-36.0) g/dL RDW Std Deviation (36.4-46.3) fL RDW Coeff of Ramone (11.5-14.5) % Plt Count (130-400) K/uL MPV (9.4-12.4) fL Immature Gran % (Auto) % Neut % (Auto) % Lymph % (Auto) % [place] % (Auto) % Eos % (Auto) % Baso % (Auto) % Neut # (Auto) (1.40-6.50) K/uL Lymph # (Auto) (1.2-3.4) K/uL [place] # (Auto) (0.11-0.59) K/uL Eos # (Auto) (0-0.50) K/uL Baso # (Auto) (0-0.2) K/uL Immature Gran # (Auto) (0.01-0.20) K/uL PT 11.5 (9.0-12.0) Seconds INR 1.1 (0.9-1.1) VBG pH (7.36-7.41) VBG pCO2 (38-50) mmHg VBG pO2 mmHg VBG HCO3 mmol/L VBG O2 Saturation % VBG Base Excess mEq/L Sodium 127 L (136-145) mmol/L Potassium 4.2 (3.5-5.1) mmol/L Chloride 95 L (98-107) mmol/L Carbon Dioxide 29 (21-32) mmol/L Anion Gap 3 (3-11) BUN 6 (6-23) mg/dl Creatinine 0.76 (0.6-1.4) mg/dl Est Cr Clr Drug Dosing 107.3 ml/min Est GFR ( Amer) 119.0 ml/min Est GFR (Non-Af Amer) 102.7 ml/min BUN/Creatinine Ratio 7.9 L (10-20) Glucose 648 H* (70-99(Fasting)) mg/dl POC Glucose 593 H* (70-99) mg/dl Osmolality (280-300) mOsm/kg Calcium 9.1 (8.6-10.3) mg/dl Phosphorus 3.1 (2.5-4.9) mg/dl Magnesium 2.0 (1.7-2.4) mg/dl Total Bilirubin 2.0 H (0.2-1.0) mg/dl Direct Bilirubin 0.7 H (0-0.2) mg/dl AST 24 (13-39) U/L ALT 23 (7-52) U/L Alkaline Phosphatase 149 H (34-104) U/L Total Protein 7.1 (6.0-8.3) gm/dl Albumin 2.9 L (3.4-5.0) gm/dl Globulin 4.2 H (2.5-4.0) gm/dl Albumin/Globulin Ratio 0.7 L (0.9-2) Lipase 64 (11-82) U/L Urine Color Urine Appearance (Clear) Urine pH (4.5-7.5) Ur Specific [place] (1.000-1.030) Urine Protein (Negative) Urine Glucose (UA) (Negative) Urine Ketones (Negative) Urine Blood (Negative) Urine Nitrite (Negative) Urine Bilirubin (Negative) Urine Urobilinogen (Negative) Ur Leukocyte Esterase (Negative) Urine WBC (Auto) (0-5) /hpf Urine RBC (Auto) (0-4) /hpf U Hyaline Cast (Auto) (0-5) /lpf U Epithel Cells (Auto) (0-5) /lpf Urine Bacteria (Auto) (Negative) SARS-CoV-2, RNA, NAAT (NEGATIVE) 12/21/22 12/21/22 12/21/22 Range/Units 12:16 12:16 12:21 WBC 7.22 (4.8-10.8) K/ul RBC 3.86 L (4.70-6.10) M/uL Hgb 13.3 L (14.0-18.0) g/dl Hct 38.8 L (42.0-52.0) % MCV 100.5 H (80.0-100.0) fL MCH 34.5 H (25.0-34.0) pg MCHC 34.3 (32.0-36.0) g/dL RDW Std Deviation 53.4 H (36.4-46.3) fL RDW Coeff of Ramone 14.6 H (11.5-14.5) % Plt Count 74 L (130-400) K/uL MPV 13.0 H (9.4-12.4) fL Immature Gran % (Auto) 0.4 % Neut % (Auto) 55.4 % Lymph % (Auto) 27.1 % [place] % (Auto) 12.6 % Eos % (Auto) 3.0 % Baso % (Auto) 1.5 % Neut # (Auto) 3.99 (1.40-6.50) K/uL Lymph # (Auto) 1.96 (1.2-3.4) K/uL [place] # (Auto) 0.91 H (0.11-0.59) K/uL Eos # (Auto) 0.22 (0-0.50) K/uL Baso # (Auto) 0.11 (0-0.2) K/uL Immature Gran # (Auto) 0.03 (0.01-0.20) K/uL PT (9.0-12.0) Seconds INR (0.9-1.1) VBG pH (7.36-7.41) VBG pCO2 (38-50) mmHg VBG pO2 mmHg VBG HCO3 mmol/L VBG O2 Saturation % VBG Base Excess mEq/L Sodium (136-145) mmol/L Potassium (3.5-5.1) mmol/L Chloride (98-107) mmol/L Carbon Dioxide (21-32) mmol/L Anion Gap (3-11) BUN (6-23) mg/dl Creatinine (0.6-1.4) mg/dl Est Cr Clr Drug Dosing ml/min Est GFR ( Amer) ml/min Est GFR (Non-Af Amer) ml/min BUN/Creatinine Ratio (10-20) Glucose (70-99(Fasting)) mg/dl POC Glucose > 600 H* (70-99) mg/dl Osmolality 307 H (280-300) mOsm/kg Calcium (8.6-10.3) mg/dl Phosphorus (2.5-4.9) mg/dl Magnesium (1.7-2.4) mg/dl Total Bilirubin (0.2-1.0) mg/dl Direct Bilirubin (0-0.2) mg/dl AST (13-39) U/L ALT (7-52) U/L Alkaline Phosphatase (34-104) U/L Total Protein (6.0-8.3) gm/dl Albumin (3.4-5.0) gm/dl Globulin (2.5-4.0) gm/dl Albumin/Globulin Ratio (0.9-2) Lipase (11-82) U/L Urine Color Urine Appearance (Clear) Urine pH (4.5-7.5) Ur Specific [place] (1.000-1.030) Urine Protein (Negative) Urine Glucose (UA) (Negative) Urine Ketones (Negative) Urine Blood (Negative) Urine Nitrite (Negative) Urine Bilirubin (Negative) Urine Urobilinogen (Negative) Ur Leukocyte Esterase (Negative) Urine WBC (Auto) (0-5) /hpf Urine RBC (Auto) (0-4) /hpf U Hyaline Cast (Auto) (0-5) /lpf U Epithel Cells (Auto) (0-5) /lpf Urine Bacteria (Auto) (Negative) SARS-CoV-2, RNA, NAAT (NEGATIVE) 12/21/22 12/21/22 12/21/22 Range/Units 12:46 14:14 14:30 WBC (4.8-10.8) K/ul RBC (4.70-6.10) M/uL Hgb (14.0-18.0) g/dl Hct (42.0-52.0) % MCV (80.0-100.0) fL MCH (25.0-34.0) pg MCHC (32.0-36.0) g/dL RDW Std Deviation (36.4-46.3) fL RDW Coeff of Ramone (11.5-14.5) % Plt Count (130-400) K/uL MPV (9.4-12.4) fL Immature Gran % (Auto) % Neut % (Auto) % Lymph % (Auto) % [place] % (Auto) % Eos % (Auto) % Baso % (Auto) % Neut # (Auto) (1.40-6.50) K/uL Lymph # (Auto) (1.2-3.4) K/uL [place] # (Auto) (0.11-0.59) K/uL Eos # (Auto) (0-0.50) K/uL Baso # (Auto) (0-0.2) K/uL Immature Gran # (Auto) (0.01-0.20) K/uL PT (9.0-12.0) Seconds INR (0.9-1.1) VBG pH 7.36 (7.36-7.41) VBG pCO2 52 H (38-50) mmHg VBG pO2 30 mmHg VBG HCO3 29 mmol/L VBG O2 Saturation < 60.0 % VBG Base Excess 2.8 mEq/L Sodium (136-145) mmol/L Potassium (3.5-5.1) mmol/L Chloride (98-107) mmol/L Carbon Dioxide (21-32) mmol/L Anion Gap (3-11) BUN (6-23) mg/dl Creatinine (0.6-1.4) mg/dl Est Cr Clr Drug Dosing ml/min Est GFR ( Amer) ml/min Est GFR (Non-Af Amer) ml/min BUN/Creatinine Ratio (10-20) Glucose (70-99(Fasting)) mg/dl POC Glucose (70-99) mg/dl Osmolality (280-300) mOsm/kg Calcium (8.6-10.3) mg/dl Phosphorus (2.5-4.9) mg/dl Magnesium (1.7-2.4) mg/dl Total Bilirubin (0.2-1.0) mg/dl Direct Bilirubin (0-0.2) mg/dl AST (13-39) U/L ALT (7-52) U/L Alkaline Phosphatase (34-104) U/L Total Protein (6.0-8.3) gm/dl Albumin (3.4-5.0) gm/dl Globulin (2.5-4.0) gm/dl Albumin/Globulin Ratio (0.9-2) Lipase (11-82) U/L Urine Color Yellow Urine Appearance Clear (Clear) Urine pH 7.5 (4.5-7.5) Ur Specific [place] 1.034 H (1.000-1.030) Urine Protein Negative (Negative) Urine Glucose (UA) 3+ H (Negative) Urine Ketones Negative (Negative) Urine Blood Trace H (Negative) Urine Nitrite Negative (Negative) Urine Bilirubin Negative (Negative) Urine Urobilinogen Negative (Negative) Ur Leukocyte Esterase Negative (Negative) Urine WBC (Auto) 1-5 (0-5) /hpf Urine RBC (Auto) 0-4 (0-4) /hpf U Hyaline Cast (Auto) 0 (0-5) /lpf U Epithel Cells (Auto) 0-5 (0-5) /lpf Urine Bacteria (Auto) Negative (Negative) SARS-CoV-2, RNA, NAAT NEGATIVE (NEGATIVE) 12/21/22 Range/Units 15:55 WBC (4.8-10.8) K/ul RBC (4.70-6.10) M/uL Hgb (14.0-18.0) g/dl Hct (42.0-52.0) % MCV (80.0-100.0) fL MCH (25.0-34.0) pg MCHC (32.0-36.0) g/dL RDW Std Deviation (36.4-46.3) fL RDW Coeff of Ramone (11.5-14.5) % Plt Count (130-400) K/uL MPV (9.4-12.4) fL Immature Gran % (Auto) % Neut % (Auto) % Lymph % (Auto) % [place] % (Auto) % Eos % (Auto) % Baso % (Auto) % Neut # (Auto) (1.40-6.50) K/uL Lymph # (Auto) (1.2-3.4) K/uL [place] # (Auto) (0.11-0.59) K/uL Eos # (Auto) (0-0.50) K/uL Baso # (Auto) (0-0.2) K/uL Immature Gran # (Auto) (0.01-0.20) K/uL PT (9.0-12.0) Seconds INR (0.9-1.1) VBG pH (7.36-7.41) VBG pCO2 (38-50) mmHg VBG pO2 mmHg VBG HCO3 mmol/L VBG O2 Saturation % VBG Base Excess mEq/L Sodium (136-145) mmol/L Potassium (3.5-5.1) mmol/L Chloride (98-107) mmol/L Carbon Dioxide (21-32) mmol/L Anion Gap (3-11) BUN (6-23) mg/dl Creatinine (0.6-1.4) mg/dl Est Cr Clr Drug Dosing ml/min Est GFR ( Amer) ml/min Est GFR (Non-Af Amer) ml/min BUN/Creatinine Ratio (10-20) Glucose (70-99(Fasting)) mg/dl POC Glucose 300 H (70-99) mg/dl Osmolality (280-300) mOsm/kg Calcium (8.6-10.3) mg/dl Phosphorus (2.5-4.9) mg/dl Magnesium (1.7-2.4) mg/dl Total Bilirubin (0.2-1.0) mg/dl Direct Bilirubin (0-0.2) mg/dl AST (13-39) U/L ALT (7-52) U/L Alkaline Phosphatase (34-104) U/L Total Protein (6.0-8.3) gm/dl Albumin (3.4-5.0) gm/dl Globulin (2.5-4.0) gm/dl Albumin/Globulin Ratio (0.9-2) Lipase (11-82) U/L Urine Color Urine Appearance (Clear) Urine pH (4.5-7.5) Ur Specific [place] (1.000-1.030) Urine Protein (Negative) Urine Glucose (UA) (Negative) Urine Ketones (Negative) Urine Blood (Negative) Urine Nitrite (Negative) Urine Bilirubin (Negative) Urine Urobilinogen (Negative) Ur Leukocyte Esterase (Negative) Urine WBC (Auto) (0-5) /hpf Urine RBC (Auto) (0-4) /hpf U Hyaline Cast (Auto) (0-5) /lpf U Epithel Cells (Auto) (0-5) /lpf Urine Bacteria (Auto) (Negative) SARS-CoV-2, RNA, NAAT (NEGATIVE) Administered Medications Discontinued Medications Sodium Chloride (Nss 1000ml) 1,000 mls @ 999 mls/hr IV .Q1H1M ONE Stop: 12/21/22 13:35 Last Infusion: 12/21/22 15:05 Dose: 0 mls/hr Documented By: Admin: 12/21/22 12:45 Dose: 999 mls/hr Documented By: CYNTHIA Sodium Chloride (Nss 1000ml) 1,000 mls @ 999 mls/hr IV .Q1H1M ONE Stop: 12/21/22 14:32 Last Infusion: 12/21/22 16:21 Dose: 0 mls/hr Documented By: Admin: 12/21/22 15:05 Dose: 999 mls/hr Documented By: CYNTHIA Insulin Aspart (Insulin Aspart Per Unit Charge) 5 units SC NOW ONE Stop: 12/21/22 16:16 Last Admin: 12/21/22 16:17 Dose: 5 units Documented By: CYNTHIA Co-signed By: DORA Imaging Data Radiologist's Impression: Chest X-Ray 12/21/22 13:31 XR chest 1V portable HISTORY: wheezing COMPARISON: Chest 12/15/2022. FINDINGS: No pneumothorax. No pleural effusions. The cardiac silhouette remains normal in size. The right lung is clear. Left basilar linear densities are new from the prior study and favor subsegmental atelectasis. No evidence for pulmonary edema. No acute fractures identified. IMPRESSION: A few left basilar linear densities which favor subsegmental atelectasis and are new from the prior study. A pneumonia could also have a similar appearance in the appropriate clinical setting but is considered less likely. ACT 112: Negative or not required by law. Electronically signed by: Cristhian Dubose M.D. 12/21/2022 1:56 PM Discharge Plan Visit Data Chief Complaint: Hyperglycemia Stated Complaint: SUGAR IS HIGH ED Provider: Sebas Whiteside Discharge Problem: Hyperglycemia due to type 2 diabetes mellitus, Thrombocytopenia, Dehydration, Cirrhosis of liver Forms Stand Alone Forms: [facility] Prescriptions Prescriptions: No Action venlafaxine 37.5 mg tablet 37.5 mg PO BID folic acid 400 mcg Tablet 0.4 mg PO QAM propranolol 20 mg Tablet 20 mg PO BID cyanocobalamin (vitamin B-12) [Vitamin B-12] 2,000 mcg Tablet Extended Release 2,000 mcg PO DAILY cholecalciferol (vitamin D3) [Vitamin D3] 50 mcg (2,000 unit) Capsule 50 mcg PO DAILY Anoro Ellipta 62.5-25 mcg/actuation Blister With Device 1 ea inhalation DAILY Qty: 60 0RF insulin glargine [Lantus U-100 Insulin] 100 unit/mL solution 5 unit subcut DAILY Qty: 10 0RF furosemide 40 mg tablet 40 mg PO DAILY trazodone 50 mg tablet 50 mg PO DAILY thiamine HCl (vitamin B1) 100 mg tablet 100 mg PO DAILY spironolactone 25 mg tablet 25 mg PO DAILY pantoprazole 40 mg tablet,delayed release (DR/EC) 40 mg PO DAILY Referrals Referrals: Nessa Hardin [Primary Care Provider] -
--- NOTE | 2022-12-21 13:58 | XRay Report ---
XR chest 1V portable HISTORY: wheezing COMPARISON: Chest 12/15/2022. FINDINGS: No pneumothorax. No pleural effusions. The cardiac silhouette remains normal in size. The r ight lung is clear. Left basilar linear densities are new from the prior study and favor subsegmental atelectasis. No evidence for pulmonary edema. No acute fractures identified. IMPRESSION: A few left basilar linear densities which favor subsegmental atelectasis and are new from the prior s tudy. A pneumonia could also have a similar appearance in the appropriate clinical setting but is con sidered less likely. ACT 112: Negative or not required by law. Electronically signed by: Cristhian Duboes M.D. 12/21/2022 1:56 PM
[2022-12-21 14:28] LABS: Base Excess VBG 2.8 mEq/L; HCO3 VBG 29 mmol/L; Oxygen Saturation VBG < 60.0 %; PCO2 VBG 52 mmHg (38-50); PO2 VBG 30 mmHg; pH VBG 7.36 (7.36-7.41)
[2022-12-21 15:03] LABS: Appearance Urine Clear (Clear); Bacteria Urine Automated Negative (Negative); Bilirubin Urine Negative (Negative); Blood Urine Trace (Negative); Cast Urine Automated 0 /lpf (0-5); Color Urine Yellow; Epithelial Cell Urine Auto 0-5 /lpf (0-5); Glucose Urine UA 3+ (Negative); Ketones Urine Negative (Negative); Leukocyte Esterase Urine Negative (Negative); Nitrite Urine Negative (Negative); Protein Urine Negative (Negative); RBC Urine Automated 0-4 /hpf (0-4); Specific Gravity Urine 1.034 (1.000-1.030); Urobilinogen Urine Negative (Negative); pH Urine 7.5 (4.5-7.5)
[2022-12-21] MEDS ORDERED: INSULIN ASPART PER UNIT CHARGE SC ONE (16:15)
--- NOTE | 2022-12-21 17:46 | History & Physical Report ---
Date of Service December 21, 2022 Assessment & Plan (1) Hyperglycemia due to type 2 diabetes mellitus: Plan: T2DM, acute hyperglycemia -300s w/ IVFM 2L - At last admission BSG rapidly responded with 5u IV insulin (avoid high dose/IV insulin) so got 5u of SQ novolog in ER - A1C November 6%, repeat pending - Bicarb normal We will avoid metformin due to underlying cirrhosis. Patient is SGLT2 candidate Given very poorly controlled blood sugars on basal insulin which have been escalated in the outpatient setting he is a reasonable candidate for basal bolus insulin, especially given that after pancreatectomy he likely has a absolute deficiency to his insulin producing capacity. Discussed insulin 70 with patient and rate of hypoglycemia, he notes his and kids are also around and can help care for him while he adapts to a glucose management regimen. Given this we will trial a basal bolus regimen with follow-up to endocrinology. We will startWe will start with weight-based CF 65, ratio 20. Follow closely for hypoglycemia Prescribed glucagon pen at discharge due to risk of hypoglycemia and ETOH Cirrhosis - In remission - [facility] GI - Pancreatic Mass s/p pancreatectomy No acute transaminitis, no acute decompensation Continue outpatient follow-up Wheezing - CXR: A few left basilar linear densities which favor subsegmental atelectasis and are new from the prior study. A pneumonia could also have a similar appearance in the appropriate clinical setting but is considered less likely. - Procal negative VBG 7.3 /, mild compensated respiratory hypercapnia No cough, no wheezing at bedside We will follow clinically for signs of pneumonia, follow fever curve and white blood cell count Defer antibiotics on admission DVT prophylaxis: Heparin Diet: Type II DM/low-sodium Disposition: Medical surgical CODE STATUS: Full code (2) Cirrhosis of liver: (3) Alcohol use disorder: (4) Portal hypertension: (5) PTSD (post-traumatic stress disorder): History of Present Illness Primary Care Provider: Nessa Munoz reports he is frustrated as he has been in the ER all day and is hungry and hasn't been able to eat all day. Had a bowl of cereal. Had a doctors appointment this morning. Fell asleep in the chair, woke up after his appointment was scheduled for. Went to wrong office and was late getting to [facility]. Finally say triage nurse at outpt office and told her BSG has been in the 400s the last few days Got 2L of NSS and BSG improved to 300s, and got 5u of SQ insulin. last week got 10u sq and rapidly went down to 200s from 500+ Has a script for 5u lantus HS at home. Missed 1x dose Sat night otherwise has taken everynight. Was 500s after missing that dose, 300s day prior. No other antiglycemics other than lantus Medical History: Reviewed Medications: Reviewed Surgical History: Reviewed Family history: Reviewed Allergies: Reviewed Social History: Code Status: Allergies Allergy/AdvReac Type Severity Reaction Status Date / Time bee venom protein (honey bee) Allergy Severe Hives / Verified 12/15/22 18:44 Anaphylaxis adhesive Allergy Mild Rash-PAPER Verified 12/15/22 18:44 TAPE OK Home Medications Medication Instructions Recorded Confirmed Type venlafaxine 37.5 mg tablet 37.5 mg PO BID 10/28/18 12/21/22 History folic acid 400 mcg tablet 0.4 mg PO QAM 03/16/21 12/21/22 History propranolol 20 mg tablet 20 mg PO BID 03/23/22 12/21/22 History cholecalciferol (vitamin D3) 50 50 mcg PO DAILY 11/10/22 12/21/22 History mcg (2,000 unit) capsule (Vitamin D3) cyanocobalamin (vitamin B-12) 2,000 mcg PO DAILY 11/10/22 12/21/22 History 2,000 mcg tablet,extended release (Vitamin B-12 ER) umeclidinium 62.5 mcg-vilanterol 1 ea inhalation DAILY #60 ea 11/19/22 12/21/22 Rx 25 mcg/actuation powdr for inhalation (Anoro Ellipta) insulin glargine 100 unit/mL 5 unit (0.05 mL) subcut DAILY #10 12/15/22 12/21/22 Rx subcutaneous solution (Lantus mL U-100 Insulin) furosemide 40 mg tablet 40 mg PO DAILY 12/21/22 12/21/22 History pantoprazole 40 mg tablet,delayed 40 mg PO DAILY 12/21/22 12/21/22 History release spironolactone 25 mg tablet 25 mg PO DAILY 12/21/22 12/21/22 History thiamine HCl (vitamin B1) 100 mg 100 mg PO DAILY 12/21/22 12/21/22 History tablet trazodone 50 mg tablet 50 mg PO DAILY 12/21/22 12/21/22 History Past Med/Surg History Medical History Alcoholic cirrhosis Alcoholism Per nursing assessment - patient denies current alcohol use but alcohol level was 264.8 on 07/29/21 when patient was in ER for ankle fracture Borderline high cholesterol Cirrhosis of liver Degenerative disc disease Esophageal varices Grade I per 04/22/21 EGD Fatty infiltration of liver GERD (gastroesophageal reflux disease) Hypotension per pt Pancreatic mass benign--pt states 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 PTSD (post-traumatic stress disorder) Pulmonary embolism Approx 2 yrs ago > [facility] > thinner now AZ'ed -NO ISSUES SINCE > unknown etiology Sludge in gallbladder Surgical History History of adenoidectomy History of bilateral inguinal herniorrhaphies History of colonoscopy History of esophagogastroduodenoscopy (EGD) recent 04/22/21 @ [facility]--Grade 1 varices found History of open reduction and internal fixation (ORIF) procedure RIGHT ANKLE 07/2021 History of open reduction and internal fixation (ORIF) procedure Right Fifth Metatarsal Open Reduction Internal Fixation, Bone Marrow Aspirate Concentrate Injection into Fracture Site(Right) - Shahzad Blount MD 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 History of surgery on wrist bilat cysts removed History of tonsillectomy History of tooth extraction Family History Mother Dementia Father Prostate cancer Diabetes Heart disease Sister Neurofibromatosis Other No family history of adverse response to anesthesia Social History Smoking Status: Current some day smoker Tobacco Type: Cigarettes packs per day: 0.5; Cigarettes Per Day: 6 cigs per day; Second Hand Exposure: No; Do You Dip or Chew Tobacco: No; Hx Alcohol Use: Yes Alcohol type: hard liquor Hx Substance Use: No Preferred Language: Azeri Communication Ability: Effective Conservation Engineer Required: No Beliefs That Will Affect Care: None marital status: Current Living Situation: Family Current Living Situation Comment: home w family current occupational status: retired Feels Safe at Home: Yes Diet: regular Diet Comment: "not a very healthy diet" Assistive Devices: None Results & Data Results & Data Vital Signs (Past 12 Hours) Vital Signs Temp Pulse Resp BP Pulse Ox O2 Del Method 12/21/22 17:08 70 12/21/22 12:34 98 Room Air 12/21/22 12:21 74 12/21/22 12:03 36.4 C L 85 18 127/73 99 Room Air PG Care Time/CCT Total # of Minutes Spent Total Time Spent with Patient: Total time spent is greater than 50% in coordination of care (as documented) at patient's floor/unit and/or counseling patient: Coding Level of Care Code 00575 INT INP/OBS CARE 3/75MIN Diagnoses Hyperglycemia due to type 2 diabetes mellitus E11.65 Cirrhosis of liver K74.60 Alcohol use disorder F10.90 Portal hypertension K76.6 PTSD (post-traumatic stress disorder) F43.10
[2022-12-21] MEDS ORDERED: INSULIN ASPART PER UNIT CHARGE SC SCH (18:00)
--- NOTE | 2022-12-21 18:03 | Electrocardiogram Report ---
Test Reason : Blood Pressure : / mmHG Vent. Rate : 073 BPM Atrial Rate : 073 BPM P-R Int : 134 ms QRS Dur : 084 ms QT Int : 382 ms P-R-T Axes : 027 019 048 degrees QTc Int : 420 ms Normal sinus rhythm Nonspecific ST and T wave abnormality Abnormal ECG When compared with ECG of 15-DEC-2022 15:45, Nonspecific T wave abnormality now evident in Lateral leads Confirmed by Ramon Alonso ([id number]) on 12/21/2022 6:02:58 PM Referred By: Confirmed By:Elpidio Alonso
[2022-12-21] MEDS ORDERED: CARBOHYDRATES FOR HYPOGLYCEMIA PO PRN (18:23)
[2022-12-21] MEDS ORDERED: GLUCOSE 10 TAB/TUBE PO PRN (18:23)
[2022-12-21] MEDS ORDERED: GLUCOSE 40% GEL 15 GM TUBE PO PRN (18:23)
[2022-12-21] MEDS ORDERED: DEXTROSE 50% 50 ML SYRINGE IV PRN (18:23)
[2022-12-21] MEDS ORDERED: PHARMACY GLYCEMIC MGMT CONSULT PRN ×2 (18:23→20:26)
[2022-12-21] MEDS ORDERED: GLUCAGON FOR INJ 1 MG VIAL SQ PRN (18:23)
[2022-12-21] MEDS ORDERED: ACETAMINOPHEN 325 MG TAB PO PRN (20:26)
[2022-12-21] MEDS ORDERED: LANTUS PER UNIT CHARGE SQ SCH (21:00)
[2022-12-21] MEDS: PROPRANOLOL HCL 20 MG TAB PO SCH (22:01)
[2022-12-21] MEDS: VENLAFAXINE HCL 37.5 MG TAB PO SCH (22:02)
[2022-12-21] MEDS: INSULIN ASPART PER UNIT CHARGE SC SCH (23:13)
[2022-12-22] MEDS ORDERED: INSULIN ASPART PER UNIT CHARGE SC SCH (02:00)
[2022-12-22 08:24] LABS: Estimated Average Glucose 235 mg/dl; Hemoglobin A1C 9.8 % (4.5-5.6)
[2022-12-22 08:39] LABS: Basophils # (auto) 0.11 K/uL (0-0.2); Basophils % (auto) 1.4 %; Eosinophils # (auto) 0.27 K/uL (0-0.50); Eosinophils % (auto) 3.4 %; Hematocrit (blood only) 36.8 % (42.0-52.0); Hemoglobin 12.9 g/dl (14.0-18.0); Immature Granulocytes # (auto) 0.03 K/uL (0.01-0.20); Immature Granulocytes % (auto) 0.4 %; Lymphocytes # (auto) 2.44 K/uL (1.2-3.4); Lymphocytes % (auto) 30.5 %; Mean Corpuscular Hemoglobin 34.3 pg (25.0-34.0); Mean Corpuscular Hgb Conc 35.1 g/dL (32.0-36.0); Mean Corpuscular Volume 97.9 fL (80.0-100.0); Monocytes # (auto) 0.93 K/uL (0.11-0.59); Monocytes % (auto) 11.6 %; Neutrophils # (auto) 4.21 K/uL (1.40-6.50); Neutrophils % (auto) 52.7 %; Platelet Count 70 K/uL (130-400); RDW Coefficient of Variation 14.3 % (11.5-14.5); RDW Standard Deviation 51.7 fL (36.4-46.3); Red Blood Count 3.76 M/uL (4.70-6.10); White Blood Count 7.99 K/ul (4.8-10.8)
[2022-12-22 08:53] LABS: Albumin Globulin Ratio 0.7 (0.9-2); Albumin Level 2.6 gm/dl (3.4-5.0); BUN Creatinine Ratio 7.6 (10-20); Bilirubin,Total 1.9 mg/dl (0.2-1.0); Calcium 8.1 mg/dl (8.6-10.3); Creatinine Clr Calc Pharmacy 142.9 ml/min; Est GFR (African American) 126.1 ml/min; Est GFR (Non-African American) 108.8 ml/min; Globulin 3.5 gm/dl (2.5-4.0); Potassium 4.1 mmol/L (3.5-5.1); Total Protein 6.1 gm/dl (6.0-8.3)
[2022-12-22] MEDS ORDERED: PANTOprazole 40 MG TAB PO SCH (09:00)
[2022-12-22] MEDS ORDERED: traZODone HCL 50 MG TAB PO SCH (09:00)
[2022-12-22] MEDS ORDERED: FOLIC ACID 400 MCG TAB PO SCH (09:00)
[2022-12-22] MEDS ORDERED: THIAMINE HCL 100 MG TAB PO SCH (09:00)
[2022-12-22] MEDS ORDERED: LANTUS PER UNIT CHARGE SQ SCH (09:00)
[2022-12-22] MEDS ORDERED: UMECLIDINIUM/VILANTEROL 62.5/25MCG 7 PUFFS/INHALER INH SCH (09:00)
[2022-12-22] MEDS ORDERED: SPIRONOLACTONE 25 MG TAB PO SCH (09:00)
[2022-12-22] MEDS: INSULIN ASPART PER UNIT CHARGE SC SCH ×2 (09:28→12:40)
[2022-12-22] MEDS: PROPRANOLOL HCL 20 MG TAB PO SCH (09:37)
[2022-12-22] MEDS: VENLAFAXINE HCL 37.5 MG TAB PO SCH (09:38)
--- NOTE | 2022-12-22 12:46 | Discharge Summary ---
Date of Service December 22, 2022 Admission HPI Per Admitting Provider Alexander reports he is frustrated as he has been in the ER all day and is hungry and hasn't been able to eat all day. Had a bowl of cereal. Had a doctors appointment this morning. Fell asleep in the chair, woke up after his appointment was scheduled for. Went to wrong office and was late getting to [facility]. Finally say triage nurse at outpt office and told her BSG has been in the 400s the last few days Got 2L of NSS and BSG improved to 300s, and got 5u of SQ insulin. last week got 10u sq and rapidly went down to 200s from 500+ Has a script for 5u lantus HS at home. Missed 1x dose Sat night otherwise has taken everynight. Was 500s after missing that dose, 300s day prior. No other antiglycemics other than lantus Medical History: Reviewed Medications: Reviewed Surgical History: Reviewed Family history: Reviewed Allergies: Reviewed Social History: Code Status: Principal Diagnosis Hyperglycemia Discharge Exam General: A&Ox3. NAD. Cooperative. HEENT: Atraumatic, normocephalic. Vision/hearing grossly intact Pulm: CTAB A&P. -wheezes, -rales, -rhonchi. Symmetrical chest rise. No increased work of breathing. No respiratory distress. Cardiac: RRR, -mrg. Radial pulses intact and symmetrical. Abdominal: Nontender, nondistended, soft. BS present. Extremities: Moves all extremities equally Discharge Data Allergies Allergy/AdvReac Type Severity Reaction Status Date / Time bee venom protein (honey bee) Allergy Severe Hives / Verified 12/15/22 18:44 Anaphylaxis adhesive Allergy Mild Rash-PAPER Verified 12/15/22 18:44 TAPE OK Consultations 12/21/22 16:35 ED Decision to Admit Stat Hospital Course (1) Hyperglycemia due to type 2 diabetes mellitus: Alexander was admitted for acute hyperglycemia despite taking his prescribed 5 units of Lantus. He had only missed 1 dose of this, despite this had had hyperglycemia ranging in the 401275c. He was treated with basal bolus as inpatient with improvement in his BSG to 150s. Due to his partial pancreatectomy likely to make him behave much more similar to a type I diabetic although with some residual insulin production. Patient was switched to basal bolus. Her/benefits of increasing his basal and pursuing an oral combination regimen versus basal bolus were discussed with him at inpatient. He is extremely well-organized, keeps a good notebook of blood sugars and due to his diligence was felt to be a good candidate for basal bolus insulin treatment. If he does extremely well or has improved glycemic sensitivity with metformin reasonable to transition back to a basal only regimen ideally with orals. On discharge: Plan to switch to detemir due to formulary coverage. This was increased from 5 units to 7 units daily Insulin aspart short acting was prescribed. Started conservatively with 3 units with mealtime insulin with an increase/decrease of 1-2 units based on meal size and type. He was instructed to include a correction factor very conservative of 1 unit for every 75 g/dL over 150. Patient will keep a notebook of sugars both before meals and in the morning and contact his PCP for adjustments as needed, or if he has episodes of hypoglycemia Risks/benefits of metformin with compensated cirrhosis was discussed. Started on a low-dose of metformin extended release 500 mg daily. Patient will require outpatient insulin titration, and repeat CMP in approximately 1-2 weeks to ensure he is tolerating his metformin. T2DM, acute hyperglycemia -300s w/ IVFM 2L - At last admission BSG rapidly responded with 5u IV insulin (avoid high dose/IV insulin) so got 5u of SQ novolog in ER - A1C November 6%, repeat pending - Bicarb normal We will avoid metformin due to underlying cirrhosis. Patient is SGLT2 candidate Given very poorly controlled blood sugars on basal insulin which have been escalated in the outpatient setting he is a reasonable candidate for basal bolus insulin, especially given that after pancreatectomy he likely has a absolute deficiency to his insulin producing capacity. Discussed insulin 70 with patient and rate of hypoglycemia, he notes his and kids are also around and can help care for him while he adapts to a glucose management regimen. Given this we will trial a basal bolus regimen with follow-up to endocrinology. We will startWe will start with weight-based CF 65, ratio 20. Follow closely for hypoglycemia Prescribed glucagon pen at discharge due to risk of hypoglycemia and ETOH Cirrhosis - In remission - [facility] - Pancreatic Mass s/p pancreatectomy No acute transaminitis, no acute decompensation Continue outpatient follow-up Wheezing - CXR: A few left basilar linear densities which favor subsegmental atelectasis and are new from the prior study. A pneumonia could also have a similar appearance in the appropriate clinical setting but is considered less likely. - Procal negative VBG 7.3 /, mild compensated respiratory hypercapnia No cough, no wheezing at bedside We will follow clinically for signs of pneumonia, follow fever curve and white blood cell count Defer antibiotics on admission DVT prophylaxis: Heparin Diet: Type II DM/low-sodium Disposition: Medical surgical CODE STATUS: Full code (2) Cirrhosis of liver: (3) Alcohol use disorder: (4) Portal hypertension: (5) PTSD (post-traumatic stress disorder): Total Time Total Time Spent Total Time Spent (In Minutes): Time spend day of discharge 60 minutes including direct patient care, documentation, teaching and glycemic counseling , review of labs and images, and coordination of care. Discharge Plan Discharge Items Patient Disposition: Home - Self-Care Reason For Visit: HYPERGLYCEMIA Discharge Diagnosis: DM2 Activity: Per Instructions section Non-emergency contact: Primary Care Provider Call non-emergency contact if: you have any medication questions, your symptoms worsen, your pain is not controlled and your pain is worsening Follow-up/Referrals: Nessa Hardin [Primary Care Provider] - Diet: Carb Consistent or DM2 Addtl Attending Provider Instructions: You are seen in the hospital for acute hyperglycemia despite taking your home insulin. You have had a partial pancreatectomy so your ability to make insulin is reduced. You have been started on basal bolus insulin as noted below. Please continue to take insulin detemir 7 units once daily. This is a long- acting insulin. If your morning blood sugars are low, this may need to be reduced at your follow-up appointment with your PCP. You have been prescribed a short acting insulin to take with meals. Please take 3 units of short acting insulin with each meal. If you have a lean meal, such as fish/vegetables reduce this by 1-2 units. If you have a very carb heavy meal you may add 1-2 units. Please keep track of your blood sugars to help get a better idea of how your body responds to short acting insulin. Short acting insulin works over approximately 2-4 hours. In addition please check your blood sugar before meals. Your goal blood sugars less than 150. For every 75 g/dL above 150 that your blood sugar is add 1 additional unit of mealtime insulin. For example if your blood sugar was 230 before a normal breakfast, he will take 1 additional unit for the high blood sugar of 230, and 3 units for breakfast to total 4 units of short acting insulin at that meal. If you have any questions or concerns please call your primary care provider for additional recommendations. There is a risk of low blood sugar while using insulin. Low blood sugar can cause you to feel lightheaded, dizzy, pass out or even be life-threatening or fatal. If you find you are having low blood sugars (less than 80) please contact your PCP for insulin adjustments. In addition if you have a low blood sugar less than 80 please drink a small cup of orange juice or take a glucose tablet. You have been provided with a glucagon rescue pen, this is a rescue medication in case your blood sugar goes so low that you become unconscious. Ella ramirez instruct your family on how to use this, or have them come with you to the pharmacy to pick it up for instruction. This rescue pen will only work 1 time, and it only last for 15 minutes so if it is required please immediately drink juice/take glucose tablets and present to the ER for evaluation You have also been started on a low-dose of metformin. There is some literature to suggest that metformin may cause decompensated liver cirrhosis to have recurrent/worse episode; however for compensated cirrhosis is generally considered a safe and effective diabetes medicine that can also improve your insulin sensitivity. Please take metformin 500 mg extended release in the morning daily. You should have repeat blood work at your next PCP follow-up appointment to make sure you are tolerating this medication.. If you develop any new or worsening symptoms including fever, chills, sweats, chest pain, chest pressure, difficulty breathing, uncontrolled nausea/vomiting, rash, wheezing, passing out or nearly passing out, bleeding, black/bloody bowel movements, or other new or concerning symptoms please call your primary care physician, or call 911 for re-evaluation in the emergency department if you are very concerned. Pending Studies at Discharge: No Stand-Alone Forms: My Venturepax, Smoking Cessation Medications and DC Order Prescriptions: New insulin detemir U-100 100 unit/mL (3 mL) insulin pen 7 unit subcut DAILY Qty: 15 0RF insulin aspart U-100 100 unit/mL (3 mL) insulin pen 3 unit subcut DAILY Qty: 15 2RF Rx Instructions: 3units with meals, add or subtract 1-2 units as directed based on meal size/tyle. Add correction factor of 1unit per 75g/dL blood glucose >150 as directed. Glucagon Emergency Kit (human) 1 mg recon soln 1 mg IM ONCE Qty: 1 2RF Rx Instructions: For hypoglycemia rescue metformin 500 mg tablet extended release 24 hr 500 mg PO DAILY Qty: 30 0RF Continued venlafaxine 37.5 mg tablet 37.5 mg PO BID folic acid 400 mcg Tablet 0.4 mg PO QAM propranolol 20 mg Tablet 20 mg PO BID cyanocobalamin (vitamin B-12) [Vitamin B-12] 2,000 mcg Tablet Extended Release 2,000 mcg PO DAILY cholecalciferol (vitamin D3) [Vitamin D3] 50 mcg (2,000 unit) Capsule 50 mcg PO DAILY Anoro Ellipta 62.5-25 mcg/actuation Blister With Device 1 ea inhalation DAILY Qty: 60 0RF furosemide 40 mg tablet 40 mg PO DAILY trazodone 50 mg tablet 50 mg PO DAILY thiamine HCl (vitamin B1) 100 mg tablet 100 mg PO DAILY spironolactone 25 mg tablet 25 mg PO DAILY pantoprazole 40 mg tablet,delayed release (DR/EC) 40 mg PO DAILY Discontinued insulin glargine [Lantus U-100 Insulin] 100 unit/mL solution 5 unit subcut DAILY Qty: 10 0RF Discharge Orders: Discharge Order (Routine); Ordered 12/22/22 Ordered By: Shahzad Cabezas Admission Data Admit Date/Time: 12/21/22 17:49 Attending Provider: Shahzad Cabezas Admit Provider: Shahzad Cabezas Primary Care Provider: Nessa Hardin Other Providers: Shahzad Cabezas Coding Level of Care Code 07166 INP/OBS DISCH >30 MIN Diagnoses Hyperglycemia due to type 2 diabetes mellitus E11.65 Cirrhosis of liver K74.60 Alcohol use disorder F10.90 Portal hypertension K76.6 PTSD (post-traumatic stress disorder) F43.10
--- NOTE | 2022-12-22 14:26 | Electrocardiogram Report ---
Test Reason : Blood Pressure : / mmHG Vent. Rate : 076 BPM Atrial Rate : 076 BPM P-R Int : 130 ms QRS Dur : 084 ms QT Int : 392 ms P-R-T Axes : 040 020 061 degrees QTc Int : 441 ms Normal sinus rhythm Normal ECG When compared with ECG of 21-DEC-2022 12:43, No significant change was found Confirmed by Ramon Alonso ([id number]) on 12/22/2022 2:25:56 PM Referred By: REFERRED SELF Confirmed By:Elpidio Alonso
== END 2022-12-22 14:15 | disposition home or self-care (01) | DRG 638 ==
LOC: ED 12:02 → 3N 17:49

== ENCOUNTER 2023-08-07 11:55 | Observation (INO) ==
--- NOTE | 2023-08-07 13:01 | Emergency Department Note ---
Impression & Plan Bronchitis, Coronavirus infection, unspecified, Asplenia ED Provider Note NAME: ANNA BERNARD II AGE: 58 SEX: M ARRIVES VIA: Walk-In INFORMANT: Patient ED PROVIDER(S): Sebas Whiteside MD CHIEF COMPLAINT: Feverish, cough, asplenic, referred. PLAN: Disposition: Admit MEDICAL DECISION MAKING: The patient is a pleasant 58-year-old gentleman with a past medical history of prior alcohol abuse now in remission, history of alcoholic cirrhosis, diabetes, GERD, asplenia who presents to the emergency department via walk-in referred by his primary care doctor's office for symptoms of cough, congestion, feverishness, chills and bodyaches which developed yesterday. Patient denies having any objective fevers. He denies nausea, vomiting or diarrhea. He describes having thick yellow productive sputum. On my evaluation the patient is fatigued and uncomfortable but no acute distress, afebrile stable vital signs. Appears clinically dry. He has intermittent wheezes of bilateral lung de leon. Chest x-ray negative for acute cardiopulmonary process per my preliminary independent interpretation. WBC within normal limits with no left shift or neutrophil predominance. H/H within normal limits. Platelets 105K, nonspecific and similar to prior values. Chemistry without metabolic acidosis. Lactic acid 1.4, within normal limits. Electrolytes unremarkable. Bilirubin 1.8, similar to prior and LFTs otherwise unremarkable. Procalcitonin is not elevated. UA without convincing evidence of infection. Respiratory BioFire did result positive for coronavirus 229E. Blood cultures were obtained and empiric treatment was initiated with ceftriaxone and vancomycin given asplenia and feverishness and productive yellow sputum. Given the patient's asplenia patient does agree with plan for referral to hospital service for admission. Case was d/w Dr. Soto, [facility] hospitalist who will evaluate the patient for admission. Further management per admitting team. Triage Nursing notes reviewed and agree them. Prior/external medical records reviewed Vital Signs: reviewed Differential diagnosis: Viral syndrome, otitis, pharyngitis, pneumonia, influenza, meningitis, urinary tract infection, sepsis, bacteremia, as well as other pathologies. ER treatment provided: See below. Diagnostics interpreted by me: Cardiac Monitoring: An order for continuous cardiac monitoring was placed and demonstrated normal sinus rhythm, 73 bpm, no ectopy. Laboratory studies: See below Imaging studies: See below Consultation(s): Case was d/w Dr. Soto, [facility] hospitalist who will evaluate the patient for admission. HPI: The patient is a pleasant 58-year-old gentleman with a past medical history of prior alcohol abuse now in remission, history of alcoholic cirrhosis, diabetes, GERD, asplenia who presents to the emergency department via walk-in referred by his primary care doctor's office for symptoms of cough, congestion, feverishness, chills and bodyaches which developed yesterday. Patient denies having any objective fevers. He denies nausea, vomiting or diarrhea. He describes having thick yellow productive sputum. ROS: See above HPI for pertinent positives & negatives. A total of 10 systems reviewed and were otherwise negative. VITALS:See Below PHYSICAL EXAMINATION: GENERAL: Awake, alert, fatigued-appearing, in no distress HENT: Normocephalic, atraumatic. Boggy nasal turbinates. Oropharynx with dry mucous membranes and otherwise unremarkable. EYES: Normal conjunctiva. Sclera non-icteric. NECK: Supple. No nuchal rigidity. FROM. No JVD. RESPIRATORY: Intermittent wheezes of bilateral lung de leon. CARDIAC: Regular rate, normal rhythm. Extremities warm and well perfused. Pulses equal. ABDOMEN: Soft, non-distended. No tenderness to palpation. No rebound or guarding. No masses. RECTAL: Deferred. MUSCULOSKELETAL: Chest examination reveals no tenderness. The back is symmetrical on inspection without obvious abnormality. There is no CVA tenderness to palpation. No joint edema. LOWER EXTREMITIES: Calves are equal size bilaterally and non-tender. No edema. No discoloration. NEURO: Normal sensorium. No sensory or motor deficits noted. SKIN: No rash or jaundice noted. Sebas Whiteside MD Past Med/Surg History Medical History Pneumonia hx October 2022 - treated at [facility] for 10 days. 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 GERD (gastroesophageal reflux disease) Surgical History H/O colonoscopy with ultrasound (~April 2023) History of open reduction and internal fixation (ORIF) procedure Right Fifth Metatarsal Open Reduction Internal Fixation, Bone Marrow Aspirate Concentrate Injection into Fracture Site(Right) - Shahzad Blount MD History of open reduction and internal fixation (ORIF) procedure right ankle 07/2021 History of esophagogastroduodenoscopy (EGD) recent 04/22/21 @ [facility]--Grade 1 varices found History of surgery on wrist bilat cysts removed History of tonsillectomy History of tooth extraction History of adenoidectomy History of colonoscopy 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 History of bilateral inguinal herniorrhaphies Family History Mother Dementia Father Prostate cancer Diabetes Heart disease Sister Neurofibromatosis Other No family history of adverse response to anesthesia Social History Smoking Status: Never smoker Tobacco Type: Cigarettes packs per day: 0.5; Cigarettes Per Day: 5 cigs per week; Second Hand Exposure: No; Do You Dip or Chew Tobacco: No; Hx Alcohol Use: Yes Alcohol type: hard liquor Hx Substance Use: No Preferred Language: Guyanese Communication Ability: Effective Rn Rehabilitation Required: No Beliefs That Will Affect Care: None marital status: Current Living Situation: Family Current Living Situation Comment: home w family current occupational status: retired Other Information That Helps Us Care for You: No Feels Safe at Home: Yes Safety Concerns: Feels Safe At This Time Diet: regular Diet Comment: "not a very healthy diet" Assistive Devices: Glasses Allergies Allergies Allergy/AdvReac Type Severity Reaction Status Date / Time bee venom protein (honey bee) Allergy Severe Hives / Verified 08/02/23 12:27 Anaphylaxis adhesive Allergy Mild Rash-PAPER Verified 08/02/23 12:27 TAPE OK Home Meds Home Medications Medication Instructions Recorded Confirmed venlafaxine 37.5 mg tablet 37.5 mg PO QAM 10/28/18 08/07/23 folic acid 400 mcg tablet 0.4 mg PO QAM 03/16/21 08/07/23 propranolol 20 mg tablet 20 mg PO BID 03/23/22 08/07/23 cholecalciferol (vitamin D3) 50 50 mcg PO QPM 11/10/22 08/07/23 mcg (2,000 unit) capsule (Vitamin D3) cyanocobalamin (vitamin B-12) 2,000 mcg PO QPM 11/10/22 08/07/23 2,000 mcg tablet,extended release (Vitamin B-12 ER) furosemide 40 mg tablet 80 mg PO QAM 12/21/22 08/07/23 pantoprazole 40 mg tablet,delayed 40 mg PO BID 12/21/22 08/07/23 release thiamine HCl (vitamin B1) 100 mg 100 mg PO QPM 12/21/22 08/07/23 tablet trazodone 50 mg tablet 50 mg PO HS 12/21/22 08/07/23 blood sugar diagnostic (Embrace 01/03/23 08/02/23 PRO test strips) insulin aspart U-100 100 unit/mL 0 - 20 unit subcut TID 06/16/23 08/07/23 (3 mL) subcutaneous pen (Novolog FlexPen U-100 Insulin aspart) insulin glargine 100 unit/mL (3 40 unit subcut HS 06/16/23 08/07/23 mL) subcutaneous pen metformin 500 mg tablet,extended 500 mg PO QAM 06/16/23 08/07/23 release 24 hr epinephrine 0.3 mg/0.3 mL 0.3 mg IM DAILY PRN Anaphylaxis 08/07/23 08/07/23 injection, auto-injector insulin aspart U-100 100 unit/mL 0 unit subcut DAILY 08/07/23 08/07/23 subcutaneous solution (Novolog U-100 Insulin aspart) levothyroxine 88 mcg tablet 88 mcg PO QAM 08/07/23 08/07/23 Previous Rx's Medication Instructions Recorded umeclidinium 62.5 mcg-vilanterol 1 ea inhalation DAILY #60 ea 11/19/22 25 mcg/actuation powdr for inhalation (Anoro Ellipta) glucagon 1 mg solution for 1 mg IM ONCE #1 ea 12/22/22 injection (Glucagon Emergency Kit) blood-glucose meter,continuous #1 ea 01/05/23 (Dexcom G6 [employer] Converter) blood-glucose sensor (Dexcom G6 #9 ea 01/05/23 Sensor device) blood-glucose transmitter (Dexcom #1 ea 01/05/23 G6 Transmitter device) Omnipod 5 G6 Intro Kit (Gen 5) #1 ea 07/27/23 subcutaneous cartridge with controller (insulin pump cart,auto,BT-cntr) insulin pump cart,automated,BT #3 Boxes 07/27/23 (Omnipod 5 G6 Pods (Gen 5) subcutaneous cartridge) insulin pump cart,automated,BT #10 ea 07/29/23 (Omnipod 5 G6 Pods (Gen 5) subcutaneous cartridge) insulin pump cartridge,automated #1 ea 07/29/23 dose,BT with controller subcutaneous (Omnipod 5 G6 Intro Kit (Gen 5) subcutaneous cartridge with controller) Results & Data (ED) Vital Signs Vital Signs - 24 hr 08/07/23 12:07 08/07/23 13:00 08/07/23 14:34 Temperature 36.6 C 36.6 C Temperature Source Temporal Artery Scan Oral Pulse Rate 76 Pulse Rate [Right Finger] 76 68 Respiratory Rate 20 16 14 Respiratory Effort / Characteristics Non-Labored Spontaneous Non-Labored Spontaneous Non-Labored Spontaneous Respiratory Depth Normal Normal Normal Respiratory Pattern Regular Regular Blood Pressure 112/60 Blood Pressure [Left Arm] 106/59 L 106/59 L Blood Pressure Mean 77 Blood Pressure Mean [Left Arm] 74 74 Blood Pressure Position [Left Arm] Semi-fowlers Semi-fowlers Pulse Oximetry 97 96 99 Oxygen Delivery Method Room Air Room Air Room Air Sepsis Recent Fever Within 48 Hours No Sepsis New/Unexplained Change in Mental Status N/A Sepsis Action Taken by Nursing No Action Required Laboratory Data Attestation: I reviewed the patient's lab results. 08/07/23 12:50 08/07/23 12:50 Lab Results 08/07/23 08/07/23 08/07/23 Range/Units 12:50 12:50 12:50 WBC 7.61 (4.8-10.8) K/ul RBC 4.65 L (4.70-6.10) M/uL Hgb 15.1 (14.0-18.0) g/dl Hct 43.7 (42.0-52.0) % MCV 94.0 (80.0-100.0) fL MCH 32.5 (25.0-34.0) pg MCHC 34.6 (32.0-36.0) g/dL RDW Std Deviation 51.8 H (36.4-46.3) fL RDW Coeff of Ramone 15.0 H (11.5-14.5) % Plt Count 105 L (130-400) K/uL MPV 11.4 (9.4-12.4) fL Immature Gran % (Auto) 0.4 % Neut % (Auto) 50.7 % Lymph % (Auto) 28.8 % [place] % (Auto) 13.9 % Eos % (Auto) 4.9 % Baso % (Auto) 1.3 % Neut # (Auto) 3.86 (1.40-6.50) K/uL Lymph # (Auto) 2.19 (1.20-3.40) K/uL [place] # (Auto) 1.06 H (0.11-0.59) K/uL Eos # (Auto) 0.37 (0.00-0.50) K/uL Baso # (Auto) 0.10 (0.00-0.20) K/uL Immature Gran # (Auto) 0.03 (0.01-0.20) K/uL Sodium 137 (136-145) mmol/L Potassium 3.8 (3.5-5.1) mmol/L Chloride 104 (98-107) mmol/L Carbon Dioxide 27 (21-32) mmol/L Anion Gap 6 (3-11) BUN 8 (6-23) mg/dl Creatinine 0.73 (0.6-1.4) mg/dl Est Cr Clr Drug Dosing 118.7 ml/min Est GFR ( Amer) 120.2 ml/min Est GFR (Non-Af Amer) 103.7 ml/min BUN/Creatinine Ratio 11.0 (10-20) Glucose 166 H (70-99(Fasting)) mg/dl Lactate (0.4-2.0) mmol/L Calcium 8.9 (8.6-10.3) mg/dl Phosphorus 3.3 (2.5-4.9) mg/dl Magnesium 2.0 (1.7-2.4) mg/dl Total Bilirubin 1.8 H (0.2-1.0) mg/dl AST 26 (13-39) U/L ALT 16 (7-52) U/L Alkaline Phosphatase 213 H (34-104) U/L Total Protein 6.9 (6.0-8.3) gm/dl Albumin 3.2 L (3.4-5.0) gm/dl Globulin 3.7 (2.5-4.0) gm/dl Albumin/Globulin Ratio 0.9 (0.9-2) Procalcitonin 0.03 (0-0.5) ng/ml Urine Color Urine Appearance (Clear) Urine pH (4.5-7.5) Ur Specific [place] (1.000-1.030) Urine Protein (Negative) Urine Glucose (UA) (Negative) Urine Ketones (Negative) Urine Blood (Negative) Urine Nitrite (Negative) Urine Bilirubin (Negative) Urine Urobilinogen (Negative) Ur Leukocyte Esterase (Negative) Urine WBC (Auto) (0-5) /hpf Urine RBC (Auto) (0-4) /hpf U Hyaline Cast (Auto) (0-5) /lpf U Epithel Cells (Auto) (0-5) /lpf Urine Bacteria (Auto) (Negative) Adenovirus (PCR) Not Detected (NotDetected) B. pertussis DNA (PCR) Not Detected (NotDetected) B.parapertussis DNA PCR Not Detected (NotDetected) C. pneumoniae DNA (PCR) Not Detected (NotDetected) Coronavirus OC43 (PCR) Not Detected (NotDetected) Coronavirus HKU1 (PCR) Not Detected (NotDetected) Coronavirus 229E (PCR) DETECTED A (NotDetected) SARS-CoV-2 (PCR) NEGATIVE Not Detected (Negative) Coronavirus NL63 (PCR) Not Detected (NotDetected) Human Metapneumovir PCR Not Detected (NotDetected) Influenza Type A (PCR) Negative Not Detected (Neg) Influenza Type B (PCR) Negative (Neg) M. pneumoniae (PCR) (NotDetected) Parainfluenza 1 (PCR) (NotDetected) Parainfluenza 2 (PCR) (NotDetected) Parainfluenza 3 (PCR) (NotDetected) Parainfluenza 4 (PCR) (NotDetected) RSV (RT-PCR) (Neg) RSV (PCR) (NotDetected) Entero/Rhino (PCR) (NotDetected) 08/07/23 08/07/23 08/07/23 Range/Units 12:50 13:51 15:35 WBC (4.8-10.8) K/ul RBC (4.70-6.10) M/uL Hgb (14.0-18.0) g/dl Hct (42.0-52.0) % MCV (80.0-100.0) fL MCH (25.0-34.0) pg MCHC (32.0-36.0) g/dL RDW Std Deviation (36.4-46.3) fL RDW Coeff of Ramone (11.5-14.5) % Plt Count (130-400) K/uL MPV (9.4-12.4) fL Immature Gran % (Auto) % Neut % (Auto) % Lymph % (Auto) % [place] % (Auto) % Eos % (Auto) % Baso % (Auto) % Neut # (Auto) (1.40-6.50) K/uL Lymph # (Auto) (1.20-3.40) K/uL [place] # (Auto) (0.11-0.59) K/uL Eos # (Auto) (0.00-0.50) K/uL Baso # (Auto) (0.00-0.20) K/uL Immature Gran # (Auto) (0.01-0.20) K/uL Sodium (136-145) mmol/L Potassium (3.5-5.1) mmol/L Chloride (98-107) mmol/L Carbon Dioxide (21-32) mmol/L Anion Gap (3-11) BUN (6-23) mg/dl Creatinine (0.6-1.4) mg/dl Est Cr Clr Drug Dosing ml/min Est GFR ( Amer) ml/min Est GFR (Non-Af Amer) ml/min BUN/Creatinine Ratio (10-20) Glucose (70-99(Fasting)) mg/dl Lactate 1.4 (0.4-2.0) mmol/L Calcium (8.6-10.3) mg/dl Phosphorus (2.5-4.9) mg/dl Magnesium (1.7-2.4) mg/dl Total Bilirubin (0.2-1.0) mg/dl AST (13-39) U/L ALT (7-52) U/L Alkaline Phosphatase (34-104) U/L Total Protein (6.0-8.3) gm/dl Albumin (3.4-5.0) gm/dl Globulin (2.5-4.0) gm/dl Albumin/Globulin Ratio (0.9-2) Procalcitonin (0-0.5) ng/ml Urine Color Yellow Urine Appearance Clear (Clear) Urine pH 6.5 (4.5-7.5) Ur Specific [place] 1.011 (1.000-1.030) Urine Protein Negative (Negative) Urine Glucose (UA) Negative (Negative) Urine Ketones Negative (Negative) Urine Blood Negative (Negative) Urine Nitrite Negative (Negative) Urine Bilirubin Negative (Negative) Urine Urobilinogen Positive H (Negative) Ur Leukocyte Esterase Trace H (Negative) Urine WBC (Auto) 1-5 (0-5) /hpf Urine RBC (Auto) 0-4 (0-4) /hpf U Hyaline Cast (Auto) 1-5 (0-5) /lpf U Epithel Cells (Auto) 0-5 (0-5) /lpf Urine Bacteria (Auto) Negative (Negative) Adenovirus (PCR) (NotDetected) B. pertussis DNA (PCR) (NotDetected) B.parapertussis DNA PCR (NotDetected) C. pneumoniae DNA (PCR) (NotDetected) Coronavirus OC43 (PCR) (NotDetected) Coronavirus HKU1 (PCR) (NotDetected) Coronavirus 229E (PCR) (NotDetected) SARS-CoV-2 (PCR) (Negative) Coronavirus NL63 (PCR) (NotDetected) Human Metapneumovir PCR (NotDetected) Influenza Type A (PCR) (Neg) Influenza Type B (PCR) Not Detected (Neg) M. pneumoniae (PCR) Not Detected (NotDetected) Parainfluenza 1 (PCR) Not Detected (NotDetected) Parainfluenza 2 (PCR) Not Detected (NotDetected) Parainfluenza 3 (PCR) Not Detected (NotDetected) Parainfluenza 4 (PCR) Not Detected (NotDetected) RSV (RT-PCR) Negative (Neg) RSV (PCR) Not Detected (NotDetected) Entero/Rhino (PCR) Not Detected (NotDetected) Administered Medications Guaifenesin (Guaifenesin 600 Mg Tabcr) 1,200 mg PO Q12 LUKASZ Stop: 09/06/23 20:59 Last Admin: 08/07/23 20:29 Dose: 1,200 mg Documented By: SG Ampicillin Sodium/Sulbactam Sodium 3,000 mg/ Sodium Chloride 100 mls @ 100 mls/hr IV Q6H LUKASZ Stop: 08/17/23 19:59 Last Infusion: 08/07/23 21:29 Dose: Infused Documented By: Admin: 08/07/23 20:29 Dose: 100 mls/hr Documented By: MAYANK Insulin Aspart (Insulin Aspart Per Unit Charge) 0 units SC ACHS LUKASZ Stop: 09/06/23 20:59 Last Admin: 08/07/23 20:17 Dose: Not Given Documented By: MAYANK Pantoprazole Sodium (Pantoprazole 40 Mg Tab) 40 mg PO BID LUKASZ Stop: 09/06/23 20:59 Last Admin: 08/07/23 20:30 Dose: 40 mg Documented By: SG Propranolol HCl (Propranolol Hcl 20 Mg Tab) 20 mg PO BID LUKASZ Stop: 09/06/23 20:59 Last Admin: 08/07/23 20:30 Dose: 20 mg Documented By: SG Thiamine HCl (Thiamine Hcl 100 Mg Tab) 100 mg PO QPM LUKASZ Stop: 09/06/23 20:59 Last Admin: 08/07/23 20:30 Dose: 100 mg Documented By: SG Trazodone HCl (Trazodone Hcl 50 Mg Tab) 50 mg PO HS LUKASZ Stop: 09/06/23 20:59 Last Admin: 08/07/23 20:30 Dose: 50 mg Documented By: MAYANK Discontinued Medications Albuterol (Albuterol Hfa 8 Gm Inhaler) 2 puffs INH NOW ONE Stop: 08/07/23 13:14 Last Admin: 08/07/23 13:42 Dose: 2 puffs Documented By: ALEX Guaifenesin (Guaifenesin 600 Mg Tabcr) 1,200 mg PO NOW STA Stop: 08/07/23 13:14 Last Admin: 08/07/23 13:43 Dose: 1,200 mg Documented By: ALEX Vancomycin HCl 1,750 mg/ (Sodium Chloride) 535 mls @ 200 mls/hr IV NOW ONE Stop: 08/07/23 15:49 Last Infusion: 08/07/23 18:00 Dose: Infused Documented By: Admin: 08/07/23 14:55 Dose: 200 mls/hr Documented By: LMIram Ceftriaxone Sodium (Rocephin) 2,000 mg in 50 mls @ 100 mls/hr IV NOW STA Stop: 08/07/23 13:38 Last Infusion: 08/07/23 14:31 Dose: Infused Documented By: Admin: 08/07/23 13:41 Dose: 100 mls/hr Documented By: ALEX Sodium Chloride (Nss) 1,000 mls @ 999 mls/hr IV .Q1H1M ONE Stop: 08/07/23 14:13 Last Infusion: 08/07/23 14:57 Dose: Infused Documented By: Admin: 08/07/23 13:44 Dose: 999 mls/hr Documented By: ALEX Insulin Glargine (Lantus Per Unit Charge) 10 units SC ONE ONE Stop: 08/07/23 21:01 Last Admin: 08/07/23 21:41 Dose: 10 units Documented By: MAYANK Co-signed By: CARMELO Sodium Chloride (Sodium Chloride 0.65% Na Soln 45 Ml ([place])) 2 sprays NA NOW ONE Stop: 08/07/23 13:14 Last Admin: 08/07/23 13:42 Dose: 2 sprays Documented By: ALEX Imaging Data Radiologist's Impression: Chest X-Ray 08/07/23 13:09 XR chest 1V portable HISTORY: cough congestion feverish, asplenic COMPARISON: Chest 12/21/2022. FINDINGS: No pneumothorax. No pleural effusions. Mild interstitial thickening, unchanged. This is likely chronic. No new focal lung consolidations to suggest a pneumonia. No evidence for pulmonary edema. The heart remains borderline enlarged. No acute fractures. IMPRESSION: No focal lung consolidations to suggest a pneumonia. ACT 112: Negative or not required by law. Electronically signed by: Cristhian Dubose M.D. 08/07/2023 1:33 PM Discharge Plan Visit Data Chief Complaint: Illness Stated Complaint: SORE THROAT,SINUS ISSUES ED Provider: Sebas Whiteside Discharge Problem: Bronchitis, Coronavirus infection, unspecified, Asplenia Patient Disposition: Admitted As Inpatient Discharge Instructions Interventions: ED Discharge Assessment Last Done: 08/07/23 18:18
[2023-08-07] MEDS ORDERED: VANCOMYCIN CONSULT ACTIVE PRN (13:09)
[2023-08-07 13:20] LABS: Basophils % (auto) 1.3 %; Eosinophils # (auto) 0.37 K/uL (0.00-0.50); Eosinophils % (auto) 4.9 %; Hematocrit (blood only) 43.7 % (42.0-52.0); Hemoglobin 15.1 g/dl (14.0-18.0); Immature Granulocytes # (auto) 0.03 K/uL (0.01-0.20); Immature Granulocytes % (auto) 0.4 %; Lymphocytes # (auto) 2.19 K/uL (1.20-3.40); Lymphocytes % (auto) 28.8 %; Mean Corpuscular Hemoglobin 32.5 pg (25.0-34.0); Mean Corpuscular Hgb Conc 34.6 g/dL (32.0-36.0); Mean Platelet Volume 11.4 fL (9.4-12.4); Monocytes # (auto) 1.06 K/uL (0.11-0.59); Monocytes % (auto) 13.9 %; Neutrophils # (auto) 3.86 K/uL (1.40-6.50); Neutrophils % (auto) 50.7 %; Platelet Count 105 K/uL (130-400); RDW Standard Deviation 51.8 fL (36.4-46.3); Red Blood Count 4.65 M/uL (4.70-6.10); White Blood Count 7.61 K/ul (4.8-10.8)
[2023-08-07 13:31] LABS: Albumin Globulin Ratio 0.9 (0.9-2); Albumin Level 3.2 gm/dl (3.4-5.0); Bilirubin,Total 1.8 mg/dl (0.2-1.0); Calcium 8.9 mg/dl (8.6-10.3); Creatinine Clr Calc Pharmacy 118.7 ml/min; Est GFR (African American) 120.2 ml/min; Est GFR (Non-African American) 103.7 ml/min; Globulin 3.7 gm/dl (2.5-4.0); Phosphorus 3.3 mg/dl (2.5-4.9); Potassium 3.8 mmol/L (3.5-5.1); Total Protein 6.9 gm/dl (6.0-8.3)
--- NOTE | 2023-08-07 13:35 | XRay Report ---
XR chest 1V portable HISTORY: cough congestion feverish, asplenic COMPARISON: Chest 12/21/2022. FINDINGS: No pneumothorax. No pleural effusions. Mild interstitial thickening, unchanged. This is lik dg chronic. No new focal lung consolidations to suggest a pneumonia. No evidence for pulmonary edema . The heart remains borderline enlarged. No acute fractures. IMPRESSION: No focal lung consolidations to suggest a pneumonia. ACT 112: Negative or not required by law. Electronically signed by: Cristhian Dubose M.D. 08/07/2023 1:33 PM
[2023-08-07] MEDS: cefTRIAXone SODIUM 2,000 MG/50 ML BAG IV STA (13:41)
[2023-08-07] MEDS: SODIUM CHLORIDE 0.65% NA SOLN 45 ML (OCEAN) ONE (13:42)
[2023-08-07] MEDS: ALBUTEROL HFA 8 GM INHALER INH ONE (13:42)
[2023-08-07] MEDS: guaiFENesin 600 MG TABCR PO STA (13:43)
[2023-08-07] MEDS: SODIUM CHLORIDE 0.9% 1,000 ML IV ONE (13:44)
[2023-08-07 13:51] LABS: Influenza A virus by PCR Negative (Neg); Influenza B virus by PCR Negative (Neg); RSV by PCR Negative (Neg); SARS CoV2 RNA(COVID-19) Ceph NEGATIVE (Negative)
[2023-08-07] MEDS: VANCOMYCIN HCL 1,750 MG in SODIUM CHLORIDE 0.9% 500 ML IV ONE (14:55)
--- NOTE | 2023-08-07 15:46 | History & Physical Report ---
Date of Service August 07, 2023 Assessment & Plan (1) Generalized weakness: Plan: -Admit to med/surge -Currently stable and non-toxic appearing -Presented to the ED with acute onset of generalized weakness/fatigue, cough with yellow sputum production, sinus congestion -Vitals and labs have been unremarkable thus far, full respiratory biofire is still in process -S/P one dose of ceftriaxone and vancomycin in the ED -With his immunocompromised state including hx of previous splenectomy, DM, and cirrhosis with esophageal varices it is reasonable to admit him for now to ensure if does not decompensate quickly -He is without tenderness to palpation of the sinuses on exam, but he had already been using the saline nasal spray ordered in the ED, cannot rule out possible sinusitis at this time -He also noted a productive cough with yellow sputum, CXR is clear and lung sounds are clear -For now we will continue with Unasyn -Follow full respiratory biofire, blood cultures, and sputum cultures -Incentive spirometry, flutter therapy, scheduled Guaifenesin -Prn O2 to keep SpO2 at or above 92% -BL RAMOS's for DVT PPX -DMII diet -AM CBC, CMP, mag, PT/INR (2) Cirrhosis of liver with ascites: Plan: -Is not in decompensation at this time -LFT's are and total bili are stable -Continue propranolol -Hold lasix today as he appears mildly dehydrated with soft BP (3) Type 1.5 diabetes, managed as type 1: Plan: -Monitor BSG ACHS, goal is 110-160 for now -Normally takes 40 units lantus HS, will decrease to 15 units BID for now with decreased oral intake -Start CF 50 ACHS, hold CR for now -DMII diet -Adjust regimen as needed (4) Hypothyroid: Plan: -Continue levothyroxine (5) PTSD (post-traumatic stress disorder): Plan: -Continue venlafaxine, trazodone Plan The patient was discussed with Dr. 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 He remained stable in the ED. Labs including CBC and CMP were unremarkable. Full respiratory biofire was still in process. Chest xray was read as "No focal lung consolidations to suggest a pneumonia.". Prior to admission the patient was given a dose of ceftriaxone, 1L NSS, an albuterol treatment, and saline nasal spray. We were asked to admit the patient due to his high risk for decompensation with his chronic medical history. At the time of the exam the patient was lying in bed in no acute distress, he does appear ill but non-toxic. He states that he started to develop a sore throat, congestion with sinus pressure, and a productive cough with yellow sputum yesterday. Today he has felt very weak, "like I was hit by a bus". He called the PCP commercial collections driver number and they recommended being evaluated in the ED due to his complex medical history and immunocompromised state. He was not checking his temperature at home but was feeling feverish. He denies chest pain, hemoptysis, abd pain, nausea, vomiting, diarrhea, dysuria, hematuria, melena, LE swelling, and recent trauma. He feels a little bit improved compared to his arrival but nowhere near his baseline. He has continued to abstain from alcohol but states he's smoking approximately 2 cigarettes daily. Please refer to Dr. Soto's attestation for any changes to the treatment plan Allergies Allergy/AdvReac Type Severity Reaction Status Date / Time bee venom protein (honey bee) Allergy Severe Hives / Verified 08/02/23 12:27 Anaphylaxis adhesive Allergy Mild Rash-PAPER Verified 08/02/23 12:27 TAPE OK Home Medications Medication Instructions Recorded Confirmed Type venlafaxine 37.5 mg tablet 37.5 mg PO QAM 10/28/18 08/07/23 History folic acid 400 mcg tablet 0.4 mg PO QAM 03/16/21 08/07/23 History propranolol 20 mg tablet 20 mg PO BID 03/23/22 08/07/23 History cholecalciferol (vitamin D3) 50 50 mcg PO QPM 11/10/22 08/07/23 History mcg (2,000 unit) capsule (Vitamin D3) cyanocobalamin (vitamin B-12) 2,000 mcg PO QPM 11/10/22 08/07/23 History 2,000 mcg tablet,extended release (Vitamin B-12 ER) umeclidinium 62.5 mcg-vilanterol 1 ea inhalation DAILY #60 ea 11/19/22 08/07/23 Rx 25 mcg/actuation powdr for inhalation (Anoro Ellipta) furosemide 40 mg tablet 80 mg PO QAM 12/21/22 08/07/23 History pantoprazole 40 mg tablet,delayed 40 mg PO BID 12/21/22 08/07/23 History release thiamine HCl (vitamin B1) 100 mg 100 mg PO QPM 12/21/22 08/07/23 History tablet trazodone 50 mg tablet 50 mg PO HS 12/21/22 08/07/23 History glucagon 1 mg solution for 1 mg IM ONCE #1 ea 12/22/22 08/07/23 Rx injection (Glucagon Emergency Kit) blood sugar diagnostic (Embrace 01/03/23 08/02/23 History PRO test strips) blood-glucose meter,continuous #1 ea 01/05/23 08/02/23 Rx (Dexcom G6 Rehab Manager) blood-glucose sensor (Dexcom G6 #9 ea 01/05/23 08/02/23 Rx Sensor device) blood-glucose transmitter (Dexcom #1 ea 01/05/23 08/02/23 Rx G6 Transmitter device) insulin aspart U-100 100 unit/mL 0 - 20 unit subcut TID 06/16/23 08/07/23 History (3 mL) subcutaneous pen (Novolog FlexPen U-100 Insulin aspart) insulin glargine 100 unit/mL (3 40 unit subcut HS 06/16/23 08/07/23 History mL) subcutaneous pen metformin 500 mg tablet,extended 500 mg PO QAM 06/16/23 08/07/23 History release 24 hr Omnipod 5 G6 Intro Kit (Gen 5) #1 ea 07/27/23 08/02/23 Rx subcutaneous cartridge with controller (insulin pump cart,auto,BT-cntr) insulin pump cart,automated,BT #3 Boxes 07/27/23 08/02/23 Rx (Omnipod 5 G6 Pods (Gen 5) subcutaneous cartridge) insulin pump cart,automated,BT #10 ea 07/29/23 08/02/23 Rx (Omnipod 5 G6 Pods (Gen 5) subcutaneous cartridge) insulin pump cartridge,automated #1 ea 07/29/23 08/02/23 Rx dose,BT with controller subcutaneous (Omnipod 5 G6 Intro Kit (Gen 5) subcutaneous cartridge with controller) epinephrine 0.3 mg/0.3 mL 0.3 mg IM DAILY PRN Anaphylaxis 08/07/23 08/07/23 History injection, auto-injector insulin aspart U-100 100 unit/mL 0 unit subcut DAILY 08/07/23 08/07/23 History subcutaneous solution (Novolog U-100 Insulin aspart) levothyroxine 88 mcg tablet 88 mcg PO QAM 08/07/23 08/07/23 History Past Med/Surg History Medical History Pneumonia hx October 2022 - treated at [facility] for 10 days. 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 GERD (gastroesophageal reflux disease) Surgical History H/O colonoscopy with ultrasound (~April 2023) History of open reduction and internal fixation (ORIF) procedure Right Fifth Metatarsal Open Reduction Internal Fixation, Bone Marrow Aspirate Concentrate Injection into Fracture Site(Right) - Shahzad Blount MD History of open reduction and internal fixation (ORIF) procedure right ankle 07/2021 History of esophagogastroduodenoscopy (EGD) recent 04/22/21 @ [facility]--Grade 1 varices found History of surgery on wrist bilat cysts removed History of tonsillectomy History of tooth extraction History of adenoidectomy History of colonoscopy 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 History of bilateral inguinal herniorrhaphies Family History Mother Dementia Father Prostate cancer Diabetes Heart disease Sister Neurofibromatosis Other No family history of adverse response to anesthesia Social History Smoking Status: Never smoker Tobacco Type: Cigarettes packs per day: 0.5; Cigarettes Per Day: 5 cigs per week; Second Hand Exposure: No; Do You Dip or Chew Tobacco: No; Hx Alcohol Use: Yes Alcohol type: hard liquor Hx Substance Use: No Preferred Language: Armenian Communication Ability: Effective Salt Cutter Required: No Beliefs That Will Affect Care: None marital status: Current Living Situation: Family Current Living Situation Comment: home w family current occupational status: retired Other Information That Helps Us Care for You: No Feels Safe at Home: Yes Safety Concerns: Feels Safe At This Time Diet: regular Diet Comment: "not a very healthy diet" Assistive Devices: None Physical Exam Physical Exam: Physical Exam: General: In no acute distress, stated age, appears acutely ill but non-toxic HEENT: Normocephalic, atraumatic, no scleral icterus, pupils around round, symmetrical, and reactive to light, dry mucus membranes, trachea midline, no thyromegaly >Negative tenderness to palpation of the frontal and maxillary sinuses Chest/Pulm: No respiratory distress, symmetrical chest expansion, clear breath sounds throughout Cardiac: RRR, no murmurs noted Abdomen: Negative for ascites and bruising, normoactive bowel sounds, soft, non-tender to palpation throughout Musculoskeletal: Symmetrical and without signs of acute trauma, upper and lower extremities with full ROM, no atrophy, spasticity, or flaccidity Extremities: Radial, dorsalis pedis, and posterior tibial pulses are intact and symmetrical, no edema noted in the BL LE's Skin: Warm, dry, no rashes , lesions, or scars noted Neuro: Alert and oriented to person, place, month, year, and president, no focal defects, no tremors noted Psych: No acute distress, calm and cooperative during the exam Results & Data Results & Data Vital Signs (Past 12 Hours) Vital Signs Temp Pulse Pulse Resp BP BP Pulse Ox 02/25/24 14:34 68 14 106/59 L 99 08/07/23 13:00 36.6 C 76 16 106/59 L 96 08/07/23 12:07 36.6 C 76 20 112/60 97 O2 Del Method 08/07/23 14:34 Room Air 08/07/23 13:00 Room Air 08/07/23 12:07 Room Air Laboratory Results Abnormal lab results 08/07/23 08/07/23 Range/Units 12:50 15:35 RBC 4.65 L (4.70-6.10) M/uL RDW Std Deviation 51.8 H (36.4-46.3) fL RDW Coeff of Ramone 15.0 H (11.5-14.5) % Plt Count 105 L (130-400) K/uL [place] # (Auto) 1.06 H (0.11-0.59) K/uL Glucose 166 H (70-99(Fasting)) mg/dl Total Bilirubin 1.8 H (0.2-1.0) mg/dl Alkaline Phosphatase 213 H (34-104) U/L Albumin 3.2 L (3.4-5.0) gm/dl Urine Urobilinogen Positive H (Negative) Ur Leukocyte Esterase Trace H (Negative) Diagnostic Findings Chest X-Ray 08/07/23 13:09 XR chest 1V portable HISTORY: cough congestion feverish, asplenic COMPARISON: Chest 12/21/2022. FINDINGS: No pneumothorax. No pleural effusions. Mild interstitial thickening, unchanged. This is likely chronic. No new focal lung consolidations to suggest a pneumonia. No evidence for pulmonary edema. The heart remains borderline enlarged. No acute fractures. IMPRESSION: No focal lung consolidations to suggest a pneumonia. ACT 112: Negative or not required by law. Electronically signed by: Cristhian Dubose M.D. 08/07/2023 1:33 PM Code Status & VTE Plan Code Status Full code VTE Prophylaxis Plan VTE Prophylaxis will be ordered: Yes Supervising Physician Co-Signing Physician Notes I personally saw and examined the patient. I verified all garcia points and agree with David Canchola PA-C with the following exceptions and/or additions: 58-year-old male with liver cirrhosis and splenectomy presents to the ER with generalized weakness and sinus pain. 2 days of symptoms. O/E A&Ox3, HS RRR, no murmurs, Chest CTAB, Abdo SNT, no pedal edema A/P Acute sinusitis - most likely just the non-COVID coronavirus causing his symptoms however given splenectomy, type 1 diabetes and previous ICU admission we will start treatment with Unasyn and monitor overnight. Suspect if he does not spike a fever and is stable overnight he can be discharged on Augmentin. 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
[2023-08-07] MEDS ORDERED: GLUCOSE 10 TAB/TUBE PO PRN (15:59)
[2023-08-07] MEDS ORDERED: DEXTROSE 50% 50 ML SYRINGE IV PRN (15:59)
[2023-08-07] MEDS ORDERED: GLUCOSE 40% GEL 15 GM TUBE PO PRN (15:59)
[2023-08-07] MEDS ORDERED: GLUCAGON FOR INJ 1 MG VIAL SQ PRN (15:59)
[2023-08-07] MEDS ORDERED: CARBOHYDRATES FOR HYPOGLYCEMIA PO PRN (15:59)
[2023-08-07] MEDS ORDERED: ALBUT/IPRATROP 3MG/0.5MG NEB 3 ML VIAL NEB PRN (16:01)
[2023-08-07 16:03] LABS: Appearance Urine Clear (Clear); Bacteria Urine Automated Negative (Negative); Bilirubin Urine Negative (Negative); Blood Urine Negative (Negative); Color Urine Yellow; Epithelial Cell Urine Auto 0-5 /lpf (0-5); Glucose Urine UA Negative (Negative); Ketones Urine Negative (Negative); Leukocyte Esterase Urine Trace (Negative); Nitrite Urine Negative (Negative); Protein Urine Negative (Negative); RBC Urine Automated 0-4 /hpf (0-4); Specific Gravity Urine 1.011 (1.000-1.030); Urobilinogen Urine Positive (Negative); pH Urine 6.5 (4.5-7.5)
[2023-08-07 16:17] LABS: Adenovirus PCR Not Detected (NotDetected); Bordetella parapertussis PCR Not Detected (NotDetected); Bordetella pertussis PCR Not Detected (NotDetected); Chlamydia pneumoniae PCR Not Detected (NotDetected); Coronavirus 229E PCR DETECTED (NotDetected); Coronavirus CoV-2 (COVID19)PCR Not Detected (NotDetected); Coronavirus HKU1 PCR Not Detected (NotDetected); Coronavirus NL63 PCR Not Detected (NotDetected); Coronavirus OC43PCR Not Detected (NotDetected); Human Metapneumovirus PCR Not Detected (NotDetected); Influenza A PCR Not Detected (NotDetected); Influenza B PCR Not Detected (NotDetected); Mycoplasma pneumoniae PCR Not Detected (NotDetected); Parainfluenza Virus 1 PCR Not Detected (NotDetected); Parainfluenza Virus 2 PCR Not Detected (NotDetected); Parainfluenza Virus 3 PCR Not Detected (NotDetected); Parainfluenza Virus 4 PCR Not Detected (NotDetected); Respiratory Syncytial VirusPCR Not Detected (NotDetected); Rhinovirus/Enterovirus PCR Not Detected (NotDetected)
[2023-08-07] MEDS ORDERED: ACETAMINOPHEN 325 MG TAB PO PRN (16:22)
[2023-08-07] MEDS ORDERED: INSULIN ASPART PER UNIT CHARGE SC SCH (16:30)
[2023-08-07] MEDS ORDERED: PHARMACY GLYCEMIC MGMT CONSULT PRN (17:04)
[2023-08-07] MEDS: LACTATED RINGER'S 1,000 ML IV SCH (19:50)
[2023-08-07] MEDS: INSULIN ASPART PER UNIT CHARGE SC SCH (20:17)
[2023-08-07] MEDS: AMPICILLIN/SULBACTAM SOD 3,000 MG in SODIUM CHLOR 0.9% MINI-B 100 ML IV SCH (20:29)
[2023-08-07] MEDS: guaiFENesin 600 MG TABCR PO SCH (20:29)
[2023-08-07] MEDS: PANTOprazole 40 MG TAB PO SCH (20:30)
[2023-08-07] MEDS: THIAMINE HCL 100 MG TAB PO SCH (20:30)
[2023-08-07] MEDS: traZODone HCL 50 MG TAB PO SCH (20:30)
[2023-08-07] MEDS: PROPRANOLOL HCL 20 MG TAB PO SCH (20:30)
[2023-08-07] MEDS ORDERED: LANTUS PER UNIT CHARGE SQ SCH ×2 (21:00)
[2023-08-07] MEDS: LANTUS PER UNIT CHARGE SC ONE (21:41)
[2023-08-08] MEDS: LEVOTHYROXINE SODIUM 88 MCG TABLET PO SCH (05:47)
[2023-08-08 07:00] LABS: Basophils % (auto) 1.3 %; Eosinophils # (auto) 0.48 K/uL (0.00-0.50); Eosinophils % (auto) 6.3 %; Hematocrit (blood only) 41.4 % (42.0-52.0); Hemoglobin 14.1 g/dl (14.0-18.0); Immature Granulocytes # (auto) 0.03 K/uL (0.01-0.20); Immature Granulocytes % (auto) 0.4 %; Lymphocytes # (auto) 2.69 K/uL (1.20-3.40); Mean Corpuscular Hemoglobin 32.5 pg (25.0-34.0); Mean Corpuscular Hgb Conc 34.1 g/dL (32.0-36.0); Mean Corpuscular Volume 95.4 fL (80.0-100.0); Mean Platelet Volume 12.1 fL (9.4-12.4); Monocytes # (auto) 1.06 K/uL (0.11-0.59); Monocytes % (auto) 13.8 %; Neutrophils # (auto) 3.32 K/uL (1.40-6.50); Neutrophils % (auto) 43.2 %; Platelet Count 110 K/uL (130-400); RDW Coefficient of Variation 14.8 % (11.5-14.5); RDW Standard Deviation 52.7 fL (36.4-46.3); Red Blood Count 4.34 M/uL (4.70-6.10); White Blood Count 7.68 K/ul (4.8-10.8)
[2023-08-08 07:03] LABS: Albumin Level 3.1 gm/dl (3.4-5.0); BUN Creatinine Ratio 11.5 (10-20); Bilirubin,Total 1.5 mg/dl (0.2-1.0); Creatinine Clr Calc Pharmacy 109.6 ml/min; Est GFR (Non-African American) 100.9 ml/min; Globulin 3.1 gm/dl (2.5-4.0); Total Protein 6.2 gm/dl (6.0-8.3)
[2023-08-08 07:30] LABS: INR 1.1 (0.9-1.1)
[2023-08-08] MEDS: FOLIC ACID 400 MCG TAB PO SCH (09:02)
[2023-08-08] MEDS: UMECLIDINIUM/VILANTEROL 62.5/25MCG 7 PUFFS/INHALER INH SCH (09:04)
[2023-08-08] MEDS: VENLAFAXINE HCL 37.5 MG TAB PO SCH (09:04)
--- NOTE | 2023-08-08 09:22 | Pharmacy Report ---
Pharmacy Glycemic Short Note 2 - Date of Service August 08, 2023 - Glycemic Short BSG Results (Last 24 hours): 08/07/23 08/07/23 08/07/23 12:50 18:16 20:12 Glucose 166 H POC Glucose 126 H 116 H 08/08/23 08/08/23 05:48 07:55 Glucose 106 H POC Glucose 98 OUTPATIENT ANTIDIABETIC REGIMEN: * Lantus 40 units SQ HS * Novolog ACHS (CF:20, CR: 8) * metformin 500mg PO daily HbA1C: ASSESSMENT: * Pt is a 58 year old male admitted with generalized weakness. History of DM type 1.5 (managed as type 1). Pharmacy consulted to assist with inpatient glycemic management. * BSGs [phone]/dL since admission. Received 10 units of basal and no bolus insulin yesterday. * Diet ordered, although decreased PO intake. Receiving IV antibiotics. * Will continue with Lantus 10 units again tonight given fasting BSG today acceptable, 98mg/dL, and some documented PO intake so far today. Reassess basal tomorrow. Novolog home parameters. PLAN FOR INPATIENT GLYCEMIC CONTROL: * Hold outpatient oral diabetes medications * Basal insulin * Lantus 10 units SQ HS * Bolus insulin * NovoLog per scale ACHS or Q6hrs while NPO * Goal Range: Low 110 mg/dL - High 140 mg/dL * Correction Factor: 20 mg/dL/unit * Nutritional / Prandial insulin per carb ratio of 1 unit per 8 grams CHO consumed
--- NOTE | 2023-08-08 14:47 | Discharge Summary ---
Discharge Summary Date of Service August 08, 2023 Notes For Next Care Provider Patient tested positive for coronavirus, not COVID. No evidence of bacterial infection. Encouraged to continue Mucinex outpatient. Discussed return criteria given asplenic. 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 He remained stable in the ED. Labs including CBC and CMP were unremarkable. Full respiratory biofire was still in process. Chest xray was read as "No focal lung consolidations to suggest a pneumonia.". Prior to admission the patient was given a dose of ceftriaxone, 1L NSS, an albuterol treatment, and saline nasal spray. We were asked to admit the patient due to his high risk for decompensation with his chronic medical history. At the time of the exam the patient was lying in bed in no acute distress, he does appear ill but non-toxic. He states that he started to develop a sore throat, congestion with sinus pressure, and a productive cough with yellow sputum yesterday. Today he has felt very weak, "like I was hit by a bus". He called the PCP line construction superintendent number and they recommended being evaluated in the ED due to his complex medical history and immunocompromised state. He was not checking his temperature at home but was feeling feverish. He denies chest pain, hemoptysis, abd pain, nausea, vomiting, diarrhea, dysuria, hematuria, melena, LE swelling, and recent trauma. He feels a little bit improved compared to his arrival but nowhere near his baseline. He has continued to abstain from alcohol but states he's smoking approximately 2 cigarettes daily. Please refer to Dr. Soto's attestation for any changes to the treatment plan Principal Dx & Hospital Course #1 = Principal Diagnosis (1) Generalized weakness: -Presented to the ED with acute onset of generalized weakness/fatigue, cough with yellow sputum production, sinus congestion -Biofire postive for Coronavirus 229E -S/P one dose of ceftriaxone and vancomycin in the ED, and 3 doses of Unasyn until discontinued -CXR without evidence of PNA, and lung sounds are clear, procal 0.03 -Blood cultures - no growth at discharge -For now we will continue with Unasyn -Continue Guaifenesin 1200mg BID (2) Cirrhosis of liver with ascites: -Is not in decompensation at this time -LFT's are and total bili are stable -Continue propranolol - Resume lasix at discharge (3) Type 1.5 diabetes, managed as type 1: Continue home medication regiment with insulin and metformin (4) Hypothyroid: -Continue home levothyroxine (5) PTSD (post-traumatic stress disorder): -Continue home venlafaxine, trazodone Plan Dispo: discharge to home Discharge Exam General: NAD, VS as above HEENT: sinus non tender Resp: normal respiratory effort, lungs clear to auscultation CV: RRR, no murmur, Abd: normal bowel sounds, non tender, no hepatosplenomegaly Extremities: Moves all extremities, no edema Neuro: A&O x3, Updated Medication List Medication Instructions Recorded Confirmed Type venlafaxine 37.5 mg tablet 37.5 mg PO QAM 10/28/18 08/07/23 History folic acid 400 mcg tablet 0.4 mg PO QAM 03/16/21 08/07/23 History propranolol 20 mg tablet 20 mg PO BID 03/23/22 08/07/23 History cholecalciferol (vitamin D3) 50 50 mcg PO QPM 11/10/22 08/07/23 History mcg (2,000 unit) capsule (Vitamin D3) cyanocobalamin (vitamin B-12) 2,000 mcg PO QPM 11/10/22 08/07/23 History 2,000 mcg tablet,extended release (Vitamin B-12 ER) umeclidinium 62.5 mcg-vilanterol 1 ea inhalation DAILY #60 ea 11/19/22 08/07/23 Rx 25 mcg/actuation powdr for inhalation (Anoro Ellipta) furosemide 40 mg tablet 80 mg PO QAM 12/21/22 08/07/23 History pantoprazole 40 mg tablet,delayed 40 mg PO BID 12/21/22 08/07/23 History release thiamine HCl (vitamin B1) 100 mg 100 mg PO QPM 12/21/22 08/07/23 History tablet trazodone 50 mg tablet 50 mg PO HS 12/21/22 08/07/23 History glucagon 1 mg solution for 1 mg IM ONCE #1 ea 12/22/22 08/07/23 Rx injection (Glucagon Emergency Kit) blood sugar diagnostic (Embrace 01/03/23 08/02/23 History PRO test strips) blood-glucose meter,continuous #1 ea 01/05/23 08/02/23 Rx (Dexcom G6 Cooker Pie Filling) blood-glucose sensor (Dexcom G6 #9 ea 01/05/23 08/02/23 Rx Sensor device) blood-glucose transmitter (Dexcom #1 ea 01/05/23 08/02/23 Rx G6 Transmitter device) insulin aspart U-100 100 unit/mL 0 - 20 unit subcut TID 06/16/23 08/07/23 History (3 mL) subcutaneous pen (Novolog FlexPen U-100 Insulin aspart) insulin glargine 100 unit/mL (3 40 unit subcut HS 06/16/23 08/07/23 History mL) subcutaneous pen metformin 500 mg tablet,extended 500 mg PO QAM 06/16/23 08/07/23 History release 24 hr Omnipod 5 G6 Intro Kit (Gen 5) #1 ea 07/27/23 08/02/23 Rx subcutaneous cartridge with controller (insulin pump cart,auto,BT-cntr) insulin pump cart,automated,BT #3 Boxes 07/27/23 08/02/23 Rx (Omnipod 5 G6 Pods (Gen 5) subcutaneous cartridge) insulin pump cart,automated,BT #10 ea 07/29/23 08/02/23 Rx (Omnipod 5 G6 Pods (Gen 5) subcutaneous cartridge) insulin pump cartridge,automated #1 ea 07/29/23 08/02/23 Rx dose,BT with controller subcutaneous (Omnipod 5 G6 Intro Kit (Gen 5) subcutaneous cartridge with controller) epinephrine 0.3 mg/0.3 mL 0.3 mg IM DAILY PRN Anaphylaxis 08/07/23 08/07/23 H istory injection, auto-injector insulin aspart U-100 100 unit/mL 0 unit subcut DAILY 08/07/23 08/07/23 History subcutaneous solution (Novolog U-100 Insulin aspart) levothyroxine 88 mcg tablet 88 mcg PO QAM 08/07/23 08/07/23 History guaifenesin 600 mg tablet, 1,200 mg (2 x 600 mg) PO Q12 10 08/08/23 Rx extended release 12 hr (Mucinex) days #40 tabs Hospital Stay Data Consultations 08/07/23 15:31 ED Decision to Admit Stat Pending Results Patient Have Any Pending Studies at Discharge: Yes (blood cultures ) Discharge Instructions Given to Patient (Per Discharging Provider) Mr. Caal, You were hospitalized after having sinusitis and weakness. Through our testing your were found to be positive for the Coronavirus 229E. There were no signs of bacterial infection on your labs or imaging. Your chest x-ray did not show pneumonia. You did improve after receiving IV antibiotics and Mucinex. I recommend that you continue on Mucinex 1200mg twice a day, for the next 5 to 7 days or until your symptoms have resolved. I did send in a prescription for this, but it an over the counter medication so your insurance may not cover it and you would just need to buy it over the counter, generic brand Guaifenesin is okay. At this time, I do not feel that you need antibiotics as we do not have evidence for bacterial infection. However given your history, it is important that you continue to monitor your symptoms and call your PCP or return to the ER if symptoms worsen. You do have pending blood cultures, these will take 5 days to get the final result. Is important that you follow-up with your PCP in regards to these results. We held your lasix while you were here but you can resume this tomorrow. Otherwise, there was no changes to your home medications. Activity: You can do normal everyday activities as your body allows. Take rest breaks if you feel tired. Do not overexert. Stop activity if you have pain, shortness of breath or feel dizzy. Follow-up appointments: Make an appointment with your primary care physician within one week of discharge. A copy of this summary will be sent to them. Every time you see your primary care physician, or any other doctor, bring your medication list, and a list of questions. CONTACT YOUR PRIMARY CARE PROVIDER if you experience any of the following: Shortness of breath or difficulty breathing Fevers or chills Feeling tired with normal activity or experiencing dizziness or fainting Difficulty following your treatment plan, or difficulty taking medications CALL 911 OR GO TO THE EMERGENCY DEPARTMENT if you experience any of the following: Severe abdominal pain or nausea/vomiting Severe chest pain, or chest pain that radiates (moves) to your jaw or arm Sudden, severe shortness of breath or difficulty breathing Thank you for allowing us to participate in your care. Total Time Total Time Spent Total Time Spent (In Minutes): Time spend day of discharge 30 minutes including direct patient care, medication reconciliation, documentation, review of labs and images, and coordination of care. 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
[2023-08-08] MEDS ORDERED: LANTUS PER UNIT CHARGE SC SCH (21:00)
== END 2023-08-08 16:22 | disposition home or self-care (01) ==
LOC: ED 11:55 → 3N 11:55 → SUATTDRO 15:58 → 3N 18:18

== ENCOUNTER 2024-06-29 21:27 | Inpatient (IN) ==
--- NOTE | 2024-06-29 21:55 | Emergency Department Note ---
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 Start with some black stools yesterday. Bloody stools today and then started to vomit a bit of blood this evening. Feels weak and dizzy but has not passed out. No trauma history. Denies any relapse to alcohol. Denies any significant NSAID usage. States he follows with [facility] and is told that he only has 25% of his liver. No significant abdominal pain reported. No fevers. No history of transfusion in the past. Denies significant GI bleed in the past. PAST MEDICAL HISTORY: As noted above MEDICATIONS: Reviewed home medications SOCIAL HISTORY: Denies current alcohol use but distant history PHYSICAL EXAM: GENERAL: alert and oriented pale and fatigued in appearance seated on toilet. Some bloody stools present. Head: normocephalic and atraumatic EYES: No injection, discharge or icterus. EOMI. NECK: Trachea midline. ENT: Mucous membranes pink and moist. LUNGS: Airway patent. No retractions. Breath sounds clear HEART: Regular rate and rhythm. No chest wall tenderness ABDOMEN: Soft and non-tender, without guarding or rebound. SKIN: Acyanotic but somewhat pale. No appreciable rashes noted. EXTREMITIES: Without swelling, tenderness or deformity NEUROLOGICAL: No focal deficits moves all extremities. No aphasia. No facial droop or slurred speech. EK bpm sinus tachycardia. No PVC or PAC. No ST segment elevation. QTc 467. CONTINUOUS CARDIAC MONITORING: was ordered and showed a heart rate of 80s to 130s bpm in normal sinus rhythm to sinus tachycardia Patient's laboratory studies and imaging reviewed. Differential includes Diverticulosis, AVM, coagulopathy, colitis, inflammatory bowel disease, malignancy, Vicki-Talbert tear, esophagitis, peptic ulcer disease, variceal bleed, gastritis, epistaxis, fissure, hemorrhoids, as well as other pathologies. IMPRESSION/MEDICAL DECISION MAKING: Status labile since the patient from the bathroom and having a bloody bowel movement to the bed. EKG obtained and IV and basic blood work was being obtained. [id number] hemoglobin just over 10. Concern for GI bleed given his underlying liver history and history of varices. Did review prior scope showing evidence of esophageal varices from approximately a year ago. Protonix and octreotide drips were ordered. Normal saline bolus ordered. Alerted by staff as IV access was obtained and care is continuing that he very quickly in bed decompensated became pale and unresponsive and vomited a large amount of blood over the side of the bed. Mainly evaluated in room A12 again. Patient pale diaphoretic unresponsive and again actively vomiting blood. Additional staff and respiratory therapy were alerted. Patient placed on the left side suction placed. Given 100 mcg of IV epinephrine. Normal saline bolus ordered was just beginning to infuse. Second large-bore IV, 16-gauge placed by staff. Patient did revive slightly and pressure improved. He would answer few questions. Discussed with him given the large volume of bleeding and concern for his airway to believe that he emergently needs transfusion and would plan for intubation and likely further GI evaluation and scoping. He verbally consented for this and stated if we needed to contact anyone to contact his sister. States he follows with [facility] if he needed to go to another facility. Was agreeable with this plan. Do believe he needs intubated for airway protection. Total of 2 L of IV fluid ordered for resuscitation. Ketamine and succinylcholine utilized for intubation as below this went with a very transient desaturation to 78%. Quickly rebounds. Some blood in the oropharynx but not copious amounts. Again Protonix and octreotide drips are in fusing. Not requiring additional pressure support with vasopressors. Fentanyl and Versed given for some sedation as well as additional dose of IV ketamine later; somewhat difficult to keep is adequately sedated. Will administer TXA as well as ceftriaxone given the upper GI bleed concern. Via the rapid infusion 2 units of packed red blood cells were emergently ordered uncrossed given the patient's instability and active GI bleed. Did reach out discussed with Dr. Rousseau of gastroenterology who is on-call tonight. Discussed with the ICU and the hospitalist team as well. Will plan for close monitoring further care in the ICU here. Will plan for CT angio of the abdomen on the way to the ICU. Likely while here seems to have stabilized to some degree. OG with minimal output. DIAGNOSIS: GI bleeding, syncope, shock, history of cirrhosis DISPOSITION: Hospitalist will evaluate as well as the ICU Patient was agreeable with this plan. Critical Care I have personally spent 55 minutes of critical care time in the direct management of this patient. This includes bedside care, interpretation of diagnostic studies, and testing, discussion with consultants, patient, and other required patient management activities. These 55 minutes is in excess of all separately billable procedures. Intubation, performed by myself emergently Indication upper GI bleed, vomiting, syncope, airway protection The patient was on 100% oxygen via NC prior to the procedure. Suction, airway equipment, RSI drugs, respiratory equipment, and appropriate personnel were prepared prior to the initiation of the procedure. A time out was taken. Induction was performed with 150 mg of ketamine as well as 120 mg of succinylcholine. After observing the clinical benefit of the medications, the airway was easily visualized utilizing a 4S glide scope. Trace blood in oropharynx. A 7.5 size ETT tube was placed atraumatically to 25 cm using standard technique. The cuff inflated without signs of malfunction. There were bilateral breath sounds, positive colormetric change, no gastric sounds, a good capnography waveform, and post procedure pulse oximetry was 99%. Transient desaturation during the intubation to 78% quickly rebounds. Post intubation sedation with fentanyl and Versed as well as some additional ketamine. There were no complications. Past Med/Surg History Problem List (Updated 06/30/24 @ 02:27 by Pan Jimenez M.D.) Syncope (Acute) Acute GI bleeding (Acute) Shock (Acute) Hyperlipidemia Dania's disease Elevated TSH Cirrhosis of liver (Acute) Dehydration (Acute) Thrombocytopenia (Acute) Hyperglycemia due to type 2 diabetes mellitus (Acute) Hyponatremia Encounter for pre-operative examination Abdominal pain Alcoholic hepatitis with ascites Fatty infiltration of liver Portal hypertension Thrombocytopenia (Acute) Sludge in gallbladder (Acute) History of partial pancreatectomy (~2004) Elevated LFTs History of bilateral inguinal herniorrhaphies Multiple fractures of ribs of right side (Acute) GERD (gastroesophageal reflux disease) (Chronic) Polycythemia (Chronic) Medical History GERD (gastroesophageal reflux disease) History of alcoholic hepatitis treated in 2022 Neuropathy Restless leg syndrome History of pneumonia 2022 History of alcoholism per pt, quit drinking November 10, 2022 Hx pulmonary embolism apprx 2021 > thinner now DC'ed Asplenia S/P abdominal paracentesis Hypothyroid Type 1.5 diabetes, managed as type 1 Ascites hx of and resolved per pt Fatty infiltration of liver Alcoholic cirrhosis Esophageal varices Grade I per 04/22/21 EGD > had EGD 06/2023 and a few areas cauterized per pt report Degenerative disc disease Cirrhosis of liver Hypotension per pt Borderline high cholesterol PTSD (post-traumatic stress disorder) Pancreatic mass benign--pt states 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 Surgical History Hx of hernia repair x3 H/O colonoscopy with ultrasound (~April 2023) > hx of pre-cancerous polyps on 1 year plan History of open reduction and internal fixation (ORIF) procedure Right Fifth Metatarsal Open Reduction Internal Fixation, Bone Marrow Aspirate Concentrate Injection into Fracture Site(Right) - Shahzad Blount MD History of open reduction and internal fixation (ORIF) procedure right ankle 07/2021 History of esophagogastroduodenoscopy (EGD) recent 04/22/21 @ [facility]--Grade 1 varices found History of surgery on wrist bilat cysts removed History of tonsillectomy History of tooth extraction History of adenoidectomy History of colonoscopy History of splenectomy Family History Mother Dementia Father Prostate cancer Diabetes Heart disease Sister Neurofibromatosis Other No family history of adverse response to anesthesia Social History Smoking Status: Current every day smoker Tobacco Type: Cigarettes packs per day: 0.5; Cigarettes Per Day: 1/2 pack per day; Second Hand Exposure: No; Do You Dip or Chew Tobacco: No; Hx Alcohol Use: Yes Alcohol type: hard liquor Hx Substance Use: No Preferred Language: [place] Communication Ability: intubated Pulp Roller Required: No Beliefs That Will Affect Care: None marital status: Current Living Situation: Family Current Living Situation Comment: home w family current occupational status: retired Feels Safe at Home: Yes Diet: regular Diet Comment: "not a very healthy diet" Assistive Devices: Glasses Allergies Allergies Allergy/AdvReac Type Severity Reaction Status Date / Time bee venom protein (honey bee) Allergy Severe Hives / Verified 06/29/24 10:49 Anaphylaxis adhesive Allergy Mild Rash-PAPER Verified 06/29/24 10:49 TAPE OK Home Meds Home Medications Medication Instructions Recorded Confirmed folic acid 400 mcg tablet 0.4 mg PO QAM 03/16/21 06/29/24 propranolol 20 mg tablet 20 mg PO BID 03/23/22 06/29/24 cholecalciferol (vitamin D3) 50 50 mcg PO QPM 11/10/22 06/29/24 mcg (2,000 unit) capsule (Vitamin D3) cyanocobalamin (vitamin B-12) 2,000 mcg PO QPM 11/10/22 06/29/24 2,000 mcg tablet,extended release (Vitamin B-12 ER) furosemide 40 mg tablet 80 mg PO QAM 12/21/22 06/29/24 pantoprazole 40 mg tablet,delayed 40 mg PO BID 12/21/22 06/29/24 release thiamine HCl (vitamin B1) 100 mg 100 mg PO QPM 12/21/22 06/29/24 tablet trazodone 50 mg tablet 50 mg PO HS 12/21/22 06/29/24 blood sugar diagnostic (Embrace 01/03/23 11/22/23 PRO test strips) insulin aspart U-100 100 unit/mL 0 - 20 unit subcut TID 06/16/23 06/29/24 (3 mL) subcutaneous pen (Novolog FlexPen U-100 Insulin aspart) insulin glargine 100 unit/mL (3 40 unit subcut HS 06/16/23 06/29/24 mL) subcutaneous pen epinephrine 0.3 mg/0.3 mL 0.3 mg IM DAILY PRN Anaphylaxis 08/07/23 06/29/24 injection, auto-injector levothyroxine 88 mcg tablet 88 mcg PO QAM 08/07/23 06/29/24 insulin aspart U-100 100 unit/mL 100 unit continuous subcutaneous 11/22/23 06/29/24 subcutaneous solution (Novolog infusion DAILY U-100 Insulin aspart) Previous Rx's Medication Instructions Recorded umeclidinium 62.5 mcg-vilanterol 1 ea inhalation DAILY #60 ea 11/19/22 25 mcg/actuation powdr for inhalation (Anoro Ellipta) glucagon 1 mg solution for 1 mg IM ONCE #1 ea 12/22/22 injection (Glucagon Emergency Kit) blood-glucose meter,continuous #1 ea 01/05/23 (Dexcom G6 Caustic Operator) blood-glucose sensor (Dexcom G6 #9 ea 01/05/23 Sensor device) blood-glucose transmitter (Dexcom #1 ea 01/05/23 G6 Transmitter device) Omnipod 5 G6 Intro Kit (Gen 5) #1 ea 07/27/23 subcutaneous cartridge with controller (insulin pump cart,auto,BT-cntr) insulin pump cart,automated,BT #3 Boxes 07/27/23 (Omnipod 5 G6 Pods (Gen 5) subcutaneous cartridge) insulin pump cartridge,automated #1 ea 07/29/23 dose,BT with controller subcutaneous (Omnipod 5 G6 Intro Kit (Gen 5) subcutaneous cartridge with controller) insulin pump cart,automated,BT #30 ea 11/22/23 (Omnipod 5 G6 Pods (Gen 5) subcutaneous cartridge) metformin 500 mg tablet,extended 500 mg PO QAM #90 tabs 01/09/24 release 24 hr Results & Data (ED) Vital Signs Vital Signs - 24 hr 06/29/24 21:33 06/29/24 21:52 06/29/24 21:54 Temperature 36.3 C L Temperature Source Temporal Artery Scan Pulse Rate 92 H 121 H 122 H Pulse Rate from SpO2 Sensor 122 H Respiratory Rate 16 29 H Respiratory Effort / Characteristics Non-Labored Spontaneous Respiratory Depth Normal Respiratory Pattern Regular Blood Pressure 87/56 L 92/53 L Blood Pressure Mean 66 66 Pulse Oximetry 98 99 Oxygen Delivery Method Room Air Fraction of Inspired Oxygen Sepsis Recent Fever Within 48 Hours No Sepsis New/Unexplained Change in Mental Status N/A Sepsis Action Taken by Nursing No Action Required End-Tidal CO2 06/29/24 22:02 06/29/24 22:18 06/29/24 22:30 Temperature Temperature Source Pulse Rate 111 H Pulse Rate from SpO2 Sensor 110 H Respiratory Rate 17 Respiratory Effort / Characteristics Respiratory Depth Respiratory Pattern Blood Pressure 58/40 L 153/74 H 145/107 H Blood Pressure Mean 45 100 116 Pulse Oximetry 100 Oxygen Delivery Method Fraction of Inspired Oxygen Sepsis Recent Fever Within 48 Hours Sepsis New/Unexplained Change in Mental Status Sepsis Action Taken by Nursing End-Tidal CO2 06/29/24 22:34 06/29/24 22:45 06/29/24 23:00 Temperature Temperature Source Pulse Rate 100 H 100 H Pulse Rate from SpO2 Sensor 100 H Respiratory Rate 12 12 Respiratory Effort / Characteristics Respiratory Depth Respiratory Pattern Blood Pressure 121/61 135/69 129/72 Blood Pressure Mean 71 91 87 Pulse Oximetry 100 98 Oxygen Delivery Method Fraction of Inspired Oxygen Sepsis Recent Fever Within 48 Hours Sepsis New/Unexplained Change in Mental Status Sepsis Action Taken by Nursing End-Tidal CO2 44 51 06/29/24 23:27 06/29/24 23:36 06/29/24 23:45 Temperature Temperature Source Pulse Rate 97 H 91 H 91 H Pulse Rate from SpO2 Sensor 97 H Respiratory Rate 12 12 13 Respiratory Effort / Characteristics Respiratory Depth Respiratory Pattern Blood Pressure 126/72 127/72 Blood Pressure Mean 90 81 Pulse Oximetry 100 100 100 Oxygen Delivery Method Fraction of Inspired Oxygen 40 Sepsis Recent Fever Within 48 Hours Sepsis New/Unexplained Change in Mental Status Sepsis Action Taken by Nursing End-Tidal CO2 43 40 Laboratory Data 06/29/24 21:58 06/29/24 21:58 Lab Results 06/29/24 06/29/24 06/29/24 Range/Units 21:57 21:58 22:01 WBC 11.44 H (4.8-10.8) K/ul RBC 3.17 L (4.70-6.10) M/uL Hgb 10.7 L (14.0-18.0) g/dl POC Hgb 10.9 L (14.0-18.0) g/dl Hct 30.7 L (42.0-52.0) % POC Hct 32 L (42-52) % MCV 96.8 (80.0-100.0) fL MCH 33.8 (25.0-34.0) pg MCHC 34.9 (32.0-36.0) g/dL RDW Std Deviation 51.9 H (36.4-46.3) fL RDW Coeff of Ramone 14.6 H (11.5-14.5) % Plt Count 91 L (130-400) K/uL MPV 12.3 (9.4-12.4) fL Immature Gran % (Auto) 0.6 % Neut % (Auto) 56.2 % Lymph % (Auto) 30.4 % [place] % (Auto) 10.1 % Eos % (Auto) 1.6 % Baso % (Auto) 1.1 % Neut # (Auto) 6.43 (1.40-6.50) K/uL Lymph # (Auto) 3.48 H (1.20-3.40) K/uL [place] # (Auto) 1.15 H (0.11-0.59) K/uL Eos # (Auto) 0.18 (0.00-0.50) K/uL Baso # (Auto) 0.13 (0.00-0.20) K/uL Immature Gran # (Auto) 0.07 (0.01-0.20) K/uL PT 11.9 (9.0-12.0) Seconds INR 1.1 (0.9-1.1) APTT 22 (21-31) Seconds PTT Ratio 0.8 POC Sodium 136 (135-144) mmol/L Sodium 136 (136-145) mmol/L POC Potassium 3.5 (3.3-5.0) mmol/L Potassium 3.5 (3.5-5.1) mmol/L POC Chloride 98 L (101-112) mmol/L Chloride 100 (98-107) mmol/L Carbon Dioxide 27 (21-32) mmol/L POC Total CO2 23 L (24-31) mmol/L Anion Gap 9 (3-11) POC Anion Gap 19.0 (16-25) mmol/L POC BUN 24 H (7-18) mg/dl BUN 26 H (6-23) mg/dl Creatinine 0.91 (0.6-1.4) mg/dl POC Creatinine 0.9 (0.6-1.3) mg/dl Est Cr Clr Drug Dosing 91.1 ml/min eGFR 98.30 BUN/Creatinine Ratio 28.6 H (10-20) Glucose 256 H (70-99(Fasting)) mg/dl POC Glucose (other) 241 H (70-99) mg/dl Lactate 3.7 H* (0.4-2.0) mmol/L Calcium 8.8 (8.6-10.3) mg/dl POC Ioniz Calcium Danielle 1.12 (1.12-1.32) mmol/l Total Bilirubin 2.6 H (0.2-1.0) mg/dl AST 32 (13-39) U/L ALT 17 (7-52) U/L Alkaline Phosphatase 113 H (34-104) U/L Troponin I High Sens 5.5 (0-20) pg/ml Total Protein 6.2 (6.0-8.3) gm/dl Albumin 3.4 (3.4-5.0) gm/dl Globulin 2.8 (2.5-4.0) gm/dl Albumin/Globulin Ratio 1.2 (0.9-2) Lipase 33 (11-82) U/L Blood Type O Positive Blood Type Recheck O Positive Antibody Screen NEGATIVE Crossmatch See Detail Administered Medications Fentanyl Citrate (Fentanyl Bolus From Bag) 50 mcg IV Q60M PRN PRN Reason: Pain or Agitation Stop: 07/13/24 22:42 Last Admin: 06/29/24 22:51 Dose: 50 mcg Documented By: CEFERINO Co-signed By: ANGIE Pantoprazole Sodium 40 mg/ (Dextrose) 100 mls @ 20 mls/hr IV Q5H [facility] Stop: 07/29/24 22:14 Last Admin: 06/29/24 23:02 Dose: 8 mg/hr, 20 mls/hr Documented By: CEFERINO Octreotide Acetate 500 mcg/ (Sodium Chloride) 100.5 mls @ 10.05 mls/hr IV .Q10H [facility] Stop: 07/29/24 21:59 Last Admin: 06/29/24 22:43 Dose: 50 mcg/hr, 10.1 mls/hr Documented By: CEFERINO Fentanyl Citrate (Fentanyl Citrate) 2,500 mcg in 250 mls @ 25 mls/hr IV .Q10H [facility]; Protocol Stop: 07/13/24 22:44 Last Titration: 06/30/24 01:59 Dose: 200 mcg/hr, 20 mls/hr Documented By: DALY Co-signed By: CYNTHIA Titration: 06/30/24 00:30 Dose: 225 mcg/hr, 22.5 mls/hr Documented By: DALY Co-signed By: CYNTHIA Titration: 06/29/24 23:57 Dose: 250 mcg/hr, 25 mls/hr Documented By: CEFERINO Co-signed By: ANGIE Titration: 06/29/24 23:49 Dose: 200 mcg/hr, 20 mls/hr Documented By: CEFERINO Co-signed By: ANGIE Titration: 06/29/24 23:35 Dose: 150 mcg/hr, 15 mls/hr Documented By: CEFERINO Co-signed By: ANGIE Admin: 06/29/24 22:47 Dose: 100 mcg/hr, 10 mls/hr Documented By: NRAletha Co-signed By: SANCHO Propofol (Diprivan) 1,000 mg in 100 mls @ 8.628 mls/hr IV .[id number] [facility]; Protocol Stop: 07/03/24 00:48 Last Admin: 06/30/24 01:00 Dose: 20 mcg/kg/min, 8.6 mls/hr Documented By: DALY Co-signed By: CYNTHIA Norepinephrine Bitartrate (Levophed/D5w) 4 mg in 250 mls @ 13.481 mls/hr IV .[id number] [facility]; Protocol Stop: 07/30/24 00:48 Last Admin: 06/30/24 02:00 Dose: Not Given Documented By: DALY Midazolam HCl (Midazolam Hcl 5 Mg/Ml 2ml Vial) 5 mg IV Q1H PRN PRN Reason: Anxiety/Agitation Stop: 07/29/24 22:43 Last Admin: 06/30/24 00:10 Dose: 5 mg Documented By: Admin: 06/29/24 23:00 Dose: 5 mg Documented By: CEFERINO Discontinued Medications Fentanyl Citrate (Fentanyl Citrate Pf 100 Mcg/2 Ml Vial) 100 mcg IV NOW STA Stop: 06/29/24 22:19 Last Admin: 06/29/24 22:44 Dose: 100 mcg Documented By: CEFERINO Pantoprazole Sodium 80 mg/ (Dextrose) 120 mls @ 480 mls/hr IV NOW ONE Stop: 06/29/24 22:00 Last Infusion: 06/29/24 23:12 Dose: Infused Documented By: NRAletha Admin: 06/29/24 22:43 Dose: 480 mls/hr Documented By: CEFERINO Sodium Chloride (Nss) 1,000 mls @ 999 mls/hr IV .Q1H1M ONE Stop: 06/29/24 22:47 Last Infusion: 06/29/24 23:13 Dose: Infused Documented By: Admin: 06/29/24 22:44 Dose: 999 mls/hr Documented By: CEFERINO Octreotide Acetate 50 mcg/ (Syringe) 10 mls @ 3 mls/min IV ONE STA Stop: 06/29/24 21:56 Last Admin: 06/30/24 01:42 Dose: Not Given Documented By: DALY Sodium Chloride (Nss) 1,000 mls @ 999 mls/hr IV .Q1H1M ONE Stop: 06/29/24 23:19 Last Infusion: 06/29/24 23:13 Dose: Infused Documented By: Admin: 06/29/24 22:45 Dose: 999 mls/hr Documented By: CEFERINO Tranexamic Acid (Tranexamic Acid / 0.7% Nacl) 1,000 mg in 100 mls @ 600 mls/hr IV NOW STA Stop: 06/29/24 23:09 Last Infusion: 06/29/24 23:21 Dose: Infused Documented By: NRAletha Admin: 06/29/24 23:07 Dose: 600 mls/hr Documented By: CEFERINO Ceftriaxone Sodium (Rocephin) 2,000 mg in 50 mls @ 100 mls/hr IV NOW STA Stop: 06/29/24 23:29 Last Infusion: 06/29/24 23:53 Dose: Infused Documented By: Admin: 06/29/24 23:21 Dose: 100 mls/hr Documented By: CEFERINO Ioversol (Optiray 320 125ml) 119 ml IV ONCE ONE Stop: 06/30/24 00:26 Last Admin: 06/30/24 00:26 Dose: 119 ml Documented By: OBI Ketamine HCl (Ketamine Hcl 10mg/Ml Syr) 100 mg IV NOW STA Stop: 06/29/24 22:44 Last Admin: 06/29/24 22:42 Dose: 100 mg Documented By: CEFERINO Midazolam HCl (Midazolam Hcl 1 Mg/Ml 2ml Vial) 2 mg IV NOW STA Stop: 06/29/24 22:19 Last Admin: 06/29/24 22:44 Dose: 2 mg Documented By: CEFERINO Midazolam HCl (Midazolam Hcl 1 Mg/Ml 2ml Vial) 2.5 mg IV NOW STA Stop: 06/29/24 22:31 Last Admin: 06/29/24 22:45 Dose: 2.5 mg Documented By: CEFERINO Miscellaneous (Stat Iv/Im) 1 each N/A NOW STA Stop: 06/29/24 21:54 Last Admin: 06/30/24 01:43 Dose: Not Given Documented By: DALY Miscellaneous (Rapid Sequence Induction Bag) Confirm Administered Dose 1 each N/A .STK-MED ONE Stop: 06/29/24 22:06 Last Admin: 06/30/24 01:43 Dose: Not Given Documented By: DALY Palacio (Stat Iv Infusion Titration Per Protocol) 1 each N/A NOW STA Stop: 06/29/24 22:44 Last Admin: 06/30/24 01:43 Dose: Not Given Documented By: DALY Norepinephrine Bitartrate (Norepinephrine/D5w 4 Mg/250 Ml) Confirm Administered Dose 4 mg IV .STK-MED ONE Stop: 06/30/24 00:41 Last Admin: 06/30/24 01:43 Dose: Not Given Documented By: DALY Ondansetron HCl (Ondansetron Inj 2 Mg/Ml 2 Ml Vial) 4 mg IV ONE STA Stop: 06/29/24 21:47 Last Admin: 06/29/24 22:46 Dose: 4 mg Documented By: CEFERINO Pantoprazole Sodium (Pantoprazole Bolus/Drip) 1 each IV NOW STA Stop: 06/29/24 21:47 Last Admin: 06/29/24 23:02 Dose: Not Given Documented By: CEFERINO Propofol (Propofol Iv Emulsion 10 Mg/Ml 100 Ml Vial) Confirm Administered Dose 1,000 mg IV .STK-MED ONE Stop: 06/30/24 00:37 Last Admin: 06/30/24 01:43 Dose: Not Given Documented By: DALY Imaging Data Radiologist's Impression: Chest X-Ray 06/29/24 22:19 Exam(s): XR CXR 1 VIEW EXAM: XR Chest, 1 View CLINICAL HISTORY: Reason for exam: GI bleed, intubation. TECHNIQUE: Frontal view of the chest. COMPARISON: 09/10/2023. FINDINGS: Exam is limited since the left costophrenic angle is not included on the exam. An endotracheal tube is noted with its tip 3.7 cm above the level of stephen. A nasogastric tube is noted with its tip in the region of the stomach. Lungs: No consolidation. Pleural space: No pleural effusion is seen. No pneumothorax. Heart: The heart is normal in size.. Mediastinum: There is mild uncoiling of thoracic aorta.. Bones/joints: There are degenerative changes in the spine.. IMPRESSION: Limited exam. No acute pulmonary disease. Electronically signed by: Torrey Frances MD 06/30/24 01:55 AM Discharge Plan Visit Data Chief Complaint: GI Bleed Stated Complaint: VOMITING BLOOD,BLACK STOOL,LIVER DISEASE, ED Provider: Pan Jimenez Discharge Problem: Acute GI bleeding, Cirrhosis of liver, Shock, Syncope Patient Disposition: Admitted As Inpatient Discharge Instructions Interventions: ED Discharge Assessment Last Done: 06/30/24 00:50 Discharge Problem: Cirrhosis of liver Qualifiers: Hepatic cirrhosis type: alcoholic cirrhosis Syncope Qualifiers: Encounter type: initial encounter
[2024-06-29 22:10] LABS: Basophils # (auto) 0.13 K/uL (0.00-0.20); Basophils % (auto) 1.1 %; Eosinophils # (auto) 0.18 K/uL (0.00-0.50); Eosinophils % (auto) 1.6 %; Hematocrit (blood only) 30.7 % (42.0-52.0); Hemoglobin 10.7 g/dl (14.0-18.0); Immature Granulocytes # (auto) 0.07 K/uL (0.01-0.20); Immature Granulocytes % (auto) 0.6 %; Lymphocytes # (auto) 3.48 K/uL (1.20-3.40); Lymphocytes % (auto) 30.4 %; Mean Corpuscular Hemoglobin 33.8 pg (25.0-34.0); Mean Corpuscular Hgb Conc 34.9 g/dL (32.0-36.0); Mean Corpuscular Volume 96.8 fL (80.0-100.0); Mean Platelet Volume 12.3 fL (9.4-12.4); Monocytes # (auto) 1.15 K/uL (0.11-0.59); Monocytes % (auto) 10.1 %; Neutrophils # (auto) 6.43 K/uL (1.40-6.50); Neutrophils % (auto) 56.2 %; Platelet Count 91 K/uL (130-400); RDW Coefficient of Variation 14.6 % (11.5-14.5); RDW Standard Deviation 51.9 fL (36.4-46.3); Red Blood Count 3.17 M/uL (4.70-6.10); White Blood Count 11.44 K/ul (4.8-10.8)
[2024-06-29] MEDS ORDERED: SODIUM CHLORIDE 0.9% 50 ML IV PRN (22:19)
[2024-06-29] MEDS ORDERED: SODIUM CHLORIDE 0.9% 100 ML IV PRN (22:19)
[2024-06-29 22:28] LABS: Albumin Globulin Ratio 1.2 (0.9-2); Albumin Level 3.4 gm/dl (3.4-5.0); BUN Creatinine Ratio 28.6 (10-20); Bilirubin,Total 2.6 mg/dl (0.2-1.0); Calcium 8.8 mg/dl (8.6-10.3); Creatinine Clr Calc Pharmacy 91.1 ml/min; Globulin 2.8 gm/dl (2.5-4.0); Potassium 3.5 mmol/L (3.5-5.1); Total Protein 6.2 gm/dl (6.0-8.3)
[2024-06-29 22:35] LABS: iSTAT Creatinine 0.9 mg/dl (0.6-1.3); iSTAT Hemoglobin 10.9 g/dl (14.0-18.0); iSTAT Ionized Calcium 1.12 mmol/l (1.12-1.32); iSTAT Potassium 3.5 mmol/L (3.3-5.0)
[2024-06-29 22:36] LABS: INR 1.1 (0.9-1.1); Partial Thromboplastin Ratio 0.8; Partial Thromboplastin Time 22 Seconds (21-31); Prothrombin Time 11.9 Seconds (9.0-12.0); Troponin I High Sensitivity 5.5 pg/ml (0-20)
[2024-06-29] MEDS: KETAMINE HCL 10MG/ML SYR IV STA (22:42)
[2024-06-29] MEDS: OCTREOTIDE ACETATE 500 MCG in SODIUM CHLORIDE 0.9% 100 ML IV SCH (22:43)
[2024-06-29] MEDS: PANTOprazole 80 MG in DEXTROSE 5% 100 ML IV ONE (22:43)
[2024-06-29] MEDS: MIDAZOLAM HCL 1 MG/ML 2ML VIAL IV STA ×2 (22:44→22:45)
[2024-06-29] MEDS: SODIUM CHLORIDE 0.9% 1,000 ML IV ONE ×2 (22:44→22:45)
[2024-06-29] MEDS: fentaNYL citrate PF 100 MCG/2 ML VIAL IV STA (22:44)
[2024-06-29] MEDS: ONDANSETRON INJ 2 MG/ML 2 ML VIAL IV STA (22:46)
[2024-06-29] MEDS: fentaNYL citrate 2,500 MCG/250 ML BAG IV SCH (22:47)
[2024-06-29] MEDS: fentaNYL BOLUS from BAG IV PRN (22:51)
[2024-06-29] MEDS: MIDAZOLAM HCL 5 MG/ML 2ML VIAL IV PRN (23:00)
[2024-06-29] MEDS: PANTOPRAZOLE BOLUS/DRIP IV STA (23:02)
[2024-06-29] MEDS: PANTOprazole 40 MG in DEXTROSE 5% MINI-B 100 ML IV SCH (23:02)
[2024-06-29] MEDS: TRANEXAMIC ACID / 0.7% NACL 1,000 MG/100 ML BAG IV STA (23:07)
[2024-06-29] MEDS: cefTRIAXone SODIUM 2,000 MG/50 ML BAG IV STA (23:21)
--- NOTE | 2024-06-29 23:52 | History & Physical Report ---
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 Patient presented to the emergency department with acute GI bleeding, initially passing bloody stool, and then vomiting of blood. He was intubated for airway protection, placed on octreotide drip, Protonix drip, Versed drip, and fentanyl drip. He received 2 units PRBCs with and 2 units of crystalloid in the ED. He was also started on ceftriaxone IV. Emergency medicine consulted the [facility] service, and the ICU service, and patient was transferred to the ICU for ongoing care in the ICU, patient was seen by gastroenterology Dr. Rousseau, and underwent emergency endoscopy assessment. #Admit to intensive care unit/upper GI bleeding/symptomatic anemia- Patient to receive 2 units PRBCs, and 2 units crystalloid along with maintenance fluids as noted by the ongoing orders Continue Versed drip, fentanyl drip, octreotide drip and Protonix drip has begun in the ED Serial CBC with differential, chemistry profile, magnesium level, coags and troponin levels as noted H&H every 4 hours x [address] Rousseau, to perform endoscopy Intubation for airway protection- Continue vent management per ICU with serial ABGs and vent management per protocol Consult Dr. Red and ICU team Alcohol abuse- Would not need JESUS S protocol until sedation status no longer needed for intubation Thiamine 2 mg IV every morning Folic acid 1 mg IV every morning Diabetes mellitus- Consult pharmacy for ICU hyperglycemic protocol Hypotension/hypovolemic shock- Levophed and pressors otherwise as needed Transfusions to maintain hemoglobin with adequate blood pressure History of Present Illness Chief Complaint: The patient had presented to the emergency department with acute onset of bloody stools, and began vomiting blood. 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 Patient presented to the emergency department with acute GI bleeding, initially passing bloody stool, and then vomiting of blood. He was intubated for airway protection, placed on octreotide drip, Protonix drip, Versed drip, and fentanyl drip. He received 2 units PRBCs with and 2 units of crystalloid in the ED. He was also started on ceftriaxone IV. Emergency medicine consulted the [facility] service, and the ICU service, and patient was transferred to the ICU for ongoing care in the ICU, patient was seen by gastroenterology Dr. Rousseau, and underwent emergency endoscopy assessment. Allergies Allergy/AdvReac Type Severity Reaction Status Date / Time bee venom protein (honey bee) Allergy Severe Hives / Verified 06/29/24 10:49 Anaphylaxis adhesive Allergy Mild Rash-PAPER Verified 06/29/24 10:49 TAPE OK Home Medications Medication Instructions Recorded Confirmed Type folic acid 400 mcg tablet 0.4 mg PO QAM 03/16/21 06/29/24 History propranolol 20 mg tablet 20 mg PO BID 03/23/22 06/29/24 History cholecalciferol (vitamin D3) 50 50 mcg PO QPM 11/10/22 06/29/24 History mcg (2,000 unit) capsule (Vitamin D3) cyanocobalamin (vitamin B-12) 2,000 mcg PO QPM 11/10/22 06/29/24 History 2,000 mcg tablet,extended release (Vitamin B-12 ER) umeclidinium 62.5 mcg-vilanterol 1 ea inhalation DAILY #60 ea 11/19/22 06/29/24 Rx 25 mcg/actuation powdr for inhalation (Anoro Ellipta) furosemide 40 mg tablet 80 mg PO QAM 12/21/22 06/29/24 History pantoprazole 40 mg tablet,delayed 40 mg PO BID 12/21/22 06/29/24 History release thiamine HCl (vitamin B1) 100 mg 100 mg PO QPM 12/21/22 06/29/24 History tablet trazodone 50 mg tablet 50 mg PO HS 12/21/22 06/29/24 History glucagon 1 mg solution for 1 mg IM ONCE #1 ea 12/22/22 06/29/24 Rx injection (Glucagon Emergency Kit) blood sugar diagnostic (Embrace 01/03/23 11/22/23 History PRO test strips) blood-glucose meter,continuous #1 ea 01/05/23 11/22/23 Rx (Dexcom G6 Hairspring Truer) blood-glucose sensor (Dexcom G6 #9 ea 01/05/23 11/22/23 Rx Sensor device) blood-glucose transmitter (Dexcom #1 ea 01/05/23 11/22/23 Rx G6 Transmitter device) insulin aspart U-100 100 unit/mL 0 - 20 unit subcut TID 06/16/23 06/29/24 History (3 mL) subcutaneous pen (Novolog FlexPen U-100 Insulin aspart) insulin glargine 100 unit/mL (3 40 unit subcut HS 06/16/23 06/29/24 History mL) subcutaneous pen Omnipod 5 G6 Intro Kit (Gen 5) #1 ea 07/27/23 11/22/23 Rx subcutaneous cartridge with controller (insulin pump cart,auto,BT-cntr) insulin pump cart,automated,BT #3 Boxes 07/27/23 11/22/23 Rx (Omnipod 5 G6 Pods (Gen 5) subcutaneous cartridge) insulin pump cartridge,automated #1 ea 07/29/23 11/22/23 Rx dose,BT with controller subcutaneous (Omnipod 5 G6 Intro Kit (Gen 5) subcutaneous cartridge with controller) epinephrine 0.3 mg/0.3 mL 0.3 mg IM DAILY PRN Anaphylaxis 08/07/23 06/29/24 History injection, auto-injector levothyroxine 88 mcg tablet 88 mcg PO QAM 08/07/23 06/29/24 History insulin aspart U-100 100 unit/mL 100 unit continuous subcutaneous 11/22/23 06/29/24 History subcutaneous solution (Novolog infusion DAILY U-100 Insulin aspart) insulin pump cart,automated,BT #30 ea 11/22/23 11/22/23 Rx (Omnipod 5 G6 Pods (Gen 5) subcutaneous cartridge) metformin 500 mg tablet,extended 500 mg PO QAM #90 tabs 01/09/24 06/29/24 Rx release 24 hr Past Med/Surg History Problem List (Updated 06/30/24 @ 02:51 by Micky Dial MD) Symptomatic anemia Admitted to intensive care unit Syncope (Acute) Acute GI bleeding (Acute) Shock (Acute) Hyperlipidemia Dania's disease Elevated TSH Cirrhosis of liver (Acute) Dehydration (Acute) Thrombocytopenia (Acute) Hyperglycemia due to type 2 diabetes mellitus (Acute) Hyponatremia Encounter for pre-operative examination Abdominal pain Alcoholic hepatitis with ascites Fatty infiltration of liver Portal hypertension Thrombocytopenia (Acute) Sludge in gallbladder (Acute) History of partial pancreatectomy (~2004) Elevated LFTs History of bilateral inguinal herniorrhaphies Multiple fractures of ribs of right side (Acute) GERD (gastroesophageal reflux disease) (Chronic) Polycythemia (Chronic) Medical History GERD (gastroesophageal reflux disease) History of alcoholic hepatitis treated in 2022 Neuropathy Restless leg syndrome History of pneumonia 2022 History of alcoholism per pt, quit drinking November 10, 2022 Hx pulmonary embolism apprx 2021 > thinner now DC'ed Asplenia S/P abdominal paracentesis Hypothyroid Type 1.5 diabetes, managed as type 1 Ascites hx of and resolved per pt Fatty infiltration of liver Alcoholic cirrhosis Esophageal varices Grade I per 04/22/21 EGD > had EGD 06/2023 and a few areas cauterized per pt report Degenerative disc disease Cirrhosis of liver Hypotension per pt Borderline high cholesterol PTSD (post-traumatic stress disorder) Pancreatic mass benign--pt states 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 Surgical History Hx of hernia repair x3 H/O colonoscopy with ultrasound (~April 2023) > hx of pre-cancerous polyps on 1 year plan History of open reduction and internal fixation (ORIF) procedure Right Fifth Metatarsal Open Reduction Internal Fixation, Bone Marrow Aspirate Concentrate Injection into Fracture Site(Right) - Shahzad Blount MD History of open reduction and internal fixation (ORIF) procedure right ankle 07/2021 History of esophagogastroduodenoscopy (EGD) recent 04/22/21 @ [facility]--Grade 1 varices found History of surgery on wrist bilat cysts removed History of tonsillectomy History of tooth extraction History of adenoidectomy History of colonoscopy History of splenectomy Family History Mother Dementia Father Prostate cancer Diabetes Heart disease Sister Neurofibromatosis Other No family history of adverse response to anesthesia Social History Smoking Status: Current every day smoker Tobacco Type: Cigarettes packs per day: 0.5; Cigarettes Per Day: 1/2 pack per day; Second Hand Exposure: No; Do You Dip or Chew Tobacco: No; Hx Alcohol Use: Yes Alcohol type: hard liquor Hx Substance Use: No Preferred Language: Armenian Communication Ability: intubated 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 Remainder information is gathered from emergency record Physical Exam Physical Exam: The patient is sedated and intubated, well developed and well nourished, lying in bed and in no acute distress. HEENT--PERRL, EOMI, mucous membranes and oropharynx dry. Neck--supple. No JVD. No bruits. Thyroid normal, trachea midline, no adenopathy. Heart--normal S1 and S2. No murmurs, rubs or gallops. Lungs--clear bilaterally, no respiratory distress, no accessory muscle use. Abdomen--normal bowel sounds and soft. Mildly tympanitic and distended. Extremities--no cyanosis or clubbing. Trace bilateral pretibial pitting edema. There are good distal pulses b/l. Dermatologic--normal skin turgor, normal color, no abnormal lymph nodes, no rash. Neurologic--limited exam Rheumatologic--limited exam Psychiatric--intubated and sedated. Results & Data Results & Data Vital Signs (Past 12 Hours) Vital Signs Temp Pulse Resp BP Pulse Ox O2 Del Method FiO2 06/29/24 23:36 91 H 12 100 40 06/29/24 23:00 100 H 12 129/72 98 06/29/24 22:45 100 H 12 135/69 100 06/29/24 22:34 121/61 06/29/24 22:30 145/107 H 06/29/24 22:18 111 H 17 153/74 H 100 06/29/24 22:02 58/40 L 06/29/24 21:54 122 H 29 H 92/53 L 99 06/29/24 21:52 121 H 06/29/24 21:33 36.3 C L 92 H 16 87/56 L 98 Room Air Laboratory Results Laboratory Results WBC 11.44 K/ul (4.8-10.8) H 06/29/24 21:58 RBC 3.17 M/uL (4.70-6.10) L 06/29/24 21:58 Hgb 11.1 g/dl (14.0-18.0) L 06/30/24 02:08 POC Hgb 10.9 g/dl (14.0-18.0) L 06/29/24 22:01 Hct 32.1 % (42.0-52.0) L 06/30/24 02:08 POC Hct 32 % (42-52) L 06/29/24 22:01 MCV 96.8 fL (80.0-100.0) 06/29/24 21:58 MCH 33.8 pg (25.0-34.0) 06/29/24 21:58 MCHC 34.9 g/dL (32.0-36.0) 06/29/24 21:58 RDW Std Deviation 51.9 fL (36.4-46.3) H 06/29/24 21:58 RDW Coeff of Ramone 14.6 % (11.5-14.5) H 06/29/24 21:58 Plt Count 91 K/uL (130-400) L 06/29/24 21:58 MPV 12.3 fL (9.4-12.4) 06/29/24 21:58 Immature Gran % (Auto) 0.6 % 06/29/24 21:58 Neut % (Auto) 56.2 % 06/29/24 21:58 Lymph % (Auto) 30.4 % 06/29/24 21:58 Granite % (Auto) 10.1 % 06/29/24 21:58 Eos % (Auto) 1.6 % 06/29/24 21:58 Baso % (Auto) 1.1 % 06/29/24 21:58 Neut # (Auto) 6.43 K/uL (1.40-6.50) 06/29/24 21:58 Lymph # (Auto) 3.48 K/uL (1.20-3.40) H 06/29/24 21:58 Granite # (Auto) 1.15 K/uL (0.11-0.59) H 06/29/24 21:58 Eos # (Auto) 0.18 K/uL (0.00-0.50) 06/29/24 21:58 Baso # (Auto) 0.13 K/uL (0.00-0.20) 06/29/24 21:58 Immature Gran # (Auto) 0.07 K/uL (0.01-0.20) 06/29/24 21:58 PT 11.9 Seconds (9.0-12.0) 06/29/24 21:58 INR 1.1 (0.9-1.1) 06/29/24 21:58 APTT 22 Seconds (21-31) 06/29/24 21:58 PTT Ratio 0.8 06/29/24 21:58 Fibrinogen 171 mg/dl (184-400) L 06/29/24 23:52 POC Sodium 136 mmol/L (135-144) 06/29/24 22:01 Sodium 136 mmol/L (136-145) 06/30/24 02:08 POC Potassium 3.5 mmol/L (3.3-5.0) 06/29/24 22:01 Potassium 4.0 mmol/L (3.5-5.1) 06/30/24 02:08 POC Chloride 98 mmol/L (101-112) L 06/29/24 22:01 Chloride 106 mmol/L (98-107) 06/30/24 02:08 Carbon Dioxide 23 mmol/L (21-32) 06/30/24 02:08 POC Total CO2 23 mmol/L (24-31) L 06/29/24 22:01 Anion Gap 7 (3-11) 06/30/24 02:08 POC Anion Gap 19.0 mmol/L (16-25) 06/29/24 22:01 POC BUN 24 mg/dl (7-18) H 06/29/24 22:01 BUN 22 mg/dl (6-23) 06/30/24 02:08 Creatinine 0.70 mg/dl (0.6-1.4) 06/30/24 02:08 POC Creatinine 0.9 mg/dl (0.6-1.3) 06/29/24 22:01 Est Cr Clr Drug Dosing 118.4 ml/min 06/30/24 02:08 eGFR 107.47 06/30/24 02:08 BUN/Creatinine Ratio 31.4 (10-20) H 06/30/24 02:08 Glucose 224 mg/dl (70-99(Fasting)) H 06/30/24 02:08 POC Glucose 285 mg/dl (70-99) H 06/30/24 01:52 POC Glucose (other) 241 mg/dl (70-99) H 06/29/24 22:01 Lactate 1.8 mmol/L (0.4-2.0) 06/29/24 23:52 Calcium 7.8 mg/dl (8.6-10.3) L 06/30/24 02:08 POC Ioniz Calcium Danielle 1.12 mmol/l (1.12-1.32) 06/29/24 22:01 Magnesium 1.7 mg/dl (1.7-2.4) 06/30/24 02:08 Total Bilirubin 2.5 mg/dl (0.2-1.0) H 06/30/24 02:08 AST 29 U/L (13-39) 06/30/24 02:08 ALT 15 U/L (7-52) 06/30/24 02:08 Alkaline Phosphatase 101 U/L (34-104) 06/30/24 02:08 Troponin I High Sens 5.5 pg/ml (0-20) 06/29/24 21:58 Total Protein 5.4 gm/dl (6.0-8.3) L 06/30/24 02:08 Albumin 3.0 gm/dl (3.4-5.0) L 06/30/24 02:08 Globulin 2.4 gm/dl (2.5-4.0) L 06/30/24 02:08 Albumin/Globulin Ratio 1.3 (0.9-2) 06/30/24 02:08 Lipase 33 U/L (11-82) 06/29/24 21:58 Blood Type O Positive 06/29/24 21:57 Blood Type Recheck O Positive 06/29/24 21:57 Antibody Screen NEGATIVE 06/29/24 21:57 Crossmatch See Detail 06/29/24 21:57 Impressions Chest X-Ray 06/29/24 22:19 Exam(s): XR CXR 1 VIEW EXAM: XR Chest, 1 View CLINICAL HISTORY: Reason for exam: GI bleed, intubation. TECHNIQUE: Frontal view of the chest. COMPARISON: 09/10/2023. FINDINGS: Exam is limited since the left costophrenic angle is not included on the exam. An endotracheal tube is noted with its tip 3.7 cm above the level of stephen. A nasogastric tube is noted with its tip in the region of the stomach. Lungs: No consolidation. Pleural space: No pleural effusion is seen. No pneumothorax. Heart: The heart is normal in size.. Mediastinum: There is mild uncoiling of thoracic aorta.. Bones/joints: There are degenerative changes in the spine.. IMPRESSION: Limited exam. No acute pulmonary disease. Electronically signed by: Torrey Frances MD 06/30/24 01:55 AM Code Status & VTE Plan Code Status Full code VTE Prophylaxis Plan VTE Prophylaxis will be ordered: Yes PG Care Time/CCT Total # of Minutes Spent Total Time Spent with Patient: Total time spent is greater than 50% in coordination of care (as documented) at patient's floor/unit and/or counseling patient: Coding Level of Care Code 52357 INT INP/OBS CARE 3/75MIN Diagnoses Admitted to intensive care unit Z78.9 Acute GI bleeding K92.2 Cirrhosis of liver K74.60 Hepatic cirrhosis type: alcoholic cirrhosis Symptomatic anemia D64.9 (3) Cirrhosis of liver Hepatic cirrhosis type: alcoholic cirrhosis
--- NOTE | 2024-06-30 00:23 | Critical Care Consultation ---
Date of Consultation June 29, 2024 Assessment & Plan (1) Shock: (2) Cirrhosis of liver: (3) Thrombocytopenia: (4) Alcoholic hepatitis with ascites: (5) History of splenectomy: (6) GERD (gastroesophageal reflux disease): Plan Reason Critically Ill: Shock likely hemorrhagic in setting of hematemesis complicated by alcoholic hepatitis. Neuro - Sedated for mechanical ventilation, PTSD CAM ICU: No acute needs - Continue Fentanyl and Propofol for sedation goal Estevan -2 - Sedation holiday when hemostasis and hemodynamics are proven stable - Record review states sober since 2022 follow for possible withdrawal, obtain tox screen and ETOH level Cardiac - Shock- hemorrhagic, - Hemorrhagic shock likely in setting of hematemesis and melena - Patient was resuscitated in the ER with 2 L crystalloid and 3 U PRBC - Currently requiring no vasopressors - Transfuse for active bleeding or worsening evidence of shock, will need to be cautious of over resuscitation with hx of varices Respiratory - Intubation and mechanical ventilation - Airway secured for hematemesis and syncope with shock - As above once stabilized from GI and hemodynamic standpoint liberalize from mechanical ventilation GI - GI bleed unspecified, hx of cirrhosis, hx of partial pancreatectomy and asplenic - Patient presents with reported melena as well as hematemesis resulting in syncope- tachycardic and hypotensive - presumed UGI bleed at this time with hematemesis- not on current anticoag ulants - Tracy 15 - Continue Protonix and Octreotide infusions - Rocephin empiric with variceal history as well as ascites - HGB 10.7, BUN 26, INR 1.1- received 3 units PRBC - PLT stable at 90 - trend and transfuse as indicated - Will send Fibrinogen now - CT angio of abd/pelvis- eval active bleed and eval ascites- will obtain POCUS eval post EGD - GI consultation appreciated- plan for endoscopic evaluation at bedside in ICU- +/- erythromycin based on their recommendations - Child ESCALANTE 8, without encephalopathy or coagulopathy noted - MELD NA 12 0130- EGD completed- No active hemorrhage or ulceration noted- finish Protonix then change to IV BID - 4 bands placed to Varices - OGT attempted to be placed by GI however could not get around bands so not inserted- rest of plan as above RENAL/LYTES - No acute needs - ICU electrolyte protocol - iCA stable pre transfusion - No acute needs - Potter while hemodynamically unstable and intubated and sedated ENDO - DM 1.5, Hypothyroid - ICU hyperglycemic protocol HEME - Hemorrhagic shock - As above ID - As above - Does not appear to have large amount of ascites - empiric treatment with varices and ascites LINES/IV ACCESS - PIV x3, ETT, OGT, Potter Continue use of these lines, pending hemodynamics may need arterial line, currently with adequate resuscitation peripherals DVT PROPHYLAXIS - SCDS, chemoprophylaxis on hold until hemostasis is proven stable DISPO: ICU while intubated, sedated, and until hemodynamics proven stable I have personally spent 45 minutes of critical care time in the direct managem ent of this patient. This is a life/limb threatening event. This includes time spent evaluating patient, direct bedside care, chart review, placing orders, interpretation of diagnostic studies, discussion with consultants, patient, and family members, as well as other required patient management activities. This time is exclusive of all separately billable procedures, and teaching time and separate from and in addition to any other critical care service time. Thank you for allowing us to participate in the care of this patient. Please refer to my attending physician's documentation for any further recommendations. History of Present Illness Reason for Consultation: Shock Requesting Physician: Micky Dial MD Attending Physician: Micky Dial MD History of Present Illness All informatioin in this HPI and note is obtained from chart review and discussion with EMD Phsyician. As patient is intubated and sedated with no family immediately available. 59YOM with history of: Alcoholic hepatitis, Liver failure with esophageal varices, PE, DM, PTSD. Patient came to the ER today for concerns of hematemesis and melena at home and feeling as he was going to pass out. The patient arrived to the ER hypotensive and tachycardic and during evaluation, he had hematemesis and syncopized. He was then intubated and sedated, given push dose pressors. He received 2L of Crystalloid and 3 units of PRBCs. Initial HGB level was 10 and his baseline is 14. Platelet count noted 90s which is not far off from baseline 100-110. INR is normal and LFTS normal. GI was consulted by EMD provider and initially was planning on obersving overnight however, now appears that will be performing endoscopy in the ICU. Will get CTA of the abdomen/pelvis on way over to ICU, continue with Protonix, Octreotide and trending of HGB levels. OGT is in place draining some blood, however unable to actively aspirate any fresh or clotted blood. CODE: FULL Allergies Allergy/AdvReac Type Severity Reaction Status Date / Time bee venom protein (honey bee) Allergy Severe Hives / Verified 06/29/24 10:49 Anaphylaxis adhesive Allergy Mild Rash-PAPER Verified 06/29/24 10:49 TAPE OK Home Medications Medication Instructions Recorded Confirmed Type folic acid 400 mcg tablet 0.4 mg PO QAM 03/16/21 06/29/24 History propranolol 20 mg tablet 20 mg PO BID 03/23/22 06/29/24 History cholecalciferol (vitamin D3) 50 50 mcg PO QPM 11/10/22 06/29/24 History mcg (2,000 unit) capsule (Vitamin D3) cyanocobalamin (vitamin B-12) 2,000 mcg PO QPM 11/10/22 06/29/24 History 2,000 mcg tablet,extended release (Vitamin B-12 ER) umeclidinium 62.5 mcg-vilanterol 1 ea inhalation DAILY #60 ea 11/19/22 06/29/24 Rx 25 mcg/actuation powdr for inhalation (Anoro Ellipta) furosemide 40 mg tablet 80 mg PO QAM 12/21/22 06/29/24 History pantoprazole 40 mg tablet,delayed 40 mg PO BID 12/21/22 06/29/24 History release thiamine HCl (vitamin B1) 100 mg 100 mg PO QPM 12/21/22 06/29/24 History tablet trazodone 50 mg tablet 50 mg PO HS 12/21/22 06/29/24 History glucagon 1 mg solution for 1 mg IM ONCE #1 ea 12/22/22 06/29/24 Rx injection (Glucagon Emergency Kit) blood sugar diagnostic (Embrace 01/03/23 11/22/23 History PRO test strips) blood-glucose meter,continuous #1 ea 01/05/23 11/22/23 Rx (Dexcom G6 Inventory Control Manager) blood-glucose sensor (Dexcom G6 #9 ea 01/05/23 11/22/23 Rx Sensor device) blood-glucose transmitter (Dexcom #1 ea 01/05/23 11/22/23 Rx G6 Transmitter device) insulin aspart U-100 100 unit/mL 0 - 20 unit subcut TID 06/16/23 06/29/24 History (3 mL) subcutaneous pen (Novolog FlexPen U-100 Insulin aspart) insulin glargine 100 unit/mL (3 40 unit subcut HS 06/16/23 06/29/24 History mL) subcutaneous pen Omnipod 5 G6 Intro Kit (Gen 5) #1 ea 07/27/23 11/22/23 Rx subcutaneous cartridge with controller (insulin pump cart,auto,BT-cntr) insulin pump cart,automated,BT #3 Boxes 07/27/23 11/22/23 Rx (Omnipod 5 G6 Pods (Gen 5) subcutaneous cartridge) insulin pump cartridge,automated #1 ea 07/29/23 11/22/23 Rx dose,BT with controller subcutaneous (Omnipod 5 G6 Intro Kit (Gen 5) subcutaneous cartridge with controller) epinephrine 0.3 mg/0.3 mL 0.3 mg IM DAILY PRN Anaphylaxis 08/07/23 06/29/24 History injection, auto-injector levothyroxine 88 mcg tablet 88 mcg PO QAM 08/07/23 06/29/24 History insulin aspart U-100 100 unit/mL 100 unit continuous subcutaneous 11/22/23 06/29/24 History subcutaneous solution (Novolog infusion DAILY U-100 Insulin aspart) insulin pump cart,automated,BT #30 ea 11/22/23 11/22/23 Rx (Omnipod 5 G6 Pods (Gen 5) subcutaneous cartridge) metformin 500 mg tablet,extended 500 mg PO QAM #90 tabs 01/09/24 06/29/24 Rx release 24 hr Patient History Medical History GERD (gastroesophageal reflux disease) History of alcoholic hepatitis treated in 2022 Neuropathy Restless leg syndrome History of pneumonia 2022 History of alcoholism per pt, quit drinking November 10, 2022 Hx pulmonary embolism apprx 2021 > thinner now DC'ed Asplenia S/P abdominal paracentesis Hypothyroid Type 1.5 diabetes, managed as type 1 Ascites hx of and resolved per pt Fatty infiltration of liver Alcoholic cirrhosis Esophageal varices Grade I per 04/22/21 EGD > had EGD 06/2023 and a few areas cauterized per pt report Degenerative disc disease Cirrhosis of liver Hypotension per pt Borderline high cholesterol PTSD (post-traumatic stress disorder) Pancreatic mass benign--pt states 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 Surgical History Hx of hernia repair x3 H/O colonoscopy with ultrasound (~April 2023) > hx of pre-cancerous polyps on 1 year plan History of open reduction and internal fixation (ORIF) procedure Right Fifth Metatarsal Open Reduction Internal Fixation, Bone Marrow Aspirate Concentrate Injection into Fracture Site(Right) - Shahzad Blount MD History of open reduction and internal fixation (ORIF) procedure right ankle 07/2021 History of esophagogastroduodenoscopy (EGD) recent 04/22/21 @ [facility]--Grade 1 varices found History of surgery on wrist bilat cysts removed History of tonsillectomy History of tooth extraction History of adenoidectomy History of colonoscopy History of splenectomy Family History Mother Dementia Father Prostate cancer Diabetes Heart disease Sister Neurofibromatosis Other No family history of adverse response to anesthesia Social History Smoking Status: Current every day smoker Tobacco Type: Cigarettes packs per day: 0.5; Cigarettes Per Day: 1/2 pack per day; Second Hand Exposure: No; Do You Dip or Chew Tobacco: No; Hx Alcohol Use: Yes Alcohol type: hard liquor Hx Substance Use: No Preferred Language: Turkish Communication Ability: intubated Linen Checker Required: No Beliefs That Will Affect Care: None marital status: Current Living Situation: Family Current Living Situation Comment: home w family current occupational status: retired Feels Safe at Home: Yes Diet: regular Diet Comment: "not a very healthy diet" Assistive Devices: Glasses Review of Systems Review of Systems: unable to perform secondary to sedation and mechanical ventilation Physical Exam Physical Exam: PHYSICAL EXAM: General: Sedated, intubated and mechanically ventilated Head: Normocephalic, atraumatic ENT: PERRLA, no pharyngeal exudate, mucous membranes dry Neuro: sedated, localizes pain, overbreathing vent, cough and gag present, prior to intubation patient was reportedly talking and moving all extremities. Chest: equal rise and fall of the chest, no accessory muscle use, no heaves or thrills, Clear to auscultation Cardiac: Regular rate and rhythm, telemetry reviewed- NSR/Sinus Tach no ectopy, skin warm dry, cap refill <3 seconds, peripheral pulses +2 no JVD, no murmur, no edema GI: NABS x 4 quadrants, soft, no guarding : Potter to gravity draining dark erika urine Skin: no rash or erythema Results & Data Results & Data Vital Signs (Past 12 Hours) Vital Signs Temp Pulse Resp BP Pulse Ox O2 Del Method FiO2 06/29/24 23:36 91 H 12 100 40 06/29/24 23:00 100 H 12 129/72 98 06/29/24 22:45 100 H 12 135/69 100 06/29/24 22:34 121/61 06/29/24 22:30 145/107 H 06/29/24 22:18 111 H 17 153/74 H 100 06/29/24 22:02 58/40 L 06/29/24 21:54 122 H 29 H 92/53 L 99 06/29/24 21:52 121 H 06/29/24 21:33 36.3 C L 92 H 16 87/56 L 98 Room Air Laboratory Results Abnormal lab results 06/29/24 06/29/24 06/29/24 Range/Units 21:57 21:58 22:01 WBC 11.44 H (4.8-10.8) K/ul RBC 3.17 L (4.70-6.10) M/uL Hgb 10.7 L (14.0-18.0) g/dl POC Hgb 10.9 L (14.0-18.0) g/dl Hct 30.7 L (42.0-52.0) % POC Hct 32 L (42-52) % RDW Std Deviation 51.9 H (36.4-46.3) fL RDW Coeff of Ramone 14.6 H (11.5-14.5) % Plt Count 91 L (130-400) K/uL Lymph # (Auto) 3.48 H (1.20-3.40) K/uL [place] # (Auto) 1.15 H (0.11-0.59) K/uL POC Chloride 98 L (101-112) mmol/L POC Total CO2 23 L (24-31) mmol/L POC BUN 24 H (7-18) mg/dl BUN 26 H (6-23) mg/dl BUN/Creatinine Ratio 28.6 H (10-20) Glucose 256 H (70-99(Fasting)) mg/dl POC Glucose (other) 241 H (70-99) mg/dl Lactate 3.7 H* (0.4-2.0) mmol/L Total Bilirubin 2.6 H (0.2-1.0) mg/dl Alkaline Phosphatase 113 H (34-104) U/L Crossmatch See Detail Medications Administered Fentanyl Citrate (Fentanyl Bolus From Bag) 50 mcg IV Q60M PRN PRN Reason: Pain or Agitation Stop: 07/13/24 22:42 Last Admin: 06/29/24 22:51 Dose: 50 mcg Documented By: CEFERINO Co-signed By: ANGIE Pantoprazole Sodium 40 mg/ (Dextrose) 100 mls @ 20 mls/hr IV Q5H [facility] Stop: 07/29/24 22:14 Last Admin: 06/29/24 23:02 Dose: 8 mg/hr, 20 mls/hr Documented By: CEFERINO Octreotide Acetate 500 mcg/ (Sodium Chloride) 100.5 mls @ 10.05 mls/hr IV .Q10H [facility] Stop: 07/29/24 21:59 Last Admin: 06/29/24 22:43 Dose: 50 mcg/hr, 10.1 mls/hr Documented By: CEFERINO Fentanyl Citrate (Fentanyl Citrate) 2,500 mcg in 250 mls @ 10 mls/hr IV .Q25H [facility]; Protocol Stop: 07/13/24 22:44 Last Titration: 06/29/24 23:57 Dose: 250 mcg/hr, 25 mls/hr Documented By: CEFERINO Co-signed By: ANGIE Titration: 06/29/24 23:49 Dose: 200 mcg/hr, 20 mls/hr Documented By: CEFERINO Co-signed By: ANGIE Titration: 06/29/24 23:35 Dose: 150 mcg/hr, 15 mls/hr Documented By: CEFERINO Co-signed By: ANGIE Admin: 06/29/24 22:47 Dose: 100 mcg/hr, 10 mls/hr Documented By: NRB Co-signed By: JW Midazolam HCl (Midazolam Hcl 5 Mg/Ml 2ml Vial) 5 mg IV Q1H PRN PRN Reason: Anxiety/Agitation Stop: 07/29/24 22:43 Last Admin: 06/29/24 23:00 Dose: 5 mg Documented By: CEFERINO Discontinued Medications Fentanyl Citrate (Fentanyl Citrate Pf 100 Mcg/2 Ml Vial) 100 mcg IV NOW STA Stop: 06/29/24 22:19 Last Admin: 06/29/24 22:44 Dose: 100 mcg Documented By: CEFERINO Pantoprazole Sodium 80 mg/ (Dextrose) 120 mls @ 480 mls/hr IV NOW ONE Stop: 06/29/24 22:00 Last Infusion: 06/29/24 23:12 Dose: Infused Documented By: Admin: 06/29/24 22:43 Dose: 480 mls/hr Documented By: CEFERINO Sodium Chloride (Nss) 1,000 mls @ 999 mls/hr IV .Q1H1M ONE Stop: 06/29/24 22:47 Last Infusion: 06/29/24 23:13 Dose: Infused Documented By: Admin: 06/29/24 22:44 Dose: 999 mls/hr Documented By: CEFERINO Sodium Chloride (Nss) 1,000 mls @ 999 mls/hr IV .Q1H1M ONE Stop: 06/29/24 23:19 Last Infusion: 06/29/24 23:13 Dose: Infused Documented By: Admin: 06/29/24 22:45 Dose: 999 mls/hr Documented By: CEFERINO Tranexamic Acid (Tranexamic Acid / 0.7% Nacl) 1,000 mg in 100 mls @ 600 mls/hr IV NOW STA Stop: 06/29/24 23:09 Last Infusion: 06/29/24 23:21 Dose: Infused Documented By: Admin: 06/29/24 23:07 Dose: 600 mls/hr Documented By: CEFERINO Ceftriaxone Sodium (Rocephin) 2,000 mg in 50 mls @ 100 mls/hr IV NOW STA Stop: 06/29/24 23:29 Last Infusion: 06/29/24 23:53 Dose: Infused Documented By: Admin: 06/29/24 23:21 Dose: 100 mls/hr Documented By: CEFERINO Ketamine HCl (Ketamine Hcl 10mg/Ml Syr) 100 mg IV NOW STA Stop: 06/29/24 22:44 Last Admin: 06/29/24 22:42 Dose: 100 mg Documented By: NRB Midazolam HCl (Midazolam Hcl 1 Mg/Ml 2ml Vial) 2 mg IV NOW STA Stop: 06/29/24 22:19 Last Admin: 06/29/24 22:44 Dose: 2 mg Documented By: NRB Midazolam HCl (Midazolam Hcl 1 Mg/Ml 2ml Vial) 2.5 mg IV NOW STA Stop: 06/29/24 22:31 Last Admin: 06/29/24 22:45 Dose: 2.5 mg Documented By: NRB Ondansetron HCl (Ondansetron Inj 2 Mg/Ml 2 Ml Vial) 4 mg IV ONE STA Stop: 06/29/24 21:47 Last Admin: 06/29/24 22:46 Dose: 4 mg Documented By: NRB Pantoprazole Sodium (Pantoprazole Bolus/Drip) 1 each IV NOW STA Stop: 06/29/24 21:47 Last Admin: 06/29/24 23:02 Dose: Not Given Documented By: NRB ECG Additional Comments: Sinus tachycardia Lateral infarct, age undetermined Abnormal ECG When compared with ECG [id number] 18:42, Vent. ratehas increasedby 45bpm Lateral infarctis nowPresent Coding Level of Care Code 16283 CRITICAL CARE 1ST 30-74M Diagnoses Shock R57.9 Cirrhosis of liver K74.60 Thrombocytopenia D69.6 Alcoholic hepatitis with ascites K70.11 History of splenectomy Z90.81 GERD (gastroesophageal reflux disease) K21.9
[2024-06-30] MEDS: OPTIRAY 320 125ml IV ONE (00:26)
[2024-06-30 00:39] LABS: Fibrinogen 171 mg/dl (184-400)
[2024-06-30] MEDS ORDERED: ONDANSETRON INJ 2 MG/ML 2 ML VIAL IV PRN ×2 (00:49→15:09)
[2024-06-30] MEDS ORDERED: PROPOFOL BOLUS FROM BAG IV PRN (00:49)
[2024-06-30] MEDS ORDERED: STAT IV Infusion **Titration per Protocol STA ×3 (00:49→15:09)
[2024-06-30] MEDS ORDERED: ALBUT/IPRATROP 3MG/0.5MG NEB 3 ML VIAL NEB PRN (00:49)
[2024-06-30] MEDS: propofoL 1,000 MG/100 ML VIAL IV SCH (01:00)
[2024-06-30] MEDS: OCTREOTIDE ACETATE 50 MCG in SYRINGE 9.5 ML IV STA (01:42)
[2024-06-30] MEDS: PROPOFOL IV EMULSION 10 MG/ML 100 ML VIAL IV ONE (01:43)
[2024-06-30] MEDS: STAT IV/IM STA (01:43)
[2024-06-30] MEDS: STAT IV Infusion **Titration per Protocol STA (01:43)
[2024-06-30] MEDS: NOREPINEPHRINE/D5W 4 MG/250 ML IV ONE (01:43)
[2024-06-30] MEDS: RAPID SEQUENCE INDUCTION BAG ONE (01:43)
--- NOTE | 2024-06-30 01:56 | XRay Report ---
Exam(s): XR CXR 1 VIEW EXAM: XR Chest, 1 View CLINICAL HISTORY: Reason for exam: GI bleed, intubation. TECHNIQUE: Frontal view of the chest. COMPARISON: 09/10/2023. FINDINGS: Exam is limited since the left costophrenic angle is not included on the exam. An endotracheal tube is noted with its tip 3.7 cm above the level of stephen. A nasogastric tube is noted with its tip in the region of the stomach. Lungs: No consolidation. Pleural space: No pleural effusion is seen. No pneumothorax. Heart: The heart is normal in size.. Mediastinum: There is mild uncoiling of thoracic aorta.. Bones/joints: There are degenerative changes in the spine.. IMPRESSION: Limited exam. No acute pulmonary disease. Electronically signed by: Torrey Frances MD 06/30/24 01:55 AM
--- NOTE | 2024-06-30 01:57 | GI REPORT ---
[facility] Patient: ANNA BERNARD : 1965 Sex at : Male Age: 59 Years Procedure: Upper GI endoscopy Date: 06/30/2024 Attending Physician: Rik Rousseau MD Referring MD: Rik Rousseau MD Indications: - Active gastrointestinal bleeding Medications: - Monitored Anesthesia Care Complications: - No immediate complications. Estimated Blood Loss: - Estimated blood loss: None. Procedure: - ASA Grade Assessment: 3E - A patient with severe systemic disease, undergoing an emergency procedure. - The egd scope was introduced through the mouth and advanced to the second part of the duodenum. - The upper GI endoscopy was accomplished without difficulty. - The patient tolerated the procedure well. Findings: - Three columns of grade II varices with stigmata of recent bleeding were found in the lower third of the esophagus. They were small in size. No red yany signs were present. Scarring from prior treatment was visible. Four bands were successfully placed with complete eradication, resulting in deflation of varices. There was no bleeding during nor at the end of the procedure. Estimated blood loss: none. - Clotted blood was found in the gastric fundus. Lavage of the area was performed using a moderate amount, resulting in clearance with adequate visualization. - Red blood was found in the duodenal bulb and in the second portion of the duodenum. Lavage of the area was performed using a moderate amount, resulting in clearance with good visualization. Impression: - Patient has significant portal gastropathy. There are probably gastric varices though I could not find any clot ulceration to suggest they were the source of bleeding. Evaluation of the antrum duodenum first second parts did not reveal no other source of bleeding other than the noted varices. Close examination of the variceal column showed the large varices with roberts red spots was present at the 2 o'clock position. There was another varix at the 5 o'clock position and a varix at the 9 to 10 o'clock position. There was evidence of previous banding. Mucosa slightly fibrotic related to this ,the scope was withdrawn cook thermodynamics engineer was placed. 4 bands were placed in the noted positions no bleeding joint placement or post. Did attempt to pass a NG for gastric decompression under direct visualization. And unable to pass beyond multiple banded varices without resistance therefore this was not pursued further. - Grade II esophageal varices with stigmata of recent bleeding. Completely eradicated. Banded. - Clotted blood in the gastric fundus. - Blood in the duodenal bulb and in the second portion of the duodenum. - No specimens collected. Recommendation: - Continue octreotide for 48 hours, I did not see evidence of peptic ulcer disease once his current Protonix is infused 8 make switch to IV bolus. Transfuse if hemoglobin less than or equal to 7.2 avoid over transfusion. Procedure Code(s): - 69533, Esophagogastroduodenoscopy, flexible, transoral; with band ligation of esophageal/gastric varices Diagnosis Code(s): - I85.01, Esophageal varices with bleeding - K92.2, Gastrointestinal hemorrhage, unspecified CPT(R) - 2022 copyright [employer]. All Rights Reserved. The CPT codes, CCI edits and ICD codes generated are intended as suggestions and were generated based on input data. These codes are preliminary and upon foundry hand review may be revised to meet current compliance and payer requirements. The provider is responsible for the final determination of appropriate codes, and modifiers. Rik Rousseau MD This document has been electronically signed. Note Initiated:06/30/2024 Note Completed:06/30/2024 1:55 AM \\[id number]
[2024-06-30] MEDS: NOREPINEPHRINE/D5W 4 MG/250 ML PLCT IV SCH (02:00)
[2024-06-30] MEDS ORDERED: GLUCOSE 10 TAB/TUBE PO PRN (02:06)
[2024-06-30] MEDS ORDERED: GLUCAGON FOR INJ 1 MG VIAL SQ PRN (02:06)
[2024-06-30] MEDS ORDERED: CARBOHYDRATES FOR HYPOGLYCEMIA PO PRN (02:06)
[2024-06-30] MEDS ORDERED: DEXTROSE 50% 50 ML SYRINGE IV PRN (02:06)
[2024-06-30] MEDS ORDERED: GLUCOSE 40% GEL 15 GM TUBE PO PRN (02:06)
[2024-06-30 02:29] LABS: Hematocrit (blood only) 32.1 % (42.0-52.0); Hemoglobin 11.1 g/dl (14.0-18.0)
[2024-06-30 02:48] LABS: Albumin Globulin Ratio 1.3 (0.9-2); BUN Creatinine Ratio 31.4 (10-20); Bilirubin,Total 2.5 mg/dl (0.2-1.0); Calcium 7.8 mg/dl (8.6-10.3); Creatinine Clr Calc Pharmacy 118.4 ml/min; Globulin 2.4 gm/dl (2.5-4.0); Magnesium 1.7 mg/dl (1.7-2.4); Total Protein 5.4 gm/dl (6.0-8.3)
--- NOTE | 2024-06-30 02:55 | Billing Data ---
Date of Service June 30, 2024 Coding Level of Care Code 18178 CRITICAL CARE
[2024-06-30 02:57] LABS: INR 1.1 (0.9-1.1); Partial Thromboplastin Ratio 0.9; Partial Thromboplastin Time 23 Seconds (21-31); Prothrombin Time 12.2 Seconds (9.0-12.0)
[2024-06-30 03:05] LABS: Basophils # (auto) 0.03 K/uL (0.00-0.20); Basophils % (auto) 0.2 %; Eosinophils # (auto) 0.02 K/uL (0.00-0.50); Eosinophils % (auto) 0.2 %; Hematocrit (blood only) 32.4 % (42.0-52.0); Hemoglobin 11.3 g/dl (14.0-18.0); Immature Granulocytes # (auto) 0.05 K/uL (0.01-0.20); Immature Granulocytes % (auto) 0.4 %; Mean Corpuscular Hemoglobin 32.8 pg (25.0-34.0); Mean Corpuscular Hgb Conc 34.9 g/dL (32.0-36.0); Mean Corpuscular Volume 93.9 fL (80.0-100.0); Mean Platelet Volume 12.7 fL (9.4-12.4); Monocytes # (auto) 0.62 K/uL (0.11-0.59); Neutrophils # (auto) 10.28 K/uL (1.40-6.50); Neutrophils % (auto) 82.2 %; Nucleated RBC # (auto) 0.02 K/uL (0.00-0.12); Nucleated RBC % (auto) 0.2 %; Platelet Count 66 K/uL (130-400); Polychromasia 1+; RDW Coefficient of Variation 15.7 % (11.5-14.5); RDW Standard Deviation 53.1 fL (36.4-46.3); Red Blood Count 3.45 M/uL (4.70-6.10)
--- NOTE | 2024-06-30 03:07 | CT Scan Report ---
EXAM: CT angio abdomen pelvis w con CLINICAL HISTORY: gi bleed 119 cc opti 320 TECHNIQUE: CTA of the abdomen and pelvis was performed with IV contrast. Coronal and sagittal reconstructive images were also obtained. One of these 3D techniques was utilized: Maximum Intensity Pixel (MIP), 3D Reconstructed Images, Volume Rendered Images, Surface Shaded Rendering. Axial non-contrast sections of the abdomen and pelvis were also obtained. One of the following dose reduction techniques was utilized for this exam.Automated exposure control, adjustment of the mA and/or kV according to patient size, and use of iterative reconstruction. CTDI: DLP: COMPARISON: None. FINDINGS: Aorta: The abdominal aorta is normal in caliber with mild calcified atherosclerotic plaques. No evidence of aneurysm or dissection. Aortic bifurcation is unremarkable. Renal Arteries: Renal arteries are normal in size and opacification. No evidence of stenosis or occlusion. Symmetric perfusion of both kidneys. Mesenteric Arteries: Superior mesenteric artery (SMA) and inferior mesenteric artery (KEN) are normal in caliber and opacification. No evidence of stenosis or occlusion. Celiac Artery: Celiac artery is normal in caliber and opacification. No evidence of stenosis or occlusion. Iliac Arteries: Common, internal, and external iliac arteries are normal in caliber and opacification. No evidence of stenosis, aneurysm, or occlusion. Venous Structures: Inferior vena cava (IVC) and major venous structures are normal in caliber and opacification. No evidence of thrombus or obstruction. Liver: Normal size and morphology. Homogeneous enhancement post-contrast. No focal hepatic lesions. Gallbladder and Biliary System: Normal appearance of the gallbladder and biliary ducts. No stones or dilatation. Pancreas: Normal size and contour. Homogeneous enhancement post-contrast. No masses or cystic lesions. Spleen: Normal size and appearance. Homogeneous enhancement post-contrast. Adrenal Glands: Normal size and morphology bilaterally. No adrenal masses. Kidneys and Ureters: Normal size, shape, and position of both kidneys. Homogeneous enhancement post-contrast. No renal stones, masses, or hydronephrosis. Ureters are unremarkable. Bladder: Empty with Potter's bulb in situ. No intraluminal masses. Normal enhancement post-contrast. Bowel: Mild edematous thickening of small and large bowel loops is seen with no dilatation of caliber. Note is made of colonic diverticulosis without diverticulitis. Ryle's tube is seen in situ Lymph Nodes: No pathologically enlarged lymph nodes in the abdomen or pelvis. Peritoneum: No free fluid or free air in the abdomen. Bones: No lytic or sclerotic lesions. Normal alignment and bone density. Mild left sided scoliosis of lumbar spine is seen with degenerative changes. Soft Tissues: Normal appearance of the visualized soft tissues. Dependent collapse is seen in bilateral lower lobes. IMPRESSION: 1. Normal CT angiography of the abdomen and pelvis. No extravsation of contrast seen on arterial phase. 2. Mild edematous thickening of small and large bowel loops is seen with no dilatation of caliber suggestive of infective/inflammatory changes. Follow up scan is advised after 6 weeks. 3. Note is made of colonic diverticulosis without diverticulitis. 4. Ryle's tube is seen in situ Electronically signed by Jemal Perales 06-30-2024 03:06 AM
[2024-06-30] MEDS: INSULIN ASPART PER UNIT CHARGE SC SCH (03:15)
[2024-06-30 03:16] LABS: Amphetamines+Metham, Urine Neg (Neg); Barbiturates, Urine Neg (Neg); Benzodiazepine, Urine Pos (Neg); Cocaine, Urine Neg (Neg); Fentanyl, Urine Pos (Neg); MDMA (Ecstacy), Urine Neg (Neg); Marijuana, Urine Neg (Neg); Methadone, Urine Neg (Neg); Opiate, Urine Neg (Neg); Phencyclidine, Urine Neg (Neg)
[2024-06-30] MEDS ORDERED: ICU Protocol for HYPERglycemia SCH (06:00)
[2024-06-30] MEDS: MAGNESIUM SULFATE / D5W 1 GM/100 ML BAG IV SCH (06:45)
--- NOTE | 2024-06-30 07:28 | Hospitalist Progress Note ---
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 Patient presented to the emergency department with acute GI bleeding, initially passing bloody stool, and then vomiting of blood. He was intubated for airway protection, placed on octreotide drip, Protonix drip, Versed drip, and fentanyl drip. He received 2 units PRBCs with 2 units of crystalloid in the ED. He was also started on ceftriaxone IV. [facility], and patient was transferred to the ICU for ongoing care in the ICU, patient was seen by gastroenterology Dr. Rousseau, and underwent emergency endoscopy assessment. #Admit to intensive care unit/upper GI bleeding/symptomatic anemia- - Patient to receive 2 units PRBCs (06/29/24) and 2L NSS along with maintenance fluids as noted by the ongoing orders - on octreotide drip only - PPI gtt transitioned to IV bolus - s/p 1 dose of Ceftriaxone - monitor Hgb - GI on board, s/p emergent upper endoscopy by Dr. Rousseau (06/29): three columns of grade II varices with stigmata of recent bleeding found in the lower third of the esophagus, s/p 4 bands #Intubation for airway protection- - Continue vent management per ICU with serial ABGs and vent management per protocol - attempting to extubate, but held off due to apneic episodes while sleeping - extubation trial tomorrow #Alcohol abuse- - Thiamine 2 mg IV every morning - Folic acid 1 mg IV every morning - pt stated that he has not been drinking recently #Diabetes mellitus- - Consult pharmacy for ICU hyperglycemic protocol #Hypotension/hypovolemic shock- resolved - monitor Hgb Admission and Anticipated Discharge Date Admission Date: June 29, 2024 Subjective Attempted to extubate him today but pt has prolonged apneic episodes while sleeping Pt is awake and tolerating vent Review of Systems Review of Systems: comprehensive ROS neg Physical Exam Physical Exam: Gen: NAD HEENT: NC/AT, intubated Lungs: CTAB CVS: [id number], RRR, though tachycardic during coughing episodes Abd: soft, NT, nl bowel sounds Ext: no edema Neuro: awake, communicating via writing Results & Data Results & Data Vital Signs (Past 12 Hours) Vital Signs Temp Pulse Pulse Resp BP BP Pulse Ox 06/30/24 06:03 92 H 14 100 06/30/24 06:00 97/53 L 06/30/24 06:00 97/53 L 06/30/24 06:00 97/53 L 06/30/24 05:54 94 H 16 100 06/30/24 05:45 94 H 14 100 06/30/24 05:45 94/55 L 06/30/24 05:45 94/55 L 06/30/24 05:36 91 H 14 100 06/30/24 05:30 99/51 L 06/30/24 05:30 99/51 L 06/30/24 05:24 91 H 14 100 06/30/24 05:18 91 H 14 100 06/30/24 05:15 99/52 L 06/30/24 05:15 99/52 L 06/30/24 05:00 118/58 L 06/30/24 04:45 92 H 16 100 06/30/24 04:45 91/49 L 06/30/24 04:45 91/49 L 06/30/24 04:30 110/51 L 06/30/24 04:30 86 14 100 06/30/24 04:29 111/56 L 06/30/24 04:18 85 14 100 06/30/24 04:15 119/53 L 06/30/24 04:15 119/53 L 06/30/24 04:15 82 14 100 06/30/24 04:12 122/68 06/30/24 04:12 122/68 06/30/24 04:12 122/68 06/30/24 04:03 85 16 100 06/30/24 04:00 105/52 L 06/30/24 04:00 105/52 L 06/30/24 04:00 105/52 L 06/30/24 04:00 105/52 L 06/30/24 04:00 06/30/24 03:57 84 16 100 06/30/24 03:51 84 16 100 06/30/24 03:45 100/53 L 06/30/24 03:45 100/53 L 06/30/24 03:42 85 16 100 06/30/24 03:36 83 16 100 06/30/24 03:35 77 16 100 06/30/24 03:15 80 16 100 06/30/24 03:15 102/50 L 06/30/24 03:15 102/50 L 06/30/24 03:15 102/50 L 06/30/24 03:00 91/48 L 06/30/24 03:00 91/48 L 06/30/24 02:45 79 16 100 06/30/24 02:45 79/46 L 06/30/24 02:45 79/46 L 06/30/24 02:42 36.5 C 06/30/24 02:40 79/45 L 06/30/24 02:39 79 16 100 06/30/24 02:35 83/48 L 06/30/24 02:35 83/48 L 06/30/24 02:30 79/45 L 06/30/24 02:30 78 16 100 06/30/24 02:15 81 16 100 06/30/24 02:15 81/45 L 06/30/24 02:15 81/45 L 06/30/24 02:12 81 16 100 06/30/24 02:10 06/30/24 02:00 90/48 L 06/30/24 02:00 90/48 L 06/30/24 01:57 85 16 100 06/30/24 01:55 92/49 L 06/30/24 01:55 92/49 L 06/30/24 01:45 100/53 L 06/30/24 01:45 86 16 100 06/30/24 01:35 108/57 L 06/30/24 01:35 108/57 L 06/30/24 01:30 84 16 100 06/30/24 01:30 113/58 L 06/30/24 01:30 113/58 L 06/30/24 01:25 93/52 L 06/30/24 01:18 84 16 100 06/30/24 01:15 84 16 100 06/30/24 01:15 99/43 L 06/30/24 01:15 99/43 L 06/30/24 01:15 36.5 C 91 H 16 100/50 L 100 06/30/24 01:05 114/63 06/30/24 01:05 114/63 06/30/24 01:00 85 16 100 06/30/24 01:00 107/52 L 06/30/24 00:55 95/50 L 06/30/24 00:49 36.5 C 06/30/24 00:41 86 16 100 06/30/24 00:40 06/30/24 00:40 06/30/24 00:12 93 H 12 100 06/30/24 00:00 91 H 13 123/71 100 06/29/24 23:45 91 H 13 127/72 100 06/29/24 23:36 91 H 12 100 06/29/24 23:27 97 H 12 126/72 100 06/29/24 23:00 100 H 12 129/72 98 06/29/24 22:45 100 H 12 135/69 100 06/29/24 22:34 121/61 06/29/24 22:30 145/107 H 06/29/24 22:18 111 H 17 153/74 H 100 06/29/24 22:02 58/40 L 06/29/24 21:54 122 H 29 H 92/53 L 99 06/29/24 21:52 121 H 06/29/24 21:33 36.3 C L 92 H 16 87/56 L 98 Pulse Ox O2 Del Method O2 Del Method FiO2 06/30/24 06:03 06/30/24 06:00 06/30/24 06:00 06/30/24 06:00 06/30/24 05:54 06/30/24 05:45 06/30/24 05:45 06/30/24 05:45 06/30/24 05:36 06/30/24 05:30 06/30/24 05:30 06/30/24 05:24 06/30/24 05:18 06/30/24 05:15 06/30/24 05:15 06/30/24 05:00 06/30/24 04:45 06/30/24 04:45 06/30/24 04:45 06/30/24 04:30 06/30/24 04:30 06/30/24 04:29 06/30/24 04:18 06/30/24 04:15 06/30/24 04:15 06/30/24 04:15 06/30/24 04:12 06/30/24 04:12 06/30/24 04:12 06/30/24 04:03 06/30/24 04:00 06/30/24 04:00 06/30/24 04:00 06/30/24 04:00 06/30/24 04:00 40 06/30/24 03:57 06/30/24 03:51 06/30/24 03:45 06/30/24 03:45 06/30/24 03:42 06/30/24 03:36 06/30/24 03:35 40 06/30/24 03:15 06/30/24 03:15 06/30/24 03:15 06/30/24 03:15 06/30/24 03:00 06/30/24 03:00 06/30/24 02:45 06/30/24 02:45 06/30/24 02:45 06/30/24 02:42 06/30/24 02:40 06/30/24 02:39 06/30/24 02:35 06/30/24 02:35 06/30/24 02:30 06/30/24 02:30 06/30/24 02:15 06/30/24 02:15 06/30/24 02:15 06/30/24 02:12 06/30/24 02:10 100 Mechanical Vent 06/30/24 02:00 06/30/24 02:00 06/30/24 01:57 06/30/24 01:55 06/30/24 01:55 06/30/24 01:45 06/30/24 01:45 06/30/24 01:35 06/30/24 01:35 06/30/24 01:30 06/30/24 01:30 06/30/24 01:30 06/30/24 01:25 06/30/24 01:18 06/30/24 01:15 06/30/24 01:15 06/30/24 01:15 06/30/24 01:15 Mechanical Vent 06/30/24 01:05 06/30/24 01:05 06/30/24 01:00 06/30/24 01:00 06/30/24 00:55 06/30/24 00:49 06/30/24 00:41 40 06/30/24 00:40 Mechanical Vent 06/30/24 00:40 40 06/30/24 00:12 06/30/24 00:00 06/29/24 23:45 06/29/24 23:36 40 06/29/24 23:27 06/29/24 23:00 06/29/24 22:45 06/29/24 22:34 06/29/24 22:30 06/29/24 22:18 06/29/24 22:02 06/29/24 21:54 06/29/24 21:52 06/29/24 21:33 Room Air PG Care Time/CCT Total # of Minutes Spent Total Time Spent with Patient: Total time spent is greater than 50% in coordination of care (as documented) at patient's floor/unit and/or counseling patient: Coding Level of Care Code 48710 SUB INP/OBS CARE 2/35MIN Diagnoses Admitted to intensive care unit Z78.9 Acute GI bleeding K92.2 Cirrhosis of liver K74.60 Hepatic cirrhosis type: alcoholic cirrhosis Symptomatic anemia D64.9 (3) Cirrhosis of liver Hepatic cirrhosis type: alcoholic cirrhosis
--- NOTE | 2024-06-30 07:29 | Electrocardiogram Report ---
Test Reason : Blood Pressure : */* mmHG Vent. Rate : 122 BPM Atrial Rate : 122 BPM P-R Int : 132 ms QRS Dur : 72 ms QT Int : 328 ms P-R-T Axes : * 72 135 degrees QTcB Int : 467 ms Sinus tachycardia Nonspecific ST abnormality Abnormal ECG When compared with ECG of 10-Sep-2023 18:42, Vent. rate has increased by 45 bpm Lateral infarct is now Present Confirmed by Ramon Alonso ([id number]) on 06/30/2024 7:28:42 AM Referred By: REFERRED SELF Confirmed By: Ramon Alonso
--- NOTE | 2024-06-30 07:46 | XRay Report ---
EXAM: XR chest 1V portable CLINICAL HISTORY: AM F/U. TECHNIQUE: An X-ray image of the chest is obtained in AP projection. COMPARISON: No prior studies are available for comparison. FINDINGS: Pulmonary Parenchyma: ETT with tips at 2.9 cm from the stephen was noted. No evidence of consolidation, collapse, or focal opacities. No pulmonary nodules are identified. No evidence of pleural effusion or pleural thickening. Heart and Mediastinum: Heart size and shape are normal. No mediastinal widening or masses. No hilar or mediastinal lymphadenopathy. Bony Thorax: Bony thorax appears intact without fractures or deformities. Soft Tissues: Soft tissues overlying the chest wall are unremarkable. IMPRESSION: 1. ETT with tips at 2.9 cm from the stephen was noted. 2. No acute cardiopulmonary abnormalities are identified. Electronically signed by Deuce Bhardwaj 06-30-2024 07:46 AM
[2024-06-30] MEDS: cefTRIAXone SODIUM 2,000 MG/50 ML BAG IV SCH (08:23)
--- NOTE | 2024-06-30 09:39 | Critical Care Progress Note ---
Date of Service June 30, 2024 Assessment & Plan (1) Shock: (2) Cirrhosis of liver: (3) Thrombocytopenia: (4) Alcoholic hepatitis with ascites: (5) History of splenectomy: (6) GERD (gastroesophageal reflux disease): Plan Reason Critically Ill: Shock likely hemorrhagic in setting of hematemesis complicated by alcoholic hepatitis. Neuro - Sedated for mechanical ventilation, PTSD CAM ICU: No acute needs -Sedation held in anticipation of extubation. Alcohol level negative on admission. Monitor for signs of alcohol withdrawal. Cardiac - Shock- hemorrhagic, -Hemorrhagic shock resolved. Respiratory - Intubation and mechanical ventilation -Continue with SBT and anticipate extubation later today. GI - GI bleed unspecified, hx of cirrhosis, hx of partial pancreatectomy and asplenic -Patient status post banding by GI for upper GI bleed. Continue octreotide and transition to pantoprazole 40 mg twice daily. Discontinue ceftriaxone is no signs of ascites on exam or CT abdomen. 0130- EGD completed- No active hemorrhage or ulceration noted- finish Protonix then change to IV BID - 4 bands placed to Varices - OGT attempted to be placed by GI however could not get around bands so not inserted- rest of plan as above RENAL/LYTES - No acute needs - ICU electrolyte protocol - iCA stable pre transfusion - No acute needs - Potter while hemodynamically unstable and intubated and sedated ENDO - DM 1.5, Hypothyroid - ICU hyperglycemic protocol HEME - Hemorrhagic shock - As above, resolved. Thrombocytopenia noted in the setting of acute bleeding and cirrhosis. Will continue to monitor. ID - As above -Will discontinue Rocephin for the time being unless the patient's clinical status changes and worsens. LINES/IV ACCESS - PIV x3, ETT, OGT, Potter Continue use of these lines, pending hemodynamics may need arterial line, currently with adequate resuscitation peripherals DVT PROPHYLAXIS - SCDS, chemoprophylaxis on hold until hemostasis is proven stable DISPO: Possible downgrade to PCU later today if remains hemodynamically stable without evidence of rebleeding. Case discussed on multidisciplinary rounds with bedside nursing and ICU pharmacist. Patient's sister also updated. CRITICAL CARE TIME I have personally spent 35 minutes of critical care time in the direct management of this patient. This is a life/limb threatening event. This includes time spent evaluating patient, direct bedside care, chart review, placing orders, interpretation of diagnostic studies, discussion with consultants, patient, and family members, as well as other required patient management activities. This time is exclusive of all separately billable procedures, and teaching time and separate from and in addition to any other critical care service time. Admission and Anticipated Discharge Date Admission Date: June 29, 2024 Subjective Patient seen and examined this morning. Sedation has been discontinued. Patient following commands, but lethargic. Placed on spontaneous breathing trial, but having apneic episodes. I do suspect that we will be able to extubate him later today. No hypotensive episodes this morning. Not currently on any pressors. No evidence of rebleeding status post EGD. Review of Systems Review of Systems: Unobtainable due to endotracheal tube Physical Exam Physical Exam: PHYSICAL EXAM: General: Sedated, intubated and mechanically ventilated Head: Normocephalic, atraumatic ENT: PERRLA, no pharyngeal exudate, mucous membranes dry Neuro: sedated, localizes pain, overbreathing vent, cough and gag present. Fol lowing commands such as moving his toes and fingers when requested. Chest: equal rise and fall of the chest, no accessory muscle use, no heaves or thrills, Clear to auscultation Cardiac: Regular rate and rhythm, telemetry reviewed- NSR/Sinus Tach no ectopy, skin warm dry, cap refill <3 seconds, peripheral pulses +2 no JVD, no murmur, no edema GI: NABS x 4 quadrants, soft, no guarding : Potter to gravity draining dark erika urine Skin: no rash or erythema Results & Data Results & Data Vital Signs (Past 12 Hours) Vital Signs Temp Pulse Pulse Resp BP BP Pulse Ox 06/30/24 08:00 06/30/24 08:00 06/30/24 08:00 86 06/30/24 07:30 06/30/24 07:30 82 16 100 06/30/24 06:03 92 H 14 100 06/30/24 06:00 97/53 L 06/30/24 06:00 97/53 L 06/30/24 06:00 97/53 L 06/30/24 05:54 94 H 16 100 06/30/24 05:45 94 H 14 100 06/30/24 05:45 94/55 L 06/30/24 05:45 94/55 L 06/30/24 05:36 91 H 14 100 06/30/24 05:30 99/51 L 06/30/24 05:30 99/51 L 06/30/24 05:24 91 H 14 100 06/30/24 05:18 91 H 14 100 06/30/24 05:15 99/52 L 06/30/24 05:15 99/52 L 06/30/24 05:00 118/58 L 06/30/24 04:45 92 H 16 100 06/30/24 04:45 91/49 L 06/30/24 04:45 91/49 L 06/30/24 04:30 110/51 L 06/30/24 04:30 86 14 100 06/30/24 04:29 111/56 L 06/30/24 04:18 85 14 100 06/30/24 04:15 119/53 L 06/30/24 04:15 119/53 L 06/30/24 04:15 82 14 100 06/30/24 04:12 122/68 06/30/24 04:12 122/68 06/30/24 04:12 122/68 06/30/24 04:03 85 16 100 06/30/24 04:00 105/52 L 06/30/24 04:00 105/52 L 06/30/24 04:00 105/52 L 06/30/24 04:00 105/52 L 06/30/24 04:00 06/30/24 03:57 84 16 100 06/30/24 03:51 84 16 100 06/30/24 03:45 100/53 L 06/30/24 03:45 100/53 L 06/30/24 03:42 85 16 100 06/30/24 03:36 83 16 100 06/30/24 03:35 77 16 100 06/30/24 03:15 80 16 100 06/30/24 03:15 102/50 L 06/30/24 03:15 102/50 L 06/30/24 03:15 102/50 L 06/30/24 03:00 91/48 L 06/30/24 03:00 91/48 L 06/30/24 02:45 79 16 100 06/30/24 02:45 79/46 L 06/30/24 02:45 79/46 L 06/30/24 02:42 36.5 C 06/30/24 02:40 79/45 L 06/30/24 02:39 79 16 100 06/30/24 02:35 83/48 L 06/30/24 02:35 83/48 L 06/30/24 02:30 79/45 L 06/30/24 02:30 78 16 100 06/30/24 02:15 81 16 100 06/30/24 02:15 81/45 L 06/30/24 02:15 81/45 L 06/30/24 02:12 81 16 100 06/30/24 02:10 06/30/24 02:00 90/48 L 06/30/24 02:00 90/48 L 06/30/24 01:57 85 16 100 06/30/24 01:55 92/49 L 06/30/24 01:55 92/49 L 06/30/24 01:45 100/53 L 06/30/24 01:45 86 16 100 06/30/24 01:35 108/57 L 06/30/24 01:35 108/57 L 06/30/24 01:30 84 16 100 06/30/24 01:30 113/58 L 06/30/24 01:30 113/58 L 06/30/24 01:25 93/52 L 06/30/24 01:18 84 16 100 06/30/24 01:15 84 16 100 06/30/24 01:15 99/43 L 06/30/24 01:15 99/43 L 06/30/24 01:15 36.5 C 91 H 16 100/50 L 100 06/30/24 01:05 114/63 06/30/24 01:05 114/63 06/30/24 01:00 85 16 100 06/30/24 01:00 107/52 L 06/30/24 00:55 95/50 L 06/30/24 00:49 36.5 C 06/30/24 00:41 86 16 100 06/30/24 00:40 06/30/24 00:40 06/30/24 00:12 93 H 12 100 06/30/24 00:00 91 H 13 123/71 100 06/29/24 23:45 91 H 13 127/72 100 06/29/24 23:36 91 H 12 100 06/29/24 23:27 97 H 12 126/72 100 06/29/24 23:00 100 H 12 129/72 98 06/29/24 22:45 100 H 12 135/69 100 06/29/24 22:34 121/61 06/29/24 22:30 145/107 H 06/29/24 22:18 111 H 17 153/74 H 100 06/29/24 22:02 58/40 L 06/29/24 21:54 122 H 29 H 92/53 L 99 06/29/24 21:52 121 H Pulse Ox O2 Del Method O2 Del Method FiO2 06/30/24 08:00 Mechanical Vent 40 06/30/24 08:00 40 06/30/24 08:00 06/30/24 07:30 Mechanical Vent 40 06/30/24 07:30 40 06/30/24 06:03 06/30/24 06:00 06/30/24 06:00 06/30/24 06:00 06/30/24 05:54 06/30/24 05:45 06/30/24 05:45 06/30/24 05:45 06/30/24 05:36 06/30/24 05:30 06/30/24 05:30 06/30/24 05:24 06/30/24 05:18 06/30/24 05:15 06/30/24 05:15 06/30/24 05:00 06/30/24 04:45 06/30/24 04:45 06/30/24 04:45 06/30/24 04:30 06/30/24 04:30 06/30/24 04:29 06/30/24 04:18 06/30/24 04:15 06/30/24 04:15 06/30/24 04:15 06/30/24 04:12 06/30/24 04:12 06/30/24 04:12 06/30/24 04:03 06/30/24 04:00 06/30/24 04:00 06/30/24 04:00 06/30/24 04:00 06/30/24 04:00 40 06/30/24 03:57 06/30/24 03:51 06/30/24 03:45 06/30/24 03:45 06/30/24 03:42 06/30/24 03:36 06/30/24 03:35 40 06/30/24 03:15 06/30/24 03:15 06/30/24 03:15 06/30/24 03:15 06/30/24 03:00 06/30/24 03:00 06/30/24 02:45 06/30/24 02:45 06/30/24 02:45 06/30/24 02:42 06/30/24 02:40 06/30/24 02:39 06/30/24 02:35 06/30/24 02:35 06/30/24 02:30 06/30/24 02:30 06/30/24 02:15 06/30/24 02:15 06/30/24 02:15 06/30/24 02:12 06/30/24 02:10 100 Mechanical Vent 06/30/24 02:00 06/30/24 02:00 06/30/24 01:57 06/30/24 01:55 06/30/24 01:55 06/30/24 01:45 06/30/24 01:45 06/30/24 01:35 06/30/24 01:35 06/30/24 01:30 06/30/24 01:30 06/30/24 01:30 06/30/24 01:25 06/30/24 01:18 06/30/24 01:15 06/30/24 01:15 06/30/24 01:15 06/30/24 01:15 Mechanical Vent 06/30/24 01:05 06/30/24 01:05 06/30/24 01:00 06/30/24 01:00 06/30/24 00:55 06/30/24 00:49 06/30/24 00:41 40 06/30/24 00:40 Mechanical Vent 06/30/24 00:40 40 06/30/24 00:12 06/30/24 00:00 06/29/24 23:45 06/29/24 23:36 40 06/29/24 23:27 06/29/24 23:00 06/29/24 22:45 06/29/24 22:34 06/29/24 22:30 06/29/24 22:18 06/29/24 22:02 06/29/24 21:54 06/29/24 21:52 Coding Level of Care Code 33950 CRITICAL CARE 1ST 30-74M Diagnoses Shock R57.9 Cirrhosis of liver K74.60 Hepatic cirrhosis type: alcoholic cirrhosis Thrombocytopenia D69.6 Alcoholic hepatitis with ascites K70.11 History of splenectomy Z90.81 GERD (gastroesophageal reflux disease) K21.9 (2) Cirrhosis of liver Hepatic cirrhosis type: alcoholic cirrhosis
[2024-06-30] MEDS: THIAMINE HCL 200 MG in SODIUM CHLORIDE 0.9% 50 ML IV SCH (09:56)
[2024-06-30] MEDS: FOLIC ACID 1 MG in SYRINGE 9.8 ML IV SCH (09:56)
--- NOTE | 2024-06-30 10:12 | Gastroenterology Progress Note ---
Date of Service June 30, 2024 Assessment & Plan (1) Bleeding esophageal varices: Plan: Severe upper GI bleeding with hypotension. Endoscopy revealed portal gastropathy without evidence of gastric variceal bleeding. No other bleeding source identified other than visualized esophageal varices. Some mucosal fibrosis from previous banding. 4 bands placed. No bleeding post. Patient has had no signs of active bleeding overnight. Plan Patient can be extubated at the discretion of the ICU physician. Connor Red. Case discussed with him. I believe Rocephin can be discontinued at this time. I will continue the octreotide for 48 hours then with a taper. Patient can have liquids. In event of rebleed consider transfer for possible TIPS. Patient is critically ill and at risk of deterioration from rebleed. Though currently stable. Admission and Anticipated Discharge Date Admission Date: June 29, 2024 Subjective Variceal bleed Review of Systems Review of Systems: Patient remains intubated still nonverbal. However he does nod his head yes or no to questions. Currently denies abdominal pain or chest pain post banding. Physical Exam Physical Exam: Intubated. Drowsy but awake. Benign abdomen Results & Data Results & Data Vital Signs (Past 12 Hours) Vital Signs Temp Pulse Pulse Resp BP BP Pulse Ox 06/30/24 08:00 06/30/24 08:00 06/30/24 08:00 86 06/30/24 07:30 06/30/24 07:30 82 16 100 06/30/24 06:03 92 H 14 100 06/30/24 06:00 97/53 L 06/30/24 06:00 97/53 L 06/30/24 06:00 97/53 L 06/30/24 05:54 94 H 16 100 06/30/24 05:45 94 H 14 100 06/30/24 05:45 94/55 L 06/30/24 05:45 94/55 L 06/30/24 05:36 91 H 14 100 06/30/24 05:30 99/51 L 06/30/24 05:30 99/51 L 06/30/24 05:24 91 H 14 100 06/30/24 05:18 91 H 14 100 06/30/24 05:15 99/52 L 06/30/24 05:15 99/52 L 06/30/24 05:00 118/58 L 06/30/24 04:45 92 H 16 100 06/30/24 04:45 91/49 L 06/30/24 04:45 91/49 L 06/30/24 04:30 110/51 L 06/30/24 04:30 86 14 100 06/30/24 04:29 111/56 L 06/30/24 04:18 85 14 100 06/30/24 04:15 119/53 L 06/30/24 04:15 119/53 L 06/30/24 04:15 82 14 100 06/30/24 04:12 122/68 06/30/24 04:12 122/68 06/30/24 04:12 122/68 06/30/24 04:03 85 16 100 06/30/24 04:00 105/52 L 06/30/24 04:00 105/52 L 06/30/24 04:00 105/52 L 06/30/24 04:00 105/52 L 06/30/24 04:00 06/30/24 03:57 84 16 100 06/30/24 03:51 84 16 100 06/30/24 03:45 100/53 L 06/30/24 03:45 100/53 L 06/30/24 03:42 85 16 100 06/30/24 03:36 83 16 100 06/30/24 03:35 77 16 100 06/30/24 03:15 80 16 100 06/30/24 03:15 102/50 L 06/30/24 03:15 102/50 L 06/30/24 03:15 102/50 L 06/30/24 03:00 91/48 L 06/30/24 03:00 91/48 L 06/30/24 02:45 79 16 100 06/30/24 02:45 79/46 L 06/30/24 02:45 79/46 L 06/30/24 02:42 36.5 C 06/30/24 02:40 79/45 L 06/30/24 02:39 79 16 100 06/30/24 02:35 83/48 L 06/30/24 02:35 83/48 L 06/30/24 02:30 79/45 L 06/30/24 02:30 78 16 100 06/30/24 02:15 81 16 100 06/30/24 02:15 81/45 L 06/30/24 02:15 81/45 L 06/30/24 02:12 81 16 100 06/30/24 02:10 06/30/24 02:00 90/48 L 06/30/24 02:00 90/48 L 06/30/24 01:57 85 16 100 06/30/24 01:55 92/49 L 06/30/24 01:55 92/49 L 06/30/24 01:45 100/53 L 06/30/24 01:45 86 16 100 06/30/24 01:35 108/57 L 06/30/24 01:35 108/57 L 06/30/24 01:30 84 16 100 06/30/24 01:30 113/58 L 06/30/24 01:30 113/58 L 06/30/24 01:25 93/52 L 06/30/24 01:18 84 16 100 06/30/24 01:15 84 16 100 06/30/24 01:15 99/43 L 06/30/24 01:15 99/43 L 06/30/24 01:15 36.5 C 91 H 16 100/50 L 100 06/30/24 01:05 114/63 06/30/24 01:05 114/63 06/30/24 01:00 85 16 100 06/30/24 01:00 107/52 L 06/30/24 00:55 95/50 L 06/30/24 00:49 36.5 C 06/30/24 00:41 86 16 100 06/30/24 00:40 06/30/24 00:40 06/30/24 00:12 93 H 12 100 06/30/24 00:00 91 H 13 123/71 100 06/29/24 23:45 91 H 13 127/72 100 06/29/24 23:36 91 H 12 100 06/29/24 23:27 97 H 12 126/72 100 06/29/24 23:00 100 H 12 129/72 98 06/29/24 22:45 100 H 12 135/69 100 06/29/24 22:34 121/61 06/29/24 22:30 145/107 H 06/29/24 22:18 111 H 17 153/74 H 100 Pulse Ox O2 Del Method O2 Del Method FiO2 06/30/24 08:00 Mechanical Vent 40 06/30/24 08:00 40 06/30/24 08:00 06/30/24 07:30 Mechanical Vent 40 06/30/24 07:30 40 06/30/24 06:03 06/30/24 06:00 06/30/24 06:00 06/30/24 06:00 06/30/24 05:54 06/30/24 05:45 06/30/24 05:45 06/30/24 05:45 06/30/24 05:36 06/30/24 05:30 06/30/24 05:30 06/30/24 05:24 06/30/24 05:18 06/30/24 05:15 06/30/24 05:15 06/30/24 05:00 06/30/24 04:45 06/30/24 04:45 06/30/24 04:45 06/30/24 04:30 06/30/24 04:30 06/30/24 04:29 06/30/24 04:18 06/30/24 04:15 06/30/24 04:15 06/30/24 04:15 06/30/24 04:12 06/30/24 04:12 06/30/24 04:12 06/30/24 04:03 06/30/24 04:00 06/30/24 04:00 06/30/24 04:00 06/30/24 04:00 06/30/24 04:00 40 06/30/24 03:57 06/30/24 03:51 06/30/24 03:45 06/30/24 03:45 06/30/24 03:42 06/30/24 03:36 06/30/24 03:35 40 06/30/24 03:15 06/30/24 03:15 06/30/24 03:15 06/30/24 03:15 06/30/24 03:00 06/30/24 03:00 06/30/24 02:45 06/30/24 02:45 06/30/24 02:45 06/30/24 02:42 06/30/24 02:40 06/30/24 02:39 06/30/24 02:35 06/30/24 02:35 06/30/24 02:30 06/30/24 02:30 06/30/24 02:15 06/30/24 02:15 06/30/24 02:15 06/30/24 02:12 06/30/24 02:10 100 Mechanical Vent 06/30/24 02:00 06/30/24 02:00 06/30/24 01:57 06/30/24 01:55 06/30/24 01:55 06/30/24 01:45 06/30/24 01:45 06/30/24 01:35 06/30/24 01:35 06/30/24 01:30 06/30/24 01:30 06/30/24 01:30 06/30/24 01:25 06/30/24 01:18 06/30/24 01:15 06/30/24 01:15 06/30/24 01:15 06/30/24 01:15 Mechanical Vent 06/30/24 01:05 06/30/24 01:05 06/30/24 01:00 06/30/24 01:00 06/30/24 00:55 06/30/24 00:49 06/30/24 00:41 40 06/30/24 00:40 Mechanical Vent 06/30/24 00:40 40 06/30/24 00:12 06/30/24 00:00 06/29/24 23:45 06/29/24 23:36 40 06/29/24 23:27 06/29/24 23:00 06/29/24 22:45 06/29/24 22:34 06/29/24 22:30 06/29/24 22:18 Laboratory Results Hemoglobin stable above 10. Platelets decreased to 61,000. Common post major hemorrhage. Diagnostic Findings Grade 2 varices at endoscopy. Few red spots on a varix at 2:00 though no definite bleeding source. No other bleeding source identified in the remainder of the upper GI tract. Therefore varices banded x 4. CTA did not show other bleeding source either PG Care Time/CCT Total # of Minutes Spent Total Time Spent with Patient: Total time spent is greater than 50% in coordination of care (as documented) at patient's floor/unit and/or counseling patient: Coding Level of Care Code 10082 SUB INP/OBS CARE 2MIN Diagnoses Bleeding esophageal varices I85.01
[2024-06-30] MEDS: PLASMA-LYTE A 1,000 ML IV SCH (12:42)
--- NOTE | 2024-06-30 15:13 | Communication Note ---
Date of Service: June 30, 2024 Unfortunately throughout the day patient has been having apneic spells while on spontaneous breathing trial and has not been able to be extubated. He also has had increased oral secretions and will start the patient on glycopyrrolate 0.2 mg as needed. Will also add Zofran as needed for nausea and vomiting. Will check ammonia level to evaluate for hyperammonemic encephalopathy. This was discussed with the patient's at bedside who is a nurse in the oncology department. She also feels that the patient has a history of obstructive sleep apnea that has gone unevaluated as an outpatient.
[2024-06-30] MEDS: GLYCOPYRROLATE 0.2 MG/ML VIAL IV PRN (15:17)
[2024-06-30] MEDS: dexMEDEtomidine 200 MCG/50 ML BAG IV SCH (15:18)
--- NOTE | 2024-06-30 16:57 | Communication Note ---
Date of Service: June 30, 2024 Patient reassessed in intensive care unit. There is been no evidence for recurrent gastrointestinal bleeding. He has had excess secretions and some pulp grinder eic periods still remains intubated. Though he is awake. Ammonia level was checked and is 69. Upper range of normal here is 72 patient does not appear to have encephalopathy. With blood in the GI tract seems reasonable to repeat assess tomorrow. Reviewed findings and procedure with who is at the bedside. Patient seems to understand the conversation and contributes with gestures.
[2024-06-30] MEDS: SODIUM CHLORIDE 0.9% 500 ML IV SCH ×2 (17:24→20:32)
[2024-06-30] MEDS: LACTULOSE 200GM/700ML WTR ENEMA PR SCH (18:35)
[2024-06-30] MEDS: PLASMA-LYTE A 500 ML IV ONE (18:50)
[2024-06-30 19:37] LABS: Basophils # (auto) 0.09 K/uL (0.00-0.20); Basophils % (auto) 0.5 %; Eosinophils % (auto) 0.6 %; Hematocrit (blood only) 29.6 % (42.0-52.0); Immature Granulocytes % (auto) 0.6 %; Lymphocytes # (auto) 2.79 K/uL (1.20-3.40); Lymphocytes % (auto) 16.9 %; Mean Corpuscular Hemoglobin 32.6 pg (25.0-34.0); Mean Corpuscular Hgb Conc 33.8 g/dL (32.0-36.0); Mean Corpuscular Volume 96.4 fL (80.0-100.0); Monocytes # (auto) 1.77 K/uL (0.11-0.59); Monocytes % (auto) 10.7 %; Neutrophils # (auto) 11.66 K/uL (1.40-6.50); Neutrophils % (auto) 70.7 %; Platelet Count 76 K/uL (130-400); RDW Coefficient of Variation 17.1 % (11.5-14.5); RDW Standard Deviation 59.1 fL (36.4-46.3); Red Blood Count 3.07 M/uL (4.70-6.10); White Blood Count 16.51 K/ul (4.8-10.8)
[2024-06-30] MEDS: PANTOprazole 40 MG in SYRINGE BID IV SCH (20:47)
[2024-07-01 04:59] LABS: Albumin Globulin Ratio 1.2 (0.9-2); Albumin Level 2.8 gm/dl (3.4-5.0); BUN Creatinine Ratio 24.3 (10-20); Bilirubin,Total 2.3 mg/dl (0.2-1.0); Calcium 8.1 mg/dl (8.6-10.3); Creatinine Clr Calc Pharmacy 121.2 ml/min; Globulin 2.3 gm/dl (2.5-4.0); Magnesium 2.2 mg/dl (1.7-2.4); Potassium 3.9 mmol/L (3.5-5.1); Total Protein 5.1 gm/dl (6.0-8.3)
[2024-07-01 05:10] LABS: INR 1.1 (0.9-1.1); Partial Thromboplastin Ratio 0.9; Partial Thromboplastin Time 24 Seconds (21-31)
[2024-07-01 05:14] LABS: Basophils # (auto) 0.11 K/uL (0.00-0.20); Basophils % (auto) 0.7 %; Eosinophils # (auto) 0.44 K/uL (0.00-0.50); Eosinophils % (auto) 2.6 %; Hemoglobin 9.8 g/dl (14.0-18.0); Immature Granulocytes # (auto) 0.11 K/uL (0.01-0.20); Immature Granulocytes % (auto) 0.7 %; Lymphocytes # (auto) 3.45 K/uL (1.20-3.40); Lymphocytes % (auto) 20.5 %; Mean Corpuscular Hemoglobin 33.1 pg (25.0-34.0); Mean Corpuscular Hgb Conc 33.8 g/dL (32.0-36.0); Mean Platelet Volume 12.2 fL (9.4-12.4); Monocytes # (auto) 2.12 K/uL (0.11-0.59); Monocytes % (auto) 12.6 %; Neutrophils # (auto) 10.56 K/uL (1.40-6.50); Neutrophils % (auto) 62.9 %; Platelet Count 71 K/uL (130-400); RDW Coefficient of Variation 16.8 % (11.5-14.5); RDW Standard Deviation 59.7 fL (36.4-46.3); Red Blood Count 2.96 M/uL (4.70-6.10); White Blood Count 16.79 K/ul (4.8-10.8)
--- NOTE | 2024-07-01 07:11 | Anesthesiology Consultation ---
Date of Service July 01, 2024 Assessment & Plan (1) Encounter for pre-operative examination: Chart Review Chart Review: Acceptable Risk for Surgery History Surgery Operation Date: 06/30/24 12:15 Proposed Procedures p Esophagogastroduodenoscopy - Rik Rousseau MD Height/Weight Height: 6 ft 1 in Weight: 77.8 kg Allergies Allergy/AdvReac Type Severity Reaction Status Date / Time bee venom protein (honey bee) Allergy Severe Hives / Verified 06/29/24 10:49 Anaphylaxis adhesive Allergy Mild Rash-PAPER Verified 06/29/24 10:49 TAPE OK Medications Home Medications Medication Instructions Recorded Confirmed Last Taken folic acid 400 mcg tablet 0.4 mg PO QAM 03/16/21 06/29/24 08/07/23 propranolol 20 mg tablet 20 mg PO BID 03/23/22 06/29/24 08/07/23 cholecalciferol (vitamin D3) 50 50 mcg PO QPM 11/10/22 06/29/24 08/06/23 mcg (2,000 unit) capsule (Vitamin D3) cyanocobalamin (vitamin B-12) 2,000 mcg PO QPM 11/10/22 06/29/24 08/06/23 2,000 mcg tablet,extended release (Vitamin B-12 ER) umeclidinium 62.5 mcg-vilanterol 1 ea inhalation DAILY #60 ea 11/19/22 06/29/24 08/07/23 25 mcg/actuation powdr for inhalation (Anoro Ellipta) furosemide 40 mg tablet 80 mg PO QAM 12/21/22 06/29/24 08/07/23 pantoprazole 40 mg tablet,delayed 40 mg PO BID 12/21/22 06/29/24 08/07/23 release thiamine HCl (vitamin B1) 100 mg 100 mg PO QPM 12/21/22 06/29/24 08/06/23 tablet trazodone 50 mg tablet 50 mg PO HS 12/21/22 06/29/24 08/06/23 glucagon 1 mg solution for 1 mg IM ONCE #1 ea 12/22/22 06/29/24 Unknown injection (Glucagon Emergency Kit) blood sugar diagnostic (Embrace 01/03/23 11/22/23 Unknown PRO test strips) blood-glucose meter,continuous #1 ea 01/05/23 11/22/23 Unknown (Dexcom G6 Flatwork Supervisor) blood-glucose sensor (Dexcom G6 #9 ea 01/05/23 11/22/23 Unknown Sensor device) blood-glucose transmitter (Dexcom #1 ea 01/05/23 11/22/23 Unknown G6 Transmitter device) insulin aspart U-100 100 unit/mL 0 - 20 unit subcut TID 06/16/23 06/29/24 08/07/23 (3 mL) subcutaneous pen (Novolog FlexPen U-100 Insulin aspart) insulin glargine 100 unit/mL (3 40 unit subcut HS 06/16/23 06/29/24 08/06/23 mL) subcutaneous pen Omnipod 5 G6 Intro Kit (Gen 5) #1 ea 07/27/23 11/22/23 Unknown subcutaneous cartridge with controller (insulin pump cart,auto,BT-cntr) insulin pump cart,automated,BT #3 Boxes 07/27/23 11/22/23 Unknown (Omnipod 5 G6 Pods (Gen 5) subcutaneous cartridge) insulin pump cartridge,automated #1 ea 07/29/23 11/22/23 Unknown dose,BT with controller subcutaneous (Omnipod 5 G6 Intro Kit (Gen 5) subcutaneous cartridge with controller) epinephrine 0.3 mg/0.3 mL 0.3 mg IM DAILY PRN Anaphylaxis 08/07/23 06/29/24 Unknown injection, auto-injector levothyroxine 88 mcg tablet 88 mcg PO QAM 08/07/23 06/29/24 08/07/23 insulin aspart U-100 100 unit/mL 100 unit continuous subcutaneous 11/22/23 06/29/24 Unknown subcutaneous solution (Novolog infusion DAILY U-100 Insulin aspart) insulin pump cart,automated,BT #30 ea 11/22/23 11/22/23 Unknown (Omnipod 5 G6 Pods (Gen 5) subcutaneous cartridge) metformin 500 mg tablet,extended 500 mg PO QAM #90 tabs 01/09/24 06/29/24 Unknown release 24 hr Active Medications Generic Name Dose Route Start Last Admin Trade Name Freq PRN Reason Stop Dose Admin Fentanyl Citrate 50 mcg 06/29/24 22:43 06/29/24 22:51 Fentanyl Bolus From Bag IV 07/13/24 22:42 50 mcg Q60M PRN Administration Pain or Agitation Glycopyrrolate 0.2 mg 06/30/24 15:08 06/30/24 23:44 Glycopyrrolate 0.2 Mg/Ml Vial IV 07/30/24 15:07 0.2 mg Q4H PRN Administration oral secretions Octreotide Acetate 500 mcg/ 100.5 mls @ 10.05 mls/hr 06/29/24 22:00 07/01/24 02:45 Sodium Chloride IV 07/29/24 21:59 50 mcg/hr .Q10H LUKASZ 10.1 mls/hr Administration 50 MCG/HR Fentanyl Citrate 2,500 mcg in 250 mls @ 7.5 mls/hr 06/29/24 22:45 07/01/24 02:18 Fentanyl Citrate IV 07/13/24 22:44 Not Given .[id number] LUKASZ Protocol 75 MCG/HR Norepinephrine Bitartrate 4 mg in 250 mls @ 13.481 mls/hr 06/30/24 00:49 06/30/24 20:32 Levophed/D5w IV 07/30/24 00:48 Not Given .[id number] LUKASZ Protocol 0.05 MCG/KG/MIN Thiamine HCl 200 mg/ Sodium 52 mls @ 210 mls/hr 06/30/24 09:00 06/30/24 10:11 Chloride IV 07/30/24 08:59 Infused QAM LUKASZ Infusion Folic Acid 1 mg/ Syringe 10 mls @ 5 mls/min 06/30/24 09:00 06/30/24 09:56 IV 07/30/24 08:59 5 mls/min QAM LUKASZ Administration Pantoprazole Sodium 40 mg in 10 mls @ 5 mls/min 06/30/24 21:00 06/30/24 20:47 Protonix IV 07/30/24 20:59 5 mls/min BID@0900,2100 LUKASZ Administration Parenteral Electrolytes 1,000 mls @ 125 mls/hr 06/30/24 12:00 06/30/24 23:44 Plasma-Lyte A Ph 7.4 IV 07/01/24 11:59 125 mls/hr .Q8H LUKASZ Administration Dexmedetomidine/Sodium Chloride 200 mcg in 50 mls @ 0 mls/hr 06/30/24 15:15 06/30/24 20:33 Precedex IV 07/04/24 15:14 Not Given .Q0M LUKASZ Protocol 0 MCG/KG/HR Sodium Chloride 500 mls @ 15 mls/hr 06/30/24 07:30 06/30/24 20:32 Nss IV 07/01/24 07:29 Not Given .Q24H LUKASZ Insulin Aspart 0 units 06/30/24 03:00 07/01/24 06:17 Insulin Aspart Per Unit Charge SC 07/30/24 02:59 1 units Q6 LUKASZ Administration Lactulose 200 gm 06/30/24 17:30 07/01/24 02:50 Lactulose 200gm/700ml Wtr Enema CO 07/30/24 17:29 200 gm Q8H LUKASZ Administration Midazolam HCl 5 mg 06/29/24 22:44 06/30/24 00:10 Midazolam Hcl 5 Mg/Ml 2ml Vial IV 07/29/24 22:43 5 mg Q1H PRN Administration Anxiety/Agitation Past Medical History Medical History (Updated 07/01/24 @ 07:09 by Jim Kimbrough MD) Bleeding esophageal varices Symptomatic anemia Thrombocytopenia GERD (gastroesophageal reflux disease) History of alcoholic hepatitis treated in 2022 Neuropathy Restless leg syndrome History of pneumonia 2022 History of alcoholism per pt, quit drinking November 10, 2022 Hx pulmonary embolism apprx 2021 > thinner now DC'ed Asplenia S/P abdominal paracentesis Hypothyroid Type 1.5 diabetes, managed as type 1 Ascites hx of and resolved per pt Fatty infiltration of liver Alcoholic cirrhosis Esophageal varices Grade I per 04/22/21 EGD > had EGD 06/2023 and a few areas cauterized per pt report Degenerative disc disease Cirrhosis of liver Hypotension per pt Borderline high cholesterol PTSD (post-traumatic stress disorder) Pancreatic mass benign--pt states 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 Past Family History Family History Mother Dementia Father Prostate cancer Diabetes Heart disease Sister Neurofibromatosis Other No family history of adverse response to anesthesia Past Surgical History Surgical History (Updated 07/01/24 @ 07:09 by Jim Kimbrough MD) History of partial pancreatectomy (~2004) Hx of hernia repair x3 H/O colonoscopy with ultrasound (~April 2023) > hx of pre-cancerous polyps on 1 year plan History of open reduction and internal fixation (ORIF) procedure Right Fifth Metatarsal Open Reduction Internal Fixation, Bone Marrow Aspirate Concentrate Injection into Fracture Site(Right) - Shahzad Blount MD History of open reduction and internal fixation (ORIF) procedure right ankle 07/2021 History of esophagogastroduodenoscopy (EGD) recent 04/22/21 @ [facility]--Grade 1 varices found History of surgery on wrist bilat cysts removed History of tonsillectomy History of tooth extraction History of adenoidectomy History of colonoscopy History of splenectomy Social History Smoking Status: Current every day smoker tobacco type: cigarettes Smoking cigarettes per day: 1/2 pack per day Do You Dip or Chew Tobacco: No Hx Alcohol Use: Yes Alcohol type: hard liquor alcohol intake frequency: 3 or more drinks per day Alcohol Intake Frequency Comment: quit 2022 Hx Substance Use: No substance use type: does not use Physical Exam Vital Signs Last Vital Signs Temp 36.7 C 07/01/24 04:00 Pulse 60 07/01/24 06:17 Resp 14 07/01/24 05:20 BP 110/49 L 07/01/24 06:00 Pulse Ox 100 07/01/24 06:17 O2 Del Method Mechanical Vent 06/30/24 19:30 FiO2 40 07/01/24 05:00 Testing Laboratory Results 07/01/24 04:29 07/01/24 04:29 PT 12.0 Seconds (9.0-12.0) 07/01/24 04:29 INR 1.1 (0.9-1.1) 07/01/24 04:29 APTT 24 Seconds (21-31) 07/01/24 04:29 Blood Type O Positive 06/29/24 21:57 Antibody Screen NEGATIVE 06/29/24 21:57 06/30/24 23:48 POC Glucose 156 H Electrocardiogram Date: 06/29/24 Findings: + NSST changes and + ST @ (122) Echocardiogram Date: 11/15/22 EF: 60-65% LV Function: normal Valvular Disease: + no significant valvular disease
--- NOTE | 2024-07-01 07:47 | Gastroenterology Progress Note ---
Date of Service July 01, 2024 Assessment & Plan (1) Esophageal varices: Plan: Bleeding esophageal varices. Portal gastropathy. Anemia of acute blood loss. Continue octreotide for remainder of today. Could be tapered and discontinued tomorrow. Start Coreg 3.125 mg tomorrow. Follow-up EGD in 2 to 3 weeks for revisualization and retreatment of varices as needed. (2) Acute GI bleeding: Admission and Anticipated Discharge Date Admission Date: June 29, 2024 Subjective Approximately 36 hours post esophageal banding for variceal bleed. Clinically no active gastrointestinal bleeding. He had multiple bowel movements after lactulose enema. Ammonia down to 19. Patient is currently extubated Does not complain of pain with swallowing. For clear fluids today Continue octreotide today. I did review with him starting Coreg as further prophylaxis against variceal bleeding. Patient does have diabetes. Nonselective beta-blockers can interfere with symptoms of hypoglycemia. Alexander states he is rarely hypoglycemic and wears a Dexcom monitor at any rate I think he would benefit from Coreg. Would start tomorrow at 3.125mg I would continue PPIs also. Reviewed should have follow-up in 3 to 4 weeks for consideration of repeat variceal bleeding. He usually follows with Dr. Ty we will facilitate that referral. Tells me his book for colonoscopy on 11 July. Hemoglobin trending down but likely dilutional. Platelets have stop falling. INR good. Likely not bleeding Review of Systems Review of Systems: Denies chest pain shortness of breath or pain with swallowing Physical Exam Physical Exam: Alert and orientated x 3 Benign abdomen ED MANAGER mentally clear Results & Data Results & Data Vital Signs (Past 12 Hours) Vital Signs Temp Pulse Resp BP Pulse Ox Pulse Ox FiO2 07/01/24 06:17 60 100 07/01/24 06:00 110/49 L 07/01/24 06:00 110/49 L 07/01/24 05:53 78 100 07/01/24 05:50 76 100 07/01/24 05:38 77 100 07/01/24 05:20 77 14 100 07/01/24 05:00 89 17 100 07/01/24 05:00 122/52 L 07/01/24 05:00 80 13 100 40 07/01/24 04:48 71 13 100 07/01/24 04:39 95 H 98 07/01/24 04:15 104 H 14 100 07/01/24 04:01 100/53 L 07/01/24 04:01 100/53 L 07/01/24 04:01 100/53 L 07/01/24 04:00 36.7 C 07/01/24 04:00 40 07/01/24 03:54 76 100 07/01/24 03:30 78 100 07/01/24 03:21 86 100 07/01/24 03:03 78 100 07/01/24 02:45 88 18 100 07/01/24 02:30 83 13 100 07/01/24 02:27 87 19 100 07/01/24 02:00 81 15 100 40 07/01/24 02:00 124/56 L 07/01/24 02:00 124/56 L 07/01/24 02:00 84 13 100 07/01/24 02:00 100 07/01/24 01:57 82 18 100 07/01/24 01:21 74 13 100 07/01/24 00:33 86 12 100 07/01/24 00:00 36.8 C 07/01/24 00:00 83 12 100 07/01/24 00:00 112/49 L 07/01/24 00:00 88 07/01/24 00:00 40 06/30/24 23:45 72 13 100 06/30/24 23:33 67 12 100 06/30/24 23:15 86 12 100 06/30/24 23:00 122/57 L 06/30/24 23:00 122/57 L 06/30/24 23:00 122/57 L 06/30/24 23:00 81 100 06/30/24 23:00 63 16 100 40 06/30/24 22:45 77 17 100 06/30/24 22:30 71 14 100 06/30/24 22:18 68 12 100 06/30/24 22:00 65 19 100 06/30/24 22:00 109/49 L 06/30/24 22:00 109/49 L 06/30/24 22:00 109/49 L 06/30/24 22:00 109/49 L 06/30/24 21:54 66 13 100 06/30/24 21:30 69 13 100 06/30/24 21:30 111/69 06/30/24 21:30 111/69 06/30/24 21:15 96/44 L 06/30/24 21:06 36.8 C 06/30/24 21:00 98/42 L 06/30/24 20:51 76 13 100 06/30/24 20:41 94 H 19 100 40 06/30/24 20:36 67 14 100 06/30/24 20:24 68 14 100 06/30/24 20:09 66 16 100 06/30/24 20:00 105/45 L 06/30/24 20:00 105/45 L 06/30/24 20:00 40 06/30/24 19:51 70 13 100 06/30/24 19:48 76 12 100 PG Care Time/CCT Total # of Minutes Spent Total Time Spent with Patient: Total time spent is greater than 50% in coordination of care (as documented) at patient's floor/unit and/or counseling patient: Coding Level of Care Code 58745 SUB INP/OBS CARE 07/07MIN Diagnoses Esophageal varices I85.00 Acute GI bleeding K92.2
[2024-07-01] MEDS: LACTULOSE SYRUP 20 GM/30 ML UDC PO SCH (08:45)
--- NOTE | 2024-07-01 08:47 | Hospitalist Progress Note ---
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 Patient presented to the emergency department with acute GI bleeding, initially passing bloody stool, and then vomiting of blood. He was intubated for airway protection, placed on octreotide drip, Protonix drip, Versed drip, and fentanyl drip. He received 2 units PRBCs with 2 units of crystalloid in the ED. He was also started on ceftriaxone IV. Emergency medicine consulted the [facility] service, and the ICU service, and patient was transferred to the ICU for ongoing care in the ICU, patient was seen by gastroenterology Dr. Rousseau, and underwent emergency endoscopy assessment. #Esophageal variceal bleeding #Symptomatic anemia - Patient to receive 2 units PRBCs (06/29/24) and 2L NSS along with maintenance fluids as noted by the ongoing orders - on octreotide drip only - protonix IV BID - s/p 1 dose of Ceftriaxone - monitor Hgb , currently stable - GI on board, s/p emergent upper endoscopy by Dr. Rousseau (06/29): three columns of grade II varices with stigmata of recent bleeding found in the lower third of the esophagus, s/p 4 bands - GI recs coreg 3.125mg BID starting tomorrow - outpatient follow up with GI, rpt EGD in about 2 to 3 weeks, pt follows with Dr. Ty as outpatient #Intubation for airway protection- - Continue vent management per ICU with serial ABGs and vent management per protocol - extubated on 07/01/24 - pt downgraded from ICU #h/o alcohol abuse- #Alcohol induced cirrhosis - pt denied alcohol use, last used months to about 1 yrs ago - thiamine and folic acid switched to PO - pt follows with Dr. Mary Beth Platt (hepatology), next appointment Aug 07 #Diabetes mellitus- - pharmacy assisting with BG management - pt has Dexcom that he uses to track BG #Hypotension/hypovolemic shock- resolved Admission and Anticipated Discharge Date Admission Date: June 29, 2024 Subjective No acute events overnight Extubated this morning Pt has no complaints at this time Review of Systems Review of Systems: comprehensive ROS neg Physical Exam Physical Exam: Gen: NAD HEENT: NC/AT, MMM Lungs: CTAB CVS: s1s2nl, RRR Abd: soft, NT, nl bowel sounds Ext: no edema Neuro: awake, communicating appropriately Results & Data Results & Data Vital Signs (Past 12 Hours) Vital Signs Temp Pulse Resp BP Pulse Ox Pulse Ox FiO2 07/01/24 08:00 99 H 07/01/24 07:10 79 15 100 40 07/01/24 06:17 60 100 07/01/24 06:00 110/49 L 07/01/24 06:00 110/49 L 07/01/24 05:53 78 100 07/01/24 05:50 76 100 07/01/24 05:38 77 100 07/01/24 05:20 77 14 100 07/01/24 05:00 89 17 100 07/01/24 05:00 122/52 L 07/01/24 05:00 80 13 100 40 07/01/24 04:48 71 13 100 07/01/24 04:39 95 H 98 07/01/24 04:15 104 H 14 100 07/01/24 04:01 100/53 L 07/01/24 04:01 100/53 L 07/01/24 04:01 100/53 L 07/01/24 04:00 36.7 C 07/01/24 04:00 40 07/01/24 03:54 76 100 07/01/24 03:30 78 100 07/01/24 03:21 86 100 07/01/24 03:03 78 100 07/01/24 02:45 88 18 100 07/01/24 02:30 83 13 100 07/01/24 02:27 87 19 100 07/01/24 02:00 81 15 100 40 07/01/24 02:00 124/56 L 07/01/24 02:00 124/56 L 07/01/24 02:00 84 13 100 07/01/24 02:00 100 07/01/24 01:57 82 18 100 07/01/24 01:21 74 13 100 07/01/24 00:33 86 12 100 07/01/24 00:00 36.8 C 07/01/24 00:00 83 12 100 07/01/24 00:00 112/49 L 07/01/24 00:00 88 07/01/24 00:00 40 06/30/24 23:45 72 13 100 06/30/24 23:33 67 12 100 06/30/24 23:15 86 12 100 06/30/24 23:00 122/57 L 06/30/24 23:00 122/57 L 06/30/24 23:00 122/57 L 06/30/24 23:00 81 100 06/30/24 23:00 63 16 100 40 06/30/24 22:45 77 17 100 06/30/24 22:30 71 14 100 06/30/24 22:18 68 12 100 06/30/24 22:00 65 19 100 06/30/24 22:00 109/49 L 06/30/24 22:00 109/49 L 06/30/24 22:00 109/49 L 06/30/24 22:00 109/49 L 06/30/24 21:54 66 13 100 06/30/24 21:30 69 13 100 06/30/24 21:30 111/69 06/30/24 21:30 111/69 06/30/24 21:15 96/44 L 06/30/24 21:06 36.8 C 06/30/24 21:00 98/42 L 06/30/24 20:51 76 13 100 PG Care Time/CCT Total # of Minutes Spent Total Time Spent with Patient: Total time spent is greater than 50% in coordination of care (as documented) at patient's floor/unit and/or counseling patient: Coding Level of Care Code 47086 SUB INP/OBS CARE 2/35MIN Diagnoses Admitted to intensive care unit Z78.9 Acute GI bleeding K92.2 Cirrhosis of liver K74.60 Hepatic cirrhosis type: alcoholic cirrhosis Symptomatic anemia D64.9 (3) Cirrhosis of liver Hepatic cirrhosis type: alcoholic cirrhosis
--- NOTE | 2024-07-01 09:51 | Critical Care Progress Note ---
Date of Service July 01, 2024 Assessment & Plan (1) Shock: (2) Cirrhosis of liver: (3) Thrombocytopenia: (4) History of splenectomy: (5) GERD (gastroesophageal reflux disease): (6) Leukocytosis: Plan Reason Critically Ill: Shock likely hemorrhagic in setting of hematemesis complicated by alcoholic hepatitis. Neuro - Sedated for mechanical ventilation, PTSD CAM ICU: No acute needs -Extubated on alert and oriented. Cardiac - Shock- hemorrhagic, -Hemorrhagic shock resolved. Respiratory - -No significant issues. Continue home inhalers. Extubated. GI - GI bleed unspecified, hx of cirrhosis, hx of partial pancreatectomy and asplenic -Patient status post banding by GI for upper GI bleed. Continue octreotide and pantoprazole 40 mg twice daily. 0130- EGD completed- No active hemorrhage or ulceration noted- finish Protonix then change to IV BID - 4 bands placed to Varices -Advance diet as tolerated. RENAL/LYTES - No acute needs - ICU electrolyte protocol - No acute needs -Remove Potter. ENDO - DM 1.5, Hypothyroid - ICU hyperglycemic protocol. Restart home Synthroid. HEME - Hemorrhagic shock -Mild drop in hemoglobin overnight likely due to dilution. Continue monitoring for signs of bleeding. ID - As above -No overt infectious etiology at this time. Mild leukocytosis possibly related to stress of hemorrhagic bleeding. Afebrile. LINES/IV ACCESS - PIV x3, ETT, OGT, Potter ET tube, OG tube discontinued. Will discontinue Potter. DVT PROPHYLAXIS - SCDS, chemoprophylaxis on hold until hemostasis is proven stable DISPO: Downgrade to PCU today. Admission and Anticipated Discharge Date Admission Date: June 29, 2024 Subjective Patient seen and examined this a.m. He is extubated and tolerating his diet well. No evidence of ongoing GI bleeding. Hemodynamically stable. Denies any significant pain, nausea, shortness of breath, fevers or chills. Review of Systems Review of Systems: All systems reviewed & are unremarkable except as noted in HPI & below Physical Exam Physical Exam: Constitutional: Patient appears to be of their stated age. Patient is in no apparent distress. Patient is well-developed. Eyes: Pupils are equal round and reactive to light. Conjunctivae are normal. Anicteric sclera. Ears nose, mouth and throat: Mallampati class 2. Normal posterior oropharynx. Uvula is midline. Neck: Trachea is midline. Visual inspection is normal. Respiratory: Clear to auscultation bilaterally. No use of accessory muscles. No significant clubbing noted. Cardiovascular: Regular rate and rhythm. No murmurs. No edema. Gastrointestinal: Normal bowel sounds, soft, nontender and nondistended. No hepatosplenomegaly noted. Musculoskeletal: No cyanosis. Patient is able to move all extremities. Strength is 5 out of 5 in the upper and lower extremities. Skin: No rashes, warm dry and intact. Neurologic: No obvious focal neurological deficits seen. Psychiatric: Alert and oriented x3 with a euthymic affect. Results & Data Results & Data Vital Signs (Past 12 Hours) Vital Signs Temp Pulse Resp BP Pulse Ox Pulse Ox O2 Del Method 07/01/24 08:00 Room Air 07/01/24 08:00 99 H 07/01/24 07:10 79 15 100 07/01/24 06:17 60 100 07/01/24 06:00 110/49 L 07/01/24 06:00 110/49 L 07/01/24 05:53 78 100 07/01/24 05:50 76 100 07/01/24 05:38 77 100 07/01/24 05:20 77 14 100 07/01/24 05:00 89 17 100 07/01/24 05:00 122/52 L 07/01/24 05:00 80 13 100 07/01/24 04:48 71 13 100 07/01/24 04:39 95 H 98 07/01/24 04:15 104 H 14 100 07/01/24 04:01 100/53 L 07/01/24 04:01 100/53 L 07/01/24 04:01 100/53 L 07/01/24 04:00 36.7 C 07/01/24 04:00 07/01/24 03:54 76 100 07/01/24 03:30 78 100 07/01/24 03:21 86 100 07/01/24 03:03 78 100 07/01/24 02:45 88 18 100 07/01/24 02:30 83 13 100 07/01/24 02:27 87 19 100 07/01/24 02:00 81 15 100 07/01/24 02:00 124/56 L 07/01/24 02:00 124/56 L 07/01/24 02:00 84 13 100 07/01/24 02:00 100 07/01/24 01:57 82 18 100 07/01/24 01:21 74 13 100 07/01/24 00:33 86 12 100 07/01/24 00:00 36.8 C 07/01/24 00:00 83 12 100 07/01/24 00:00 112/49 L 07/01/24 00:00 88 07/01/24 00:00 06/30/24 23:45 72 13 100 06/30/24 23:33 67 12 100 06/30/24 23:15 86 12 100 06/30/24 23:00 122/57 L 06/30/24 23:00 122/57 L 06/30/24 23:00 122/57 L 06/30/24 23:00 81 100 06/30/24 23:00 63 16 100 06/30/24 22:45 77 17 100 06/30/24 22:30 71 14 100 06/30/24 22:18 68 12 100 06/30/24 22:00 65 19 100 06/30/24 22:00 109/49 L 06/30/24 22:00 109/49 L 06/30/24 22:00 109/49 L 06/30/24 22:00 109/49 L 06/30/24 21:54 66 13 100 FiO2 07/01/24 08:00 07/01/24 08:00 07/01/24 07:10 40 07/01/24 06:17 07/01/24 06:00 07/01/24 06:00 07/01/24 05:53 07/01/24 05:50 07/01/24 05:38 07/01/24 05:20 07/01/24 05:00 07/01/24 05:00 07/01/24 05:00 40 07/01/24 04:48 07/01/24 04:39 07/01/24 04:15 07/01/24 04:01 07/01/24 04:01 07/01/24 04:01 07/01/24 04:00 07/01/24 04:00 40 07/01/24 03:54 07/01/24 03:30 07/01/24 03:21 07/01/24 03:03 07/01/24 02:45 07/01/24 02:30 07/01/24 02:27 07/01/24 02:00 40 07/01/24 02:00 07/01/24 02:00 07/01/24 02:00 07/01/24 02:00 07/01/24 01:57 07/01/24 01:21 07/01/24 00:33 07/01/24 00:00 07/01/24 00:00 07/01/24 00:00 07/01/24 00:00 07/01/24 00:00 40 06/30/24 23:45 06/30/24 23:33 06/30/24 23:15 06/30/24 23:00 06/30/24 23:00 06/30/24 23:00 06/30/24 23:00 06/30/24 23:00 40 06/30/24 22:45 06/30/24 22:30 06/30/24 22:18 06/30/24 22:00 06/30/24 22:00 06/30/24 22:00 06/30/24 22:00 06/30/24 22:00 06/30/24 21:54 Coding Level of Care Code 43662 SUB INP/OBS CARE 2/35MIN Diagnoses Shock R57.9 Cirrhosis of liver K74.60 Hepatic cirrhosis type: alcoholic cirrhosis Thrombocytopenia D69.6 History of splenectomy Z90.81 GERD (gastroesophageal reflux disease) K21.9 Leukocytosis D72.829 (2) Cirrhosis of liver Hepatic cirrhosis type: alcoholic cirrhosis
[2024-07-01] MEDS: UMECLIDINIUM/VILANTEROL 62.5/25MCG 7 PUFFS/INHALER INH SCH (11:00)
[2024-07-01] MEDS: INSULIN ASPART PER UNIT CHARGE SC SCH (11:53)
[2024-07-01] MEDS: INSULIN ASPART PER UNIT CHARGE ONE (11:54)
[2024-07-02] MEDS: ALUMINUM/MAGNESIUM SUSP 30 ML UDC PO PRN (01:56)
[2024-07-02] MEDS: FAMOTIDINE 20MG IV PUSH 20 MG/5 ML SYR IV SCH (02:06)
[2024-07-02] MEDS: LEVOTHYROXINE SODIUM 88 MCG TABLET PO SCH (05:36)
[2024-07-02 06:28] LABS: Basophils # (auto) 0.08 K/uL (0.00-0.20); Basophils % (auto) 0.6 %; Eosinophils # (auto) 0.42 K/uL (0.00-0.50); Eosinophils % (auto) 3.4 %; Hematocrit (blood only) 26.4 % (42.0-52.0); Hemoglobin 9.2 g/dl (14.0-18.0); Immature Granulocytes # (auto) 0.06 K/uL (0.01-0.20); Immature Granulocytes % (auto) 0.5 %; Lymphocytes # (auto) 2.98 K/uL (1.20-3.40); Lymphocytes % (auto) 24.2 %; Mean Corpuscular Hemoglobin 33.7 pg (25.0-34.0); Mean Corpuscular Hgb Conc 34.8 g/dL (32.0-36.0); Mean Corpuscular Volume 96.7 fL (80.0-100.0); Mean Platelet Volume 11.9 fL (9.4-12.4); Monocytes # (auto) 1.62 K/uL (0.11-0.59); Monocytes % (auto) 13.1 %; Neutrophils # (auto) 7.17 K/uL (1.40-6.50); Neutrophils % (auto) 58.2 %; Platelet Count 91 K/uL (130-400); RDW Coefficient of Variation 16.1 % (11.5-14.5); RDW Standard Deviation 55.6 fL (36.4-46.3); Red Blood Count 2.73 M/uL (4.70-6.10); White Blood Count 12.33 K/ul (4.8-10.8)
[2024-07-02 06:46] LABS: Albumin Globulin Ratio 1.5 (0.9-2); Albumin Level 2.7 gm/dl (3.4-5.0); BUN Creatinine Ratio 17.5 (10-20); Bilirubin,Total 1.5 mg/dl (0.2-1.0); Calcium 7.9 mg/dl (8.6-10.3); Creatinine Clr Calc Pharmacy 142.7 ml/min; Globulin 1.8 gm/dl (2.5-4.0); Magnesium 1.9 mg/dl (1.7-2.4); Potassium 3.7 mmol/L (3.5-5.1); Total Protein 4.5 gm/dl (6.0-8.3)
--- NOTE | 2024-07-02 07:06 | Communication Note ---
Date of Service: July 02, 2024 note bp's in low 90s at time... Bblocker relatively contra indicated , bp 90 less associated with increased one year mortality. Defer Bblocker start to out patient follow-up
[2024-07-02] MEDS: THIAMINE HCL 100 MG TAB PO SCH (08:28)
[2024-07-02] MEDS: FOLIC ACID 1 MG TAB PO SCH (08:28)
[2024-07-02] MEDS ORDERED: carvediloL 3.125 MG TAB PO SCH (09:00)
--- NOTE | 2024-07-02 10:38 | Gastroenterology Progress Note ---
Date of Service July 02, 2024 Assessment & Plan (1) Cirrhosis of liver: Plan: 59 year old male with history of alcoholic hepatitis, ETOH induced cirrhosis w/ known esophageal varices, PE, DM, PTSD admitted w/ reports of hematemesis and melena s/p EGD w/ large eso varices w/ stigmata of recent bleeding s/p banding - Octreotide for a total of 48 hours (may be D/C now) - IV PPI twice daily - Trend H&H - Avoid over transfusion - If s/s of rebleeding needs to be transferred emergently to a facility with TIPS capability - MELD labs every 6 months - ABD imaging w/ AFP every 6 months - EGD every 1-2 years - No ETOH - No NSAIDs - Avoid hepatotoxin - Low NA diet, less than 2G daily - Less than 2G acetaminophen containing products daily - Continue management per [facility] of your liver disease I spent a total of 40 minutes on the date of service in review of patient's record, and previously obtained information in person and appropriate medical visit, discussion and education of plan, with patient and/or caregiver, placing orders for tests/referral/procedures as medically necessary and documentation of pertinent clinical information in patient's medical records for their visit today. Admission and Anticipated Discharge Date Admission Date: June 29, 2024 Supervising Physician Co-Signing Physician Notes Patient examined the bedside. Is well alert and orientated x 3 denies any further melena or hematemesis. Counts are stable. Probable okay for discharge tomorrow. Follow-up with Dr. Ty. Should consider repeat EGD in 2 to 3 weeks for revisualization and rebanding of varices as needed. Because he has been intermittently hypotensive I would defer starting Coreg at this time. Return if problems. Subjective Pt was seen and evaluated, chart reviewed. Offers no concerns this AM. No nausea/vomiting. No further black stools. No bloody stools. EGD 2023: Three columns of grade II varices with stigmata of recent bleeding were found in the lower third of the esophagus. They were small in size. No red yany signs were present. Scarring from prior treatment was visible. Four bands were successfully placed with complete eradication, resulting in deflation of varices. There was no bleeding during nor at the end of the procedure. Estimated blood loss: none. - Clotted blood was found in the gastric fundus. Lavage of the area was performed using a moderate amount, resulting in clearance with adequate visualization. - Red blood was found in the duodenal bulb and in the second portion of the duodenum. Lavage of the area was performed using a moderate amount, resulting in clearance with good visualization. Review of Systems Review of Systems: All other findings negative except as noted in HPI. Physical Exam Constitutional: WD/WN, vitals as above Respiratory: normal respiratory effort Gastrointestinal (Abdomen): normal bowel sounds, soft, nontender, no hepatosplenomegaly Skin: no rashes, warm and dry Results & Data Results & Data Vital Signs (Past 12 Hours) Vital Signs Temp Pulse Pulse Resp BP BP Pulse Ox 07/02/24 08:09 82 125/63 07/02/24 07:50 98.6 F 88 18 101/59 L 94 07/02/24 07:27 89 07/02/24 04:17 93 07/02/24 03:58 99.0 F 76 16 95/56 L 91 07/02/24 02:15 98.8 F 86 16 100/55 L 93 07/01/24 23:10 97 H 18 102/54 L 93 O2 Del Method 07/02/24 08:09 07/02/24 07:50 Room Air 07/02/24 07:27 07/02/24 04:17 Room Air 07/02/24 03:58 Room Air 07/02/24 02:15 Room Air 07/01/24 23:10 Room Air Laboratory Results 07/02/24 07/02/24 07/01/24 Range/Units 07:20 05:50 20:13 WBC 12.33 H (4.8-10.8) K/ul RBC 2.73 L (4.70-6.10) M/uL Hgb 9.2 L (14.0-18.0) g/dl Hct 26.4 L (42.0-52.0) % MCV 96.7 (80.0-100.0) fL MCH 33.7 (25.0-34.0) pg MCHC 34.8 (32.0-36.0) g/dL RDW Std Deviation 55.6 H (36.4-46.3) fL RDW Coeff of Ramone 16.1 H (11.5-14.5) % Plt Count 91 L (130-400) K/uL MPV 11.9 (9.4-12.4) fL Immature Gran % (Auto) 0.5 % Neut % (Auto) 58.2 % Lymph % (Auto) 24.2 % [place] % (Auto) 13.1 % Eos % (Auto) 3.4 % Baso % (Auto) 0.6 % Neut # (Auto) 7.17 H (1.40-6.50) K/uL Lymph # (Auto) 2.98 (1.20-3.40) K/uL [place] # (Auto) 1.62 H (0.11-0.59) K/uL Eos # (Auto) 0.42 (0.00-0.50) K/uL Baso # (Auto) 0.08 (0.00-0.20) K/uL Immature Gran # (Auto) 0.06 (0.01-0.20) K/uL Sodium 136 (136-145) mmol/L Potassium 3.7 (3.5-5.1) mmol/L Chloride 105 (98-107) mmol/L Carbon Dioxide 27 (21-32) mmol/L Anion Gap 4 (3-11) BUN 11 (6-23) mg/dl Creatinine 0.63 (0.6-1.4) mg/dl Est Cr Clr Drug Dosing 142.7 ml/min eGFR 110.95 BUN/Creatinine Ratio 17.5 (10-20) Glucose 156 H (70-99(Fasting)) mg/dl POC Glucose 105 H 211 H (70-99) mg/dl Calcium 7.9 L (8.6-10.3) mg/dl Magnesium 1.9 (1.7-2.4) mg/dl Total Bilirubin 1.5 H (0.2-1.0) mg/dl AST 28 (13-39) U/L ALT 13 (7-52) U/L Alkaline Phosphatase 85 (34-104) U/L Total Protein 4.5 L (6.0-8.3) gm/dl Albumin 2.7 L (3.4-5.0) gm/dl Globulin 1.8 L (2.5-4.0) gm/dl Albumin/Globulin Ratio 1.5 (0.9-2) 07/01/24 07/01/24 Range/Units 16:33 10:58 WBC (4.8-10.8) K/ul RBC (4.70-6.10) M/uL Hgb (14.0-18.0) g/dl Hct (42.0-52.0) % MCV (80.0-100.0) fL MCH (25.0-34.0) pg MCHC (32.0-36.0) g/dL RDW Std Deviation (36.4-46.3) fL RDW Coeff of Ramone (11.5-14.5) % Plt Count (130-400) K/uL MPV (9.4-12.4) fL Immature Gran % (Auto) % Neut % (Auto) % Lymph % (Auto) % [place] % (Auto) % Eos % (Auto) % Baso % (Auto) % Neut # (Auto) (1.40-6.50) K/uL Lymph # (Auto) (1.20-3.40) K/uL [place] # (Auto) (0.11-0.59) K/uL Eos # (Auto) (0.00-0.50) K/uL Baso # (Auto) (0.00-0.20) K/uL Immature Gran # (Auto) (0.01-0.20) K/uL Sodium (136-145) mmol/L Potassium (3.5-5.1) mmol/L Chloride (98-107) mmol/L Carbon Dioxide (21-32) mmol/L Anion Gap (3-11) BUN (6-23) mg/dl Creatinine (0.6-1.4) mg/dl Est Cr Clr Drug Dosing ml/min eGFR BUN/Creatinine Ratio (10-20) Glucose (70-99(Fasting)) mg/dl POC Glucose 142 H 243 H (70-99) mg/dl Calcium (8.6-10.3) mg/dl Magnesium (1.7-2.4) mg/dl Total Bilirubin (0.2-1.0) mg/dl AST (13-39) U/L ALT (7-52) U/L Alkaline Phosphatase (34-104) U/L Total Protein (6.0-8.3) gm/dl Albumin (3.4-5.0) gm/dl Globulin (2.5-4.0) gm/dl Albumin/Globulin Ratio (0.9-2) PG Care Time/CCT Total # of Minutes Spent Total Time Spent with Patient: Total time spent is greater than 50% in coordination of care (as documented) at patient's floor/unit and/or counseling patient: Coding Level of Care Code 05396 SUB INP/OBS CARE 2/35MIN Diagnoses Cirrhosis of liver K74.60 Hepatic cirrhosis type: alcoholic cirrhosis (1) Cirrhosis of liver Hepatic cirrhosis type: alcoholic cirrhosis
--- NOTE | 2024-07-02 16:53 | Hospitalist Progress Note ---
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 Patient presented to the emergency department with acute GI bleeding, initially passing bloody stool, and then vomiting of blood. He was intubated for airway protection, placed on octreotide drip, Protonix drip, Versed drip, and fentanyl drip. He received 2 units PRBCs with 2 units of crystalloid in the ED. He was also started on ceftriaxone IV. Emergency medicine consulted the [facility] [place] [facility] service, and the ICU service, and patient was transferred to the ICU for ongoing care in the ICU, patient was seen by gastroenterology Dr. Rousseau, and underwent emergency endoscopy assessment. #Esophageal variceal bleeding #Symptomatic anemia - Patient receive 2 units PRBCs (06/29/24) and 2L NSS along with maintenance fluids as noted by the ongoing orders -Discontinue octreotide drip today - protonix IV BID - s/p 1 dose of Ceftriaxone - monitor Hgb , currently stable - GI on board, s/p emergent upper endoscopy by Dr. Rousseau (06/29): three columns of grade II varices with stigmata of recent bleeding found in the lower third of the esophagus, s/p 4 bands - GI initially recommended coreg 3.125mg BID but due to low blood pressure, deferred starting Coreg to outpatient follow-up - outpatient follow up with GI, rpt EGD in about 2 to 3 weeks, pt follows with Dr. Ty as outpatient #Intubation for airway protection- - extubated on 07/01/24 - pt downgraded from ICU #h/o alcohol abuse- #Alcohol induced cirrhosis - pt denied alcohol use, last used months to about 1 yrs ago - thiamine and folic acid switched to PO - pt follows with Dr. Mary Beth Platt (hepatology), next appointment Aug 07 #Diabetes mellitus- - pharmacy assisting with BG management - pt has Dexcom that he uses to track BG #Hypotension/hypovolemic shock- resolved Likely discharge in a day or 2 Admission and Anticipated Discharge Date Admission Date: June 29, 2024 Subjective Patient was seen and examined at 11:30 AM. He feels well in general. He was accompanied by family at the bedside. Review of Systems Review of Systems: All systems reviewed & are unremarkable except as noted in Subjective Physical Exam Physical Exam: General: Awake, conversant Heart: S1, S2/regular rate and rhythm, no murmur rubs or gallops Lungs: Clear to auscultation bilaterally. Normal effort Abdomen: Soft/nontender/distended. Extremities: No clubbing/cyanosis. No edema Behavior: Appropriate, cooperative Results & Data Results & Data Vital Signs (Past 12 Hours) Vital Signs Temp Pulse Pulse Resp BP BP Pulse Ox 07/02/24 15:54 36.8 C 90 20 121/71 96 07/02/24 15:45 91 H 07/02/24 11:16 36.8 C 82 18 103/63 93 07/02/24 08:09 82 125/63 07/02/24 07:50 37.0 C 88 18 101/59 L 94 07/02/24 07:27 89 O2 Del Method 07/02/24 15:54 Room Air 07/02/24 15:45 07/02/24 11:16 Room Air 07/02/24 08:09 07/02/24 07:50 Room Air 07/02/24 07:27 Laboratory Results Abnormal lab results 07/01/24 07/02/24 07/02/24 Range/Units 20:13 05:50 07:20 WBC 12.33 H (4.8-10.8) K/ul RBC 2.73 L (4.70-6.10) M/uL Hgb 9.2 L (14.0-18.0) g/dl Hct 26.4 L (42.0-52.0) % RDW Std Deviation 55.6 H (36.4-46.3) fL RDW Coeff of Ramone 16.1 H (11.5-14.5) % Plt Count 91 L (130-400) K/uL Neut # (Auto) 7.17 H (1.40-6.50) K/uL [place] # (Auto) 1.62 H (0.11-0.59) K/uL Glucose 156 H (70-99(Fasting)) mg/dl POC Glucose 211 H 105 H (70-99) mg/dl Calcium 7.9 L (8.6-10.3) mg/dl Total Bilirubin 1.5 H (0.2-1.0) mg/dl Total Protein 4.5 L (6.0-8.3) gm/dl Albumin 2.7 L (3.4-5.0) gm/dl Globulin 1.8 L (2.5-4.0) gm/dl 07/02/24 07/02/24 Range/Units 11:33 16:31 WBC (4.8-10.8) K/ul RBC (4.70-6.10) M/uL Hgb (14.0-18.0) g/dl Hct (42.0-52.0) % RDW Std Deviation (36.4-46.3) fL RDW Coeff of Ramone (11.5-14.5) % Plt Count (130-400) K/uL Neut # (Auto) (1.40-6.50) K/uL [place] # (Auto) (0.11-0.59) K/uL Glucose (70-99(Fasting)) mg/dl POC Glucose 180 H 176 H (70-99) mg/dl Calcium (8.6-10.3) mg/dl Total Bilirubin (0.2-1.0) mg/dl Total Protein (6.0-8.3) gm/dl Albumin (3.4-5.0) gm/dl Globulin (2.5-4.0) gm/dl PG Care Time/CCT Total # of Minutes Spent Total Time Spent with Patient: Total time spent is greater than 50% in coordination of care (as documented) at patient's floor/unit and/or counseling patient: Coding Level of Care Code 27197 SUB INP/OBS CARE 2/35MIN Diagnoses Admitted to intensive care unit Z78.9 Acute GI bleeding K92.2 Cirrhosis of liver K74.60 Hepatic cirrhosis type: alcoholic cirrhosis Symptomatic anemia D64.9 (3) Cirrhosis of liver Hepatic cirrhosis type: alcoholic cirrhosis
--- NOTE | 2024-07-03 16:25 | Hospitalist Progress Note ---
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 Patient presented to the emergency department with acute GI bleeding, initially passing bloody stool, and then vomiting of blood. He was intubated for airway protection, placed on octreotide drip, Protonix drip, Versed drip, and fentanyl drip. He received 2 units PRBCs with 2 units of crystalloid in the ED. He was also started on ceftriaxone IV. [facility], and patient was transferred to the ICU for ongoing care in the ICU, patient was seen by gastroenterology Dr. Rousseau, and underwent emergency endoscopy assessment. #Esophageal variceal bleeding #Symptomatic anemia - Patient receive 2 units PRBCs (06/29/24) and 2L NSS along with maintenance fluids as noted by the ongoing orders -Discontinue octreotide drip - protonix switched to p.o. - s/p 1 dose of Ceftriaxone - monitor Hgb , currently stable - GI on board, s/p emergent upper endoscopy by Dr. Rousseau (06/29): three columns of grade II varices with stigmata of recent bleeding found in the lower third of the esophagus, s/p 4 bands - GI initially recommended coreg 3.125mg BID but due to low blood pressure, deferred starting Coreg to outpatient follow-up - outpatient follow up with GI, rpt EGD in about 2 to 3 weeks, pt follows with Dr. Ty as outpatient #Intubation for airway protection- - extubated on 07/01/24 - pt downgraded from ICU #h/o alcohol abuse- #Alcohol induced cirrhosis - pt denied alcohol use, last used months to about 1 yrs ago - thiamine and folic acid switched to PO - pt follows with Dr. Mary Beth Platt (hepatology), next appointment Aug 07 #Diabetes mellitus- - pharmacy assisting with BG management - pt has Dexcom that he uses to track BG #Hypotension/hypovolemic shock- resolved Discharge to home tomorrow provided labs stable and no further bleeding Admission and Anticipated Discharge Date Admission Date: June 29, 2024 Subjective Patient was seen and examined at 12:40 PM. No further episodes of bleeding. Review of Systems Review of Systems: All systems reviewed & are unremarkable except as noted in Subjective Physical Exam Physical Exam: General: Awake, conversant Heart: S1, S2/regular rate and rhythm, no murmur rubs or gallops Lungs: Clear to auscultation bilaterally. Normal effort Abdomen: Soft/nontender/distended. Extremities: No clubbing/cyanosis. No edema Behavior: Appropriate, cooperative Results & Data Results & Data Vital Signs (Past 12 Hours) Vital Signs Temp Pulse Pulse Pulse Pulse Resp Resp 07/03/24 15:25 36.8 C 74 16 07/03/24 15:09 84 07/03/24 13:40 108 H 98 H 17 07/03/24 10:40 07/03/24 10:40 36.8 C 67 18 07/03/24 07:48 63 07/03/24 07:00 36.8 C 77 18 07/03/24 04:43 36.7 C 65 18 Resp BP BP Pulse Ox Pulse Ox Pulse Ox O2 Del Method 07/03/24 15:25 119/60 99 Nasal Cannula 07/03/24 15:09 07/03/24 13:40 15 94 96 07/03/24 10:40 Room Air 07/03/24 10:40 106/58 L 99 Nasal Cannula 07/03/24 07:48 07/03/24 07:00 111/65 99 Room Air 07/03/24 04:43 113/67 98 Nasal Cannula O2 Flow Rate 07/03/24 15:25 1 07/03/24 15:09 07/03/24 13:40 07/03/24 10:40 07/03/24 10:40 1 07/03/24 07:48 07/03/24 07:00 07/03/24 04:43 1 Laboratory Results Abnormal lab results 06/29/24 07/02/24 07/02/24 Range/Units 21:57 16:31 20:27 POC Glucose 176 H 142 H (70-99) mg/dl Crossmatch See Detail 07/03/24 07/03/24 07/03/24 Range/Units 07:23 10:57 16:17 POC Glucose 148 H 162 H 157 H (70-99) mg/dl Crossmatch PG Care Time/CCT Total # of Minutes Spent Total Time Spent with Patient: Total time spent is greater than 50% in coordination of care (as documented) at patient's floor/unit and/or counseling patient: Coding Level of Care Code 70017 SUB INP/OBS CARE 2/35MIN Diagnoses Admitted to intensive care unit Z78.9 Acute GI bleeding K92.2 Cirrhosis of liver K74.60 Hepatic cirrhosis type: alcoholic cirrhosis Symptomatic anemia D64.9 (3) Cirrhosis of liver Hepatic cirrhosis type: alcoholic cirrhosis
[2024-07-03] MEDS: PANTOprazole 40 MG TAB PO SCH (20:28)
[2024-07-04 03:49] VITALS: RESP 18
[2024-07-04 07:13] LABS: Hematocrit (blood only) 27.2 % (42.0-52.0); Hemoglobin 9.3 g/dl (14.0-18.0); Mean Corpuscular Hemoglobin 32.6 pg (25.0-34.0); Mean Corpuscular Hgb Conc 34.2 g/dL (32.0-36.0); Mean Corpuscular Volume 95.4 fL (80.0-100.0); Mean Platelet Volume 11.7 fL (9.4-12.4); Platelet Count 139 K/uL (130-400); RDW Coefficient of Variation 15.7 % (11.5-14.5); RDW Standard Deviation 53.8 fL (36.4-46.3); Red Blood Count 2.85 M/uL (4.70-6.10); White Blood Count 9.82 K/ul (4.8-10.8)
[2024-07-04 07:20] VITALS: PULSE 71; TEMP 98.1; O2SAT 97
[2024-07-04 08:47] VITALS: BP 113/67
[2024-07-04] MEDS: PNEUMOCOCCAL VACCINE (PCV20) 20-VAL CONJ-DIP CRM/PF 0.5 ML SYR IM ONE (09:01)
[2024-07-04] MEDS: INFLUENZA VACC TS2024-25(6m+)/PF (IIV3) 0.5mL Syr IM ONE (09:02)
--- NOTE | 2024-07-04 09:02 | Discharge Summary ---
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 Patient presented to the emergency department with acute GI bleeding, initially passing bloody stool, and then vomiting of blood. He was intubated for airway protection, placed on octreotide drip, Protonix drip, Versed drip, and fentanyl drip. He received 2 units PRBCs with and 2 units of crystalloid in the ED. He was also started on ceftriaxone IV. Emergency medicine consulted [facility], and the ICU service, and patient was transferred to the ICU for ongoing care in the ICU, patient was seen by gastroenterology Dr. Rousseau, and underwent emergency endoscopy assessment. Admission Exam Per Admitting Provider The patient is sedated and intubated, well developed and well nourished, lying in bed and in no acute distress. HEENT--PERRL, EOMI, mucous membranes and oropharynx dry. Neck--supple. No JVD. No bruits. Thyroid normal, trachea midline, no adenopathy. Heart--normal S1 and S2. No murmurs, rubs or gallops. Lungs--clear bilaterally, no respiratory distress, no accessory muscle use. Abdomen--normal bowel sounds and soft. Mildly tympanitic and distended. Extremities--no cyanosis or clubbing. Trace bilateral pretibial pitting edema. There are good distal pulses b/l. Dermatologic--normal skin turgor, normal color, no abnormal lymph nodes, no rash. Neurologic--limited exam Rheumatologic--limited exam Psychiatric--intubated and sedated. Principal Diagnosis Esophageal variceal bleeding status post bands Symptomatic acute blood loss anemia Alcohol induced cirrhosis Discharge Exam General: Awake, conversant Heart: S1, S2/regular rate and rhythm, no murmur rubs or gallops Lungs: Clear to auscultation bilaterally. Normal effort Abdomen: Soft/nontender/distended. Extremities: No clubbing/cyanosis. No edema Behavior: Appropriate, cooperative Discharge Data Allergies Allergy/AdvReac Type Severity Reaction Status Date / Time bee venom protein (honey bee) Allergy Severe Hives / Verified 06/29/24 10:49 Anaphylaxis adhesive Allergy Mild Rash-PAPER Verified 06/29/24 10:49 TAPE OK Consultations 06/29/24 23:38 ED Decision to Admit Stat 06/29/24 23:47 Consult Gastroenterology Routine Consult Environmental Program Manager Routine 06/30/24 00:49 Consult Environmental Program Manager Routine Procedures Performed Operation Date: 06/30/24 12:15 Actual Procedures p EGD Banding of Varices - Rik Rousseau MD Ordered Studies 06/29/24 21:47 CT angio abdomen pelvis w con Stat Hospital Course (1) Admitted to intensive care unit: (2) Acute GI bleeding: (3) Cirrhosis of liver: (4) Symptomatic anemia: Plan The patient is a 59-year-old male with past medical history including liver cirrhosis, prior alcohol abuse, esophageal varices, 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 Patient presented to the emergency department with acute GI bleeding, initially passing bloody stool, and then vomiting of blood. He was intubated for airway protection, placed on octreotide drip, Protonix drip, Versed drip, and fentanyl drip. He received 2 units PRBCs with 2 units of crystalloid in the ED. He was also started on ceftriaxone IV. Emergency medicine consulted the [facility] service, and the ICU service, and patient was transferred to the ICU for ongoing care in the ICU, patient was seen by gastroenterology Dr. Rousseau, and underwent emergency endoscopy assessment. #Esophageal variceal bleeding #Symptomatic anemia - Patient receive 2 units PRBCs (06/29/24) and 2L NSS along with maintenance fluids as noted by the ongoing orders -Discontinued octreotide drip - protonix switched to p.o. - s/p 1 dose of Ceftriaxone - GI on board, s/p emergent upper endoscopy by Dr. Rousseau (06/29): three columns of grade II varices with stigmata of recent bleeding found in the lower third of the esophagus, s/p 4 bands - GI initially recommended coreg 3.125mg BID but due to low blood pressure, deferred starting Coreg to outpatient follow-up - outpatient follow up with GI, rpt EGD in about 2 to 3 weeks, pt follows with Dr. Ty as outpatient Hemoglobin stable #Intubation for airway protection- - extubated on 07/01/24 - pt downgraded from ICU #h/o alcohol abuse- #Alcohol induced cirrhosis - pt denied alcohol use, last used months to about 1 yrs ago - thiamine and folic acid switched to PO - pt follows with Dr. Mary Beth Platt (hepatology), next appointment Aug 07 #Diabetes mellitus- - pharmacy assisting with BG management - pt has Dexcom that he uses to track BG #Hypotension/hypovolemic shock- resolved Discharge to home today Total Time Total Time Spent Total Time Spent (In Minutes): 35 Discharge Plan Discharge Items Patient Disposition: Home - Self-Care Reason For Visit: GI BLEED Discharge Diagnosis: Esophageal variceal bleeding status post bands Symptomatic acute blood loss anemia Alcohol induced cirrhosis Activity: Resume your previous activity Non-emergency contact: Primary Care Provider Call non-emergency contact if: you have any medication questions and your symptoms worsen Follow-up/Referrals: Nessa Hardin MD [Primary Care Provider] - 07/09/24 1:00 pm (Hospital follow up on July 09 at 1 pm with an arrival time of 12:45 pm.) Kayla Ty Jr, MD [Physician] - 07/25/24 10:20 am (Hospital follow up on July 25 at 10:20 am.) Diet: Low Sodium (2gm) Addtl Attending Provider Instructions: Advised to follow-up with PCP in 1 week Advised to follow-up with GI in 3 weeks Advised to follow-up with hepatology on scheduled date Addtl Cradle Slide Maker Provider Instructions: GI recommendations: - MELD labs every 6 months - Abdominal imaging w/ AFP every 6 months - EGD every 1-2 years - No alcohol - No NSAIDs Pending Studies at Discharge: No Stand-Alone Forms: [employer], Smoking Cessation Medications and DC Order Prescriptions: Continued (DME) Omnipod 5 G6 Intro Kit (Gen 5) Cartridge See Rx Instructions .Route Qty: 1 0RF Rx Instructions: controller for use with omnipod 5 sensors (DME) Omnipod 5 G6 Pods (Gen 5) Cartridge See Rx Instructions .Route Qty: 3 11RF Rx Instructions: change pod every 48 hours (DME) Omnipod 5 G6 Intro Kit (Gen 5) Cartridge See Rx Instructions .Route Qty: 1 0RF Rx Instructions: change every 3 days metformin 500 mg tablet extended release 24 hr 500 mg PO QAM Qty: 90 1RF (DME) Embrace PRO test strips Strip See Rx Instructions .Route Rx Instructions: As directed (DME) Dexcom G6 Grey Roll Worker Misc See Rx Instructions .Route Qty: 1 0RF Rx Instructions: use to monitor blood glucose levels (DME) Dexcom G6 Sensor Device See Rx Instructions .Route Qty: 9 3RF Rx Instructions: change sensor Q10D (DME) Dexcom G6 Transmitter Device See Rx Instructions .Route Qty: 1 3RF Rx Instructions: change Q90D (DME) Omnipod 5 G6 Pods (Gen 5) Cartridge See Rx Instructions .Route Qty: 30 5RF Rx Instructions: change every 3 days folic acid 400 mcg Tablet 0.4 mg PO QAM propranolol 20 mg Tablet 20 mg PO BID cyanocobalamin (vitamin B-12) [Vitamin B-12] 2,000 mcg Tablet Extended Release 2,000 mcg PO QPM cholecalciferol (vitamin D3) [Vitamin D3] 50 mcg (2,000 unit) Capsule 50 mcg PO QPM Anoro Ellipta 62.5-25 mcg/actuation Blister With Device 1 ea inhalation DAILY Qty: 60 0RF furosemide 40 mg tablet 80 mg PO QAM trazodone 50 mg tablet 50 mg PO HS thiamine HCl (vitamin B1) 100 mg tablet 100 mg PO QPM pantoprazole 40 mg tablet,delayed release (DR/EC) 40 mg PO BID Glucagon Emergency Kit (human) 1 mg recon soln 1 mg IM ONCE Qty: 1 2RF Rx Instructions: For hypoglycemia rescue insulin glargine 100 unit/mL (3 mL) Insulin Pen 40 unit SUBCUT HS Patient Comments: no longer using this per pt 06/29/24 insulin aspart U-100 [Novolog FlexPen U-100 Insulin] 100 unit/mL (3 mL) insulin pen 0 - 20 unit subcut TID Patient Comments: finished with this 06/29/24 Rx Instructions: Inject 0-20 units into the abdomen 3 times daily with meals. epinephrine 0.3 mg/0.3 mL auto-injector 0.3 mg IM DAILY PRN (Reason: Anaphylaxis) levothyroxine 88 mcg tablet 88 mcg PO QAM Rx Instructions: Take 1 tablet every other day for 1 week, then daily. Take on an empty stomach first thing in am with a full glass of water. wait at least 30 minutes before other meds or eating. insulin aspart U-100 [Novolog U-100 Insulin aspart] 100 unit/mL solution 100 unit continuous subcutaneous infusion DAILY Rx Instructions: for use in insulin pump--use 100 units daily Discharge Orders: Discharge Order (Routine); Ordered 07/04/24 Ordered By: Jonh Fenton Admission Data Admit Date/Time: 06/29/24 23:51 Attending Provider: Jonh Fenton Admit Provider: Micky Dial Primary Care Provider: Nessa Hardin Other Providers: Connor Red; Micky Dial; Rik Rousseau; [facility]
[2024-07-04 12:36] LABS: 7-Aminoclonaz, Confirm NEGATIVE ng/mL (<25); Fentanyl, Urine 21.8 ng/mL (<0.5); Hydro-Alp Ur, GC/MS NEGATIVE ng/mL (<25); Hydroxyethylflurazepam, Conf NEGATIVE ng/mL (<50); Hydroxymidazolam Ur, GC/MS >2000 ng/mL (<50); Hydroxytriazolam NEGATIVE ng/mL (<50); Lorazepam, Ur GC/MS NEGATIVE ng/mL (<50); Nordiazepam, Confirm NEGATIVE ng/mL (<50); Norfentanyl, Urine 8.4 ng/mL (<0.5); Oxazepam Ur, GC/MS NEGATIVE ng/mL (<50); Temazepam, Confirm NEGATIVE ng/mL (<50); medMATCH Fentanyl, Urine DNR; medMATCH Norfentanyl, Urine DNR
== END 2024-07-04 09:22 | disposition home or self-care (01) | DRG 432 ==
LOC: ED 21:27 → SUATTDRO 23:51 → 1E 23:51 → 2S 07-01 15:14